=== PATIENT | female | born 2005 | race Caucasian/White ===

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

== ENCOUNTER → 2024-05-24 | Outpatient (CLI) | payer OTHER, SELFPAY ==
[2024-05-24 12:29] LABS: ALB/GLOB Ratio 1.2 RATIO (0.9-2.4); AST(SGOT) 23 U/L (15-37); Alanine Aminotransfer ALT/SGPT 50 U/L (13-56); Albumin, Serum 3.8 g/dL (3.2-5.0); Alkaline Phosphatase 72 U/L (45-117); Anion Gap 7 (5-15); BUN 16 mg/dL (7-18); BUN/Creat Ratio 18.1 RATIO (10-20); Calcium,Total 9.5 mg/dL (8.5-10.1); Chloride 108 mmol/L (98-107); Creatinine, Serum 0.88 mg/dL (0.55-1.02); EST Glomerular Filtration Rate 86 mL/min (>60); Est Glom Filt Rate - Afr Amer 105 mL/min (>60); Globulin 3.3 g/dL (2.2-4.2); Glucose 78 mg/dL (74-106); PTHIN 32.5 pg/mL (18.4-80.1); Potassium 4.2 mmol/L (3.5-5.1); Protein, Total 7.1 g/dL (6.4-8.2); Sodium Level 138 mmol/L (136-145)
== END | disposition home or self-care (01) ==
LOC: BIMLAB 09:22
PROVIDERS: PCP Pediatrics; Referring Provider Urology; Visit Provider Urology
DX: N20.0 Calculus of kidney (principal)
CPT/HCPCS: 36415; 80053; 83970

== ENCOUNTER → 2024-06-11 | Outpatient (CLI) | payer OTHER, SELFPAY ==
[2024-06-11 09:32] LABS: Erythrocyte Sedimentation Rate 1 mm/hr (0-30)
[2024-06-11 09:34] LABS: Absolute Neutrophil Count 3.1 X10^3/uL (2.0-7.7); Basophil# 0.04 X10^3/uL; Basophil% 0.7 % (0-1); Eosinophils% 1.8 % (0-5); Hematocrit 38.4 % (37-47); Hemoglobin 13.2 g/dL (12.0-15.0); Lymphocyte % 35.5 % (19-41); Mean Corp Hgb Conc 34.4 g/dL (32-36); Mean Corpuscular Hgb 29.3 pg (27.0-32.0); Mean Corpuscular Volume 85.3 fL (81-99); Mean Platelet Vol. 8.5 fl (6.2-12.0); Monocyte% 7.1 % (0-10); NRBC Flagged by Analyzer 0 % (0-5); Neutrophil # 3.08 X10^3/uL (2.7-7.7); Neutrophil % 54.5 % (47-70); Platelet Count 286 K/mm3 (150-450); RBC Distribution Width CV 11.3 % (11.6-14.6); RBC Distribution Width SD 34.9 fl (35.1-43.9); White Blood Count 5.6 K/mm3 (4.4-11.0)
[2024-06-11 10:07] LABS: ALB/GLOB Ratio 1.2 RATIO (0.9-2.4); AST(SGOT) 19 U/L (15-37); Alanine Aminotransfer ALT/SGPT 39 U/L (13-56); Albumin, Serum 3.7 g/dL (3.2-5.0); Alkaline Phosphatase 64 U/L (45-117); Anion Gap 3 (5-15); BUN 12 mg/dL (7-18); BUN/Creat Ratio 14.5 RATIO (10-20); CRP < 2.90 mg/L (0.0-3.0); Calcium,Total 8.9 mg/dL (8.5-10.1); Chloride 108 mmol/L (98-107); Creatinine, Serum 0.83 mg/dL (0.55-1.02); EST Glomerular Filtration Rate 93 mL/min (>60); Est Glom Filt Rate - Afr Amer 112 mL/min (>60); Globulin 3.2 g/dL (2.2-4.2); Glucose 85 mg/dL (74-106); Potassium 4.2 mmol/L (3.5-5.1); Protein, Total 6.9 g/dL (6.4-8.2); Sodium Level 139 mmol/L (136-145)
[2024-06-14 11:08] LABS: Anti-Centromere B Ab 4.5 AI (0.0-0.9); Anti-Chromatin 0.2 AI (0.0-0.9); Anti-Jo <0.2 AI (0.0-0.9); Anti-Scleroderma-70 AB 0.7 AI (0.0-0.9); Anti-dsDNA Ab 1 IU/mL (0-9); Beef <0.10 kU/L (Class 0); Chocolate <0.10 kU/L (Class 0); Codfish <0.10 kU/L (Class 0); Corn 0.13 kU/L (Class 0/I); Egg, Whole 0.22 kU/L (Class 0/I); Milk (Cow) 0.28 kU/L (Class 0/I); Mussels <0.10 kU/L (Class 0); Peanut 0.13 kU/L (Class 0/I); Pork <0.10 kU/L (Class 0); RNP Ab 1.9 AI (0.0-0.9); SJOGREN'S Anti-SS-A test < 0.2 AI (0.0-0.9); SJOGREN'S Anti-SS-B test < 0.2 AI (0.0-0.9); Salmon <0.10 kU/L (Class 0); Shrimp <0.10 kU/L (Class 0); Smith Ab <0.2 AI (0.0-0.9); Soybean <0.10 kU/L (Class 0); Tuna <0.10 kU/L (Class 0); Wheat 0.12 kU/L (Class 0/I)
[2024-06-14 15:07] LABS: ACCA 9 units (0-90); ALCA 29 units (0-60); AMCA 35 units (0-100); Albumin 3.6 g/dL (2.9-4.4); Alpha-1-Globulins 0.2 g/dL (0.0-0.4); Alpha-2-Globulins 0.6 g/dL (0.4-1.0); Cytoplasmic Ab (C-ANCA) <1:20 titer (Neg:<1:20); Endomysial Antibody IgA Positive (Negative); Gamma Globulin 0.9 g/dL (0.4-1.8); Immunoglobulin A 184 mg/dL (87-352); Immunoglobulin E 69 IU/mL (6-495); Immunoglobulin G 905 mg/dL (586-1602); Immunoglobulin M 89 mg/dL (26-217); PROEL- TOTAL PROTEIN 6.3 g/dL (6.0-8.5); Perinuclear Ab (P-ANCA) <1:20 titer (Neg:<1:20); gASCA 10 units (0-50); t-Transglutaminase IgA 37 U/mL (0-3)
== END | disposition home or self-care (01) ==
PROVIDERS: PCP Pediatrics; Referring Provider Student in an Organized Health Care Education/Training Program; Visit Provider Student in an Organized Health Care Education/Training Program
DX: R14.0 Abdominal distension (gaseous) (principal)
CPT/HCPCS: 36415; 80053; 82784; 82785; 83516; 84165; 85025; 85652; 86003; 86005; 86036; 86037; 86140; 86225; 86235; 86255; 86334; 86671

== ENCOUNTER → 2024-08-05 | Outpatient (CLI) | payer OTHER, SELFPAY ==
--- NOTE | 2024-08-05 10:27 | NM_ITS ---
PROCEDURE: GASTRIC EMPTYING STUDY REASON FOR EXAM: Vomiting. History of celiac disease. TECHNIQUE: 1 mCi of technetium sulfur colloid and oatmeal was ingested by the patient. Gastric emptying study was performed. RADIOPHARMACEUTICAL: 1.1 mCi of technetium labeled sulfur colloid. COMPARISON: None. FINDINGS: At 1 hour, 56% of the radiopharmaceutical exited the stomach. This is a normal study. NM/Gastric Emptying Study IMPRESSION: Normal gastric emptying study. Reading Location: [id number]
== END | disposition home or self-care (01) ==
PROVIDERS: PCP Pediatrics; Referring Provider Student in an Organized Health Care Education/Training Program; Visit Provider Student in an Organized Health Care Education/Training Program
DX: R14.0 Abdominal distension (gaseous) (principal)
CPT/HCPCS: 78264; A9541

== ENCOUNTER 2024-09-05 08:17 | Day surgery (SDC) | payer OTHER, SELFPAY ==
[2024-09-05] VITALS (8 sets, daily range): BP systolic 99–120; BP diastolic 57–90; PULSE 72–89; RESP 16–18; TEMP 36.1–36.6; O2SAT 93–100; BMI 24.1
[2024-09-05 08:45] LABS: Internal QC Validated? YES +Cl - CLEAR BKGD; Pregnancy, Urine Negative Negative
--- NOTE | 2024-09-05 09:10 | PRE.ANES_ITS ---
ASA Classification* ASA Classification ASA Classification: 2 Assessment & Plan Anesthesia* Anesthesia Assessment Anesthesia Assessment: Discussed sedation and/or anesthesia options, risks, benefits, and alternatives with patient/parents/legal guardian/POA. Questions invited. The patient/parents/legal guardian/POA seems to understand and agrees to proceed with anesthesia plan. Reviewed the physical assessment, medical history, allergy history and patient home medications list prior to surgery/procedure/anesthetic and documented any changes. Performed airway and anesthesia risk assessments. Anesthesia Type Anesthesia Type: MAC History Source History Obtained from:: Patient and Chart Anesthesia Focused Assessment* Temperature: 97.8 F Pulse Rate: 75 Blood Pressure: 101/65 Respiratory Rate: 18 Pulse Ox: 100 Oxygen Delivery Method: Room Air Airway Assessment Mouth opens: >3 cm Mallampati Score: I Teeth Condition: Intact Neck Range of motion (ROM): Full ROM Focused Labs Anesthesia Preop lab: CBC WBC 5.6 K/mm3 (4.4-11.0) 06/11/24 09:02 06/11/24 RBC 4.50 M/mm3 (4.2-5.4) 06/11/24 09:02 06/11/24 Hgb 13.2 g/dL (12.0-15.0) 06/11/24 09:02 06/11/24 Hct 38.4 % (37-47) 06/11/24 09:02 06/11/24 Plt Count 286 K/mm3 (150-450) 06/11/24 09:02 06/11/24 CHEMISTRY Potassium 4.2 mmol/L (3.5-5.1) 06/11/24 09:02 06/11/24 Sodium 139 mmol/L (136-145) 06/11/24 09:02 06/11/24 BUN 12 mg/dL (7-18) 06/11/24 09:02 06/11/24 Creatinine 0.83 mg/dL (0.55-1.02) 06/11/24 09:02 06/11/24 Glucose 85 mg/dL (74-106) 06/11/24 09:02 06/11/24 TSH 1.44 uIU/mL (0.358-3.74) 11/20/20 10:30 COAG Urine Test Negative Negative 09/05/24 08:26 09/05/24 Pre-Assessment Diagnosis/Proposed Procedure Planned Operative Procedure(s): EGD Anesthesia History Anesthesia History - 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 When Was Last Pacemaker Check QUESTION #4 FULL TEXT: You/Your Family Experience fever (hyperthermia) with Anesthesia Last Oral Intake Last Oral intake: Last Oral Intake NPO since 23:00 09/05/24 08:51 Meds taken in AM with sips of No 09/05/24 08:51 water? Meds patient instructed to take am of surgery PONV PONV - knurling machine tender: PONV - knurling machine tender Female Yes 09/02/24 16:32 HX of Motion Sickness Yes 09/02/24 16:32 HX of N/V After Surgery No 09/02/24 16:32 Non-Smoker Yes 09/02/24 16:32 Duration of Surgery greater No 09/02/24 16:32 than 60 minutes Number of Risk Factors 3 09/02/24 16:32 PONV Score Moderate Risk 09/02/24 16:32 Height & Weight Height & Weight: Anesthesia: Height & Weight Height 5 ft 1 in 09/05/24 08:51 Weight: 58 kg 09/05/24 08:51 Body Mass Index (BMI) 24.1 09/05/24 08:51 Respiratory Assessment Respiratory Assessment - knurling machine tender: Respiratory Tract Infection Hx - knurling machine tender Hx Respiratory Tract Infection No 09/02/24 16:32 STOP Sleep Apnea STOP Sleep Apnea - knurling machine tender: STOP Sleep Apnea - knurling machine tender Hx Hypertension No 09/02/24 16:32 Hx Sleep Apnea No 09/02/24 16:32 CPAP BIPAP Do you snore loudly (louder No 09/02/24 16:32 than talking or can be heard Do you often feel tired/ No 09/02/24 16:32 fatigued/ sleepy during daytime? Has anyone observed you stop No 09/02/24 16:32 breathing during sleep? STOP Results Negative 09/02/24 16:32 QUESTION #5 FULL TEXT : Do you snore loudly (louder than talking or can be heard through closed doors)? 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 Specify any problems Hx of Preganancy in last 3 No 09/02/24 16:32 Months Nurse Filling Out Transfusion MGRIFFITH 09/02/24 16:32 & Questions: Date: 09/02/24 09/02/24 16:32 Time: 16:36 09/02/24 16:32 Patient unable to answer at this time (ie. confused, unrespo /Reproduction History /Reproductive History - knurling machine tender: /Reproductive Hx- knurling machine tender Hx Now No 09/02/24 16:32 Gestational Age (in weeks): EDC: Hx Hx Para Hx Section SAB No 09/02/24 16:32 PFSH Medical History ADHD Alcohol use Depression Marijuana use History of kidney stones Low iron Easy bruising Syncope Dietary restriction Asthma Celiac disease Home Medications ?Medication ?Instructions ?Recorded ?Last Taken ?Type dextroamphetamine-amphetamine 15 15 mg PO DAILY Unknown History mg tablet (Adderall) ascorbate calcium (vitamin C) 500 500 mg PO QDAY PRN K IDNEY STONES 05/22/24 Unknown History mg tablet cranberry 500 mg capsule 500 mg PO BID PRN KIDNEY STO PIERCE 05/22/24 Unknown History dextroamphetamine-amphetamine ER 1 cap PO DAILY 09/04/24 08:00 History 20 mg 24hr capsule,extend release potassium citrate 10 mEq (1,080 10 meq PO TIDCM Unknown History mg) tablet,extended release Allergy/AdvReac Type Severity Reaction Status Date / Time amoxicillin Allergy Severe unknown Verified 09/05/24 08:50 Family History Grandfather Squamous cell carcinoma Diabetes Heart disease Aunt Breast cancer Uncle Leukemia Grandmother Diabetes Surgical History S/P tonsillectomy S/P wisdom tooth extraction Social History current occupational status: employed current occupation: [employer] Smoking Status: Never smoker alcohol intake: never substance use type: does not use caffeine: Yes what type of physical activity do you participate in: running and weight training frequency: 5-6 times per week seatbelt use: always do you feel safe at home: Yes additional social history: Single Review of Systems (Anesthesia) ROS Narrative System reviewed and no additional complaints, except as documented.
--- NOTE | 2024-09-05 09:15 | EGD_PTH ---
PATIENT: BINA LA LOC: [facility] U#:[id number] AGE/SX: 19/F ROOM: RE09/05/[address]: Dr. Kushal Hagen DO : 2005 BED: DIS: 09/05/2024 SPEC #: [id number] RECD: 09/05/24 11:13 STATUS: VIVI REJoe #: [id number] GODWIN: 09/05/24 09:[address]: Kushal Hagen DEPT: SURGICAL PATHOLOGY RECD BY: Nixon Bates ENTERED: 09/05/24 11:13 SP TYPE: EGD BIOPSY OT DR: Dr. Nicky Mclaughlin MD Tissues: B - Gastric mucous membrane A - Duodenum, NOS C - Esophagus, NOS Procedures: Immunohistochemical Stains Special Stain Group I Surgery Specimen Level IV GMS Stain (control) HEADER OPERATION: EGD with biopsy PRE-OP DIAGNOSIS: Celiac disease, centromere antibody positive TISSUE SUBMITTED: A- Duodenum biopsy, B- Gastric body biopsy, C- Random esophagus biopsy MICROSCOPIC DIAGNOSIS A. Duodenum, Celiac Disease, Biopsy: - Patchy mild villous blunting, mildly increased intraepithelial lymphocytes - see note. - Jona gland hyperplasia and focal gastric mucin cell metaplasia, suggestive of peptic injury. Note: This pattern of injury is etiologically nonspecific and the differential diagnosis includes sensitivity to gluten and non-gluten proteins, small intestinal bacterial overgrowth, stasis related changes, infection, protein calorie malnutrition, tropical sprue, and medication injury (NSAIDs, Olmesartan / Benicar, Mycophenolic acid, Idelalisib, for example). If celiac disease is a clinical concern, additional clinical studies, such as tTG-IgA, are recommended. B. Stomach, Body, Biopsy: - Oxyntic mucosa with features of reactive gastropathy. - IHC negative for H pylori organisms. C. Esophagus, random, biopsy: - Squamous mucosa with acute inflammation. - PASD stain for fungal organisms is pending and will be reported in an addendum. MICROSCOPIC DESCRIPTION Slides are reviewed. These tests were developed and their performance characteristics determined by [facility]. They may not have been cleared or approved by the U.S. Food and Drug Administration. The FDA has determined that such clearance or approval is not necessary. The above immunohistochemical/dualISH markers are ordered and reviewed by the Pathologist. GROSS DESCRIPTION A. Received in formalin in a container labeled with the patient's name, date of , and biopsy: Duodenum are 2 jacobo-pink fragments of mucosal tissue, each measuring 0.3 x 0.3 x 0.3 cm. Submitted in toto in A1. B. Received in formalin in a container labeled with the patient's name, date of , and biopsy: Gastric body for H. pylori and pathology are 2 jacobo-pink fragments of mucosal tissue measuring 0.3 x 0.3 x 0.3 cm and 0.6 x 0.3 x 0.2 cm. Submitted in toto in B1. C. Received in formalin in a container labeled with the patient's name, date of , and biopsy: Random esophagus are 2 jacobo-pink fragments of mucosal tissue measuring 0.3 x 0.2 x 0.2 cm and 0.4 x 0.2 x 0.2 cm. Submitted in toto in C1. [facility] 09-05-2024 CPT: 47563o5, 62483, 06892 ADDENDUM ADDENDUM ADDENDUM ADDENDUM ADDENDUM ADDENDUM ADDENDUM 09/12/2024 14:26 ADDENDUM 09/12/2024 14:26 ADDENDUM 09/12/2024 14:26 ADDENDUM 09/12/2024 14:26 ADDENDUM 09/12/2024 14:26 This addendum is to report the PASD stain result: C) The PASD stain is POSITIVE FOR FUNGAL ORGANISMS morphologically compatible with Martha sp. Dr Hagen's office was informed of the addendum report 09/12/24.
--- NOTE | 2024-09-05 09:17 | PCM.HP.STD ---
HPI - General General Date of Admission: 09/05/24 Date of Service: 09/05/24 Chief Complaint: bloating HPI Narrative BINA LA, is a 19 F who presents with the Chief Complaint: bloating BGI established 1.7.25 with extreme bloating, hypersomnia and loose stools. Pt has attempted to cut out gluten and dairy with no benefit. 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 Diagnosed with Celiac. Recommended scheduling for EGD. OV 3.4.25 Pt has been avoiding all gluten since her diagnosis of Celiac. SHe has been feeling much better. She has lost about 15 lbs over the past month due to decreased bloating. She feels that her face, hands and abd have decreased in size. She no longer has any loose stools. Since avoiding gluten she has had one known exposure and felt awful after it. She did see her school tip printer which was helpful to her. [facility] Medical History ADHD Alcohol use Depression Marijuana use History of kidney stones Low iron Easy bruising Syncope Dietary restriction Asthma Celiac disease Home Medications ?Medication ?Instructions ?Recorded ?Last Taken ?Type dextroamphetamine-amphetamine 15 15 mg PO DAILY 01/10/22 Unknown History mg tablet (Adderall) ascorbate calcium (vitamin C) 500 500 mg PO QDAY PRN KIDNEY STONES 05/22/24 Unknown History mg tablet cranberry 500 mg capsule 500 mg PO BID PRN KIDNEY STONES 05/22/24 Unknown History dextroamphetamine-amphetamine ER 1 cap PO DAILY 09/02/24 09/04/24 08:00 History 20 mg 24hr capsule,extend release potassium citrate 10 mEq (1,080 10 meq PO TIDCM 09/02/24 Unknown History mg) tablet,extended release Allergy/AdvReac Type Severity Reaction Status Date / Time amoxicillin Allergy Severe unknown Verified 09/05/24 08:50 Family History Grandfather Squamous cell carcinoma Diabetes Heart disease Aunt Breast cancer Uncle Leukemia Grandmother Diabetes Surgical History S/P tonsillectomy S/P wisdom tooth extraction Social History current occupational status: employed current occupation: [employer] Smoking Status: Never smoker alcohol intake: never substance use type: does not use caffeine: Yes what type of physical activity do you participate in: running and weight training frequency: 5-6 times per week seatbelt use: always do you feel safe at home: Yes additional social history: Single ROS Constitutional Constitutional: Denies fatigue, fever(s), poor appetite, weight gain or weight loss Gastrointestinal Gastrointestinal: Denies belching, bloating, change in bowel habits, change in stool character, chewing difficulty, coffee ground emesis, constipation, cramping, diarrhea, dyspepsia, dysphagia, early satiety, excessive flatus, fecal incontinence, heartburn, hematemesis, hematochezia, hemorrhoids, loose stools, melena, nausea, odynophagia, rectal bleeding, tenesmus, vomiting or weight changes Vital Signs Vital Signs Vital Signs: 09/05/24 08:51 09/05/24 08:51 09/05/24 09:15 Temperature 97.8 F 97.8 F Temperature Source Temporal Pulse Rate 75 75 Respiratory Rate 18 18 Respiratory Pattern Normal Blood Pressure 101/65 101/65 Blood Pressure Mean 77 Blood Pressure Source Monitor Blood Pressure Position Sitting Blood Pressure Location Left Arm Pulse Ox 100 100 Oxygen Delivery Method Room Air Room Air Weight Weight: 127 lb 13.89 oz Body Mass Index (BMI) 24.1 Physical Exam Const alert, oriented x3, no apparent distress and healthy appearing General Appearance: cooperative GI normal to inspection, nondistended, normoactive bowel sounds, soft to palpation, non-tender and non-distended Percussion: normal to percussion Rectal Exam: deferred Results Lab / Micro Data Labs: Laboratory Results - last 24 hr 09/05/24 08:26: Urine Test Negative Assessment & Plan Assessment/Plan (1) Celiac disease: (2) Centromere antibody positive: PLAN: Plan Assessment and Plan Assessment and Plan (1) Celiac disease: Status: Acute Plan: This is a 19 yo female pt who initially presented to [facility] for abd bloating in Jun 2024. I ordered biochemical work up which revealed positive antibodies for celiac disease as well as class 0/1 food allergies. Pt has been avoiding all gluten since she was notified of her diagnosis and is feeling much better. She no longer has bloating, acne, hair loss, hypersomnia or fatigue. She is currently scheduled for EGD to assess her upper GI tract and for biopsy of her duodenum. 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 She will f/u after procedure. -Continue gluten free diet -EGD -F/u after procedure -
--- NOTE | 2024-09-05 09:53 | PCM.POST.ANE ---
Anesthesia: Postop Eval I Current Vital Signs Temperature: 97 F Pulse Rate: 88 Blood Pressure: 106/65 Respiratory Rate: 16 Pulse Ox: 99 Oxygen Delivery Method: Room Air Assessment Airway patent: Yes Spontaneous unlabored respirations: Yes Mental status: Awake and Calm nausea: No Vomiting: No Anesthesia Complication: No Fluid Hydration Crystalloid volume administer (ml): 30 Total IV fluid infused: 30 Progress Note Anesthesia document: Postop Eval 1 completed: Yes
--- NOTE | 2024-09-05 09:56 | OP.CCLET_ITS ---
09/05/2024 Nicky Mclaughlin Re : Upper GI endoscopy procedure for Na Campos Dear Arnoldo This procedure was performed on September. My impressions and recommendations are as follows: Impressions : - Esophageal plaques were found, suspicious for candidiasis. - No gross lesions in the entire stomach. Biopsied. - Erythematous duodenopathy. Biopsied. - Biopsies were taken with a cold forceps for evaluation of eosinophilic esophagitis. Recommendations : - Discharge patient to home. - Resume previous diet. - Continue present medications. - Await pathology results. My findings are described in the full procedure note, which is enclosed. If I can be of further assistance, please feel free to contact me at . Sincerely, Kushal Hagen, 09/05/2024 9:55:22 AM This report has been signed electronically.
--- NOTE | 2024-09-05 09:56 | OP.EGD_ITS ---
Patient Name: Na Campos Procedure Date: 09/05/2024 9:22 AM Date of : 2005 Age: 19 Procedure: Upper GI endoscopy Indications: Functional Dyspepsia Providers: Kushla Hagen DO Referring MD: Nicky Mclaughlin Medicines: Monitored Anesthesia Care Patient Profile: This is a 19 year old female. Refer to note in patient chart for documentation of history and physical. Patient has symptoms of chronic abdominal cramping, chronic dyspepsia and chronic nausea. Complications: No immediate complications. Procedure: Pre-Anesthesia Assessment: - Prior to the procedure, a History and Physical was performed, and patient medications and allergies were reviewed. The patient is competent. The risks and benefits of the procedure and the sedation options and risks were discussed with the patient. All questions were answered and informed consent was obtained. Patient identification and proposed procedure were verified by the physician in the pre-procedure area. Mental Status Examination: alert and oriented. Airway Examination: normal oropharyngeal airway and neck mobility. Respiratory Examination: clear to auscultation. CV Examination: normal. Prophylactic Antibiotics: The patient does not require prophylactic antibiotics. Prior Anticoagulants: The patient has taken no anticoagulant or antiplatelet agents. ASA Grade Assessment: II - A patient with mild systemic disease. After reviewing the risks and benefits, the patient was deemed in satisfactory condition to undergo the procedure. The anesthesia plan was to use monitored anesthesia care (MAC). Immediately prior to administration of medications, the patient was re-assessed for adequacy to receive sedatives. The heart rate, respiratory rate, oxygen saturations, blood pressure, adequacy of pulmonary ventilation, and response to care were monitored throughout the procedure. The physical status of the patient was re-assessed after the procedure. After obtaining informed consent, the endoscope was passed under direct vision. Throughout the procedure, the patient's blood pressure, pulse, and oxygen saturations were monitored continuously. The Endoscope was introduced through the mouth, and advanced to the third part of the duodenum. Small bowel enteroscopy was deemed necessary. The upper GI endoscopy was accomplished without difficulty. The patient tolerated the procedure well. Scope In: 9:38:15 AM Scope Out: 9:44:23 AM Total Procedure Duration Time 0 hours 6 minutes 8 seconds Findings: Patchy, white plaques were found in the upper third of the esophagus and in the middle third of the esophagus. Biopsies were obtained from the proximal and distal esophagus with cold forceps for histology of suspected eosinophilic esophagitis. Estimated blood loss was minimal. No gross lesions were noted in the entire examined stomach. Biopsies were taken with a cold forceps for histology. Verification of patient identification for the specimen was done. Estimated blood loss was minimal. Biopsies were taken with a cold forceps for Helicobacter pylori testing. Verification of patient identification for the specimen was done. Estimated blood loss was minimal. Patchy mildly erythematous mucosa without active bleeding and with no stigmata of bleeding was found in the duodenal bulb and in the first portion of the duodenum. Biopsies for histology were taken with a cold forceps for evaluation of celiac disease. Verification of patient identification for the specimen was done. Estimated blood loss was minimal. Impression: - Esophageal plaques were found, suspicious for candidiasis. - No gross lesions in the entire stomach. Biopsied. - Erythematous duodenopathy. Biopsied. - Biopsies were taken with a cold forceps for evaluation of eosinophilic esophagitis. Recommendation: - Discharge patient to home. - Resume previous diet. - Continue present medications. - Await pathology results. Procedure Code(s): --- Professional --- 67870, Small intestinal endoscopy, enteroscopy beyond second portion of duodenum, not including ileum; with biopsy, single or multiple CPT copyright 2021 [employer]. All rights reserved. The codes documented in this report are preliminary and upon pulmonologist intensivist review may be revised to meet current compliance requirements. Kushal Hagen DO 09/05/2024 9:55:22 AM This report has been signed electronically. Number of Addenda: 0 Note Initiated On: 09/05/2024 9:22 AM
--- NOTE | 2024-09-05 10:53 | PCM.POSTANE2 ---
Anesthesia Postop Eval I Sum Postop Eval Completion status Anesthesia document: Postop Eval 1 completed: Yes Anesthesia Postop Eval I Summary Anesthesia Postop Eval I Summary: Anesthesia Postop Eval I: Assessment Summary Airway patent Yes 09/05/24 09:54 [email or web address] Spontaneous unlabored Yes 09/05/24 09:54 [email or web address] respirations Mental status Awake,Calm 09/05/24 09:54 [email or web address] nausea No 09/05/24 09:54 [email or web address] Vomiting No 09/05/24 09:54 [email or web address] Anesthesia Postop Eval I: Fluid Summary Crystalloid volume administer 30 09/05/24 09:54 [email or web address] (ml) Colloids volume administered ( ml) Blood Product volume administered (ml) Total IV fluid infused 30 09/05/24 09:54 [email or web address] Anesthesia Postop Eval I: Summary Notes Anesthesia Complication No 09/05/24 09:54 [email or web address] Anesthesia Complication Comment: Post-operative progress note Anesthesia: Postop Eval II Evaluation Mental status: Awake Pain Level: 0 nausea: No Vomiting: No Complications Anesthesia Complication: No
== END 2024-09-05 10:45 | disposition home or self-care (01) ==
LOC: EN 08:17 → AC 08:20
PROVIDERS: Anesthesiology; PCP Pediatrics; Referring Provider Pediatrics; Visit Provider Internal Medicine Gastroenterology
PROC: 0DJ08ZZ Inspection of Upper Intestinal Tract, Via Natural or Artificial Opening Endoscopic (ICD-10-PCS; CPT 43235; principal; 2024-09-05 09:10)
DX: K20.90 Esophagitis, unspecified without bleeding (principal); K90.0 Celiac disease; R19.7 Diarrhea, unspecified; F90.9 Attention-deficit hyperactivity disorder, unspecified type; R14.0 Abdominal distension (gaseous); G47.10 Hypersomnia, unspecified; K30 Functional dyspepsia; Z79.899 Other long term (current) drug therapy
CPT/HCPCS: 44361; 81025; 88305; 88312; 88342; A4216; J2405

== ENCOUNTER → 2024-10-31 | Outpatient (CLI) | payer OTHER, SELFPAY ==
[2024-11-01 16:09] LABS: Endomysial Antibody IgA Positive (Negative); Immunoglobulin A 167 mg/dL (87-352); t-Transglutaminase IgA 6 U/mL (0-3)
== END | disposition home or self-care (01) ==
LOC: LAB 09:42
PROVIDERS: PCP Internal Medicine; Referring Provider Student in an Organized Health Care Education/Training Program; Visit Provider Student in an Organized Health Care Education/Training Program
DX: R14.0 Abdominal distension (gaseous) (principal)
CPT/HCPCS: 36415; 82784; 83516; 86255

== ENCOUNTER → 2024-11-15 | Outpatient (CLI) | payer OTHER, SELFPAY ==
--- NOTE | 2024-11-15 13:56 | CT_ITS ---
PROCEDURE: ABDOMEN/PELVIS WITH CONTRAST 11/15/2024 REASON FOR EXAM: ABDOMINAL DISTENTION TECHNIQUE: ABDOMEN/PELVIS WITH CONTRAST. Coronal and Sagittal reconstruction series were provided. ORAL CONTRAST TYPE: None. CONTRAST: Isovue-[id number] VOLUME: 100 mL One or more dose reduction techniques were used (e.g., Automated exposure control, adjustment of the mA and/or kV according to patient size, use of iterative reconstruction technique. RADIATION DOSE SUMMARY: CTDlvol: 5.88 mGy DLP: 283 mGycm COMPARISON: None. FINDINGS: Diffuse thickening of the stomach suggestive of gastritis. Mild amount of free fluid in the pelvic cul-de-sac, probably physiologic. The visualized lung bases are unremarkable. Normal liver. Normal gallbladder and extrahepatic biliary system. Normal spleen. Normal pancreas. Normal bilateral adrenal glands. Normal size of the right kidney. There is no right renal mass. There are no right renal calculi. There is no right hydronephrosis. Normal visualized right ureter. Normal size of the left kidney. There is no left renal mass. There are no left renal calculi. There is no left hydronephrosis. Normal visualized left ureter. Normal small intestine. Normal colon. The appendix is visualized and appears normal. Normal abdominal aorta. Normal inferior vena cava. Normal retroperitoneum. Normal urinary bladder. There is no pelvic mass lesion or lymphadenopathy. Normal abdominal wall. Normal osseous structures. CT/Abdomen/Pelvis WITH Contrast IMPRESSION: Diffuse thickening of the stomach suggestive of gastritis. Mild amount of free fluid in the pelvic cul-de-sac, probably physiologic. Reading Location: [facility]
== END | disposition home or self-care (01) ==
LOC: CT 13:48
PROVIDERS: PCP Internal Medicine; Referring Provider Student in an Organized Health Care Education/Training Program; Visit Provider Student in an Organized Health Care Education/Training Program
DX: R14.0 Abdominal distension (gaseous) (principal)
CPT/HCPCS: 74177; Q9967

== ENCOUNTER → 2024-11-26 | Outpatient (CLI) | payer OTHER, SELFPAY | END | disposition home or self-care (01) | LOC: LABSPEC 16:21 | PROVIDERS: PCP Internal Medicine; Referring Provider Nurse Practitioner Women's Health; Visit Provider Nurse Practitioner Women's Health | DX: Z11.3 Encounter for screening for infections with a predominantly sexual mode of transmission (principal) | CPT/HCPCS: 87491; 87591 ==

== ENCOUNTER 2024-12-30 07:23 | Day surgery (SDC) | payer OTHER, SELFPAY ==
[2024-12-30] VITALS (7 sets, daily range): BP systolic 93–101; BP diastolic 53–59; PULSE 54–77; RESP 16; TEMP 36.2–36.5; O2SAT 100; BMI 24.1
--- NOTE | 2024-12-30 07:33 | PRE.ANES_ITS ---
ASA Classification* ASA Classification ASA Classification: 2 Assessment & Plan Anesthesia* Anesthesia Assessment Anesthesia Assessment: Discussed sedation and/or anesthesia options, risks, benefits, and alternatives with patient/parents/legal guardian/POA. Questions invited. The patient/parents/legal guardian/POA seems to understand and agrees to proceed with anesthesia plan. Reviewed the physical assessment, medical history, allergy history and patient home medications list prior to surgery/procedure/anesthetic and documented any changes. Performed airway and anesthesia risk assessments. Anesthesia Type Anesthesia Type: MAC Anesthesia Focused Assessment* Airway Assessment Mouth opens: >3 cm Mallampati Score: II Labs Anesthesia Preop lab: CBC WBC 5.6 K/mm3 (4.4-11.0) 06/11/24 09:02 06/11/24 RBC 4.50 M/mm3 (4.2-5.4) 06/11/24 09:02 06/11/24 Hgb 13.2 g/dL (12.0-15.0) 06/11/24 09:02 06/11/24 Hct 38.4 % (37-47) 06/11/24 09:02 06/11/24 Plt Count 286 K/mm3 (150-450) 06/11/24 09:02 06/11/24 CHEMISTRY Potassium 4.2 mmol/L (3.5-5.1) 06/11/24 09:02 06/11/24 Sodium 139 mmol/L (136-145) 06/11/24 09:02 06/11/24 BUN 12 mg/dL (7-18) 06/11/24 09:02 06/11/24 Creatinine 0.83 mg/dL (0.55-1.02) 06/11/24 09:02 06/11/24 Glucose 85 mg/dL (74-106) 06/11/24 09:02 06/11/24 TSH 1.44 uIU/mL (0.358-3.74) 11/20/20 10:30 COAG Urine Test Negative Negative 09/05/24 08:26 09/05/24 Pre-Assessment Diagnosis/Proposed Procedure Planned Operative Procedure(s): colonoscopy Anesthesia History Anesthesia History - type proof reproducer: Anesthesia History - type proof reproducer Hx Hospitalization Yes: 04/28-KIDNEY STONE 12/24/24 15:52 Any Problems With Anesthesia No 12/24/24 15:52 Cholinesterase deficiency No 12/24/24 15:52 You/Your Family Experience No 12/24/24 15:52 fever (hyperthermia) with Relationship Recent Exposure to Contagious No 09/05/24 08:51 Disease Does patient have nerve No 12/24/24 15:52 stimulator Patient instructed to have device shut off --Does patient have Pacemaker or ICD? When Was Last Pacemaker Check QUESTION #4 FULL TEXT: You/Your Family Experience fever (hyperthermia) with Anesthesia Last Oral Intake Last Oral intake: Last Oral Intake NPO since Meds taken in AM with sips of water? Meds patient instructed to take am of surgery PONV PONV - type proof reproducer: PONV - type proof reproducer Female Yes 12/24/24 15:52 HX of Motion Sickness No 12/24/24 15:52 HX of N/V After Surgery No 12/24/24 15:52 Non-Smoker Yes 12/24/24 15:52 Duration of Surgery greater No 12/24/24 15:52 than 60 minutes Number of Risk Factors 2 12/24/24 15:52 PONV Score Moderate Risk 12/24/24 15:52 Height & Weight Height & Weight: Anesthesia: Height & Weight Height 5 ft 1 in 11/29/24 13:51 Respiratory Assessment Respiratory Assessment - type proof reproducer: Respiratory Tract Infection Hx - type proof reproducer Hx Respiratory Tract Infection No 12/24/24 15:52 STOP Sleep Apnea STOP Sleep Apnea - type proof reproducer: STOP Sleep Apnea - type proof reproducer Hx Hypertension No 12/24/24 15:52 Hx Sleep Apnea No 12/24/24 15:52 CPAP BIPAP Do you snore loudly (louder No 12/24/24 15:52 than talking or can be heard Do you often feel tired/ No 12/24/24 15:52 fatigued/ sleepy during daytime? Has anyone observed you stop No 12/24/24 15:52 breathing during sleep? STOP Results Negative 12/24/24 15:52 QUESTION #5 FULL TEXT : Do you snore loudly (louder than talking or can be heard through closed doors)? 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 Specify any problems Hx of Preganancy in last 3 No 12/24/24 15:52 Months Nurse Filling Out Transfusion [email or web address] 12/24/24 15:52 & Questions: Date: 12/24/24 12/24/24 15:52 Time: 15:54 12/24/24 15:52 Patient unable to answer at this time (ie. confused, unrespo /Reproduction History /Reproductive History - type proof reproducer: /Reproductive Hx- type proof reproducer Hx Now No 12/24/24 15:52 Gestational Age (in weeks): EDC: Hx Hx Para Hx Section SAB No 12/24/24 15:52 Active Medications Active Medications: Current Medications Generic Name Dose Route Start Last Admin Trade Name Freq PRN Reason Stop Dose Admin Lactated Ringer's 1,000 mls @ 15 mls/hr 12/30/24 07:30 IV .Q48H MARIBEL PFSH Medical History Gastric reflux Encounter to establish care ADHD Alcohol use Depression Marijuana use History of kidney stones Low iron Easy bruising Syncope Dietary restriction Asthma Celiac disease Home Medications ?Medication ?Instructions ?Recorded ?Last Taken ?Type ascorbate calcium (vitamin C) 500 500 mg PO QDAY PRN K IDNEY STONES 05/22/24 Unknown History mg tablet cranberry 500 mg capsule 500 mg PO BID PRN KIDNEY STO PIERCE 05/22/24 Unknown History potassium citrate 10 mEq (1,080 10 meq PO TIDCM Unknown History mg) tablet,extended release adapalene 0.3 %-benzoyl peroxide 1 applic topical QHS 10/10/24 Unknown History 2.5 % topical gel with pump clindamycin phosphate 1 % lotion 1 applic topical BID PRN PRN 10/10/24 Unknown History metronidazole 0.75 % topical gel 1 applic topical PRN ACNE 10/10/24 Unknown History dextroamphetamine-amphetamine ER 20 mg PO QAM 30 days #30 caps 11/29/24 Unknown Rx 20 mg 24hr capsule,extend release (Adderall XR) cholecalciferol (vitamin D3) 25 25 mcg PO DAILY Unknown History mcg (1,000 unit) capsule (Vitamin D3) Allergy/AdvReac Type Severity Reaction Status Date / Time amoxicillin Allergy Severe unknown Verified 12/24/24 15:48 barley Allergy GI DAMAGE Verified 12/24/24 15:48 gluten Allergy GI DAMAGE Verified 12/24/24 15:48 rye grass Allergy GI DAMAGE Verified 12/24/24 15:48 wheat Allergy GI DAMAGE Verified 12/24/24 15:48 egg (eggs) AdvReac Diarrhea Verified 12/24/24 15:48 milk (dairy) AdvReac Diarrhea Verified 12/24/24 15:48 Family History Grandfather Squamous cell carcinoma Diabetes Heart disease Aunt Breast cancer Uncle Leukemia Grandmother Diabetes Surgical History H/O endoscopy S/P tonsillectomy S/P wisdom tooth extraction Social History current occupational status: employed current occupation: [employer] Smoking Status: Never smoker alcohol intake: never substance use type: does not use caffeine: Yes what type of physical activity do you participate in: running and weight training frequency: 5-6 times per week seatbelt use: always do you feel safe at home: Yes additional social history: Single Review of Systems (Anesthesia) ROS Narrative System reviewed and no additional complaints, except as documented.
[2024-12-30 07:44] LABS: Internal QC Validated? YES +Cl - CLEAR BKGD; Pregnancy, Urine Negative Negative; Record Kit Lot#,Urine Preg 962302
--- OUTSIDE RECORDS SUMMARY | 2024-12-30 07:45 | XMS RPT_ITS | CCD ---
Author Organization [facility] Care Team Providers Care Tire Changer Name Role Phone Nicky Mclaughlin MD Primary Care Provider Dr. Nicky Mclaughlin Primary Care Provider Dr. Nicky Mclaughlin Referring Provider Brigette [employer], KAM Strickland Attending Provider NICKY MCLAUGHLIN Primary Care Physician SAULO DODSON, STALIN Salinas Attending Unavailable MD NICKY MCLAUGHLIN Primary Care Unavailab DOMINIQUE Wright Attending Unavailable MD NICKY MCLAUGHLIN Primary Care Unavailab Nicky Baron MD Primary Care Provider Nicky Mclaughlin MD Primary Care Provider NICKY MCLAUGHLIN Attending Unavailable NICKY MCLAUGHLIN Primary Care Unavailable NICKY MCLAUGHLIN Attending Unavailable NICKY MCLAUGHLIN Primary Care Unavailable Armando Gonzales MD Unavailable Unavailable, Physician Primary Care Unavailab pradeep Lobo Jr., MD, Bartolo Orosco Consulting Isha sabina Tucker MD, Jaskaran Admitting Unavailable Caitlin DODSON, Jaskaran Attending Unavailable Mickey Rajan MD Consulting Unavailable Kori Ernandez DO Attending Ishava wilmar Calvin MD, Ron Mccallum Attending Ishava Eduardo Alfonso MD Unavailable Nicky Mclaughlin MD Primary Care Provider Bayron Suarez MD Primary Care Provider NICKY MCLAUGHLIN Primary Care Unavailable DESIRAE ARANGO Attending Unavailable CONCHITA, DESIRAE M Attending Unavailable SEIFRIED, NICKY A Primary Care Unavailable SEIFRIED, NICKY A Primary Care Unavailable DAIJA, OLIMPIA H Attending Unavailable REFERRED, SELF Referring Unavailable SEIFRIED, NICKY A Primary Care Unavailable DAIJA, OLIMPIA H Attending Unavailable REFERRED, SELF Referring Unavailable SEIFRIED, NICKY A Primary Care Unavailable DESIRAE ARANGO Attending Unavailable REFERRED, SELF Referring Unavailable SEIFRIED, NICKY A Primary Care Unavailable DESIRAE ARANGO Attending Unavailable REFERRED, SELF Referring Unavailable SEIFRIED, NICKY A Primary Care Unavailable DESIRAE ARANGO Attending Unavailable Oleghe, Efewongbe B Primary Care Provider NETHING EDUARDO Attending Unavailable NETHING, EDUARDO Attending Unavailable SEIFRIED, NICKY Referring Unavailable NETHING, EDUARDO Attending Unavailable NETHING, EDUARDO Referring Unavailable NETHING, EDUARDO Attending Unavailable NETHING, EDUARDO Referring Unavailable OLEGHE, EFEWONGBE Primary Care Unavailable Seifried, Nicky Primary Care Unavailable Seifried, Nicky Referring Unavailable Oleghe, Efewongbe Attending Unavailable Oleghe OLS, Efewongbe Primary Care Unavailabl e Galvez, Shanell Attending Unavailable Seifried, Nicky Primary Care Unavailable Seifried, Nicky Referring Unavailable Friend, Kushal Attending Unavailable Friend, Kushal Consulting Unavailable Mary Toledo Attending Unavailable Seifried, Nicky Primary Care Unavailable BrigetteEm Referring Unavailable Oleghe OLS, Efewongbe Referring Unavailabl e Oleghe OLS, Efewongbe Primary Care Unavailabl e Mary [place]edo Attending Unavailable [place] NewtonEm Attending Unavailable Oleghe, Efewongbe Referring Unavailable Oleghe, Efewongbe Primary Care Unavailable Oleghe, Efewongbe Primary Care Unavailable Galvez, Shanell Attending Unavailable Seifried, Nicky Primary Care Unavailable Abel Galvezon Attending Unavailable Mary Toledo Attending Unavailable Mary Toledo Referring Unavailable Oleghe, Efewongbe Primary Care Unavailable Mary Toledo Referring Unavailable Mary Toledo Attending Unavailable Seifried, Nicky Primary Care Unavailable Seifried, Nicky Primary Care Unavailable Nething, Eduardo Referring Unavailable Nething, Eduardo Attending Unavailable Oleghe OLS, Efewongbe Primary Care Unavailabl e Mary Toledo Attending Unavailable Atanasov, Mary Referring Unavailable Brigette, Em Attending Unavailable Oleghe, Efewongbe Primary Care Unavailable Brigette, Em Referring Unavailable Seifried, Nicky Primary Care Unavailable Seifried, Nicky Referring Unavailable Friend, Kushal Attending Unavailable Atanasov, Mary Referring Unavailable Atanasov, Mary Attending Unavailable Seifried, Nicky Primary Care Unavailable Friend, Kushal Attending Unavailable Oleghe, Efewongbe Referring Unavailable Oleghe, Efewongbe Primary Care Unavailable Seifried, Nicky Referring Unavailable Seifried, Nicky Primary Care Unavailable [place], Em Attending Unavailable Seifried, Nicky Primary Care Unavailable Seifried, Nicky Referring Unavailable [place], Em Attending Unavailable Seifried, Nicky Primary Care Unavailable Seifried, Nicky Referring Unavailable Atanasov, Mary Attending Unavailable Allergies Allergy Classification Reported Allergen(s) Allergy Type Date of Onset Reaction(s) Facility (20 sources) Amoxicillin; Translations: [amoxicillin] Drug Allergy [address] [place] [address] Work Phone: (1 source) Penicillin; Translations: [penicillin] Drug Allergy [facility] (1 source) No Known Medication Allergies; Translations: [No Known Medication Allergies] Propensity to adverse reactions to drug (disorder) [facility] Repository (8 sources) Penicillin G Drug Allergy [address] [place] [address] (1 source) Amoxicillin Drug Allergy 5 [facility] Repository (1 source) barley extract Drug Allergy 5 [facility] Repository (1 source) egg extract Drug Allergy 5 [facility] Repository (1 source) Gluten Drug allergy (disorder) 5 [facility] Repository (1 source) Milk Drug allergy (disorder) 5 [facility] Repository (1 source) rye allergenic extract Drug Allergy 5 [facility] Repository (1 source) Wheat preparation Drug Allergy 5 [facility] Repository (1 source) Food Allergies: Uncoded; Translations: [Food Allergies: Uncoded] Food allergy (disorder) [facility] Repository Medications Current Medications Medication Drug Class(es) Dates Sig (Normalized) Sig (Original) adapalene 0.003 mg/mg / benzoyl peroxide 0.025 mg/mg topical gel (8 sources) Retinoid Start: 05-07-2024 Adapalene-Benzoyl Peroxide 0.3-2.5 % gel APPLY A THIN LAYER TO THE FULL FACE ONCE NIGHTLY 05/07/2024 Active [id number] 200 actuat albuterol 0.09 mg/actuat metered dose inhaler (18 sources) beta2-Adrenergic Agonist Start: 10-18-2023 take 2 puff(s) by inhalation every four hours albuterol 108 (90 Base) MCG/ACT inhaler 2 puffs every four hours as needed.May also 15 minutes pre-exercise.Use w/spacer. 10/18/2023 Active Start: 03-07-2022 End: 10-18-2023 take 2 puff(s) by inhalation every four hours albuterol HFA (PROAIR HFA) 90 mcg/actuation inhaler 2 puffs every four hours as needed.May also 15 minutes pre-exercise.Use w/spacer. 18 g 1 10/18/2023 Active Start: 09-01-2020 take 2 puff(s) by in halation every four hours albuterol HFA (PROAIR HFA) 90 mcg/actuation inhaler 2 puffs every four hours as needed.May also 15 minutes pre-exercise.Use w/spacer. 18 g 1 09/01/2020 Active Comment on above: 2 puffs every four h ours as needed.May also 15 minutes pre-exercise.Use w/spacer. Albuterol (Eqv-ProAir HFA) 90 mcg/inh inhalation aerosol (1 source) Start: 05-14-2022 Albuterol (Eqv-ProAir HFA) 90 mcg/inh inhalation aerosol 0 Refill(s) Start Date: 05/14/22 Status: Ordered 24 hr amphetamine aspartate 3.75 mg / amphetamine sulfate 3.75 mg / dextroamphetamine saccharate 3.75 mg / dextroamphetamine sulfate 3.75 mg extended release oral capsule (20 sources) Central Nervous System Stimulant Start: 10-01-2023 dextroamphetamine-am phetamine (ADDERALL) 10 mg tablet Take 10 mg by mouth. 10/01/2023 Active Start: 02-03-2022 End: 05-22-2024 take 1 capsule by mouth once daily in the morning, then take 1 capsule by mouth every twenty-four hours amphetamine-dextroamphetamine XR (Addera ll XR) 15 MG 24 hr capsule Take 15 mg by mouth every morning. 04/22/2024 Active Start: 01-10-2022 take 1 tablet by raymond th once daily Dextroamphetamine-Amphetamine (Adderall) 15 mg tablet Active 15 MG PO DAILY January 10, 2022 12:00am Comment on above: Take 15 mg by mouth. azelaic acid 0.15 mg/mg topical gel (8 sources) Start: 04-24-20 Azelaic Acid 15 % gel as needed. 04/24/2021 Active Control Pill (1 source) Start: 06-01-20 Control Pill Control Pill, 0 Refill(s) Start Date: 06/01/19 Status: Ordered cholecalciferol 0.025 mg oral tablet (8 sources) Vitamin D cholecalciferol (VITAMIN D3) 1,000 unit tab tablet Take 2,000 Units by mouth. Active Comment on above: Take 2,000 Units by mouth. Desogestrel / Ethinyl Estradiol (4 sources) Progestin, Estrogen Start: 12-08-19 24 take 1 tablet by mouth once KARIVA, 28, 0.15-0.02 mgx21 /0.01 mg x 5 per tablet Take 1 tablet by mouth every afternoon. 12/08/2023 Active Start: 12-08-2023 take 1 tablet by mouth once KA ALEJANDRO, 28, 0.15-0.02 mgx21 /0.01 mg x 5 per tablet Take 1 tablet by mouth every afternoon. 0 12/08/2023 Active doxycycline monohydrate 100 mg oral tablet (8 sources) Tetracycline-class Drug Start: 05-06-2024 take 1 tablet by mouth once daily at mealtime doxycycline (Adoxa) 100 MG tablet TAKE ONE TABLET BY MOUTH ONCE A DAY WITH FOOD AND WATER. 05/06/2024 Active ethinyl estradiol 0.02 mg / ferrous fumarate 75 mg / norethindrone 1 mg oral tablet (11 sources) Estrogen Start: 05-14-2022 Fe 1/20 oral tablet 0 Refill(s) Start Date: 05/14/22 Status: Ordered Start: 01-10-2022 Norethindrone- E.Estradiol-Iron ( Fe 06/24 ()) 1 mg-20 mcg (21)/75 mg (7) tablet Active 1 TABLET PO DAILY January 10, 2022 11:14am Start: 01-06-2021 End: 01-10-2022 Norethindrone-E.Estradiol-Ir on ( Fe 06/24 ()) 1 mg-20 mcg (21)/75 mg (7) tablet Discontinued 1 TABLET PO DAILY January 06, 2021 2:30pm January 10, 2022 11:14am Start: 01-06-2021 End: 01-06-2021 Norethindrone-E.Estradiol-Ir on ( Fe 06/24 ()) 1 mg-20 mcg (21)/75 mg (7) tablet Discontinued 1 TABLET PO DAILY January 06, 2021 12:00am January 06, 2021 2:31pm Start: 08-26-2019 End: 12-14-2023 take 1 tablet by mouth once daily, then take 0.05 tablet by mouth once Norethin Cain-Eth Estrad-FE (LOESTRIN FE 1/20) 1 mg-20 mcg (21)/75 mg (7) per tablet Take 1 tablet by mouth once daily. 3 Package 0 08/26/2019 12/14/2023 Discontinued Start: 08-26-2019 take 1 tablet by raymond th once daily, then take 0.05 tablet by mouth once Norethin Cain-Eth Estrad-FE (LOESTRIN FE 1/20) 1 mg-20 mcg (21)/75 mg (7) per tablet Take 1 tablet by mouth once daily. 3 Package 0 08/26/2019 Active Start: 01-20-2018 End: 01-06-2021 Norethindrone-E.Estradiol-Ir on Discontinued PO January 20, 2018 12:00am January 06, 2021 2:11pm Comment on above: Take 1 tablet by raymond th once daily. ferrous sulfate 325 mg oral tablet (1 source) Start: 2021 take 325 mg by mouth once daily Ferrous Sulfate Active 325 MG PO DAILY January 10, 2022 12:00am metroNIDAZOLE 0.0075 mg/mg topical gel (8 sources) Nitroimidazole Antimicrobial Start: 2023 metroNIDAZOLE (Metrogel) 0.75 % gel APPLY A THIN LAYER TO THE FULL FACE TWICE A DAY 05/06/2024 Active minocycline 50 mg oral capsule (2 sources) Tetracycline-class Drug Start: 2021 End: 2022 take 50 mg by mouth once daily Minocycline Active 50 MG PO DAILY January 10, 2022 12:00am multivitamins(CHEWABL E MULTI VITAMIN TAB) (9 sources) Start: 2007 multivitamins(CHEWAB LE MULTI VITAMIN TAB) Take one(1) tablet daily. 0 02/20/2008 Active Comment on above: Take one(1) tablet d aily. pimecrolimus 10 mg/ml topical cream (8 sources) Calcineurin Inhibitor Immunosuppressant Start: 2020 pimecrolimus (ELIDEL) 1 % cream 04/20/2021 Active potassium citrate 10 meq extended release oral tablet (3 sources) Start: 2024 take 1 tablet by mouth three times daily at mealtime potassium citrate CR (Urocit-K-10) 10 mEq ER tablet Take 1 tablet (10 mEq) by mouth 3 times daily (with meals). Do not crush, chew, or split. 270 tablet 3 06/20/2024 Active sertraline 25 mg oral tablet (1 source) Serotonin Reuptake Inhibitor Start: 2018 take 1 dose by mouth once daily Zoloft Dose : 25 mg =, Oral, qDay, 0 Refill(s) Start Date: 06/01/19 Status: Ordered spironolactone 100 mg oral tablet (18 sources) Aldosterone Antagonist Start: 2023 spironolactone (ALDACTONE) 100 mg tablet TAKE ONE TABLET ONCE NIGHTLY WITH A FULL GLASS OF WATER 10/01/2023 Active Start: 05-14-2022 End: 10-18-2023 spironolactone (ALDACTONE) 5 0 mg tablet Take by mouth once daily. 0 05/14/2022 10/18/2023 Discontinued Comment on above: Take by mouth. Completed/Discontinued Medications Medication Drug Class(es) Dates Sig (Normalized) Sig (Original) acetaminophen 325 mg / oxyCODONE hydrochloride 5 mg oral tablet (1 source) Opioid Agonist Start: 10-06-2019 End: 10-09-2019 take 1 tablet by mouth every four hours as needed for pain Percocet 5 mg-325 mg oral tablet Dose = 1 tab(s), Oral, q4h, PRN for pain, # 15 tab(s), 0 Refill(s), Kidney stone, 62.1 Start Date: 10/06/19 Stop Date: 10/09/19 Status: Ordered azithromycin 250 mg oral tablet (3 sources) Macrolide Antimicrobial Start: 07-13-2020 End: 01-06-2021 Azithromycin Discontinued 250 MG PO daily July 13, 2020 1:00am January 06, 2021 2:08pm 2 tablets today, then 1 tablet daily on days 2 through 11 Start: 02-15-2019 End: 07-30-2019 Azithromycin Discontinued 0 PO .COMPLEX February 15, 2019 12:00am July 30, 2019 8:42am take 500 mg today (day 1), then 250 mg for 4 days (days 2-5) PO Start: 01-20-2018 End: 02-01-2018 take 2-5 tablets by mouth once daily Azithromycin (Zithromax Z-Kp) 250 mg tablet Discontinued 0 PO .COMPLEX January 20, 2018 12:00am February 01, 2018 5:32pm take 500 mg today (day 1), then 250 mg for 4 days (days 2-5) PO cefdinir 300 mg oral capsule (1 source) Cephalosporin Antibacterial Start: 10-06-2019 End: 10-13-2019 cefdinir 300 mg oral capsule Dose : 300 mg = 1 cap(s), Oral, q12h, # 14 cap(s), 0 Refill(s), 62.1 Start Date: 10/06/19 Stop Date: 10/13/19 Status: Ordered dexamethasone 1 mg/ml / tobramycin 3 mg/ml ophthalmic suspension (1 source) Aminoglycoside Antibacterial, Corticosteroid Start: 10-31-2021 End: 11-03-2021 take 1 dose into the eye(s) every four hours Tobradex ophthalmic suspension Dose = 2 drop(s), Eyes, both, q4h, # 5 mL, 0 Refill(s), Allergic reaction Start Date: 10/31/21 Stop Date: 11/03/21 Status: Ordered escitalopram 10 mg oral tablet (14 sources) Serotonin Reuptake Inhibitor Start: 10-28-2022 End: 10-18-2023 take 1.5 tablets by mouth once daily, then take 1 tablet by mouth once daily escitalopram oxalate (LEXAPRO) 10 mg tablet TAKE 1.5 TABLETS (15 MG) BY MOUTH DAILY FOR 14 DAYS, THEN 1 TABLET (10 MG) DAILY FOR 30 DAYS. 0 10/28/2022 10/18/2023 Discontinued Start: 05-14-2022 End: 11-09-2022 escitalopram 20 mg oral tabl et 0 Refill(s) Start Date: 05/14/22 Status: Ordered Start: 01-10-2022 take 2 tablets by mo uth once daily Escitalopram Oxalate (Lexapro) 10 mg tablet Active 20 MG PO DAILY January 10, 2022 10:59am 1 1/2 tab Start: 01-06-2021 End: 01-10-2022 take 1 tablet by mouth once daily Escitalopram Oxalate (Lexapro) 10 mg tablet Discontinued 10 MG PO DAILY January 06, 2021 12:00am January 10, 2022 11:01am 1 1/2 tab take 0.5 tablet by m outh once daily escitalopram oxalate (LEXAPRO) 20 mg tablet Take 20 mg by mouth once daily. 12/14/23 per patient, currently weaning off, today's dose 15mg ESCITALOPRAM 10 MG TABLETDispense date:12/05/2023Quantity:15 EachDays supply:15Unit strength:10 mgUnit form:tabletPatient sig:TAKE 1.5 TABS BY MOUTH DAILY FOR 5 DAYS, THEN 1 TAB DAILY FOR 5 DAYS, THEN 0.5 TAB DAILY FOR 5 DAYS. Active Comment on above: Take 20 mg by mouth. TAKE 1.5 TABLETS (15 MG) BY MOUTH DAILY FOR 14 DAYS, THEN 1 TABLET (10 MG) DAILY FOR 30 DAYS. ibuprofen 200 mg oral capsule (1 source) Nonsteroidal Anti-inflammatory Drug Start: 07-15-19 End: 01-21-20 Ibuprofen Discontinued PO July 15, 2017 1:00am January 20, 2018 10:22am melatonin 3 mg oral tablet (1 source) Start: 01-21-20 End: 01-07-20 take 3 mg by mouth at bedtime Melatonin Discontinued 3 MG PO BEDTIME January 20, 2018 12:00am January 06, 2021 2:08pm multivitamin capsule (1 source) Start: 01-21-20 End: 01-07-20 take 1 capsule by mouth once daily in the morning multivitamin capsule Discontinued 1 CAP PO EVERY MORNING January 20, 2018 12:00am January 06, 2021 2:08pm ondansetron 4 mg disintegrating oral tablet (3 sources) Serotonin-3 Receptor Antagonist Start: 11-27-19 take 1 tablet by mouth every eight hours as needed ondansetron orally disintegrating (ZOFRAN ODT) 4 mg disintegrating tablet Take 1 tablet by mouth every 8 hours as needed. 10 tablet 0 11/26/2021 Active Start: 10-06-2019 Zofran 4 mg or al tablet Dose : 4 mg = 1 tab(s), Oral, q4h, PRN Nausea/Vomiting, # 10 tab(s), 0 Refill(s), Kidney stone Start Date: 10/06/19 Status: Ordered Start: 09-11-2019 End: 09-14-2019 ondansetron 4 mg oral tablet , disintegrating Dose : 4 mg = 1 tab(s), Oral, q8h, PRN as needed for nausea/vomiting, # 9 tab(s), 0 Refill(s) Start Date: 09/11/19 Stop Date: 09/14/19 Status: Ordered Comment on above: Take 1 tablet by raymond th every 8 hours as needed. predniSONE 20 mg oral tablet (1 source) Start: 11-01-19 End: 11-06-19 predniSONE 20 mg oral tablet Dose : 40 mg = 2 tab(s), Oral, Daily, # 10 tab(s), 0 Refill(s), Allergic reaction Start Date: 10/31/21 Stop Date: 11/05/21 Status: Ordered promethazine hydrochloride 25 mg oral tablet (1 source) Phenothiazine Start: 07-14-19 End: 01-07-20 take 25 mg by mouth every six hours Promethazine Discontinued 25 MG PO EVERY 6 HOURS July 14, 2020 1:00am January 06, 2021 2:08pm Problems Active Problems Problem Classification Problem Date Documented Da te Episodic/Chronic Anxiety disorders (13 sources) Generalized anxiety disorder; Translations: [Generalized anxiety disorder] Onset: 12-03-2018 12-03-2018 Chronic Asthma (9 sources) Cough variant asthma; Translations: [Cough variant asthma] Onset: 02-26-2009 02-26-2009 Chronic Attention-deficit, conduct, and disruptive behavior disorders (1 source) Attention deficit hyperactivity disorder; Translations: [Attention-deficit hyperactivity disorder, unspecified type] 10-31-2023 Chronic Attention-deficit, conduct, and disruptive behavior disorders (1 source) Attention-deficit hyperactivity disorder, unspecified type; Translations: [Attention-deficit hyperactivity disorder, unspecified type] Onset: 11-29-2024 Chronic Attention-deficit, conduct, and disruptive behavior disorders (1 source) Attention-deficit hyperactivity disorder, predominantly inattentive type; Translations: [Attention-deficit hyperactivity disorder, predominantly inattentive type] Onset: 11-29-2024 Chronic Immunizations and screening for infectious disease (2 sources) Encounter for screening for infections with a predominantly sexual mode of transmission; Translations: [Other specified abnormal immunological findings in serum] Onset: 09-13-2024 Episodic Menstrual disorders (2 sources) Dysmenorrhea; Translations: [Dysmenorrhea, unspecified] Chronic Mood disorders (1 source) Major depressive disorder, recurrent, moderate; Translations: [Major depressive disorder, recurrent, moderate] Onset: 11-29-2024 Chronic Other gastrointestinal disorders (1 source) Celiac disease; Translations: [Celiac disease] Onset: 09-13-2024 Chronic Other gastrointestinal disorders (1 source) Abdominal distension (gaseous); Translations: [Abdominal distension (gaseous)] Onset: 11-21-2024 Episodic Other skin disorders (1 source) Disorder of nail; Translations: [Other nail disorders] Onset: 05-14-2022 Episodic Otitis media and related conditions (1 source) Otitis media; Translations: [Unspecified nonsuppurative otitis media, left ear] Episodic Past or Other Problems Problem Classification Problem Date Documented Da te Episodic/Chronic Abdominal pain (4 sources) Flank pain; Translations: [Unspecified abdominal pain] Onset: 05-21-2024 05-21-2024 Episodic Calculus of urinary tract (10 sources) Kidney stone; Translations: [Calculus of kidney] Onset: 05-21-2024 04-12-2024 Episodic Other skin disorders (6 sources) Acne vulgaris; Translations: [Acne vulgaris] Onset: 12-14-2023 10-31-2023 Episodic Residual codes; unclassified (9 sources) Sleep disorder; Translations: [Sleep disorder, unspecified] Onset: 11-03-2020 03-01-2021 Episodic Superficial injury; contusion (9 sources) Contusion of scalp, initial encounter; Translations: [Contusion of face, scalp, and neck except eye(s)] Onset: 10-19-2006 Resolved: 12-14-2023 10-19-2006 Episodic Results Test Name Value Interpretation Reference Range Facility US RETROPERITONEUM LIMITEDon 12-18-2024 US RETROPERITONEUM LIMITED Patient Name: BINA CAMPOS : 2005 Exam Date/Time: 12/18/2024 09:45 Procedure: US RETROPERITONEUM LIMITED Ordering Provider: KELLOGG JOSHUA Reason For Exam: kidney stones US RETROPERITONEAL COMPLETE CLINICAL INDICATION: History of kidney stones TECHNIQUE: Complete ultrasound of the retroperitoneal structures. COMPARISON: None FINDINGS: RIGHT KIDNEY: Size: 10.0 x 4.6 x 4.7 cm Echogenicity: normal Parenchymal thickness: normal Contour: smooth Pelvicalyceal dilatation: none Calculus: none Mass: none Cyst: none LEFT KIDNEY: Size: 10.2 x 4.8 x 5.0 cm Echogenicity: normal Parenchymal thickness: normal Contour: smooth Pelvicalyceal dilatation: none Calculus: Mid pole echogenic focus measuring 0.3 cm. Mass: none Cyst: none Bladder: Distended. Bilateral ureteral jets are identified. IMPRESSION: A 0.3 cm left renal calculus. No hydronephrosis of either kidney. Report Dictated on Electronically Signed By: Armando Gibson MD Electronically Signed Date/Time: 12/18/2024 4:30 PM EDT [facility] US Retroperitoneum limitedon 12-18-2024 A 0.3 cm left renal calculus. No hydronephrosis of either kidney. Report Dictated on Electronically Signed By: Armando Gibson MD Electronically Signed Date/Time: 12/18/2024 4:30 PM EDT [facility] Patient Name: BINA CASTELLON : 2005 Exam Date/Time: 12/18/2024 09:45 Procedure: US RETROPERITONEUM LIMITED Ordering Provider: KELLOGG JOSHUA Reason For Exam: kidney stones US RETROPERITONEAL COMPLETE CLINICAL INDICATION: History of kidney stones TECHNIQUE: Complete ultrasound of the retroperitoneal structures. COMPARISON: None FINDINGS: RIGHT KIDNEY: Size: 10.0 x 4.6 x 4.7 cm Echogenicity: normal Parenchymal thickness: normal Contour: smooth Pelvicalyceal dilatation: none Calculus: none Mass: none Cyst: none LEFT KIDNEY: Size: 10.2 x 4.8 x 5.0 cm Echogenicity: normal Parenchymal thickness: normal Contour: smooth Pelvicalyceal dilatation: none Calculus: Mid pole echogenic focus measuring 0.3 cm. Mass: none Cyst: none Bladder: Distended. Bilateral ureteral jets are identified. [facility] Armando Gibson MD - 12/18/2024 Patient Name: BINA CAMPOS : 2005 Exam Date/Time: 12/18/2024 09:45 Procedure: US RETROPERITONEUM LIMITED Ordering Provider: KELLOGG JOSHUA Reason For Exam: kidney stones US RETROPERITONEAL COMPLETE CLINICAL INDICATION: History of kidney stones TECHNIQUE: Complete ultrasound of the retroperitoneal structures. COMPARISON: None FINDINGS: RIGHT KIDNEY: Size: 10.0 x 4.6 x 4.7 cm Echogenicity: normal Parenchymal thickness: normal Contour: smooth Pelvicalyceal dilatation: none Calculus: none Mass: none Cyst: none LEFT KIDNEY: Size: 10.2 x 4.8 x 5.0 cm Echogenicity: normal Parenchymal thickness: normal Contour: smooth Pelvicalyceal dilatation: none Calculus: Mid pole echogenic focus measuring 0.3 cm. Mass: none Cyst: none Bladder: Distended. Bilateral ureteral jets are identified. IMPRESSION: A 0.3 cm left renal calculus. No hydronephrosis of either kidney. Report Dictated on Electronically Signed By: Armando Gibson MD Electronically Signed Date/Time: 12/18/2024 4:30 PM EDT [facility] Radiology Study observation (narrative) [facility] US Retroperitoneum limitedOr dered By: Armando Gibson on 12-18-2024 [facility] Work Phone: MR/BMS.BPon 11-29-2024 MR/BMS.BP [facility] [address], [address] [place] [address] OFFICE VISIT Date of Service: 11/29/24 MR#: [id number] Acct: [id number] Name: BINA CAMPOS Rep #: [id number] : 2005 Provider: KAM kaufman Age/Sex: 19/F Location: [facility] [place].BP Status: Signed Intake Vital Signs 10/10/24 09:08 11/26/24 14:01 11/29/24 13:51 Height 5 ft 1 in 5 ft 1 in 5 ft 1 in Weight: 131 lb 8 oz BMI 24.8 BP 103/67 Blood Pressure Location Lt brachial Position Sitting Respiration 15 BP Intake Visit Reasons: follow up Allergies amoxicillin Allergy (Severe, Verified 11/29/24 13:55) unknown Food Allergies: Uncoded Allergy (Intermediate, Verified 11/29/24 13:55) Hives Medications ???Medication ???Instructions ???Recorded ???Confirmed ???Type ascorbate calcium (vitamin C) 500 500 mg PO QDAY PRN KIDNEY STONES 05/22/24 11/29/24 History mg tablet cranberry 500 mg capsule 500 mg PO BID PRN KIDNEY STONES 11/29/24 History potassium citrate 10 mEq (1,080 10 meq PO TIDCM 09/02/24 11/29/24 History mg) tablet,extended release adapalene 0.3 %-benzoyl peroxide topical QHS 10/10/24 11/29/24 Hist ory 2.5 % topical gel with pump clascoterone 1 % topical cream applic topical BID 10/10/24 History (Winlevi) clindamycin phosphate 1 % lotion topical BID 10/10/24 11/29/24 Hist ory metronidazole 0.75 % topical gel topical 10/10/24 11/29/24 History dextroamphetamine-amphet amine ER 20 mg PO QAM 30 days #30 caps 11/0411/29/24 Rx 20 mg 24hr capsule,extend release dextroamphetamine-amphet amine ER 20 mg PO QAM 30 days #30 caps 11/0411/29/24 Rx 20 mg 24hr capsule,extend release (Adderall XR) dextroamphetamine-amphet amine ER 20 mg PO QAM 30 days #30 caps 11/0411/29/24 Rx 20 mg 24hr capsule,extend release (Adderall XR) [facility] Medical History Encounter to establish care ADHD Alcohol use Depression Marijuana use History of kidney stones Low iron Easy bruising Syncope Dietary restriction Asthma Celiac disease Surgical History H/O endoscopy S/P tonsillectomy S/P wisdom tooth extraction Family History Grandfather Squamous cell carcinoma Diabetes Heart disease Aunt Breast cancer Uncle Leukemia Grandmother Diabetes Social History current occupational status: employed current occupation: [employer] Smoking Status: Never smoker alcohol intake: never substance use type: does not use caffeine: Yes what type of physical activity do you participate in: running and weight training frequency: 5-6 times per week seatbelt use: always do you feel safe at home: Yes additional social history: Single HPI History of Present Illness History provided by: patient HPI: Bina Campos is a 19 year old female patient presenting today for a follow up evaluation. Report she was recently taken in for CT as she has been continuing to struggle with her celiac disease and there is concerns for Crohns and Lupus. Is planning for a colonoscopy in December. Has been working more and has also started taking the celiac supplements. Did not feel comfortable taking venlafaxine so decided against it. Reports she has been able to gain weight. Reports racing thoughts have stopped as well with celiac supplement. Does feel energy and motivation has improved as she has started taking B12. Reports a large reduction in depression. Denies SI/HI. Is feelings much less anxious. Denies panic attacks. Has noticed a large reduction in brain fog. Previous similar episode: Yes Age of first onset of symptoms: 0-10 years Review of Systems Constitutional Reports: change in weight (gain); Denies: fever(s), chills or fatigue Eyes Reports: eye discomfort and eye discharge; Denies: change in vision or blurry vision Ears, Nose, Mouth, Throat Denies: throat pain or neck pain Cardiovascular Denies: chest pain, palpitations or dyspnea Respiratory Denies: dyspnea or wheezing Gastrointestinal Reports: abdominal pain, heartburn, diarrhea, constipation, bloating and change in bowel habits Genitourinary Reports: vaginal discharge Musculoskeletal Reports: joint pain; Denies: back pain or neck pain Integumentary/Breast Denies: rash, pruritus or erythema Neurological Denies: headache(s) Psychiatric Reports: anxiety; Denies: mood swings, panic attacks, change in sleep pattern, hopelessness, loss of interest, irritability, paranoia, memory loss, difficulty concentrating, visual hallucinations, auditory hallucinations, suicidal ideation or homicidal ideation Endocrine Den (more content not included)... Normal [facility] [id number] 11-26-2024 M8200.2203 Pending Chlamydia Trachomatis PCR NEGATIVE for Chlamydia trachomatis N. gonorrhoeae PCR Negative for N. gonorrhoeae Normal [facility] Comment on above: Performed By: #### [id number] ####[facility] [id number] [place], [address] Lead Supply Worker Office Visit Reporton 11-26-2024 Lead Supply Worker Office Visit Report [facility] [address], [address] [place] [address] OFFICE VISIT Date of Service: 11/26/24 MR#: [id number] Acct: [id number] Name: BINA CAMPOS Rep #: [id number] : 2005 Provider: KAM wilson Age/Sex: 19/F Location: [facility] Status: Signed Intake Vital Signs 10/10/24 09:08 11/26/24 13:54 11/26/24 14:01 Height 5 ft 1 in 5 ft 1 in 5 ft 1 in Weight: 133 lb 8 oz BMI 25.2 BP 100/64 Intake Visit Reasons: Discuss fluid in pelvis on CT Chief Complaint: Discuss CT Applications Programmer Analyst Required: No Is patient in pain?: No Allergies amoxicillin Allergy (Severe, Verified 11/26/24 13:54) unknown Food Allergies: Uncoded Allergy (Intermediate, Verified 11/26/24 13:54) Hives Medications ???Medication ???Instructions ???Recorded ???Confirmed ???Type ascorbate calcium (vitamin C) 500 500 mg PO QDAY PRN KIDNEY STONES 05/22/24 11/26/24 History mg tablet cranberry 500 mg capsule 500 mg PO BID PRN KIDNEY STONES 11/26/24 History potassium citrate 10 mEq (1,080 10 meq PO TIDCM 09/02/24 11/26/24 History mg) tablet,extended release adapalene 0.3 %-benzoyl peroxide topical QHS 10/10/24 11/26/24 Hist ory 2.5 % topical gel with pump clascoterone 1 % topical cream applic topical BID 10/10/24 History (Winlevi) clindamycin phosphate 1 % lotion topical BID 10/10/24 11/26/24 Hist ory dextroamphetamine-amphet amine ER 20 mg PO QAM 30 days #30 caps 05/0 01/2711/26/24 Rx 20 mg 24hr capsule,extend release metronidazole 0.75 % topical gel topical 10/10/24 11/26/24 History venlafaxine 37.5 mg 37.5 mg PO QDAY #30 caps 10/10/24 11/26/24 Rx capsule,extended release 24 hr Is last menstrual period known: Yes Last Menstrual Period: 10/20/24 Post menopausal: No Patient : No : No PFSH Medical History Encounter to establish care ADHD Alcohol use Depression Marijuana use History of kidney stones Low iron Easy bruising Syncope Dietary restriction Asthma Celiac disease Surgical History H/O endoscopy S/P tonsillectomy S/P wisdom tooth extraction Family History Grandfather Squamous cell carcinoma Diabetes Heart disease Aunt Breast cancer Uncle Leukemia Grandmother Diabetes Social History current occupational status: employed current occupation: [employer] Smoking Status: Never smoker alcohol intake: never substance use type: does not use caffeine: Yes what type of physical activity do you participate in: running and weight training frequency: 5-6 times per week seatbelt use: always do you feel safe at home: Yes additional social history: Single HPI Discuss fluid in pelvis on CT Details: BINA CAMPOS is a 19 year old who presents for discussion of noted free fluid on CT of pelvis. She had CT done as she continues to have abdominal discomfort. She was confirmed to have celiac and is now being evaluated for crohns. She has been sexually active since last exam, not currently sexually active. Declines contraception. Denies STD symptoms. Menses are more irregular but usually q5-8wk. Female Reproductive History Last Menstrual Period: 10/20/24 ROS Const Constitutional: Reports system reviewed and no additional complaints, except as documented Eyes Eyes: Reports system reviewed and no additional complaints, except as documented GI GI: Denies abdominal pain or change in bowel habits : Reports as per HPI Exam Const General: cooperative and no acute distress Orientation: oriented x3 HENMT Head: normal to inspection and normocephalic Eyes General: appearance normal, both eyes and all related structures Neck Neck: normal visual inspection Resp Effort Inspection: normal respiratory effort Neuro Cognition: normal cognition Speech: speech normal Psych Appearance: grossly normal Mood: congruent mood Affect: normal affect Speech and Movement: speech and movement normal Attitude: cooperative Judgment: judgment good Coding Level of Care Code Off vis,est,level 3 Diagnoses Free fluid in pelvis R18.8 Possible exposure to STD Z20.2 Assessment and Plan Assessment and Plan (1) Free fluid in pelvis: (2) Possible exposure to STD: Orders: Orders Chlamydia/Neisseria PCR Today Z11.3 - Encounter for screening for infections with a predominantly sexual mode of transmission Plan Discussed that free fluid that is small as indicated on CT is physiological especially in light that no ovarian masses were noted. She is not having pelvic pain (more content not included)... Normal [facility] Abdomen/Pelvis WITH Contrast on 11-15-2024 Abdomen/Pelvis WITH Contrast [facility] Imaging Services [address] [place] [address] Abdomen/Pelvis WITH Contrast MR#: [id number] Acct: [id number] Name: BINA CAMPOS Rep #: [id number] : 2005 F 19 From: Joel templeton MD PCP: Dr. Bayron Suarez MD Status: REG CLI Study: Abdomen/Pelvis WITH Contrast Date of Exam: Exam# [id number] Ordering Dr: Mary Toledo PROCEDURE: ABDOMEN/PELVIS WITH CONTRAST 11/15/2024 REASON FOR EXAM: ABDOMINAL DISTENTION TECHNIQUE: ABDOMEN/PELVIS WITH CONTRAST. Coronal and Sagittal reconstruction series were provided. ORAL CONTRAST TYPE: None. CONTRAST: Isovue-350 VOLUME: 100 mL One or more dose reduction techniques were used (e.g., Automated exposure control, adjustment of the mA and/or kV according to patient size, use of iterative reconstruction technique. RADIATION DOSE SUMMARY: CTDlvol: 5.88 mGy DLP: 283 mGycm COMPARISON: None. FINDINGS: Diffuse thickening of the stomach suggestive of gastritis. Mild amount of free fluid in the pelvic cul-de-sac, probably physiologic. The visualized lung bases are unremarkable. Normal liver. Normal gallbladder and extrahepatic biliary system. Normal spleen. Normal pancreas. Normal bilateral adrenal glands. Normal size of the right kidney. There is no right renal mass. There are no right renal calculi. There is no right hydronephrosis. Normal visualized right ureter. Normal size of the left kidney. There is no left renal mass. There are no left renal calculi. There is no left hydronephrosis. Normal visualized left ureter. Normal small intestine. Normal colon. The appendix is visualized and appears normal. Normal abdominal aorta. Normal inferior vena cava. Normal retroperitoneum. Normal urinary bladder. There is no pelvic mass lesion or lymphadenopathy. Normal abdominal wall. Normal osseous structures. CT/Abdomen/Pelvis WITH Contrast IMPRESSION: Diffuse thickening of the stomach suggestive of gastritis. Mild amount of free fluid in the pelvic cul-de-sac, probably physiologic. Reading [facility] CC: Dr. Bayron Suarez MD; RICARDA Brooks Produce Inspector: Signed Normal [facility] Celiac Disease Profileon ENDOMYSIAL IGA Positive Abnormal Negative [facility] Comment on above: Performed By: #### L 3410.2400 #### [facility] Laboratory [address] [place], [address] IMMUNOGLOB A QN 167 mg/dL Normal 87-352 [facility] Comment on above: Result Comment: Perf ormed at: - [facility] [address] [id number] Equipment Operator Wage Hand: Long Pierson PhD, Phone: [phone] Performed By: #### L 3410.2400 #### [facility] [address] [place], [address] tTG IGA 6 U/mL Abnormal 0-3 [facility] Comment on above: Result Comment: Nega tive 0 - 3 Weak Positive 4 - 10 Positive >10 Tissue Transglutaminase (tTG) has been identified as the endomysial antigen. Studies have demonstr- ated that endomysial IgA antibodies have over 99% specificity for gluten sensitive enteropathy. Performed By: #### L 3410.2400 #### [facility] [address] [place], [address] Gastroenterology Visit Repor ton 10-31-2024 Gastroenterology Visit Report [facility] [address] [place] [address] OFFICE VISIT Date of Service: 10/31/24 MR#: [id number] Acct: [id number] Name: BINA CAMPOS Rep #: [id number] : 2005 Provider: RICARDA Brooks Age/Sex: 19/F Location: [facility] [place] Status: Signed Intake Vital Signs 10/10/24 09:08 Height 5 ft 1 in Weight: 123 lb BMI 23.2 BP 103/70 Blood Pressure Location Lt brachial Position Sitting Respiration 16 Pulse 103 H Pulse Source Monitor Intake Visit Reasons: Follow up Chief Complaint: celiac Allergies amoxicillin Allergy (Severe, Verified 09/20/24 13:16) unknown Food Allergies: Uncoded Allergy (Intermediate, Verified 10/10/24 09:14) Hives [facility] Medical History (Updated 10/31/24 @ 09:17 by RICARDA Brooks) Encounter to establish care ADHD Alcohol use Depression Marijuana use History of kidney stones Low iron Easy bruising Syncope Dietary restriction Asthma Celiac disease Surgical History (Updated 10/10/24 @ 09:19 by Ana Maria Cornejo) H/O endoscopy S/P tonsillectomy S/P wisdom tooth extraction Family History Grandfather Squamous cell carcinoma Diabetes Heart disease Aunt Breast cancer Uncle Leukemia Grandmother Diabetes Social History current occupational status: employed current occupation: [employer] Smoking Status: Never smoker alcohol intake: never substance use type: does not use caffeine: Yes what type of physical activity do you participate in: running and weight training frequency: 5-6 times per week seatbelt use: always do you feel safe at home: Yes additional social history: Single HPI HPI Chief Complaint: celiac Details: BINA CAMPOS, is a 19 F who presents to the office today for establishment with [facility]. [facility]GI established in Jun 2024 with severe bloating, hypersomnia and loose stools. Biochemical work up ..; RAST food allergy peanut .13 H, wheat .12 H, egg .22 H, cows milk .28 H, corn .13 H, RELIEF MATE antibody H, centromere antibody H, endomysial IgA Ab H, TT IgA Ab H, CBC wnl, CMP wnl , IBD wnl GES 3.3.35; normal Stool; not completed *Pt contacted with results. Diagnosed with Celiac. Recommended scheduling for EGD. *Referred to rheum for elevated RELIEF MATE and centromere antibody. Dr. Pedroza exploring CREST OV 3.4.25 Pt doing well since avoiding all gluten. She has lost 15 lbs over the past month due to decreased bloating. No longer having loose stools. 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 EGD 4.08.27; Esophageal plaques were found, suspicious for candidiasis. - No gross lesions in the entire stomach. Biopsied. - Erythematous duodenopathy. Biopsied. - Biopsies were taken with a cold forceps for evaluation of eosinophilic esophagitis OV 5.29.25 Pt having worsening symptoms sine her last visit. She is having bloating again which causes her abd to be hard and painful. She is following a very strict gluten free diet and lifestyle. She has changed all her skin care, tooth past, shampoo, condition and Adderall to gluten free. She has noticed increasing acne along with the bloating. Her bowels are very irregular sometimes being constipated and somtimes having looser stools. When seh is bloated she will have thin stools. ROS Const Constitutional: Positive for weight change; No fatigue or fever(s) ENT ENT: No difficulty swallowing Gastro GI: Positive for abdominal pain, bloating, change in bowel habits, constipation, diarrhea, excessive flatus and nausea/dyspepsia; No belching, change in stool character, coffee ground emesis, cramping, heartburn, difficulty swallowing, feeling full early, incontinent of stools, Vomiting blood/hematemesis, Blood in stool, loose stools, Black,tarry stools, pain with swallowing, vomiting or other Musc Musculoskeletal: Positive for joint pain, joint swelling, stiffness and tingling Skin Skin: Positive for dry skin, itchy eyes and rash; No yellowing of the eye Neuro Neurology: Positive for tingling Psych Psychiatric: Positive for anxiety, Positive for depression, Positive for Compulsive Behavior and Positive for hyperactivity Endo Endocrine: Positive for weight change; No fatigue Aller/Imm Allergy/Immunologic: Positive for itchy eyes Giovany/Lymp Hematologic/Lymphatic: Positive for easy bruising; No easy bleeding Exam Const General: cooperative Nutritional Appearance: average body habitus Orientation: alert Resp Effort Inspection: normal respiratory effort Cardio Rate: regular rate Rhythm: regular rhythm GI Inspection: normal to inspection Auscultation: normal bowel sounds Palpation: soft, not firm and nontender Assessment and Pl (more content not included)... Normal [facility] MR/BMS.on 10-10-2024 MR/BMS. [address], [address] [place] [id number] OFFICE VISIT Date of Service: 10/10/24 MR#: [id number] Acct: [id number] Name: LILACYNBINA DEGROOT Rep #: [id number] : 2005 Provider: KAM kaufman Age/Sex: 19/F Location: [facility] [place].[facility] Status: Signed Intake Vital Signs 05/22/24 11:56 09/20/24 13:21 10/10/24 09:08 Height 5 ft 1 in 5 ft 1 in 5 ft 1 in Weight: 126 lb 2 oz 123 lb BMI 23.8 23.2 BP 108/64 103/70 Blood Pressure Location Lt brachial Lt brachial Position Sitting Sitting Respiration 16 16 Pulse 88 103 H Pulse Source Monitor Monitor Temp 96.1 F L Pulse Oximetry (%) 93 Oxygen Delivery Method room air BP Intake Visit Reasons: ADHD Accompanied by: Self Allergies amoxicillin Allergy (Severe, Verified 09/20/24 13:16) unknown Food Allergies: Uncoded Allergy (Intermediate, Verified 10/10/24 09:14) Hives Medications ???Medication ???Instructions ???Recorded ???Confirmed ???Type ascorbate calcium (vitamin C) 500 500 mg PO QDAY PRN KIDNEY STONES 05/22/24 10/10/24 History mg tablet cranberry 500 mg capsule 500 mg PO BID PRN KIDNEY STONES 10/10/24 History potassium citrate 10 mEq (1,080 10 meq PO TIDCM 09/02/24 10/10/24 History mg) tablet,extended release adapalene 0.3 %-benzoyl peroxide topical QHS 10/10/24 10/10/24 Hist ory 2.5 % topical gel with pump clascoterone 1 % topical cream applic topical BID 10/10/24 History (Winlevi) clindamycin phosphate 1 % lotion topical BID 10/10/24 10/10/24 Hist ory dextroamphetamine-amphet amine ER 1 cap PO DAILY 30 days #30 caps 10/10/24 Rx 20 mg 24hr capsule,extend release dextroamphetamine-amphet amine ER 20 mg PO QAM 30 days #30 caps 05/01/2710/10/24 Rx 20 mg 24hr capsule,extend release metronidazole 0.75 % topical gel topical 10/10/24 10/10/24 History venlafaxine 37.5 mg 37.5 mg PO QDAY #30 caps 10/10/24 10/10/24 Rx capsule,extended release 24 hr PFSH Medical History (Updated 10/10/24 @ 11:02 by KAM Garcia) Encounter to establish care ADHD Alcohol use Depression Marijuana use History of kidney stones Low iron Easy bruising Syncope Dietary restriction Asthma Celiac disease Surgical History (Updated 10/10/24 @ 09:19 by Ana Maria Cornejo) H/O endoscopy S/P tonsillectomy S/P wisdom tooth extraction Family History Grandfather Squamous cell carcinoma Diabetes Heart disease Aunt Breast cancer Uncle Leukemia Grandmother Diabetes Social History current occupational status: employed current occupation: [employer] Smoking Status: Never smoker alcohol intake: never substance use type: does not use caffeine: Yes what type of physical activity do you participate in: running and weight training frequency: 5-6 times per week seatbelt use: always do you feel safe at home: Yes additional social history: Single HPI History of Present Illness History provided by: patient Chief complaint: Depression/Anxiety HPI: Bina Campos is a 19 year old female patient presenting today for an intake evaluation. Sleep: Sleep has been good. 6-7 hours per night. Denies concerns with falling asleep or staying asleep. In the past has had concerns with sleeping in excess. Denies daytime napping. Interest: Admits to feelings of depression daily. Enjoys sewing, doing art, running, and spending time with her animals and friends. Does feel interest and rodney in activities has decreased recently. Energy: Admits to a large lack of motivation. Energy has improved significantly throughout the day. Does feel well rested in the morning. Guilt: Admits to feelings of hopelessness at some times due to a lack of motivation. Denies feelings guilt or worthlessness. Concentration: Previously diagnosed with ADHD and has been on Adderall for an extended period of time with benefit. Has noticed benefit with focus and attention with Adderall but feels mood symp toms and anxiety negatively affect this. Does report frequent procrastination. Appetite: Appetite is good. Does struggle more recently since being diagnosed with celiac and being able to find enough food that she likes and is nutritious for her. Has lost about 15-20 pounds since June and her celiac diagnosis. Psychomotor: WNL Suicide: Denies SI/HI. 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 States she is frequently forgetful and writes everything down. Does feel when she is anxious she struggles with memory more. Admits to feelings like she is in a brain fog. Does feel she is forgetful in conversations and with remembering to be at places on time. Anxiety: Admits to feelings of anxiety all the ti (more content not included)... Normal [facility] Internal Medicine Office Vis iton 09-20-2024 Internal Medicine Office Visit [facility] [address] [place] [address] [place] [address] OFFICE VISIT Date of Service: 09/20/24 MR#: [id number] Acct: [id number] Name: BINA CAMPOS Rep #: [id number] : 2005 Provider: Dr. Bayron villa MD Age/Sex: 19/F Location: [facility].[facility] Status: Signed Intake Vital Signs 01/16/24 14:55 09/05/24 08:51 09/20/24 13:21 Height 5 ft 1 in 5 ft 1 in 5 ft 1 in Weight: 126 lb 2 oz BMI 23.8 BP 108/64 Blood Pressure Location Lt brachial Position Sitting Respiration 16 Pulse 88 Pulse Source Monitor Temp 96.1 F L Temp Source Temporal Pulse Oximetry (%) 93 Oxygen Delivery Method room air Intake Visit Reasons: Booked from other vendor Chief Complaint: establishing Applications Programmer Analyst Required: No Accompanied by: Mother Is patient in pain?: No Allergies amoxicillin Allergy (Severe, Verified 09/20/24 13:16) unknown Medications ???Medication ???Instructions ???Recorded ???Confirmed ???Type ascorbate calcium (vitamin C) 500 500 mg PO QDAY PRN KIDNEY STONES 05/22/24 09/20/24 History mg tablet cranberry 500 mg capsule 500 mg PO BID PRN KIDNEY STONES 09/20/24 History dextroamphetamine-amphet amine ER 1 cap PO DAILY 09/02/24 09/20/24 H istory 20 mg 24hr capsule,extend release potassium citrate 10 mEq (1,080 10 meq PO TIDCM 09/02/24 09/20/24 History mg) tablet,extended release fluconazole 100 mg tablet 100 mg PO QDAY #7 tabs 09/16/24 Rx Have you fallen in the past year?: No Nurse's Note: celiac disease and has salima right now almost done with medication [facility] Medical History (Updated 09/20/24 @ 14:[address] Bayron Suarez MD) Encounter to establish care ADHD Alcohol use Depression Marijuana use History of kidney stones Low iron Easy bruising Syncope Dietary restriction Asthma Celiac disease Surgical History S/P tonsillectomy S/P wisdom tooth extraction Family History Grandfather Squamous cell carcinoma Diabetes Heart disease Aunt Breast cancer Uncle Leukemia Grandmother Diabetes Social History current occupational status: employed current occupation: [employer] Smoking Status: Never smoker alcohol intake: never substance use type: does not use caffeine: Yes what type of physical activity do you participate in: running and weight training frequency: 5-6 times per week seatbelt use: always do you feel safe at home: Yes additional social history: Single HPI HPI Chief Complaint: establishing Details: BINA CAMPOS, is a 19 F who presents to the office today to establish care. Following up with GI and in recent months, diagnosed with celiac's disease. She states that she has had intermittent episodes of abdominal fullness. Some discomfort associated with episodes especially when standing. No known precipitating factor. At some point, there was concern for diastases recti. Also history of ADHD, had been following up with her pediatric psychiatrist and has an appointment to schedule with psychiatry locally. She states that she has been on Adderall for a few years. Doing well on it. Chronic history of acne, follows up at [facility]. Measures so far have not been helpful. Over the years, she states that she has used doxycycline, minocycline, topical clindamycin, adapalene and metronidazole without any significant improvement. At some point, was also on OCPs. ROS Const Constitutional: No body ache, excessive sweating, fatigue, fever(s), frequent falls, headache(s), snoring, weakness, weight change, sleep problems or change in appetite Eyes Eyes: No blurry vision, change in vision, bulging eyes, floaters, visual disturbances, eye pain or Light sensitivity ENT ENT: No abnormal hearing, ear or mastoid pain, tinnitus, balance problems, nasal congestion, headache(s), neck pain or sore throat Resp Respiratory: No cough, shortness of breath, snoring or wheezing Cardio Cardiology: No chest pain at rest, chest pain with exertion, excessive sweating, shortness of breath, dyspnea on exertion, lightheadedness, orthopnea or palpitations Gastro GI: No abdominal pain, change in bowel habits, constipation, cramping, diarrhea, nausea/dyspepsia or vomiting Genitourinary-Female: No burning urination, painful urination, urinary incontinence, urinary frequency, blood in urine, abnormal periods or pelvic pain Musc Musculoskeletal: No abnormal gait, joint pain, back pain, limited range of motion, neck pain, numbness, stiffness, tingling or Arthritis Skin Skin: Positive for acne; No dry skin, redness, lesions, itchy eyes, rash or wounds Neuro Neur (more content not included)... Normal [facility] EGD Reporton 09-05-2024 EGD Report [facility] Medical Records Department [address] [place] [address] EGD Report MR#: [id number] Acct: [id number] Name: BINA CAMPOS Rep #: [id number] : 2005 19 From: Kushal Hagen DO PCP: Dr. Nicky Mclaughlin MD Status:[facility] Patient Name: Bina Campos Procedure Date: 09/05/2024 9:22 AM Date of : 2005 Age: 19 Procedure: Upper GI endoscopy Indications: Functional Dyspepsia Providers: Kushal Hagen DO Referring MD: Nicky Mclaughlin Medicines: Monitored Anesthesia Care Patient Profile: This is a 19 year old female. Refer to note in patient chart for documentation of history and physical. Patient has symptoms of chronic abdominal cramping, chronic dyspepsia and chronic nausea. Complications: No immediate complications. Procedure: Pre-Anesthesia Assessment: - Prior to the procedure, a History and Physical was performed, and patient medications and allergies were reviewed. The patient is competent. The risks and benefits of the procedure and the sedation options and risks were discussed with the patient. All questions were answered and informed consent was obtained. Patient identification and proposed procedure were verified by the physician in the pre-procedure area. Mental Status Examination: alert and oriented. Airway Examination: normal oropharyngeal airway and neck mobility. Respiratory Examination: clear to auscultation. CV Examination: normal. Prophylactic Antibiotics: The patient does not require prophylactic antibiotics. Prior Anticoagulants: The patient has taken no anticoagulant or antiplatelet agents. ASA Grade Assessment: II - A patient with mild systemic disease. After reviewing the risks and benefits, the patient was deemed in satisfactory condition to undergo the procedure. The anesthesia plan was to use monitored anesthesia care (MAC). Immediately prior to administration of medications, the patient was re-assessed for adequacy to receive sedatives. The heart rate, respiratory rate, oxygen saturations, blood pressure, adequacy of pulmonary ventilation, and response to care were monitored throughout the procedure. The physical status of the patient was re-assessed after the procedure. After obtaining informed consent, the endoscope was passed under direct vision. Throughout the procedure, the patient's blood pressure, pulse, and oxygen saturations were monitored continuously. The Endoscope was introduced through the mouth, and advanced to the third part of the duodenum. Small bowel enteroscopy was deemed necessary. The upper GI endoscopy was accomplished without difficulty. The patient tolerated the procedure well. Scope In: 9:38:15 AM Scope Out: 9:44:23 AM Total Procedure Duration Time 0 hours 6 minutes 8 seconds Findings: Patchy, white plaques were found in the upper third of the esophagus and in the middle third of the esophagus. Biopsies were obtained from the proximal and distal esophagus with cold forceps for histology of suspected eosinophilic esophagitis. Estimated blood loss was minimal. No gross lesions were noted in the entire examined stomach. Biopsies were taken with a cold forceps for histology. Verification of patient identification for the specimen was done. Estimated blood loss was minimal. Biopsies were taken with a cold forceps for Helicobacter pylori testing. Verification of patient identification for the specimen was done. Estimated blood loss was minimal. Patchy mildly erythematous mucosa without active bleeding and with no stigmata of bleeding was found in the duodenal bulb and in the first portion of the duodenum. Biopsies for histology were taken with a cold forceps for evaluation of celiac disease. Verification of patient identification for the specimen was done. Estimated blood loss was minimal. Impression: - Esophageal plaques were found, suspicious for candidiasis. - No gross lesions in the entire stomach. Biopsied. - Erythematous duodenopathy. Biopsied. - Biopsies were taken with a cold forceps for evaluation of eosinophilic esophagitis. Recommendation: - Discharge patient to home. - Resume previous diet. - Continue present medications. - Await pathology results. Procedure Code(s): --- Professional --- 47498, Small intestinal endoscopy, enteroscopy beyond second portion of duodenum, not including ileum; with biopsy, single or multiple CPT copyright 2021 [employer]. All rights reserved. The codes documented in this report are preliminary and upon outsole paraffiner review may be revised to meet current compliance requirements. Kushal Hagen DO 09/05/2024 9:55:22 AM This report has been signed electronically. Number of Addenda: 0 Note Initiated On: 09/05/2024 9:22 AM 09/05/24 0955 Date (more content not included)... Normal [facility] Immunohistochemical Stainson 09-05-2024 Immunohistochemical Stains Patient Age/Sex Location Account Attending Physician BINA CAMPOS/ EN [id number] Kushal Hagen DO Specimen: [id number] Received: 09/05/24 Status: VIVI Cardoza Num: [id number] Spec Type: EGD BIOPSY Subm Dr: Kushal Hagen DO HEADER OPERATION: EGD with biopsy PRE-OP DIAGNOSIS: Celiac disease, centromere antibody positive TISSUE SUBMITTED: A- Duodenum biopsy, B- Gastric body biopsy, C- Random esophagus biopsy MICROSCOPIC DIAGNOSIS A. Duodenum, Celiac Disease, Biopsy: - Patchy mild villous blunting, mildly increased intraepithelial lymphocytes - see note. - Jona gland hyperplasia and focal gastric mucin cell metaplasia, suggestive of peptic injury. Note: This pattern of injury is etiologically nonspecific and the differential diagnosis includes sensitivity to gluten and non-gluten proteins, small intestinal bacterial overgrowth, stasis related changes, infection, protein calorie malnutrition, tropical sprue, and medication injury (NSAIDs, Olmesartan / Benicar, Mycophenolic acid, Idelalisib, for example). If celiac disease is a clinical concern, additional clinical studies, such as tTG-IgA, are recommended. B. Stomach, Body, Biopsy: - Oxyntic mucosa with features of reactive gastropathy. - IHC negative for H pylori organisms. C. Esophagus, random, biopsy: - Squamous mucosa with acute inflammation. - PASD stain for fungal organisms is pending and will be reported in an addendum. MICROSCOPIC DESCRIPTION Slides are reviewed. All matched controls reacted appropriately. GROSS DESCRIPTION A. Received in formalin in a container labeled with the patient's name, date of , and biopsy: Duodenum are 2 jacobo-pink fragments of mucosal tissue, each measuring 0.3 x 0.3 x 0.3 cm. Submitted in toto in A1. B. Received in formalin in a container labeled with the patient's name, date of , and biopsy: Gastric body for H. pylori and pathology are 2 jacobo-pink fragments of mucosal tissue measuring 0.3 x 0.3 x 0.3 cm and 0.6 x 0.3 x 0.2 cm. Submitted in toto in B1. C. Received in formalin in a container labeled with the patient's name, date of , and biopsy: Random esophagus are 2 jacobo-pink fragments of mucosal tissue measuring 0.3 x 0.2 x 0.2 cm and 0.4 x 0.2 x 0.2 cm. Submitted in toto in C1. Patient Age/Sex Location Account Attending Physician BINA CAMPOS/ EN [id number] Kushal Hagen DO [facility] 09-05-2024 CPT: 13984s0, 95284, 65616 ADDENDUM Addendum 1 Entered: 09/12/24 This addendum is to report the PASD stain result: C) The PASD stain is POSITIVE FOR FUNGAL ORGANISMS morphologically compatible with Salima sp. Dr Hagen's office was informed of the addendum report 09/12/24. Addendum Signed (signature on file) Dr. Chasity White MD 09/12/24 142 Patient Age/Sex Location Account Attending Physician BINA CAMPOS EN [id number] Kushal Hagen, DO Signed (signature on file) Dr. Chasity White MD 09/11/24 1544 Normal [facility] Comment on above: Performed By: #### P [facility] ####[facility] [id number] [facility]. [place], [place], [id number] MR/POSTOP.ANElucita 09-05-2024 MR/POSTOP.[facility] Medical Records Department [address] [place] [address] Anesthesia Postop Eval I 09/05/24 0953 MR#: [id number] Acct: [id number] Name: BINA CAMPOS Rep #: [id number] : 2005 19 From: Dominique Corenjo PCP: Dr. Nicky Mclaughlin MD Status:REG SDC Y Race: C Location: [place] [address] Anesthesia: Postop Eval I Current Vital Signs Temperature: 97 F Pulse Rate: 88 Blood Pressure: 106/65 Respiratory Rate: 16 Pulse Ox: 99 Oxygen Delivery Method: Room Air Assessment Airway patent: Yes Spontaneous unlabored respirations: Yes Mental status: Awake and Calm nausea: No Vomiting: No Anesthesia Complication: No Fluid Hydration Crystalloid volume administer (ml): 30 Total IV fluid infused: 30 Progress Note Anesthesia document: Postop Eval 1 completed: Yes 09/05/24 0954 Date Dominique Dobbs Signature: Date CC: Signed Normal [facility] MR/YGKSXFCO1nt 09-05-2024 [facility] Medical Records Department [address] [facility] [place] [address] Anesthesia Postop Eval II 09/05/24 1053 MR#: [id number] Acct: [id number] Name: BINA CAMPOS Rep #: [id number] : 2005 19 From: Noreen Chisholm PCP: Dr. Nicky Mclaughlin MD Status:[facility] Y Race: C Location: EN Anesthesia Postop Eval I Sum Postop Eval Completion status Anesthesia document: Postop Eval 1 completed: Yes Anesthesia Postop Eval I Summary Anesthesia Postop Eval I Summary: Anesthesia Postop Eval I: Assessment Summary Airway patent Yes 09/05/24 09:54 [email or web address] Spontaneous unlabored Yes 09/05/24 09:54 [email or web address] respirations Mental status Awake,Calm 09/05/24 09:54 [email or web address] nausea No 09/05/24 09:54 [email or web address] Vomiting No 09/05/24 09:54 [email or web address] Anesthesia Postop Eval I: Fluid Summary Crystalloid volume administer 30 09/05/24 09:54 [email or web address] (ml) Colloids volume administered ( ml) Blood Product volume administered (ml) Total IV fluid infused 30 09/05/24 09:54 [email or web address] Anesthesia Postop Eval I: Summary Notes Anesthesia Complication No 09/05/24 09:54 [email or web address] Anesthesia Complication Comment: Post-operative progress note Anesthesia: Postop Eval II Evaluation Mental status: Awake Pain Level: 0 nausea: No Vomiting: No Complications Anesthesia Complication: No 09/05/24 1053 Date Noreen Dobbs Signature: Date CC: Signed Normal [facility] ,Urineon 09-05-2024 Beta HCG ( test) Ql (U) Negative Normal [facility] Comment on above: Result Comment: Very dilute urine specimens, as indicated by a low specific gravity, may not contain account maintenance representative levels of hCG. If is still suspected, a first morning urine specimen should be collected 48 hours later and tested. Performed By: #### L 400.7600 #### [facility] Laboratory [address] [place], [address] Gastroenterology Visit Repor ton 08-06-2024 Gastroenterology Visit Report [facility] Gastroenterology [address] [place] [address] OFFICE VISIT Date of Service: 08/06/24 MR#: [id number] Acct: [id number] Name: BINA CAMPOS Rep #: [id number] : 2005 Provider: RICARDA Brooks Age/Sex: 19/F Location: [facility] Status: Signed Intake Vital Signs 05/22/24 11:56 Height 5 ft 1 in Intake Visit Reasons: 3 M FU Chief Complaint: bloating Allergies amoxicillin Allergy (Severe, Verified 08/06/24 08:11) unknown Medications ???Medication ???Instructions ???Recorded ???Confirmed ???Type dextroamphetamine-amphet amine 15 15 mg PO DAILY 01/10/22 08/06/24 H istory mg tablet (Adderall) ascorbate calcium (vitamin C) 500 500 mg PO QDAY 05/22/24 08/06/24 History mg tablet cranberry 500 mg capsule 500 mg PO BID 05/22/24 08/06/24 Hi story Nurse's Note: Has lost alot of weight in the past month. Is feeling so much better. PFSH Surgical History S/P tonsillectomy S/P wisdom tooth extraction Family History Grandfather Squamous cell carcinoma Diabetes Heart disease Aunt Breast cancer Uncle Leukemia Grandmother Diabetes Social History current occupational status: employed current occupation: [employer] Smoking Status: Never smoker alcohol intake: never substance use type: does not use caffeine: Yes what type of physical activity do you participate in: running and weight training frequency: 5-6 times per week seatbelt use: always do you feel safe at home: Yes additional social history: Single HPI HPI Chief Complaint: bloating Details: BINA CAMPOS, is a 19 F who presents to the office today for f/u. BGI established 1.7.25 with extreme bloating, hypersomnia and loose stools. Pt has attempted to cut out gluten and dairy with no benefit. Biochemical work up 1.16.25; RAST food allergy peanut .13 H, wheat .12 H, egg .22 H, cows milk .28 H, corn .13 H, RELIEF MATE antibody H, centromere antibody H, endomysial IgA Ab H, TT IgA Ab H, CBC wnl, CMP wnl , IBD wnl GES 3.3.35; normal Stool; not completed *Pt contacted with results. Diagnosed with Celiac. Recommended scheduling for EGD. OV 3.4.25 Pt has been avoiding all gluten since her diagnosis of Celiac. SHe has been feeling much better. She has lost about 15 lbs over the past month due to decreased bloating. She feels that her face, hands and abd have decreased in size. She no longer has any loose stools. Since avoiding gluten she has had one known exposure and felt awful after it. 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 ROS Const Constitutional: Positive for weight change (lost 10 lbs); No fatigue or fever(s) ENT ENT: No difficulty swallowing Gastro GI: Positive for abdominal pain, bloating, change in bowel habits, constipation, diarrhea and nausea/dyspepsia; No belching, change in stool character, coffee ground emesis, cramping, heartburn, difficulty swallowing, feeling full early, excessive flatus, incontinent of stools, Vomiting blood/hematemesis, Blood in stool, loose stools, Black,tarry stools, pain with swallowing, vomiting or other Musc Musculoskeletal: Positive for muscle cramps, muscle weakness, stiffness and restless legs; No joint pain Skin Skin: Positive for dry skin, itchy eyes and rash; No yellowing of the eye Neuro Neurology: Positive for restless legs Psych Psychiatric: Positive for anxiety, Positive for depression, Positive for hyperactivity and Positive for obsessions/compulsions Endo Endocrine: Positive for weight change (lost 10 lbs); No fatigue Aller/Imm Allergy/Immunologic: Positive for itchy eyes Giovany/Lymp Hematologic/Lymphatic: Positive for easy bruising; No easy bleeding Exam Const General: cooperative and comfortable Nutritional Appearance: average body habitus and well nourished [facility] Head: normal to inspection Ears: hearing grossly normal bilaterally Nose: external nose normal Face and sinus: normal facial exam Eyes General: appearance normal, both eyes and all related structures Neck Neck: normal visual inspection Chest Chest palpation inspection: normal inspection of the chest and normal palpation of entire chest wall Resp Effort Inspection: normal respiratory effort Auscultation: Bilateral: Clear to Auscultation Cardio Palpation: normal PMI Rate: regular rate Rhythm: regular rhythm GI Inspection: normal to inspection Auscultation: normal bowel sounds Percussion: normal to percussion Palpation: soft and no hepatosplenomegaly Skin General: no rashes or lesions noted Neuro General: patient alert Extrem General: normal to inspection Psych (more content not included)... Normal [facility] Gastric Emptying Studyon Gastric Emptying Study [facility] Imaging Services [address] [place], [place] [id number] Gastric Emptying Study MR#: [id number] Acct: [id number] Name: BINA CAMPOS Rep #: [id number] : 2005 F 19 From: Canelo rob MD PCP: Dr. Nicky Mclaughlin MD Status: REG CLI Study: Gastric Emptying Study Date of Exam: 08/05/24 Exam# [id number] Ordering Dr: Mary Toledo PROCEDURE: GASTRIC EMPTYING STUDY REASON FOR EXAM: Vomiting. History of celiac disease. TECHNIQUE: 1 mCi of technetium sulfur colloid and oatmeal was ingested by the patient. Gastric emptying study was performed. RADIOPHARMACEUTICAL: 1.1 mCi of technetium labeled sulfur colloid. COMPARISON: None. FINDINGS: At 1 hour, 56% of the radiopharmaceutical exited the stomach. This is a normal study. NM/Gastric Emptying Study IMPRESSION: Normal gastric emptying study. Reading Location: [id number] CC: Dr. Nicky Mclaughlin MD; RICARDA Brooks Produce Inspector: Signed Normal [facility] Progress Noteon 06-20-2024 Progress Note Eduardo Kellogg MD 04/13/2022 at 9:48 AM Telemedicine visit PATIENT NAME: Bina Campos DATE OF : 2005 TODAY'S DATE: 06/20/24 CHIEF COMPLAINT recurrent nephrolithiasis Their identity was verified by patient Those on the call: patient Subjective: This patient is a 19 y.o. female who presents for telehealth visit regarding recurrent kidney stones She is doing well today. She denies pain. Has not passed any further stones Review of Systems: Review of Systems Gastrointestinal: Negative for abdominal distention and abdominal pain. Genitourinary: Negative for difficulty urinating, flank pain, urgency and vaginal pain. Physical Exam Constitutional: General: Patient is awake. Appearance: Normal appearance. Patient is well-developed. HENT: Head: Normocephalic and atraumatic. Eyes: General: Lids are normal. Vision grossly intact. Right eye: No discharge. Left eye: No discharge. Neck: Musculoskeletal: Normal range of motion and neck supple. Neurological: Mental Status: Patient is alert and oriented to person, place, and time. Mental status is at baseline. Cranial Nerves: Cranial nerves are intact. Skin: Coloration: Skin is not jaundiced or pale. Findings: No abrasion or acne. Psychiatric: Attention and Perception: Attention and perception normal. Mood and Affect: Mood normal. Speech: Speech normal. Behavior: Behavior normal. Behavior is cooperative. Thought Content: Thought content normal. Cognition and Memory: Cognition normal. Judgment: Judgment normal. Past Medical History: No past medical history on file. Past Surgical History: No past surgical history on file. Medications Current Outpatient Medications on File Prior to Visit Medication Sig Dispense Refill Adapalene-Benzoyl Peroxide 0.3-2.5 % gel APPLY A THIN LAYER TO THE FULL FACE ONCE NIGHTLY albuterol 108 (90 Base) MCG/ACT inhaler 2 puffs every four hours as needed.May also 15 minutes pre-exercise.Use w/spacer. amphetamine-dextroamphet amine XR (Adderall XR) 15 MG 24 hr capsule Take 15 mg by mouth every morning. doxycycline (Adoxa) 100 MG tablet TAKE ONE TABLET BY MOUTH ONCE A DAY WITH FOOD AND WATER. metroNIDAZOLE (Metrogel) 0.75 % gel APPLY A THIN LAYER TO THE FULL FACE TWICE A DAY spironolactone (Aldactone) 100 MG tablet TAKE ONE TABLET BY MOUTH EVERY NIGHT WITH A FULL GLASS OF WATER. No current facility-administered medications on file prior to visit. Labs: No results found for: PSAFREE, PSAFREEPCT No results for input(s): PSAFREE, PSAFREEPCT in the last 72 hours. No results found for: TESTOSTERONE Lab Results No results found for: LABURIN PTH 32 24 hour urine labs reviewed Patient was identified and seen today via Telehealth by agreement and consent. I used the following Telehealth technology: Audio and video capabilities. Patient location: Patient Location: Home. This patient encounter is appropriate and reasonable under the circumstances: transportation issues . The patient has been advised of the potential risks and limitations of this mode of treatment (including but not limited to the absence of in-person examination) and has agreed to be treated in a remote fashion in spite of them. Any and all of the patient's/patient's family's questions on this issue have been answered and I have made no promises or guarantees to the patient. The patient has also been advised to contact this office for worsening conditions or problems, and seek emergency medical treatment and/or call 911 if the patient deems either necessary. The patient stated that they are currently in the state [facility]. If the patient is a minor, permission has been obtained by the parent or guardian for the patient to receive medical care at this visit. Impression/Plan Diagnoses and all orders for this visit: Kidney stones - XR abdomen 1 view; Future - US retroperitoneum limited; Future - Basic metabolic panel; Future Other orders - potassium citrate CR (Urocit-K-10) 10 mEq ER tablet; Take 1 tablet (10 mEq) by mouth 3 times daily (with meals). Do not crush, chew, or split. PTH WNL 24 hr urinary citrate low end of normal She is on low dose spironolactone (50mg). Will plan on potassium citrate TID Repeat kub and US in 6 mo, BMP also given potassium citrate and potassium sparing diuretic The patient verbalizes understanding of the plan of care. Eduardo Kellogg MD 04/13/22 9:48 AM Normal [facility] JHONATAN Comprehensive Panelon JHONATAN TABLE Comment Normal . [facility] Comment on above: Result Comment: Auto antibody Disease Association Condition Frequency --------- Antinuclear Antibody, SLE, mixed connective Direct (JHONATAN-D) tissue diseases --------- dsDNA SLE 40 - 60% --------- Chromatin Drug induced SLE 90% SLE 48 - 97% --------- SSA (Ro) SLE 25 - 35% Sjogren's Syndrome 40 - 70% Lupus 100% --------- SSB (La) SLE 10% Sjogren's Syndrome 30% --------- Sm (anti-Villatoro) SLE 15 - 30% --------- RELIEF MATE Mixed Connective Tissue Disease 95% (U1 nRNP, SLE 30 - 50% anti-ribonucleoprotein) Polymyositis and/or Dermatomyositis 20% --------- Scl-70 (antiDNA Scleroderma (diffuse) 20 - 35% topoisomerase) Crest 13% --------- Marie-1 Polymyositis and/or Dermatomyositis 20 - 40% --------- Centromere B Scleroderma - Crest variant 80% Performed By: #### L 5500.0550, L2100.0000, L3100.3425, L3200.1100, L3300.1200, L3410.2400, L3100.5440, L101.9900, L100.0100, L500.4050, L501.6710 #### [facility] [address] [place], [place], [id number] ANCAon 06-14-2024 Atypical pANCA <1:20 Normal Neg:<1:20 [facility] Comment on above: Order Comment: N Result Comment: The atypical pANCA pattern has been observed in a significant percentage of patients with ulcerative colitis, primary sclerosing cholangitis and autoimmune hepatitis. Performed at: - [facility] [id number] Equipment Operator Wage Hand: Long Pierson PhD, Phone: [phone] Performed at: [facility] [address] [id number] Equipment Operator Wage Hand: Mac Rendon MD, Phone: [phone] Performed By: #### L 5500.0550, L2100.0000, L3100.3425, L3200.1100, L3300.1200, L3410.2400, L3100.5440, L101.9900, L100.0100, L500.4050, L501.6710 ####[facility] [address] [facility] [place], [address] Cytoplasmic Ab <1:20 Normal Neg:<1:20 [facility] Comment on above: Order Comment: N Performed By: #### L 5500.0550, L2100.0000, L3100.3425, L3200.1100, L3300.1200, L3410.2400, L3100.5440, L101.9900, L100.0100, L500.4050, L501.6710 ####[facility] [address] [facility]. [place], [place], [phone] Perinuclear Ab. <1:20 Normal Neg:<1:20 [facility] Comment on above: Order Comment: N Result Comment: The presence of positive fluorescence exhibiting P-ANCA or C-ANCA patterns alone is not specific for the diagnosis of Kayli's Granulomatosis (WG) or microscopic polyangiitis. Decisions about treatment should not be based solely on ANCA IFA results. The [employer] ANCA [employer] Consensus recommends follow up testing of positive sera with both MS- 3 and MPO-ANCA enzyme immunoassays. As many as 5% serum samples are positive only by EIA. Ref. AM J Clin Pathol 1999;111:507-513. Performed By: #### L 5500.0550, L2100.0000, L3100.3425, L3200.1100, L3300.1200, L3410.2400, L3100.5440, L101.9900, L100.0100, L500.4050, L501.6710 ####[facility] [address] [place], [address] Celiac Disease Profileon ENDOMYSIAL IGA Positive Abnormal Negative [facility] Comment on above: Order Comment: N Performed By: #### L 5500.0550, L2100.0000, L3100.3425, L3200.1100, L3300.1200, L3410.2400, L3100.5440, L101.9900, L100.0100, L500.4050, L501.6710 ####[facility] [address] [place], [address] tTG IGA 37 U/mL Abnormal 0-3 [facility] Comment on above: Order Comment: N Result Comment: Nega tive 0 - 3 Weak Positive 4 - 10 Positive >10 Tissue Transglutaminase (tTG) has been identified as the endomysial antigen. Studies have demonstr- ated that endomysial IgA antibodies have over 99% specificity for gluten sensitive enteropathy. Performed By: #### L 5500.0550, L2100.0000, L3100.3425, L3200.1100, L3300.1200, L3410.2400, L3100.5440, L101.9900, L100.0100, L500.4050, L501.6710 ####[facility] [address] [place], [address] BERONICA + Protein Elect, Serumon 06-14-2024 Albumin [Mass/Vol] 3.6 g/dL Normal 2.9-4.4 [facility] Comment on above: Order Comment: N Performed By: #### L 5500.0550, L2100.0000, L3100.3425, L3200.1100, L3300.1200, L3410.2400, L3100.5440, L101.9900, L100.0100, L500.4050, L501.6710 ####[facility] [address] [place], [place], [phone] Albumin/Globulin [Mass ratio] 1.4 {ratio} Normal 0.7-1.7 [facility] Comment on above: Order Comment: N Performed By: #### L 5500.0550, L2100.0000, L3100.3425, L3200.1100, L3300.1200, L3410.2400, L3100.5440, L101.9900, L100.0100, L500.4050, L501.6710 ####[facility] [address] [place], [place], [phone] DECOW-5-QHLK 0.2 g/dL Normal 0.0-0.4 [facility] Comment on above: Order Comment: N Performed By: #### L 5500.0550, L2100.0000, L3100.3425, L3200.1100, L3300.1200, L3410.2400, L3100.5440, L101.9900, L100.0100, L500.4050, L501.6710 ####[facility] [address] [place], [place], [phone] FFTGZ-0-JPUR 0.6 g/dL Normal 0.4-1.0 [facility] Comment on above: Order Comment: N Performed By: #### L 5500.0550, L2100.0000, L3100.3425, L3200.1100, L3300.1200, L3410.2400, L3100.5440, L101.9900, L100.0100, L500.4050, L501.6710 ####[facility] [address] [place], [place], [phone] BETA GLOBULIN 1.0 g/dL Normal 0.7-1.3 [facility] Comment on above: Order Comment: N Performed By: #### L 5500.0550, L2100.0000, L3100.3425, L3200.1100, L3300.1200, L3410.2400, L3100.5440, L101.9900, L100.0100, L500.4050, L501.6710 ####[facility] [address] [place], [phone]) GAMMA GLOBULIN 0.9 g/dL Normal 0.4-1.8 [facility] Comment on above: Order Comment: N Performed By: #### L 5500.0550, L2100.0000, L3100.3425, L3200.1100, L3300.1200, L3410.2400, L3100.5440, L101.9900, L100.0100, L500.4050, L501.6710 ####[facility] [address] [place], [place], [phone]) Globulin (S) [Mass/Vol] 2.7 g/dL Normal 2.2-3.9 [facility] Comment on above: Order Comment: N Performed By: #### L 5500.0550, L2100.0000, L3100.3425, L3200.1100, L3300.1200, L3410.2400, L3100.5440, L101.9900, L100.0100, L500.4050, L501.6710 ####[facility] [address] [place], [place], [phone] BERONICA RESULT,S Comment Normal . [facility] Comment on above: Order Comment: N Result Comment: No m onoclonality detected. Performed By: #### L 5500.0550, L2100.0000, L3100.3425, L3200.1100, L3300.1200, L3410.2400, L3100.5440, L101.9900, L100.0100, L500.4050, L501.6710 ####[facility] [address] [place], [address] IMMUNOGLOB A QN 184 mg/dL Normal 87-352 [facility] Comment on above: Order Comment: N Performed By: #### L 5500.0550, L2100.0000, L3100.3425, L3200.1100, L3300.1200, L3410.2400, L3100.5440, L101.9900, L100.0100, L500.4050, L501.6710 ####[facility] [address] [place], [address] IMMUNOGLOB G QN 905 mg/dL Normal 586-1602 [facility] Comment on above: Order Comment: N Performed By: #### L 5500.0550, L2100.0000, L3100.3425, L3200.1100, L3300.1200, L3410.2400, L3100.5440, L101.9900, L100.0100, L500.4050, L501.6710 ####[facility] [address] [place], [place], [phone]) IMMUNOGLOB M QN 89 mg/dL Normal 26-217 [facility] Comment on above: Order Comment: N Performed By: #### L 5500.0550, L2100.0000, L3100.3425, L3200.1100, L3300.1200, L3410.2400, L3100.5440, L101.9900, L100.0100, L500.4050, L501.6710 ####[facility] [address] [place], [address] M-Ham Not Observed Normal Not Observed [facility] Comment on above: Order Comment: N Performed By: #### L 5500.0550, L2100.0000, L3100.3425, L3200.1100, L3300.1200, L3410.2400, L3100.5440, L101.9900, L100.0100, L500.4050, L501.6710 ####[facility] [address] [place], [place], [phone] NOTE: Comment Normal . [facility] Comment on above: Order Comment: N Result Comment: Prot ein electrophoresis scan will follow via computer, mail, or field operations manager delivery. Performed By: #### L 5500.0550, L2100.0000, L3100.3425, L3200.1100, L3300.1200, L3410.2400, L3100.5440, L101.9900, L100.0100, L500.4050, L501.6710 ####[facility] [address] [place], [place], [phone] Protein [Mass/Vol] 6.3 g/dL Normal 6.0-8.5 [facility] Comment on above: Order Comment: N Performed By: #### L 5500.0550, L2100.0000, L3100.3425, L3200.1100, L3300.1200, L3410.2400, L3100.5440, L101.9900, L100.0100, L500.4050, L501.6710 ####[facility] [address] [place], [place], [phone] Immunoglobulins G/A/M/Josh IMMUNOGLOB E QN 69 IU/mL Normal 6-495 [facility] Comment on above: Order Comment: N Performed By: #### L 5500.0550, L2100.0000, L3100.3425, L3200.1100, L3300.1200, L3410.2400, L3100.5440, L101.9900, L100.0100, L500.4050, L501.6710 ####[facility] [address] [place], [place], [phone] L2100.0000on 06-14-2024 ACCA 9 units Normal 0-90 [facility] Comment on above: Order Comment: N Result Comment: Nega tive: <80 Equivocal: 80-90 Positive: >90 Performed By: #### L 5500.0550, L2100.0000, L3100.3425, L3200.1100, L3300.1200, L3410.2400, L3100.5440, L101.9900, L100.0100, L500.4050, L501.6710 ####[facility] [address] [place], [place], [phone] ALCA 29 units Normal 0-60 [facility] Comment on above: Order Comment: N Result Comment: Nega tive:<55 Equivocal: 55-60 Positive: >60 Performed By: #### L 5500.0550, L2100.0000, L3100.3425, L3200.1100, L3300.1200, L3410.2400, L3100.5440, L101.9900, L100.0100, L500.4050, L501.6710 ####[facility] [address] [place], [address] AMCA 35 units Normal 0-100 [facility] Comment on above: Order Comment: N Result Comment: Nega tive: <90 Equivocal: 90-100 Positive: >100 This test was developed and its performance characteristics determined by [facility]. It has not been cleared or approved by the Food and Drug Administration. The FDA has determined that such clearance or approval is not necessary. Performed By: #### L 5500.0550, L2100.0000, L3100.3425, L3200.1100, L3300.1200, L3410.2400, L3100.5440, L101.9900, L100.0100, L500.4050, L501.6710 ####[facility] [address] [place], [address] Atypical pANCA Negative Normal Negative [facility] Comment on above: Order Comment: N Performed By: #### L 5500.0550, L2100.0000, L3100.3425, L3200.1100, L3300.1200, L3410.2400, L3100.5440, L101.9900, L100.0100, L500.4050, L501.6710 ####[facility] [address] [place], [place], [phone] COMMENT Comment Normal . [facility] Comment on above: Order Comment: N Result Comment: Georgiana jonathan is not suggestive of Inflammatory Bowel Disease Performed By: #### L 5500.0550, L2100.0000, L3100.3425, L3200.1100, L3300.1200, L3410.2400, L3100.5440, L101.9900, L100.0100, L500.4050, L501.6710 ####[facility] [address] [place], [address] Gena 10 units Normal 0-50 [facility] Comment on above: Order Comment: N Result Comment: Nega tive: <45 Equivocal: 45-50 Positive: >50 Performed By: #### L 5500.0550, L2100.0000, L3100.3425, L3200.1100, L3300.1200, L3410.2400, L3100.5440, L101.9900, L100.0100, L500.4050, L501.6710 ####[facility] [address] [place], [address] L5500.0550on 06-14-2024 BEEF <0.10 Normal Class 0 [facility] Comment on above: Performed By: #### L 5500.0550, L2100.0000, L3100.3425, L3200.1100, L3300.1200, L3410.2400, L3100.5440, L101.9900, L100.0100, L500.4050, L501.6710 ####[facility] [address] [place], [address] CHOCOLATE <0.10 Normal Class 0 [facility] Comment on above: Performed By: #### L 5500.0550, L2100.0000, L3100.3425, L3200.1100, L3300.1200, L3410.2400, L3100.5440, L101.9900, L100.0100, L500.4050, L501.6710 ####[facility] [address] [place], [address] CODFISH <0.10 Normal Class 0 [facility] Comment on above: Performed By: #### L 5500.0550, L2100.0000, L3100.3425, L3200.1100, L3300.1200, L3410.2400, L3100.5440, L101.9900, L100.0100, L500.4050, L501.6710 ####[facility] [address] [place], [address] COMMENT Comment Normal . [facility] Comment on above: Result Comment: Micah smith of Specific IgE Class Description of Class ----- < 0.10 0 Negative 0.10 - 0.31 0/I Equivocal/Low 0.32 - 0.55 I Low 0.56 - 1.40 II Moderate 1.41 - 3.90 III High 3.91 - 19.00 IV Very High 19.01 - 100.00 V Very High >100.00 Very High Performed By: #### L 5500.0550, L2100.0000, L3100.3425, L3200.1100, L3300.1200, L3410.2400, L3100.5440, L101.9900, L100.0100, L500.4050, L501.6710 ####[facility] [address] [place], [address] CORN 0.13 kU/L Abnormal Class 0/I [facility] Comment on above: Performed By: #### L 5500.0550, L2100.0000, L3100.3425, L3200.1100, L3300.1200, L3410.2400, L3100.5440, L101.9900, L100.0100, L500.4050, L501.6710 ####[facility] [address] [place], [address] EGG, WHOLE 0.22 kU/L Abnormal Class 0/I [facility] Comment on above: Result Comment: Perf ormed at: [facility] [address] [id number] Equipment Operator Wage Hand: Long Pierson PhD, Phone: [phone] Performed at: [facility] [address] [id number] Equipment Operator Wage Hand: Mac Rendon MD, Phone: [phone] Performed By: #### L 5500.0550, L2100.0000, L3100.3425, L3200.1100, L3300.1200, L3410.2400, L3100.5440, L101.9900, L100.0100, L500.4050, L501.6710 ####[facility] [address] [place], [address] MILK (COW) 0.28 kU/L Abnormal Class 0/I [facility] Comment on above: Performed By: #### L 5500.0550, L2100.0000, L3100.3425, L3200.1100, L3300.1200, L3410.2400, L3100.5440, L101.9900, L100.0100, L500.4050, L501.6710 ####[facility] [address] [place], [place], [phone] MUSSELS <0.10 Normal Class 0 [facility] Comment on above: Performed By: #### L 5500.0550, L2100.0000, L3100.3425, L3200.1100, L3300.1200, L3410.2400, L3100.5440, L101.9900, L100.0100, L500.4050, L501.6710 ####[facility] [address] [place], [address] PEANUT 0.13 kU/L Abnormal Class 0/I [facility] Comment on above: Performed By: #### L 5500.0550, L2100.0000, L3100.3425, L3200.1100, L3300.1200, L3410.2400, L3100.5440, L101.9900, L100.0100, L500.4050, L501.6710 ####[facility] [address] [facility] [place], [address] PORK <0.10 Normal Class 0 [facility] Comment on above: Performed By: #### L 5500.0550, L2100.0000, L3100.3425, L3200.1100, L3300.1200, L3410.2400, L3100.5440, L101.9900, L100.0100, L500.4050, L501.6710 ####[facility] [address] [facility] [place], [address] SALMON <0.10 Normal Class 0 [facility] Comment on above: Performed By: #### L 5500.0550, L2100.0000, L3100.3425, L3200.1100, L3300.1200, L3410.2400, L3100.5440, L101.9900, L100.0100, L500.4050, L501.6710 ####[facility] [address] [place], [address] SHRIMP <0.10 Normal Class 0 [facility] Comment on above: Performed By: #### L 5500.0550, L2100.0000, L3100.3425, L3200.1100, L3300.1200, L3410.2400, L3100.5440, L101.9900, L100.0100, L500.4050, L501.6710 ####[facility] [address] [place], [place], [phone] SOYBEAN <0.10 Normal Class 0 [facility] Comment on above: Performed By: #### L 5500.0550, L2100.0000, L3100.3425, L3200.1100, L3300.1200, L3410.2400, L3100.5440, L101.9900, L100.0100, L500.4050, L501.6710 ####[facility] [address] [place], [place], [phone] TUNA <0.10 Normal Class 0 [facility] Comment on above: Performed By: #### L 5500.0550, L2100.0000, L3100.3425, L3200.1100, L3300.1200, L3410.2400, L3100.5440, L101.9900, L100.0100, L500.4050, L501.6710 ####[facility] [address] [place], [place], [phone] WHEAT 0.12 kU/L Abnormal Class 0/I [facility] Comment on above: Performed By: #### L 5500.0550, L2100.0000, L3100.3425, L3200.1100, L3300.1200, L3410.2400, L3100.5440, L101.9900, L100.0100, L500.4050, L501.6710 ####[facility] [address] [place], [place], [phone] CBC W/Diff, Automatedon Absolute Lymph 2.00 X10 3/uL Normal 0.83-4.51 [facility] Comment on above: Performed By: #### L 5500.0550, L2100.0000, L3100.3425, L3200.1100, L3300.1200, L3410.2400, L3100.5440, L101.9900, L100.0100, L500.4050, L501.6710 ####[facility] [address] [place], [address] Absolute Neut 3.1 X10 3/uL Normal 2.0-7.7 [facility] Comment on above: Performed By: #### L 5500.0550, L2100.0000, L3100.3425, L3200.1100, L3300.1200, L3410.2400, L3100.5440, L101.9900, L100.0100, L500.4050, L501.6710 ####[facility] [address] [place], [address] Basophils/100 WBC (Bld) 0.7 % Normal 0-1 [facility] Comment on above: Performed By: #### L 5500.0550, L2100.0000, L3100.3425, L3200.1100, L3300.1200, L3410.2400, L3100.5440, L101.9900, L100.0100, L500.4050, L501.6710 ####[facility] [address] [place], [place], [phone] Eosinophils/100 WBC (Bld) 1.8 % Normal 0-5 [facility] Comment on above: Performed By: #### L 5500.0550, L2100.0000, L3100.3425, L3200.1100, L3300.1200, L3410.2400, L3100.5440, L101.9900, L100.0100, L500.4050, L501.6710 ####[facility] [address] [place], [place], [phone] Erythrocyte distribution width (RBC) [Ratio] 11.3 % Low 11.6-14.6 [facility] Comment on above: Performed By: #### L 5500.0550, L2100.0000, L3100.3425, L3200.1100, L3300.1200, L3410.2400, L3100.5440, L101.9900, L100.0100, L500.4050, L501.6710 ####[facility] [address] [place], [address] Hematocrit (Bld) [Volume fraction] 38.4 % Normal 37-47 [facility] Comment on above: Performed By: #### L 5500.0550, L2100.0000, L3100.3425, L3200.1100, L3300.1200, L3410.2400, L3100.5440, L101.9900, L100.0100, L500.4050, L501.6710 ####[facility] [address] [place], [address] Hemoglobin (Bld) [Mass/Vol] 13.2 g/dL Normal 12.0-15.0 [facility] Comment on above: Performed By: #### L 5500.0550, L2100.0000, L3100.3425, L3200.1100, L3300.1200, L3410.2400, L3100.5440, L101.9900, L100.0100, L500.4050, L501.6710 ####[facility] [address] [facility] [place], [address] IG% 0.400 Normal 0.0-0.9 [facility] Comment on above: Result Comment: IG% - Immature Granulocytes (promyelocytes, myelocytes and metamyelocytes) > 1% indicates that a LEFT SHIFT is Present. Performed By: #### L 5500.0550, L2100.0000, L3100.3425, L3200.1100, L3300.1200, L3410.2400, L3100.5440, L101.9900, L100.0100, L500.4050, L501.6710 ####[facility] [address] [place], [address] Lymphocytes/100 WBC (Bld) 35.5 % Normal 19-41 [facility] Comment on above: Performed By: #### L 5500.0550, L2100.0000, L3100.3425, L3200.1100, L3300.1200, L3410.2400, L3100.5440, L101.9900, L100.0100, L500.4050, L501.6710 ####[facility] [address] [place], [address] MCH (RBC) [Entitic mass] 29.3 pg Normal 27.0-32.0 [facility] Comment on above: Performed By: #### L 5500.0550, L2100.0000, L3100.3425, L3200.1100, L3300.1200, L3410.2400, L3100.5440, L101.9900, L100.0100, L500.4050, L501.6710 ####[facility] [address] [place], [place], [phone] MCHC (RBC) [Mass/Vol] 34.4 g/dL Normal 32-36 [facility] Comment on above: Performed By: #### L 5500.0550, L2100.0000, L3100.3425, L3200.1100, L3300.1200, L3410.2400, L3100.5440, L101.9900, L100.0100, L500.4050, L501.6710 ####[facility] [address] [place], [place], [phone]) MCV (RBC) [Entitic vol] 85.3 fL Normal 81-99 [facility] Comment on above: Performed By: #### L 5500.0550, L2100.0000, L3100.3425, L3200.1100, L3300.1200, L3410.2400, L3100.5440, L101.9900, L100.0100, L500.4050, L501.6710 ####[facility] [address] [place], [address] Monocytes/100 WBC (Bld) 7.1 % Normal 0-10 [facility] Comment on above: Performed By: #### L 5500.0550, L2100.0000, L3100.3425, L3200.1100, L3300.1200, L3410.2400, L3100.5440, L101.9900, L100.0100, L500.4050, L501.6710 ####[facility] [address] [place], [place], [phone](525) Neutrophils/100 WBC (Bld) 54.5 % Normal 47-70 [facility] Comment on above: Performed By: #### L 5500.0550, L2100.0000, L3100.3425, L3200.1100, L3300.1200, L3410.2400, L3100.5440, L101.9900, L100.0100, L500.4050, L501.6710 ####[facility] [address] [place], [phone]) Nucleated RBC (Bld) [#/Vol] 0 10*3/uL Normal 0-5 [facility] Comment on above: Performed By: #### L 5500.0550, L2100.0000, L3100.3425, L3200.1100, L3300.1200, L3410.2400, L3100.5440, L101.9900, L100.0100, L500.4050, L501.6710 ####[facility] [address] [place], [place], [phone] Platelet mean volume (Bld) [Entitic vol] 8.5 fL Normal 6.2-12.0 [facility] Comment on above: Performed By: #### L 5500.0550, L2100.0000, L3100.3425, L3200.1100, L3300.1200, L3410.2400, L3100.5440, L101.9900, L100.0100, L500.4050, L501.6710 ####[facility] [address] [place], [phone]) Platelets (Bld) [#/Vol] 286 10*3/uL Normal 150-450 [facility] Comment on above: Performed By: #### L 5500.0550, L2100.0000, L3100.3425, L3200.1100, L3300.1200, L3410.2400, L3100.5440, L101.9900, L100.0100, L500.4050, L501.6710 ####[facility] [address] [place], [place], [phone](043) RBC (Bld) [#/Vol] 4.50 10*6/uL Normal 4.2-5.4 [facility] Comment on above: Performed By: #### L 5500.0550, L2100.0000, L3100.3425, L3200.1100, L3300.1200, L3410.2400, L3100.5440, L101.9900, L100.0100, L500.4050, L501.6710 ####[facility] [address] [place], [place], [phone]) RDW SD 34.9 fl Low 35.1-43.9 [facility] Comment on above: Performed By: #### L 5500.0550, L2100.0000, L3100.3425, L3200.1100, L3300.1200, L3410.2400, L3100.5440, L101.9900, L100.0100, L500.4050, L501.6710 ####[facility] [address] [place], [place], [phone]) WBC (Bld) [#/Vol] 5.6 10*3/uL Normal 4.4-11.0 [facility] Comment on above: Performed By: #### L 5500.0550, L2100.0000, L3100.3425, L3200.1100, L3300.1200, L3410.2400, L3100.5440, L101.9900, L100.0100, L500.4050, L501.6710 ####[facility] [address] [place], [place], [phone] CRPon 06-11-2024 C-REACTIVE PROT < 2.90 Normal 0.0-3.0 [facility] Comment on above: Result Comment: C-Re active Protein (CRP) provides useful information for the diagnosis, therapy and monitoring of inflammatory processes and associated diseases. For the evaluation of Relative Risk for Cardiovascular Disease, a High Sensitivity CRP (HSCRP) should be ordered. Performed By: #### L 5500.0550, L2100.0000, L3100.3425, L3200.1100, L3300.1200, L3410.2400, L3100.5440, L101.9900, L100.0100, L500.4050, L501.6710 ####[facility] [address] [place], [place], [phone] Comprehensive Metabolic Prof ilon 06-11-2024 Albumin [Mass/Vol] 3.7 g/dL Normal 3.2-5.0 [facility] Comment on above: Performed By: #### L 5500.0550, L2100.0000, L3100.3425, L3200.1100, L3300.1200, L3410.2400, L3100.5440, L101.9900, L100.0100, L500.4050, L501.6710 ####[facility] [address] [place], [place], [phone] Albumin/Globulin [Mass ratio] 1.2 {ratio} Normal 0.9-2.4 [facility] Comment on above: Performed By: #### L 5500.0550, L2100.0000, L3100.3425, L3200.1100, L3300.1200, L3410.2400, L3100.5440, L101.9900, L100.0100, L500.4050, L501.6710 ####[facility] [address] [place], [place], [phone] ALK P 64 U/L Normal 45-117 [facility] Comment on above: Performed By: #### L 5500.0550, L2100.0000, L3100.3425, L3200.1100, L3300.1200, L3410.2400, L3100.5440, L101.9900, L100.0100, L500.4050, L501.6710 ####[facility] [address] [place], [phone] ALT [Catalytic activity/Vol] 39 U/L Normal 13-56 [facility] Comment on above: Performed By: #### L 5500.0550, L2100.0000, L3100.3425, L3200.1100, L3300.1200, L3410.2400, L3100.5440, L101.9900, L100.0100, L500.4050, L501.6710 ####[facility] [address] [place], [address] AST [Catalytic activity/Vol] 19 U/L Normal 15-37 [facility] Comment on above: Performed By: #### L 5500.0550, L2100.0000, L3100.3425, L3200.1100, L3300.1200, L3410.2400, L3100.5440, L101.9900, L100.0100, L500.4050, L501.6710 ####[facility] [address] [place], [address] Bilirubin [Mass/Vol] 0.50 mg/dL Normal 0.20-1.00 [facility] Comment on above: Result Comment: For patients on eltrombopag therapy, use of Dimension [place] TBIL is not recommended. Performed By: #### L 5500.0550, L2100.0000, L3100.3425, L3200.1100, L3300.1200, L3410.2400, L3100.5440, L101.9900, L100.0100, L500.4050, L501.6710 ####[facility] [address] [place], [place], [phone] BUN/CRE 14.5 RATIO Normal 10-20 [facility] Comment on above: Performed By: #### L 5500.0550, L2100.0000, L3100.3425, L3200.1100, L3300.1200, L3410.2400, L3100.5440, L101.9900, L100.0100, L500.4050, L501.6710 ####[facility] [address] [place], [place], [phone]) CA,Total 8.9 mg/dL Normal 8.5-10.1 [facility] Comment on above: Performed By: #### L 5500.0550, L2100.0000, L3100.3425, L3200.1100, L3300.1200, L3410.2400, L3100.5440, L101.9900, L100.0100, L500.4050, L501.6710 ####[facility] [address] [place], [place], [phone] Chloride [Moles/Vol] 108 mmol/L High 98-107 [facility] Comment on above: Performed By: #### L 5500.0550, L2100.0000, L3100.3425, L3200.1100, L3300.1200, L3410.2400, L3100.5440, L101.9900, L100.0100, L500.4050, L501.6710 ####[facility] [address] [place], [place], [phone] CO2 [Moles/Vol] 28.0 mmol/L Normal 21.0-32.0 [facility] Comment on above: Performed By: #### L 5500.0550, L2100.0000, L3100.3425, L3200.1100, L3300.1200, L3410.2400, L3100.5440, L101.9900, L100.0100, L500.4050, L501.6710 ####[facility] [address] [place], [place], [phone] Creatinine [Mass/Vol] 0.83 mg/dL Normal 0.55-1.02 [facility] Comment on above: Result Comment: The validity of the calculated GFR GFRAA in patients over 70 years has not been determined. Clinical correlation is essential. Performed By: #### L 5500.0550, L2100.0000, L3100.3425, L3200.1100, L3300.1200, L3410.2400, L3100.5440, L101.9900, L100.0100, L500.4050, L501.6710 ####[facility] [address] [place], [place], [phone] EST GFR - AA 112 mL/min Normal >60 [facility] Comment on above: Result Comment: Afri can South African GFR Calc Performed By: #### L 5500.0550, L2100.0000, L3100.3425, L3200.1100, L3300.1200, L3410.2400, L3100.5440, L101.9900, L100.0100, L500.4050, L501.6710 ####[facility] [address] [place], [place], [phone] GAP 3 Low 5-15 [facility] Comment on above: Performed By: #### L 5500.0550, L2100.0000, L3100.3425, L3200.1100, L3300.1200, L3410.2400, L3100.5440, L101.9900, L100.0100, L500.4050, L501.6710 ####[facility] [address] [place], [address] GFR/1.73 sq M.predicted among non-blacks MDRD (S/P/Bld) [Vol rate/Area] 93 mL/min/{1.73_m2} Normal >60 [facility] Comment on above: Result Comment: Non- GFR Calc Performed By: #### L 5500.0550, L2100.0000, L3100.3425, L3200.1100, L3300.1200, L3410.2400, L3100.5440, L101.9900, L100.0100, L500.4050, L501.6710 ####[facility] [address] [place], [address] Globulin (S) [Mass/Vol] 3.2 g/dL Normal 2.2-4.2 [facility] Comment on above: Performed By: #### L 5500.0550, L2100.0000, L3100.3425, L3200.1100, L3300.1200, L3410.2400, L3100.5440, L101.9900, L100.0100, L500.4050, L501.6710 ####[facility] [address] [place], [address] Glucose [Mass/Vol] 85 mg/dL Normal 74-106 [facility] Comment on above: Performed By: #### L 5500.0550, L2100.0000, L3100.3425, L3200.1100, L3300.1200, L3410.2400, L3100.5440, L101.9900, L100.0100, L500.4050, L501.6710 ####[facility] [address] [place], [address] Potassium [Moles/Vol] 4.2 mmol/L Normal 3.5-5.1 [facility] Comment on above: Performed By: #### L 5500.0550, L2100.0000, L3100.3425, L3200.1100, L3300.1200, L3410.2400, L3100.5440, L101.9900, L100.0100, L500.4050, L501.6710 ####[facility] [address] [place], [address] Sodium [Moles/Vol] 139 mmol/L Normal 136-145 [facility] Comment on above: Performed By: #### L 5500.0550, L2100.0000, L3100.3425, L3200.1100, L3300.1200, L3410.2400, L3100.5440, L101.9900, L100.0100, L500.4050, L501.6710 ####[facility] [address] [place], [address] T PROT 6.9 g/dL Normal 6.4-8.2 [facility] Comment on above: Performed By: #### L 5500.0550, L2100.0000, L3100.3425, L3200.1100, L3300.1200, L3410.2400, L3100.5440, L101.9900, L100.0100, L500.4050, L501.6710 ####[facility] [address] [place], [place], [phone] Urea nitrogen [Mass/Vol] 12 mg/dL Normal 7-18 [facility] Comment on above: Performed By: #### L 5500.0550, L2100.0000, L3100.3425, L3200.1100, L3300.1200, L3410.2400, L3100.5440, L101.9900, L100.0100, L500.4050, L501.6710 ####[facility] [address] [place], [place], [phone] Erythrocyte Sed Rateon 06-11 SED RATE 1 mm/hr Normal 0-30 [facility] Comment on above: Performed By: #### L 5500.0550, L2100.0000, L3100.3425, L3200.1100, L3300.1200, L3410.2400, L3100.5440, L101.9900, L100.0100, L500.4050, L501.6710 #### [facility] [address] [place], [place], [phone] Gastroenterology Visit Repor ton 06-11-2024 Gastroenterology Visit Report [facility] [address] [place] [address] OFFICE VISIT Date of Service: 06/11/24 MR#: [id number] Acct: [id number] Name: BINA CAMPOS Rep #: [id number] : 2005 Provider: RICARDA Brooks Age/Sex: 19/F Location: [facility] Status: Signed Intake Vital Signs 05/22/24 11:56 Height 5 ft 1 in Intake Visit Reasons: Bloating Chief Complaint: bloating Applications Programmer Analyst Required: No Is patient in pain?: No Allergies amoxicillin Allergy (Severe, Verified 05/22/24 11:46) unknown Medications ???Medication ???Instructions ???Recorded ???Confirmed ???Type dextroamphetamine-amphet amine 15 15 mg PO DAILY 01/10/22 05/22/24 History mg tablet (Adderall) ascorbate calcium (vitamin C) 500 500 mg PO QDAY 05/22/24 05/22/24 History mg tablet cranberry 500 mg capsule 500 mg PO BID 05/22/24 05/22/24 History doxycycline hyclate 100 mg capsule 100 mg PO QDAY 05/22/24 05/22/24 History Post menopausal: No Patient : No Have you fallen in the past year?: No Nurse's Note: OV 06.11.24 Pt here to establish care with [facility]. Pt reports constipation, diarrhea, gas, bloating and nausea. Pt denies abdominal pain and vomiting. Reports loose BM every other day. Pt states when she has a formed BM it is very thin. Reports a hx of hemorrhoids. Pt has tried Miralax, and probiotics to help with constipation. [facility] S/P tonsillectomy S/P wisdom tooth extraction Family History Grandfather Squamous cell carcinoma Diabetes Heart disease Aunt Breast cancer Uncle Leukemia Grandmother Diabetes Social History current occupational status: employed current occupation: [employer] Smoking Status: Never smoker alcohol intake: never substance use type: does not use caffeine: Yes what type of physical activity do you participate in: running and weight training frequency: 5-6 times per week seatbelt use: always do you feel safe at home: Yes additional social history: Single HPI HPI Chief Complaint: bloating Details: BINA CAMPOS, is a 19 F who presents to the office today for establishment with [facility]. Pt has struggled with abd bloating for many years. As a child she had obesity and was told her abd issues were related to this. Once she lost weight she continues to have these issues. She is hungry but as soon as she eats she will get full and bloated. She has tried eliminating gluten and dairy but this did not seem to do much. Her abd always feel distended and hard to her. She has a bm every other day and it is typically loose. If she does have a solid bm it is pencil like. Her weight will typically flucatuate anywehre between 130 and 145 lbs. She has been on hormonal control and spironolactone in the past but felt it made the bloating worse so she stopped it. She is also suffering form idiopathic hypersomnia and did undergo sleep study recently. Her PCP is re testing her thyroid which has been normal in the past. ROS Const Constitutional: Positive for fatigue and headache(s); No fever(s) or weight change ENT ENT: Positive for headache(s); No difficulty swallowing Gastro GI: Positive for bloating, constipation, diarrhea, heartburn, excessive flatus and nausea/dyspepsia; No abdominal pain, belching, change in bowel habits, change in stool character, coffee ground emesis, cramping, difficulty swallowing, feeling full early, incontinent of stools, Vomiting blood/hematemesis, Blood in stool, loose stools, Black,tarry stools, pain with swallowing, vomiting or other Musc Musculoskeletal: Positive for restless legs; No joint pain Skin Skin: Positive for dry skin and itchy eyes; No yellowing of the eye Neuro Neurology: Positive for headache(s) and restless legs Psych Psychiatric: Positive for anxiety, Positive for depression, Positive for hyperactivity and Positive for inattentiveness Endo Endocrine: Positive for fatigue; No weight change Aller/Imm Allergy/Immunologic: Positive for itchy eyes Giovany/Lymp Hematologic/Lymphatic: Positive for easy bruising; No easy bleeding Exam Const General: cooperative and comfortable Nutritional Appearance: average body habitus and well nourished [facility] Head: normal to inspection Ears: hearing grossly normal bilaterally Nose: external nose normal Face and sinus: normal facial exam Eyes General: appearance normal, both eyes and all related structures Neck Neck: normal visual inspection Chest Chest palpation inspection: normal inspection of the chest and normal palpation of entire chest wall Resp Effort Inspection: normal respiratory effort Auscultation: (more content not included)... Normal [facility] Calcium, Urineon 05-31-2024 24 HR URINE VOLUME - [facility] 3250 mL [facility] Calcium (24H U) [Mass/Time] 250 [facility] Comment on above: Reference Range, Low Calcium Diet: Female: 35 - 200 mg/24 h Male: 55 - 200 mg/24 h Calcium/Creatinine (24H U) [Mass ratio] 180 [facility] Creatinine (24H U) [Mass/Time] 1.39 [facility] Comment on above: Test Performed by Karen Rivers, [employer] [facility], [address] [place] [address] Gerry Chan M.D., Ph.D., Director of Laboratories , CLIA [id number] [facility] Cystine, Urine, Quantitative on 05-31-2024 Creatinine (U) [Mass/Vol] 46 mg/dL [facility] Cystine (24H U) [Mass/Time] <9 mg/d [facility] Comment on above: For random or timed specimens other than 24 hours, the result represents the total milligrams of cystine excreted during the collection period. Performed By: [facility] [address] [place] [address] [employer] Sales Account Manager: Akbar Puentes MD, PhD CLIA Number: [id number] Cystine (24H U) [Mass/Vol] <0.28 mg/dL [facility] Cystine/Creatinine (24H U) [Ratio] <25 NINF [facility] Comment on above: This test was developed and its performance characteristics determined by [facility]. It has not been cleared or approved by the U.S. Food and Drug Administration. This test was performed in a CLIA-certified laboratory and is intended for clinical purposes. Specimen volume Unsp time (U) 3250 mL [facility] Urine collection associated observations panel (24H U) 24 hr [facility] Citric Acid, Urineon 024 Citrate (24H U) [Mass/Time] 374 mg/d 320 - 1240 mg/d [facility] Citrate (U) [Mass/Vol] 115 mg/L [facility] Citrate/Creatinine (U) [Mass ratio] 267 mg/g 150 - PINF mg/g [facility] Comment on above: INTERPRETIVE INFORMA TION: Citric Acid, Urine This test was developed and its performance characteristics determined by [facility]. It has not been cleared or approved by the US Food and Drug Administration. This test was performed in a CLIA certified laboratory and is intended for clinical purposes. Performed By: [facility] [address] [place] [address] [employer] Sales Account Manager: Akbar Puentes MD, PhD [place] Number: [id number] Collection duration (Unsp spec) 24 hr [facility] Comment on above: Per 24h calculations are provided to aid interpretation for collections with a duration of 24 hours and an average daily urine volume. For specimens with notable deviations in collection time or volume, ratios of analytes to a corresponding urine creatinine concentration may assist in result interpretation. Creatinine (24H U) [Mass/Time] 1398 mg/d 700 - 1600 mg/d [facility] Creatinine (U) [Mass/Vol] 43 mg/dL [facility] Specimen volume Unsp time (U) 3250 mL [facility] CALCIUM, URINE (BKR [facility])on 05-24-2024 24 HR URINE VOLUME - [facility] 3250 mL Normal [facility] Comment on above: Performed By: #### L [id number] #### Manager Scientific: LEXY CHE ([id number]) [facility] SAMIRA [employer] ([facility]) [address] [place] [address] [facility] CALCIUM, 24 HOUR URINE 250 mg/24 h Normal 35-250 [facility] Comment on above: Result Comment: Reference Range, Low Calcium Diet: Female: 35 - 200 mg/24 h Male: 55 - 200 mg/24 h Performed By: #### L [id number] #### Manager Scientific: LEXY CHE ([id number]) [facility] [employer] ([facility]) [address] [place], [place] [address] [place] [facility] CALCIUM/CREATININE RATIO 180 mg/g creat Normal 30-275 [facility] Comment on above: Performed By: #### L [id number] #### Manager Scientific: LEXY CHE ([id number]) [facility] ([facility]) [address] [place] [address] [facility] CREATININE, 24 HOUR URINE 1.39 g/24 h Normal 0.50-2.15 [facility] Comment on above: Result Comment: Test Performed by [facility], [facility], [address] [place] [address] Gerry Chan M.D., Ph.D., Director of Laboratories , CLIA [id number] Performed By: #### L [id number] #### Manager Scientific: LEXY CHE ([id number]) [facility] ([facility]) [address] [place] [address] CITRIC ACID, URINEon 024 CITRIC ACID, URINE - PER 24H 374 mg/d Normal 320-1240 [facility] Comment on above: Performed By: #### L [id number] #### [facility] ([facility]) [address] [place], [place] [id number] [facility] CITRIC ACID, URINE - PER VOLUME 115 mg/L Normal [facility] Comment on above: Performed By: #### L [id number] #### [facility] ([facility]) [address] [place] [address] [facility] CITRIC ACID/CREATININE RATIO, URINE 267 mg/g Normal >=150 [facility] Comment on above: Result Comment: INTE RPRETIVE INFORMATION: Citric Acid, Urine This test was developed and its performance characteristics determined by [facility]. It has not been cleared or approved by the US Food and Drug Administration. This test was performed in a CLIA certified laboratory and is intended for clinical purposes. Performed By: [facility] [address] [place] [address] Agriculture Sales Account Manager: Akbar Puentes MD, PhD CLIA Number: [id number] Performed By: #### L [id number] #### [facility] ([facility]) [address] [place] [address] [facility] CREATININE, URINE - PER 24H 1398 mg/d Normal 700-1600 [facility] Comment on above: Performed By: #### L [id number] #### [facility] ([facility]) [address] [place] [address] [facility] CREATININE, URINE - PER VOLUME 43 mg/dL Normal [facility] Comment on above: Performed By: #### L [id number] #### [facility] ([facility]) [address] [place] [address] [facility] HOURS COLLECTED 24 hr Normal [facility] Comment on above: Result Comment: Per 24h calculations are provided to aid interpretation for collections with a duration of 24 hours and an average daily urine volume. For specimens with notable deviations in collection time or volume, ratios of analytes to a corresponding urine creatinine concentration may assist in result interpretation. Performed By: #### L [id number] #### [facility] ([facility]) [address] [place] [address] [facility] TOTAL VOLUME 3250 mL Normal [facility] Comment on above: Performed By: #### L [id number] #### [facility] ([facility]) [address] [place] [address] [place] CREATININE, URINE, 24 HOURon 05-24-2024 CREATININE IN 24 HOUR URINE 767.0 mg/24 H Normal 710.0-1650.0 [facility] Comment on above: Performed By: #### L [id number] #### Manager Scientific: LEXY CHE ([id number]) [facility] ([facility]) [address] [place] [address] [place] CYSTINE, URINE, QUANTITATIVE on 05-24-2024 CREATININE, URINE 46 mg/dL Normal [facility] Comment on above: Performed By: #### L [id number] #### [facility] ([facility]) [address] [place] [address] [place] CYSTINE, 24 HOUR URINE <9 Normal [facility] Comment on above: Result Comment: For random or timed specimens other than 24 hours, the result represents the total milligrams of cystine excreted during the collection period. Performed By: [facility] [address] [place] [address] Agriculture Sales Account Manager: Akbra Puentes MD, PhD CLIA Number: [id number] Performed By: #### L [id number] #### [facility] ([facility]) [address] [place] [address] [place] CYSTINE, URINE - PER VOLUME <0.28 Normal [facility] Comment on above: Performed By: #### L [id number] #### [facility] ([facility]) [address] [place] [address] [place] CYSTINE, URINE - QUANTITATIVE <25 Normal <=150 [facility] Comment on above: Result Comment: This test was developed and its performance characteristics determined by [facility]. It has not been cleared or approved by the U.S. Food and Drug Administration. This test was performed in a CLIA-certified laboratory and is intended for clinical purposes. Performed By: #### L [id number] #### [facility] ([facility]) [address] [place] [address] [facility] HOURS [id number] 24 hr Normal [facility] Comment on above: Performed By: #### L [id number] #### [facility] ([facility]) [address] [place] [address] [facility] TOTAL [id number] 3250 mL Normal [facility] Comment on above: Performed By: #### L [id number] #### [facility] ([facility]) [address] [place] [address] [facility] Comprehensive Metabolic Prof ilon 05-24-2024 Albumin [Mass/Vol] 3.8 g/dL Normal 3.2-5.0 [facility] Comment on above: Performed By: #### L 509.1000, L500.4050 ####[facility] [address] [place], [address] Albumin/Globulin [Mass ratio] 1.2 {ratio} Normal 0.9-2.4 [facility] Comment on above: Performed By: #### L 509.1000, L500.4050 ####[facility] [address] [place], [address] ALK P 72 U/L Normal 45-117 [facility] Comment on above: Performed By: #### L 509.1000, L500.4050 ####[facility] [address] [place], [address] ALT [Catalytic activity/Vol] 50 U/L Normal 13-56 [facility] Comment on above: Performed By: #### L 509.1000, L500.4050 ####[facility] [address] [place], [address] AST [Catalytic activity/Vol] 23 U/L Normal 15-37 [facility] Comment on above: Performed By: #### L 509.1000, L500.4050 ####[facility] [address] [place], [address] Bilirubin [Mass/Vol] 0.50 mg/dL Normal 0.20-1.00 [facility] Comment on above: Result Comment: For patients on eltrombopag therapy, use of Dimension [place] TBIL is not recommended. Performed By: #### L 509.1000, L500.4050 ####[facility] [address] [place], [address] BUN/CRE 18.1 RATIO Normal 10-20 [facility] Comment on above: Performed By: #### L 509.1000, L500.4050 ####[facility] [address] [place], [address] CA,Total 9.5 mg/dL Normal 8.5-10.1 [facility] Comment on above: Performed By: #### L 509.1000, L500.4050 ####[facility] [address] [place], [address] Chloride [Moles/Vol] 108 mmol/L High 98-107 [facility] Comment on above: Performed By: #### L 509.1000, L500.4050 ####[facility] [address] [place], [address] CO2 [Moles/Vol] 23.0 mmol/L Normal 21.0-32.0 [facility] Comment on above: Performed By: #### L 509.1000, L500.4050 ####[facility] [address] [place], [address] Creatinine [Mass/Vol] 0.88 mg/dL Normal 0.55-1.02 [facility] Comment on above: Result Comment: The validity of the calculated GFR GFRAA in patients over 70 years has not been determined. Clinical correlation is essential. Performed By: #### L 509.1000, L500.4050 ####[facility] [address] [place], [address] EST GFR - AA 105 mL/min Normal >60 [facility] Comment on above: Result Comment: Afri can [place] African GFR Calc Performed By: #### L 509.1000, L500.4050 ####[facility] [address] [place], [address] GAP 7 Normal 5-15 [facility] Comment on above: Performed By: #### L 509.1000, L500.4050 ####[facility] [address] [place], [address] GFR/1.73 sq M.predicted among non-blacks MDRD (S/P/Bld) [Vol rate/Area] 86 mL/min/{1.73_m2} Normal >60 [facility] Comment on above: Result Comment: Non- GFR Calc Performed By: #### L 509.1000, L500.4050 ####[facility] [address] [place], [address] Globulin (S) [Mass/Vol] 3.3 g/dL Normal 2.2-4.2 [facility] Comment on above: Performed By: #### L 509.1000, L500.4050 ####[facility] [address] [place], [address] Glucose [Mass/Vol] 78 mg/dL Normal 74-106 [facility] Comment on above: Performed By: #### L 509.1000, L500.4050 ####[facility] [address] [place], [address] Potassium [Moles/Vol] 4.2 mmol/L Normal 3.5-5.1 [facility] Comment on above: Performed By: #### L 509.1000, L500.4050 ####[facility] [address] [place], [address] Sodium [Moles/Vol] 138 mmol/L Normal 136-145 [facility] Comment on above: Performed By: #### L 509.1000, L500.4050 ####[facility] [address] [place], [address] T PROT 7.1 g/dL Normal 6.4-8.2 [facility] Comment on above: Performed By: #### L 509.1000, L500.4050 ####[facility] [address] [place], [address] Urea nitrogen [Mass/Vol] 16 mg/dL Normal 7-18 [facility] Comment on above: Performed By: #### L 509.1000, L500.4050 ####[facility] [address] [place], [address] Creatinine, urine, 24 hourOr dered By: Sharda Muñoz on 05-24-2024 Creatinine (24H U) [Mass/Time] 767 [facility] Interpretation and review of laboratory results Normal [facility] - Chemistry and C hemistry - challengeon 05-24-2024 Creatinine (24H U) [Mass/Time] 1306.5 [facility] No Panel Informationon 05-24 Interpretation and review of laboratory results Normal [facility] POTASSIUM, URINE, 24 HOURon 05-24-2024 CREATININE IN 24 HOUR URINE 1306.5 mg/24 H Normal 710.0-1650.0 [facility] Comment on above: Performed By: #### L AB446, [id number], [id number] #### Manager Scientific: KAYLEE BEARD ([id number]) [facility] HERNANDEZGUAL[facility]ERTO (SBHLAB) [address] Performed By: #### L AB712 #### Manager Scientific: LEXY CHE ([id number]) [facility] SAMIRA RITTMAN (SWRLAB) [address] [place] [address] POTASSIUM IN 24 HOUR URINE 59 mmol/24 H Normal 25-125 [facility] Comment on above: Performed By: #### L AB446, [id number], [id number] #### Manager Scientific: KAYLEE BERAD ([id number]) [facility] STINSON[facility] (SBHLAB) [address] PTHINon 05-24-2024 PTH 32.5 pg/mL Normal 18.4-80.1 [facility] Comment on above: Performed By: #### L 509.1000, L500.4050 ####[facility] [address] [place], [place], [id number] Potassium, urine, 24 houron 05-24-2024 Potassium (24H U) [Moles/Time] 59 mmol/(24.h) [facility] SODIUM, URINE, 24 HOURon SODIUM, URINE 24 HOUR 94 mmol/24 H Normal 27-287 [facility] Comment on above: Performed By: #### L AB712 #### Manager Scientific: LEXY CHE ([id number]) [facility] SAMIRA RITTMAN (SWRLAB) [address] [place], [place] [address] [place] Sodium, urine, 24 houron Sodium (24H U) [Moles/Time] 94 [facility] URIC ACID, URINE, 24 HOURon 05-24-2024 URIC ACID, URINE 24 HOUR 683 mg/24 H Normal 250-750 [facility] Comment on above: Performed By: #### L AB712 #### Manager Scientific: LEXY CHE ([id number]) [facility] MICHELE (SWRLAB) [address] Uric acid, urine, 24 houron 05-24-2024 URIC ACID, URINE 24 HOUR 683 [facility] Lead Supply Worker Office Visit Reporton 05-22-2024 Lead Supply Worker Office Visit Report [facility] [address], [address] [place] [address] OFFICE VISIT Date of Service: 05/22/24 MR#: [id number] Acct: [id number] Name: BINA CAMPOS Rep #: [id number] : 2005 Provider: KAM wilson Age/Sex: 19/F Location: [facility] Status: Signed Intake Vital Signs 01/16/24 14:55 05/22/24 11:47 05/22/24 11:56 Height 5 ft 1 in 5 ft 1 in 5 ft 1 in Weight: 135 lb BMI 25.4 BP 110/66 Intake Visit Reasons: OCP concerns/bloating Chief Complaint: OCP concerns/ Bloating Applications Programmer Analyst Required: No Is patient in pain?: No Allergies amoxicillin Allergy (Severe, Verified 05/22/24 11:46) unknown Medications ???Medication ???Instructions ???Recorded ???Confirmed ???Type dextroamphetamine-amphet amine 15 15 mg PO DAILY 01/10/22 05/22/24 History mg tablet (Adderall) spironolactone 100 mg tablet 100 mg PO DAILY 01/11/23 05/22/24 History ascorbate calcium (vitamin C) 500 500 mg PO QDAY 05/22/24 05/22/24 History mg tablet cranberry 500 mg capsule 500 mg PO BID 05/22/24 05/22/24 History doxycycline hyclate 100 mg capsule 100 mg PO QDAY 05/22/24 05/22/24 History Is last menstrual period known: Yes Last Menstrual Period: 05/04/24 Post menopausal: No Patient : No : No PFSH Surgical History S/P tonsillectomy S/P wisdom tooth extraction Family History Grandfather Squamous cell carcinoma Diabetes Heart disease Aunt Breast cancer Uncle Leukemia Grandmother Diabetes Social History current occupational status: employed current occupation: [employer] Smoking Status: Never smoker alcohol intake: never substance use type: does not use caffeine: Yes what type of physical activity do you participate in: running and weight training frequency: 5-6 times per week seatbelt use: always do you feel safe at home: Yes additional social history: Single HPI OCP concerns/bloating Details: BINA CAMPOS is a 19 year old who presents for discussion of oral contraceptives causing bloating so she stopped them. Not currently sexually active. Menses regular every 28 days, last about 4-6 days. Now has aura ring, has insurance auth as will pay for it. Also plans to use condoms. She wants to avoid hormonal contraception. She is dealing with recurrent kidney stones. Has passed a couple. She has dealt with weight issues. Was 170# in middle school but now more active, better diet. Seeing Dr Suarez as PCP for dizziness, syncope, low BP. Normal cardiac studies. She also struggles with constipation w/her bloating and will be seeing Dr Hagen. She is seeing a counselor to help her deal with all of her health issues. Female Reproductive History Last Menstrual Period: 05/04/24 ROS Const Constitutional: Reports system reviewed and no additional complaints, except as documented Eyes Eyes: Reports system reviewed and no additional complaints, except as documented GI GI: Denies abdominal pain or change in bowel habits : Reports as per HPI Exam Const General: cooperative and no acute distress Orientation: oriented x3 HENMT Head: normal to inspection and normocephalic Eyes General: appearance normal, both eyes and all related structures Neck Neck: normal visual inspection Resp Effort Inspection: normal respiratory effort Neuro Cognition: normal cognition Speech: speech normal Psych Appearance: grossly normal Mood: congruent mood Affect: normal affect Speech and Movement: speech and movement normal Attitude: cooperative Judgment: judgment good Coding Level of Care Code Off vis,est,level 3 Diagnoses Dysmenorrhea N94.6 Bloating R14.0 Assessment and Plan Assessment and Plan (1) Dysmenorrhea: Status: Acute (2) Bloating: Status: Acute Plan She wanted to just bring me up to date that she was not using the OCPs any longer. Enc condoms and aura ring, form completed Praised for being involved with counseling Enc to proceed with follow up with Dr Hieu vu, annual exam 05/22/24 1216 Date Em Machuca SECR[employer]ARY [employer] SECR[employer]ARY [employer]-C Cosigner Signature: Date (if applicable) CC: Normal [facility] 36on 05-21-2024 36 Outside medical edgar rds (CT & xray) are in media tab. Normal [facility] 37on 05-21-2024 37 Reduce sodium Talk with a health home visit field care manager about how much sodium should be in what you eat, especially if you had calcium oxalate stones or calcium phosphate stones. Most Americans consume too much sodium. Sodium is a part of salt. Sodium is in many canned, packaged, and fast foods. Sodium is also in many condiments, seasonings, and meats. Your chance of developing kidney stones increases when you eat more sodium. Dietary Guidelines for Americans 2768-8827 provides information on how much sodium an adult should have each day.2 If you have had calcium oxalate or calcium phosphate stones, you should follow this guideline even if you take medicine to prevent kidney stones. Here are some tips to help reduce your sodium intake: Check the Percent Daily Value (%DV) for sodium on Nutrition Facts label, found on many foods. Low in sodium is 5% or less and high in sodium is 20% or more. Consider writing down how much sodium you consume each day. When eating out, ask about the sodium content in the food. Avoid processed and fast foods, canned soups and vegetables, and lunch meats. Check labels for ingredients and hidden sodium, such as sodium bicarbonate, the chemical name for baking soda baking powder, which contains sodium bicarbonate and other chemicals disodium phosphate monosodium glutamate, or MSG sodium alginate sodium nitrate or nitrite To reduce sodium to help prevent kidney stones, avoid processed and fast foods, canned soups and vegetables, and lunch meats. Limit animal protein Eating animal protein may increase your chances of developing kidney stones. A health home visit field care manager may tell you to limit eating animal protein, including beef, chicken, and pork, especially organ meat eggs fish and shellfish milk, cheese, and other dairy products Although you may need to reduce how much animal protein you have each day, you still need to make sure you get enough. Talk with the health home visit field care manager about how much animal protein you should eat. Consider replacing some of the meat and animal protein you would typically eat with some of these plant-based foods that are high in protein: legumes such as beans, dried peas, lentils, and peanuts soy foods, such as soy milk, soy nut butter, and tofu nuts and nut products, such as almonds and almond butter, cashews and cashew butter, walnuts, and pistachios sunflower seeds IMPORTANT NOTE: If you have had calcium oxalate stones, avoid peanuts, soy foods, nuts and nut products, and sunflower seeds. Reduce oxalate You may want to avoid these foods to help reduce the amount of oxalate in your urine: nuts and nut products peanuts, which are legumes rhubarb spinach wheat bran Talk with a health home visit field care manager about other food sources of oxalate and how much oxalate should be in what you eat, especially if you have had calcium oxalate stones. Get enough calcium Talk with a health home visit field care manager about how much calcium you should eat, especially if you had calcium stones. Even though calcium sounds like it would be the cause of calcium stones, it?s not. Calcium from food does not increase your risk of calcium oxalate stones. In fact, if you had calcium oxalate stones, the health home visit field care manager may tell you to have calcium every day to help prevent kidney stones and support strong bones. Foods that are high in calcium include dairy products, such as low-fat milk and yogurt, and lactose-free milk with calcium. Normal [facility] Office Visiton 05-21-2024 Follow-up visit [id number] Brii Campos 2005 F Date Provider Department Center 05/21/2024 50724-MDOYLYOEDUARDO KELLOGG [facility] None No family history on file Level of Service:08962 MS OFFICE/OUTPATIENT NEW MODERATE MDM 45 MINUTES Reason for Visit and Comments: Nephrolithiasis [673649] - Has history of stones. Aged out of [facility]. Establishing for stone management. Complains of water retention/ bloating. Normal [facility] Progress Noteon 05-21-2024 Progress Note Eduardo Kellogg MD 05/21/2024 at 11:32 AM UROLOGY INITIAL OFFICE VISIT PATIENT NAME: Bina Campos DATE OF : 2005 TODAY'S DATE: 05/21/2024 Chief Complaint: Chief Complaint Patient presents with Nephrolithiasis Has history of stones. Aged out of [facility]. Establishing for stone management. Complains of water retention/ bloating. HISTORY OF PRESENT ILLNESS: Ms. Campos is a 19 y.o. female who presents with recurrent kidney stones She has had multiple kidney stone episodes She was taken to ER for kidney stone in April, was admitted to hospital while passing kidney stone due to hypotension, concern for infection. She was able to pass stone prior to needing stent placed She was in [facility] to [facility]. Was admitted overnight. She did not need a stent. Passed the stone the day after discharge from the hospital She was told he has 1-2 stones REVIEW OF SYSTEMS: Review of Systems Past Medical History: No past medical history on file. Past Surgical History: No past surgical history on file. Current Medications: Prior to Admission medications Medication Sig Start Date End Date Taking? Authorizing Provider Adapalene-Benzoyl Peroxide 0.3-2.5 % gel APPLY A THIN LAYER TO THE FULL FACE ONCE NIGHTLY 05/07/24 Yes Historical Provider, albuterol 108 (90 Base) MCG/ACT inhaler 2 puffs every four hours as needed.May also 15 minutes pre-exercise.Use w/spacer. 10/18/23 Yes Historical Provider, amphetamine-dextroamphet amine XR (Adderall XR) 15 MG 24 hr capsule Take 15 mg by mouth every morning. 04/22/24 05/22/24 Yes Historical Provider, doxycycline (Adoxa) 100 MG tablet TAKE ONE TABLET BY MOUTH ONCE A DAY WITH FOOD AND WATER. 05/06/24 Yes Historical Provider, metroNIDAZOLE (Metrogel) 0.75 % gel APPLY A THIN LAYER TO THE FULL FACE TWICE A DAY 05/06/24 Yes Historical Provider, spironolactone (Aldactone) 100 MG tablet TAKE ONE TABLET BY MOUTH EVERY NIGHT WITH A FULL GLASS OF WATER. Historical Provider, Allergies: Amoxicillin and Penicillin g Social History: Social History Socioeconomic History Marital status: Single Spouse name: Not on file Number of children: Not on file Years of education: Not on file Highest education level: Not on file Occupational History Not on file Tobacco Use Smoking status: Never Smokeless tobacco: Never Substance and Sexual Activity Alcohol use: Not on file Drug use: Not on file Sexual activity: Not on file Other Topics Concern Not on file Social History Narrative Not on file Social Drivers of Health Financial Resource Strain: Low Risk (12/14/2023) Received from [facility] Overall Financial Resource Strain (CARDIA) Difficulty of Paying Living Expenses: Not very hard Food Insecurity: No Food Insecurity (12/14/2023) Received from [facility] Hunger Vital Sign Worried About Running Out of Food in the Last Year: Never true Ran Out of Food in the Last Year: Never true Transportation Needs: No Transportation Needs (12/14/2023) Received from [facility] PRAPARE - Transportation Lack of Transportation (Medical): No Lack of Transportation (Non-Medical): No Physical Activity: Sufficiently Active (12/14/2023) Received from [facility] Exercise Vital Sign Days of Exercise per Week: 4 days Minutes of Exercise per Session: 120 min Stress: Stress Concern Present (12/14/2023) Received from [facility] Citizen Of [place] of Occupational Health - Occupational Stress Questionnaire Feeling of Stress : To some extent Social Connections: Unknown (12/14/2023) Received from [facility] Social Connection and Isolation Panel [NHANES] Frequency of Communication with Friends and Family: Three times a week Frequency of Social Gatherings with Friends and Family: Once a week Attends Mandaen Services: Patient declined Active Member of Clubs or Organizations: Yes Attends Club or Organization Meetings: More than 4 times per year Marital Status: Never Intimate Partner Violence: Not on file Housing Stability: Low Risk (12/14/2023) Received from [facility] Housing Stability Vital Sign Unable to Pay for Housing in the Last Year: No Number of Places Lived in the Last Year: 1 Unstable Housing in the Last Year: No Family History: @FAMHXNH@ PHYSICAL EXAM: VITALS: BP 130/77 (BP Location: Left arm, Patient Position: Sitting, BP Cuff Size: Adult) Pulse 110 Ht 5' 1 (1.549 m) Wt 133 lb (60.3 kg) BMI 25.13 kg/m? Physical Exam DATA: WBC No results found for: WBC BMP No results found for: NA, K, CL, CO2, BUN, CREATININE, GLUCOSE, CALCIUM PSA No results found for: PSA UANo results found for: APPEARANCE, COLORU, LABSPEC, LABPH, URINE, GLUCOSEU, UROBILINOGEN, BILIRUBINUR, OCBU Review: Assessment and Plan Diagnoses and all orders for this visit: K (more content not included)... Normal [facility] .eGFRon 04-12-2024 GFR/1.73 sq M.predicted MDRD (S/P/Bld) [Vol rate/Area] mL/min/{1.73_m2} Normal >=60 [facility] Comment on above: Result Comment: [facility] have implemented the eGFR calculation approach that does not have a coefficient for race and that conforms to the NKF-ASN Task Force Recommendations. Stages of Chronic Kidney Disease GFR Stage 3a Mild to moderate loss of kidney function 59 to 45 Stage 3b Moderate to severe loss of kidney function 44 to 33 Stage 4 Severe loss of kidney function 29 to 15 Stage 5 Kidney failure Less than 15 GFR calculated using the CKD-Epi Creatinine Equation (2020): eGFR = 142 X min(SCr/?, 1)? X max(SCr /?, 1)-1.200 X 0.9938Age X 1.012 [if female] Abbreviations/Units: eGFR (estimated glomerular filtration rate) = mL/min/1.73 m2 SCr (standardized serum creatinine) = mg/dL ? = 0.7 (females) or 0.9 (males) ? = -0.241 (females) or -0.302 (males) min = indicates the minimum of SCr/? or 1 max = indicates the maximum of SCr/? or 1 Age = years Performed By: #### E GFR ####[address] [address] Basic Metabolic Profileon Anion gap [Moles/Vol] 2 mmol/L Low 4-12 [facility] Comment on above: Performed By: #### C BCI #### [address] [address] Calcium [Mass/Vol] 8.2 mg/dL Low 8.5-10.3 [facility] Comment on above: Performed By: #### C BCI #### [address] [address] Chloride [Moles/Vol] 110 mmol/L Normal 98-110 [facility] Comment on above: Performed By: #### C BCI #### [address] [address] CO2 [Moles/Vol] 23 mmol/L Normal 22-32 [facility] Comment on above: Performed By: #### C BCI #### [address] [address] Creatinine [Mass/Vol] 0.74 mg/dL Normal 0.44-1.03 [facility] Comment on above: Performed By: #### C BCI #### [address] [address] Glucose [Mass/Vol] 90 mg/dL Normal 70-99 [facility] Comment on above: Performed By: #### C BCI #### [address] [address] Potassium [Moles/Vol] 4.1 mmol/L Normal 3.4-4.8 [facility] Comment on above: Performed By: #### C BCI #### [address] [address] Sodium [Moles/Vol] 135 mmol/L Normal 133-142 [facility] Comment on above: Performed By: #### C BCI #### [address] [address] Urea nitrogen [Mass/Vol] 7 mg/dL Low 8-26 [facility] Comment on above: Performed By: #### C BCI #### [address] [address] Urea nitrogen/Creatinine [Mass ratio] 9.5 mg/mg Low 10.0-20.0 [facility] Comment on above: Performed By: #### C BCI #### [address] [address] CBCon 04-12-2024 Erythrocyte distribution width (RBC) [Ratio] 12.4 % Normal 11.6-14.8 [facility] Comment on above: Performed By: #### C BCI #### [address] [address] Hematocrit (Bld) [Volume fraction] 36.0 % Normal 36.0-46.0 [facility] Comment on above: Performed By: #### C BCI #### [address] [address] Hemoglobin (Bld) [Mass/Vol] 12.3 g/dL Normal 12.0-16.0 [facility] Comment on above: Performed By: #### C BCI #### [address] [address] MCH (RBC) [Entitic mass] 30.5 pg Normal 27.0-35.0 [facility] Comment on above: Performed By: #### C BCI #### [address] [address] MCHC 34.2 % Normal 31.0-37.0 [facility] Comment on above: Performed By: #### C BCI #### [address] [address] MCV (RBC) [Entitic vol] 89.3 fL Normal 80.0-100.0 [facility] Comment on above: Performed By: #### C BCI #### [address] [address] Platelet 311 x10*3/mcL Normal 150-450 [facility] Comment on above: Performed By: #### C BCI #### [address] [address] Platelet mean volume (Bld) [Entitic vol] 7.0 fL Normal 6.7-10.6 [facility] Comment on above: Performed By: #### C BCI #### [address] [address] RBC 4.03 x10*6/mcL Normal 3.80-5.20 [facility] Comment on above: Performed By: #### C BCI #### [address] [address] WBC 7.4 x10*3/mcL Normal 4.5-11.0 [facility] Comment on above: Performed By: #### C BCI #### [address] [address] CNPNon 04-12-2024 CNPN Telephone (PEDSWS) -------- BINA CAMPOS ([id number]) [birth year] F Date Time Provider Department 04/12/24 NICKY MCLAUGHLIN PEDSWS During your visit today, we recorded the following information about you: Lisa Borja RN 04/12/2024 3:51 PM Signed Mother calls stating that patient has ongoing issues with kidney stones and is requesting a referral to urology. She questions if you could place a referral? If so, please fax referral to Dr. Kellogg at [phone]. SVETLANA Mayorga Melissa, MD 04/12/2024 6:15 PM Signed Signed. MD Jonh Earl Amanda S, RN 04/13/2024 8:20 AM Signed Referral and demographics faxed as requested below. Patient/family notified. Lisa Borja RN Allergies As of Date: 04/12/2024 Noted Allergy Reaction AMOXICILLIN 05/26/2005 4 - Hives Date Reviewed: 12/14/2023 Reviewed by: Nicky Mclaughlin MD - Fully Assessed Reason for Visit: Kidney Stones [36691] Referral Request [124] Primary Visit Diagnosis:Kidney stones [N20.0] Order(s):CONSULT TO UROLOGY [9041] Order #: [id number]: 1 FUTURE Prescriptions as of 04/13/2024 - KARIVA, 28, 0.15-0.02 mgx21 /0.01 mg x 5 per tablet Take 1 tablet by mouth every afternoon. - dextroamphetamine-amphet amine (ADDERALL) 10 mg tablet Take 10 mg by mouth. - escitalopram oxalate (LEXAPRO) 20 mg tablet Take 20 mg by mouth once daily. 12/14/23 per patient, currently weaning off, today's dose 15mg ESCITALOPRAM 10 MG TABLETDispense date:12/05/2023Quantity: 15 EachDays supply:15Unit strength:10 mgUnit form:tabletPatient sig:TAKE 1.5 TABS BY MOUTH DAILY FOR 5 DAYS, THEN 1 TAB DAILY FOR 5 DAYS, THEN 0.5 TAB DAILY FOR 5 DAYS. - spironolactone (ALDACTONE) 100 mg tablet TAKE ONE TABLET ONCE NIGHTLY WITH A FULL GLASS OF WATER - albuterol HFA (PROAIR HFA) 90 mcg/actuation inhaler 2 puffs every four hours as needed.May also 15 minutes pre-exercise.Use w/spacer. - cholecalciferol (VITAMIN D3) 1,000 unit tab tablet Take 2,000 Units by mouth. - amphetamine-dextroamphet amine XR (ADDERALL XR) 15 mg 24 hr capsule Take 15 mg by mouth. - pimecrolimus (ELIDEL) 1 % cream - Azelaic Acid 15 % gel as needed. - multivitamins(CHEWABLE MULTI VITAMIN TAB) Take one(1) tablet daily. 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] 11/03/2020 Acne vulgaris [L70.0] 12/14/2023 Encounter Status:Closed by LISA BORJA on 04/13/24 Normal [facility] Inpatient Clinical Summaryon 04-12-2024 Inpatient Clinical Summary [address] [address] [facility] [address] [place] [address] Clinical Summary Person Information Name: Bina Campos Age: 19 Years : 2005 Sex: Female PCP: Unavailable, Physician Marital Status: Single Phone: PCP: Race: White Ethnicity: Not or Language: Chinese Visit Id: Visit Reason: Renal Stone Speciality: Acuity: Enc Type: Inpatient Med Service: Medicine-General Arrival: 04/11/2024 09:41:14 Discharge: Dispo Type: Address: [address] [place] [address] [facility] [id number] Diagnosis: 1:Right ureteral stone; 2:Hydronephrosis of right kidney; 3:Right flank pain; 4:Kidney stone Discharged To: Home Treatments: Devices/Equipment: Professional Skilled Services: Special Services and Community Resources: Mode of Discharge Transportation: Discharge Orders Activity Restrictions Diet Instruction Follow up 04/12/24 9:38:00 EST, Provider: Mickey Rajan MD, 1 week Ok to Discharge from Consult Provider Allergies amoxicillin (Hives) Functional Status: Sensory Deficits: History of Falls: Mobility Assistance Prior to Admission: ADLs: Independent Gait: Steady Ambulation Assist: Assistive Device: Special Orthopedic Devices: Current Level of Assistance for Self-Care/Mobility: Cognitive Status: Orientation: Orientation Assessment Oriented x 4 Level of Consciousness: Alert Characteristics of Speech: Clear Aspiration Risk: None Affect/Behavior: Appropriate, Calm, Cooperative Laboratory or Other Results This Visit (last charted value for your 04/11/2024 visit) Hematology 04/12/2024 4:59 AM WBC: 7.4 x10 RBC: 4.03 x10 MCV: 89.3 fL -- Normal range between ( 80.0 and 100.0 ) MCHC: 34.2 % -- Normal range between ( 31.0 and 37.0 ) Hct: 36.0 % -- Normal range between ( 36.0 and 46.0 ) MCH: 30.5 pg -- Normal range between ( 27.0 and 35.0 ) Hgb: 12.3 g/dL -- Normal range between ( 12.0 and 16.0 ) Mean Platelet Volume: 7.0 fL -- Normal range between ( 6.7 and 10.6 ) Platelet: 311 x10 RDW: 12.4 % -- Normal range between ( 11.6 and 14.8 ) Chemistry 04/12/2024 4:59 AM Creatinine Lvl: 0.74 mg/dL -- Normal range between ( 0.44 and 1.03 ) BUN: 7 mg/dL -- Normal range between ( 8 and 26 ) Glucose Lvl: 90 mg/dL -- Normal range between ( 70 and 99 ) Potassium Lvl: 4.1 mmol/L -- Normal range between ( 3.4 and 4.8 ) Sodium Lvl: 135 mmol/L -- Normal range between ( 133 and 142 ) Calcium Lvl: 8.2 mg/dL -- Normal range between ( 8.5 and 10.3 ) Magnesium Lvl: 1.7 mg/dL -- Normal range between ( 1.7 and 2.4 ) Chloride: 110 mmol/L -- Normal range between ( 98 and 110 ) CO2: 23 mmol/L -- Normal range between ( 22 and 32 ) Anion Gap: 2 -- Normal range between ( 4 and 12 ) Estimated GFR: >60 mL/min/1.73m? BUN Crea Ratio: 9.5 -- Normal range between ( 10.0 and 20.0 ) Ultrasound 04/12/2024 5:46 AM US Renal and Bladder: US Renal and Bladder Measurements: Height: Weight: Blood Pressure: 96 mmHg / BMI: Respiratory: Respirations: Unlabored, Quiet Respiratory Symptoms: None Cardiovascular: Heart Sounds: Heart Rhythm: Regular Gastrointestinal: GI Symptoms: Bowel Sounds: Present Vital Signs: Temp Axillary: Temp Temporal Artery: Temp Oral: 37 degC Temp Rectal: Apical Heart Rate: Peripheral Pulse Rate: 63 bpm Heart Rate: Respiratory Rate: 18 br/min Diet Diet: Feeding Tolerance: Appetite: Good Thor Assessment: 20 Procedures No Procedures Documented Immunizations No Immunizations Documented This Visit HERE ARE THE MEDICATION CHANGES THAT OCCURRED DURING YOUR HOSPITAL STAY New Medications [id number], [address], [place] [id number], [phone] ciprofloxacin (Cipro 500 mg oral tablet) 1 Tabs Oral (given by mouth) 2 times a day for 3 Days. Refills: 0. Last Dose: _ hydrocodone-acetaminophe n (hydrocodone-acetaminoph en 5 mg-325 mg oral tablet) 1 Tabs Oral (given by mouth) every 6 hours as needed moderate pain [4-6 on pain scale] for 3 Days. Refills: 0. Last Dose: _ ondansetron (Zofran 4 mg oral tablet) 1 Tabs Oral (given by mouth) every 8 hours as needed as needed for nausea/vomiting for 5 Days. Refills: 0. Last Dose: _ tamsulosin (Flomax 0.4 mg oral capsule) 1 Capsules Oral (given by mouth) every day for 30 Days. Refills: 0. Last Dose: _ Medications That Have Not Changed Other Medications desogestrel-ethinyl estradiol (Kariva oral tablet) 1 Tabs Oral (given by mouth) once a day (at bedtime). Last Dose: _ dextroamphetamine-amphet amine (dextroamphetamine-amphe tamine 15 mg oral capsule, extended release) 1 Capsules Oral (given by mouth) once a day (in the morning). Last Dose: _ multivitamin 1 Tabs Oral (given by mouth) once a day (in the morning). Last Do (more content not included)... Normal [facility] Magnesiumon 04-12-2024 Magnesium [Mass/Vol] 1.7 mg/dL Normal 1.7-2.4 [facility] Comment on above: Performed By: #### M G ####[facility] [place] [address] Progress Note-Nurseon 2023 Progress Note-Nurse Pt ambulates to priv ate vehicle accomanied by father and this entry writer. Electronically signed by _ Savannahmaximilian Katia Sen 04/12/24 11:00 EST Normal [facility] US Renal and Bladderon 04-12 US Renal and Bladder Renal and urinary bladder ultrasound on 04/12/2024 Clinical History: Renal stone. Comparison: CT abdomen and pelvis on 04/11/2024 FINDINGS: The right kidney measures 9.5 x 4.1 x 4.9 cm. The left kidney measures 10.1 x 4.9 x 5.0 cm. Mild right-sided renal pelviectasis with interval migration of the known right ureteral stone towards the urinary bladder at the area of the right-sided ureterovesical junction. Additional nonobstructing 3 mm right-sided renal stone. The urinary bladder measures 304 mL. Trace amount of postvoid residual measuring 90 mL. The bilateral ureteral jets are visualized. IMPRESSION: Mild right-sided renal pelviectasis with interval migration of the known right ureteral stone towards the urinary bladder at the area of the right-sided ureterovesical junction. Final Dictated by: Thu Merlos MD Dictated DT/TM: 04/12/2024 8:18 am Signed by: Thu Merlos MD Signed (Electronic Signature): 04/12/2024 8:46 am (If Report Is Signed, Electronically Signed in Other Vendor System) Normal [facility] .UA Microscp 04-11-2024 UA Bacteria Present Abnormal Absent [facility] Comment on above: Performed By: #### . Urinalysis Microscopic Man ####[place] [address] UA Mucus Present Normal Absent [facility] Comment on above: Performed By: #### . Urinalysis Microscopic Man ####[place] [address] UA RBC Qual 50+ /HPF Abnormal 0 - 5 [facility] Comment on above: Performed By: #### . Urinalysis Microscopic Man ####[place] [address] UA Squepi Cells Qual 1-4 Normal 0 - 29 [facility] Comment on above: Performed By: #### . Urinalysis Microscopic Man ####[place] [address] UA WBC Qual Rare Normal 0 - 5 [facility] Comment on above: Performed By: #### . Urinalysis Microscopic Man ####[place] [address] .eGFRon 04-11-2024 GFR/1.73 sq M.predicted MDRD (S/P/Bld) [Vol rate/Area] mL/min/{1.73_m2} Normal >=60 [facility] Comment on above: Order Comment: Order added by Discern rule Result Comment: [facility] have implemented the eGFR calculation approach that does not have a coefficient for race and that conforms to the NKF-ASN Task Force Recommendations. Stages of Chronic Kidney Disease GFR Stage 3a Mild to moderate loss of kidney function 59 to 45 Stage 3b Moderate to severe loss of kidney function 44 to 33 Stage 4 Severe loss of kidney function 29 to 15 Stage 5 Kidney failure Less than 15 GFR calculated using the CKD-Epi Creatinine Equation (2020): eGFR = 142 X min(SCr/?, 1)? X max(SCr /?, 1)-1.200 X 0.9938Age X 1.012 [if female] Abbreviations/Units: eGFR (estimated glomerular filtration rate) = mL/min/1.73 m2 SCr (standardized serum creatinine) = mg/dL ? = 0.7 (females) or 0.9 (males) ? = -0.241 (females) or -0.302 (males) min = indicates the minimum of SCr/? or 1 max = indicates the maximum of SCr/? or 1 Age = years Performed By: #### C BCI #### [address] [address] Basic Metabolic Profileon Anion gap [Moles/Vol] 6 mmol/L Normal 4-12 [facility] Comment on above: Performed By: #### C BCI #### [address] [address] Calcium [Mass/Vol] 9.0 mg/dL Normal 8.6-10.3 [facility] Comment on above: Performed By: #### C BCI #### [address] [address] Chloride 106 IU/L Normal 98-107 [facility] Comment on above: Performed By: #### C BCI #### [address] [address] CO2 [Moles/Vol] 25 mmol/L Normal 21-31 [facility] Comment on above: Performed By: #### C BCI #### [address] [address] Creatinine [Mass/Vol] 0.90 mg/dL Normal 0.60-1.20 [facility] Comment on above: Performed By: #### C BCI #### [address] [address] Glucose [Mass/Vol] 100 mg/dL High 70-99 [facility] Comment on above: Performed By: #### C BCI #### [address] [address] Potassium [Moles/Vol] 4.3 mmol/L Normal 3.4-4.8 [facility] Comment on above: Performed By: #### C BCI #### [address] [address] Sodium [Moles/Vol] 137 mmol/L Normal 136-145 [facility] Comment on above: Performed By: #### C BCI #### [address] [address] Urea nitrogen [Mass/Vol] 10 mg/dL Normal 7-25 [facility] Comment on above: Performed By: #### C BCI #### [id number] [place] [address] Urea nitrogen/Creatinine [Mass ratio] 11.1 mg/mg Normal 10.0-20.0 [facility] Comment on above: Performed By: #### C BCI #### [id number] [place] [address] CBC w/ Diffon 04-11-2024 Erythrocyte distribution width (RBC) [Ratio] 12.3 % Normal 11.6-14.8 [facility] Comment on above: Performed By: #### C BC ####[place] [address] Hematocrit (Bld) [Volume fraction] 39.7 % Normal 36.0-46.0 [facility] Comment on above: Performed By: #### C BC ####[place] [address] Hemoglobin (Bld) [Mass/Vol] 14.0 g/dL Normal 12.0-16.0 [facility] Comment on above: Performed By: #### C BC ####[place] [address] MCH (RBC) [Entitic mass] 30.8 pg Normal 27.0-35.0 [facility] Comment on above: Performed By: #### C BC ####[place] [address] MCHC 35.3 % Normal 31.0-37.0 [facility] Comment on above: Performed By: #### C BC ####[place] [address] MCV (RBC) [Entitic vol] 87.3 fL Normal 80.0-100.0 [facility] Comment on above: Performed By: #### C BC ####[place] [address] Platelet 368 x10*3/mcL Normal 150-450 [facility] Comment on above: Performed By: #### C BC ####[address] [address] Platelet mean volume (Bld) [Entitic vol] 6.8 fL Low 7.5-11.5 [facility] Comment on above: Performed By: #### C BC ####[address] [address] RBC 4.55 x10*6/mcL Normal 3.80-5.20 [facility] Comment on above: Performed By: #### C BC ####[address] [address] WBC 7.6 x10*3/mcL Normal 4.5-11.0 [facility] Comment on above: Performed By: #### C BC ####[address] [address] CT Abd Pelvis w/o IV Cont St one Prot.on 04-11-2024 CT Abd Pelvis w/o IV Cont Stone Prot. EXAM: CT Abd Pelvis w/o IV Cont Stone Prot. HISTORY: Abdomen pain, right flank, COMPARISON: CT abdomen and pelvis without IV contrast dated May 02, 2023. TECHNIQUE: Thin section axial CT images were obtained from the lung bases to the pubis symphysis. Thin section coronal images were reconstructed from the axial data set. All images were reviewed and interpreted. In accordance with CT protocols and the ALARA principle, radiation dose reduction techniques were utilized for this examination. CONTRAST: No IV contrast was administered. Without oral contrast. FINDINGS: There are mild atelectatic changes within the bilateral lung bases. There is no evidence of free intraperitoneal air. The lumbar vertebral disc spaces are preserved. There are no pleural or pericardial effusions present. The distal esophagus and stomach are normal. The liver is unremarkable. The gallbladder is unremarkable. The bilateral adrenal glands are unremarkable. The spleen is unremarkable. The pancreas is unremarkable. There is mild right-sided hydroureteronephrosis to the level of an at least partially obstructing 3 mm proximal right ureteral calculus with associated mild right perinephric and periureteral stranding. There is a 3 mm nonobstructing calculus within the midpole of the left kidney. The abdominal aorta is normal without evidence of abdominal aortic aneurysm. The IVC is normal. There is no abnormal lymphadenopathy. There is a moderate amount of stool within the colon. The appendix is unremarkable without evidence of appendicitis. IMPRESSION: 1. There is mild right-sided hydroureteronephrosis to the level of an at least partially obstructing 3 mm proximal right ureteral calculus with associated mild right perinephric and periureteral stranding. 2. There is a 3 mm nonobstructing calculus within the midpole of the left kidney. Radiation Dose Estimate: CTDI(mGy):0.361670 / / / kVp:100.335382 / mAs:0.143502 / / / DLP(mGy-cm):0.842598Cmab Part: Abdomen CTDI(mGy):5.445148 / / / kVp:90.767787 / mAs:119.059073 / / / DLP(mGy-cm):274.618349Lr dy Part: Abdomen Final Dictated by: Dereck Rico MD Dictated DT/TM: 04.11.2024 6:10 am Signed by: Dereck Rico MD Signed (Electronic Signature): 04.11.2024 6:20 am (If Report Is Signed, Electronically Signed in Other Vendor System) Normal [facility] Diff Autoon 04-11-2024 Baso Absolute 0.0 x10*3/mcL Normal 0.0-0.2 [facility] Comment on above: Performed By: #### C BCI #### [facility] [address] [place] [address] Basophils/100 WBC (Bld) 0.6 % Normal 0.0-1.5 [facility] Comment on above: Performed By: #### C BCI #### [facility] [address] [place] [address] Eos Absolute 0.2 x10*3/mcL Normal 0.0-0.4 [facility] Comment on above: Performed By: #### C BCI #### [facility] [address] [place] [address] Eosinophils/100 WBC (Bld) 2.3 % Normal 0.0-5.4 [facility] Comment on above: Performed By: #### C BCI #### [address] [address] Lymph Absolute 2.3 x10*3/mcL Normal 1.2-5.2 [facility] Comment on above: Performed By: #### C BCI #### [address] [address] Lymphocytes/100 WBC (Bld) 29.8 % Normal 28.0-42.0 [facility] Comment on above: Performed By: #### C BCI #### [address] [address] Bell Absolute 0.5 x10*3/mcL Normal 0.1-1.1 [facility] Comment on above: Performed By: #### C BCI #### [address] [address] Monocytes/100 WBC (Bld) 7.1 % Normal 3.7-11.9 [facility] Comment on above: Performed By: #### C BCI #### [address] [address] Neutro Absolute 4.6 x10*3/mcL Normal 1.8-8.0 [facility] Comment on above: Performed By: #### C BCI #### [address] [address] Neutro Auto 60.2 % Normal 45.6-68.4 [facility] Comment on above: Performed By: #### C BCI #### [address] [address] ED Clinical Summaryon 2023 ED Clinical Summary (Inserted Image. Isha ble to display) [address] [address] ED Clinical Summary Person Information Name: Bina Campos/New_Favian Age: 19 Years : 2005 Sex: Female PCP: Marital Status: Single Phone: Race: White Ethnicity: Not or Language: Chinese Visit Reason: Syncope/Near syncope; Flank pain; Nausea; Kindey Stone Acuity: 3 Enc Type: Emergency Med Service: Emergency Medicine Arrival: 04/11/2024 05:07:00 Discharge: 04/11/2024 09:19:00 LOS: 000 04:12 Checkin: 04/11/2024 05:07:00 Checkout: 04/11/2024 09:19:00 Dispo Type: Transfer to [facility] Address: [address] [place] [address] [address] [place] [id number] Provider Notes: Diagnosis: 1:Near syncope; 2:Kidney stone; 3:Dyspnea Problems No Problems Documented Smoking Status: Functional Status: Sensory Deficits: History of Falls: Mobility Assistance Prior to Admission: ADLs: Current Level of Assistance for Self-Care/Mobility: Cognitive Status: Allergies amoxicillin (Hives) Laboratory or Other Results This Visit (last charted value for your 04/11/2024 visit) Hematology 04/11/2024 5:19 AM WBC: 7.6 x10 RBC: 4.55 x10 Neutro Auto: 60.2 % -- Normal range between ( 45.6 and 68.4 ) Lymph Auto: 29.8 % -- Normal range between ( 28.0 and 42.0 ) Bell Auto: 7.1 % -- Normal range between ( 3.7 and 11.9 ) Eos Auto: 2.3 % -- Normal range between ( 0.0 and 5.4 ) Basophil Auto: 0.6 % -- Normal range between ( 0.0 and 1.5 ) Baso Absolute: 0.0 x10 MCV: 87.3 fL -- Normal range between ( 80.0 and 100.0 ) MCHC: 35.3 % -- Normal range between ( 31.0 and 37.0 ) Lymph Absolute: 2.3 x10 Hct: 39.7 % -- Normal range between ( 36.0 and 46.0 ) Bell Absolute: 0.5 x10 MCH: 30.8 pg -- Normal range between ( 27.0 and 35.0 ) Neutro Absolute: 4.6 x10 Hgb: 14.0 g/dL -- Normal range between ( 12.0 and 16.0 ) Mean Platelet Volume: 6.8 fL -- Normal range between ( 7.5 and 11.5 ) Platelet: 368 x10 Eos Absolute: 0.2 x10 RDW: 12.3 % -- Normal range between ( 11.6 and 14.8 ) Urinalysis 04/11/2024 5:25 AM UA Color: Yellow UA Urobilinogen: 0.2 mg/dL UA Bili: Negative UA Ketones: Negative mg/dL UA Leukocyte Esterase: Negative UA Nitrite: Negative UA Glucose: Negative mg/dL UA Bacteria: Present /HPF UA Protein: 30 mg/dL UA Blood: Large UA Spec Grav: 1.025 -- Normal range between ( 1.003 and 1.035 ) UA pH: 6.0 UA Clarity: Hazy UA Source: Clean Catch UA WBC Qual: Rare /HPF UA RBC Qual: 50+ /HPF UA Squepi Cells Qual: 1-4 /HPF UA Mucus: Present /LPF Chemistry 04/11/2024 5:19 AM Creatinine Lvl: 0.90 mg/dL -- Normal range between ( 0.60 and 1.20 ) BUN: 10 mg/dL -- Normal range between ( 7 and 25 ) Glucose Lvl: 100 mg/dL -- Normal range between ( 70 and 99 ) Potassium Lvl: 4.3 mmol/L -- Normal range between ( 3.4 and 4.8 ) AST: 13 IU/L -- Normal range between ( 13 and 39 ) ALT: 10 IU/L -- Normal range between ( 7 and 52 ) Sodium Lvl: 137 mmol/L -- Normal range between ( 136 and 145 ) Lipase Lvl: 15 IU/L -- Normal range between ( 11 and 82 ) Bili Indirect: 0.3 mg/dL -- Normal range between ( 0.0 and 1.0 ) Calcium Lvl: 9.0 mg/dL -- Normal range between ( 8.6 and 10.3 ) Albumin Lvl: 3.9 g/dL -- Normal range between ( 3.7 and 5.3 ) Total Protein: 6.5 g/dL -- Normal range between ( 6.0 and 8.3 ) Bili Total: 0.4 mg/dL -- Normal range between ( 0.3 and 1.0 ) Alk Phos: 45 IU/L -- Normal range between ( 34 and 104 ) Bili Direct: 0.09 mg/dL -- Normal range between ( 0.03 and 0.18 ) Chloride: 106 IU/L -- Normal range between ( 98 and 107 ) CO2: 25 mmol/L -- Normal range between ( 21 and 31 ) Anion Gap: 6 -- Normal range between ( 4 and 12 ) Estimated GFR: >60 mL/min/1.73m? BUN Crea Ratio: 11.1 -- Normal range between ( 10.0 and 20.0 ) Serum Preg: Negative Computed Tomography 04/11/2024 6:[address] Abd Pelvis w/o IV Cont Stone Prot.: CT Abd Pelvis w/o IV Cont Stone Prot. Measurements: Height: Weight: 63.2 kg Blood Pressure: /63 mmHg BMI: Procedures No Procedures Documented Immunizations No Immunizations Documented This Visit Final Med List: Medications that have not changed Other Medications albuterol (Albuterol (Eqv-Proventil HFA)) PRN q6hr. Last Dose: _ desogestrel-ethinyl estradiol (Kariva oral tablet) 1 Tabs Oral (given by mouth) every day. Last Dose: _ dextroamphetamine-amphet amine (Adderall 20 mg oral tablet) 1 Tabs Oral (given by mouth) every day. Last Dose: _ escitalopram (Lexapro) 20 Milligram Oral (given by mouth) once a day (at bedtime). Last Dose: _ multivitamin Oral (given by mouth) every day. Last Dose: _ spironolactone 50 Milligram Oral (given by mouth) every day. Last Dose: _ tamsulosin (Flomax 0.4 mg oral capsule) 1 Capsules Oral (given by mouth) ever (more content not included)... Normal [facility] ED Note-Nursingon 04-11-2024 ED Note-Nursing 0642 Patient states that she has the urge to go the bathroom. Patient ambulated to bathroom, gait steady. Provided a urine hat and strainer. Patient called me to the bathroom and stated that she felt like she was going to pass out. Patient assisted into wheelchair and helped into bed. Patient pale, cool & clammy. Bed laid flat. Vitals obtained & patient placed in reverse Trendelenburg. Cool washcloth applied to forehead. 0648 Dr. Sen michel. Electronically signed by _ MoriahGinny frank Blanca 04/11/24 06:54 EST Normal [facility] ED Note-Physicianon 04-11-20 ED Note-Physician Chief Complaint Patient into room 2 with complaints of Right Flank Pain x 8hours. Patient states that she has a history of stones & states pain is similar. Patient took Motrin, Flomax & Zofran [employer]. History of Present Illness Patient is a 19 years old female who presents emergency with right flank pain. Patient reports that she was doing well until last night when she still having right flank pain. Reports that the pain also moved to her right side of the abdomen. Patient reports that she has history of kidney stones. Reports that she does not have any vomiting. [place] nauseous. Took Zofran. Took also Flomax. Patient reports that she did take Motrin that got her pain slightly better. Reports that she does not have any difficulty urinating. Reports she is using control regularly. Denies any other complaints at this time. Patient reports having also brief syncopal episode related to the pain. Review of Systems As reviewed in the HPI. All other systems reviewed are negative or normal. Physical Exam CONSTITUTIONAL: [no apparent distress, well appearing] SKIN: [warm, dry, no jaundice, hives or petechiae] EYES: [pupils are equally round, extraocular movements intact without nystagmus, clear conjunctiva, non-icteric sclera] HENT: [normocephalic, atraumatic, moist mucus membranes, oropharynx clear without exudates] NECK: [Nontender and supple with no nuchal rigidity, no lymphadenopathy, full range of motion] PULMONARY: [clear to auscultation without wheezes, rhonchi, or rales, normal excursion, no accessory muscle use and no stridor] CARDIOVASCULAR: [regular rate, rhythm, normal S1 and S2. No appreciated murmurs. Strong radial pulses with intact distal perfusion] GASTROINTESTINAL: [soft, non-tender, non-distended, no palpable masses, no rebound or guarding] GENITOURINARY: [right costovertebral angle tenderness to palpation] LYMPHATICS: [no edema in lower extremities, no lymphadenopathy] MUSCULOSKELETAL: [Extremities are nontender to palpation and have no gross deformity, no edema, redness, or swelling] NEUROLOGIC: [alert and oriented x 3, GCS 15, normal mentation and speech. Moves all extremities x 4 without motor or sensory deficit, gait is stable without ataxia] PSYCHIATRIC: [normal mood and affect, thought process is clear and linear] Vitals & Measurements T: 36.7 ?C (Oral) HR: 100 (Peripheral) HR: 100 (Monitored) RR: 16 BP: 115/74 SpO2: 100% HT: 154.9 cm WT: 63.2 kg (Dosing) Additional Vitals No qualifying data available. Procedure No qualifying data available. ASA Documentation Medical Decision Making MEDICAL DECISION MAKING Number and Complexity of Problems Differential Diagnosis: But not limited to kidney stones, UTI MDM Data External documents reviewed: _ My EKG interpretation: _ My CT interpretation: _ My X-ray interpretation: _ My Ultrasound interpretation: _ Decision rules/scores evaluated: _ Discussed with: _ Decision rules/scores evaluated: _ ? HEART Score: Not Completed ? PERC Rule: _ ? NEXUS C-spine Criteria: _ ? Marshall Ankle Rule: _ ? Marshall Knee Rule: _ ? Wells Criteria for DVT: _ ? Wells Criteria for PE: _ Discussed with: _ Treatment and Disposition ED Course: Patient is a 19 years old female who presented emergency with the symptoms above. Right flank pain on exam. Patient reported that she had a syncopal episode from pain at home. EKG reviewed. No STEMI. Patient lab work all done reviewed. Patient's has hematuria. CT was done. Showed obstructive uropathy. Patient continues to have some discomfort so I did treat her with pain medications. She did already have Flomax and Zofran at home. Given fluids. Given multiple pain medications. Still having hematuria. Patient reports also some shortness of breath related to the pain. Patient EKG was reviewed. Chest x-ray is done. Patient also had another episode of severe pain here and found that she is going to pass out. Became hypotensive. Recovered with fluids. Patient will need to be admitted for further evaluation management of her pain and kidney stone. I did call and discussed case with the hospitalist on-call Dr. Tucker who accepted patient for admission. Assessment/Plan 1. Near syncope 2. Kidney stone 3. Dyspnea Orders: Sodium Chloride 0.9% intravenous solution 1,000 mL, 1,000 mL, Soln-IV, IV, 100 mL/hr, Start Date: 04/11/24 7:35:00 EST, Dispense From Location: [id number], 1.62, m2, 04/11/24 7:35:00 EST Discharge Patient EKG EKG Extra Blue Na Citrate XR Chest 1 View Refresh vitals and sections below: Problem List/Past Medical History Ongoing No qualifying data Historical No qualifying data Medications Inpatient morphine, 2 mg= 1 mL, IV Push, Once NS Bolus, 1000 mL, IV Bolus, Once Home Adderall 20 mg oral tablet, 20 mg= 1 tabs, Oral, Daily Albuterol (Eqv-Proventil HFA), See Instructions, PRN q6hr Flomax 0.4 mg oral capsule, 0.4 mg= 1 caps, Oral, Daily Lexapro, 20 mg, Oral, HS (at bedtime) mu (more content not included)... Normal [facility] Hep Func Panelon 04-11-2024 Albumin [Mass/Vol] 3.9 g/dL Normal 3.7-5.3 [facility] Comment on above: Performed By: #### L IVER ####[address] [address] Alk Phos 45 IU/L Normal 34-104 [facility] Comment on above: Performed By: #### L IVER ####[address] [address] ALT [Catalytic activity/Vol] 10 U/L Normal 7-52 [facility] Comment on above: Performed By: #### L IVER ####[address] [address] AST [Catalytic activity/Vol] 13 U/L Normal 13-39 [facility] Comment on above: Performed By: #### L IVER ####[address] [address] Bili Direct 0.09 mg/dL Normal 0.03-0.18 [facility] Comment on above: Performed By: #### L IVER ####[address] [address] Bili Indirect 0.3 mg/dL Normal 0.0-1.0 [facility] Comment on above: Performed By: #### L IVER ####[address] [address] Bili Total 0.4 mg/dL Normal 0.3-1.0 [facility] Comment on above: Performed By: #### L IVER ####[address] [address] Protein [Mass/Vol] 6.5 g/dL Normal 6.0-8.3 [facility] Comment on above: Performed By: #### L IVER ####[address] [address] Lipaseon 04-11-2024 Lipase Lvl 15 IU/L Normal 82 [facility] Comment on above: Performed By: #### L IP #### [address] [address] S Preg Qlon 04-11-2024 Serum Preg Negative Normal [facility] Comment on above: Result Comment: The hCG Combo Rapid Test has a sensitivity of 10 mIU/mL in serum and is capable of detecting as early as 1 day after the first missed menses. Performed By: #### S PTQ ####[address] [address] UA w Cult if Ind Man BFTon 1 06-11-2023 Color (U) Yellow Normal Yellow [facility] Comment on above: Performed By: #### U CIM ####[address] [address] Glucose (U) [Mass/Vol] Negative Normal Negative [facility] Comment on above: Performed By: #### U CIM ####[facility] [place] [address] Ketones Ql (U) Negative Normal Negative [facility] Comment on above: Performed By: #### U CIM ####[facility] [place] [address] UA Blood Large Abnormal Negative [facility] Comment on above: Performed By: #### U CIM ####[facility] [place] [address] UA Clarity Hazy Normal Clear [facility] Comment on above: Performed By: #### U CIM ####[facility] [place] [address] UA Leukocyte Esterase Negative Normal Negative [facility] Comment on above: Performed By: #### [place] ####[place] [address] UA Nitrite Negative Normal Negative [facility] Comment on above: Performed By: #### [place] ####[place] [address] UA pH 6.0 Normal 4.5 - 7.8 [facility] Comment on above: Performed By: #### [place] ####[place] [address] UA Protein 30 mg/dL Abnormal Negative [facility] Comment on above: Performed By: #### U CIM ####[facility] [place] [address] UA Source Clean Catch Normal [facility] Comment on above: Performed By: #### U CIM ####[facility] [place] [address] UA Spec Grav 1.025 Normal 1.003-1.035 [facility] Comment on above: Performed By: #### [place]IM ####[place] [address] UA Urobilinogen 0.2 mg/dL Normal 0.2 - 1.0 [facility] Comment on above: Performed By: #### U CIM ####[address] [place] [address] Urobilinogen (U) [Mass/Vol] Negative Normal Negative [facility] Comment on above: Performed By: #### U [facility] ####[address] [address] XR Chest 1 Viewon 04-11-2024 XR Chest 1 View EXAM: XR Chest 1 Vie w HISTORY: Shortness of breath (SOB), COMPARISON: None. TECHNIQUE: AP upright portable chest radiograph performed. FINDINGS: The trachea is midline. The heart size is normal. The cardiomediastinal silhouette and hilar shadows are normal. There is no consolidation, pleural effusion or pulmonary vascular congestion. There is no pneumothorax or osseous abnormality. IMPRESSION: Unremarkable AP upright portable chest radiograph. Final Dictated by: Peewee Goodson MD Dictated DT/TM: 04/11/2024 9:17 am Signed by: Peewee Goodson MD Signed (Electronic Signature): 04/11/2024 9:19 am (If Report Is Signed, Electronically Signed in Other Vendor System) Normal [facility] Lead Supply Worker Office Visit Reporton 01-16-2024 Lead Supply Worker Office Visit Report [facility] [address], [address] [place] [address] OFFICE VISIT Date of Service: 01/16/24 MR#: [id number] Acct: [id number] Name: BINA CAMPOS Rep #: [id number] : 2005 Provider: KAM wilson Age/Sex: 18/F Location: [facility] Status: Signed Intake Vital Signs 11/08/23 11:31 01/16/24 14:53 01/16/24 14:55 Height 5 ft 1 in 5 ft 1 in 5 ft 1 in Weight: 133 lb BMI 25.1 BP 112/73 Intake Visit Reasons: 3 M 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 Is patient in pain?: No Allergies amoxicillin Allergy (Severe, Verified 01/16/24 14:53) unknown Medications ???Medication ???Instructions ???Recorded ???Confirmed ???Type dextroamphetamine-amphet amine 15 15 mg PO DAILY 01/10/22 01/16/24 History mg tablet (Adderall) spironolactone 100 mg tablet 100 mg PO DAILY 01/11/23 01/16/24 History desogestrel-e.estradiol 0.15 1 tab PO QDAY active pills only 01/16/24 01/16/24 Rx mg-0.02 mg(21)/e.estrad 0.01 mg(5) for continuous cycling #84 tabs tablet (Kariva (28)) Post menopausal: No Patient : No : No PFSH Surgical History S/P tonsillectomy S/P wisdom tooth extraction Family History Grandfather Squamous cell carcinoma Diabetes Heart disease Aunt Breast cancer Uncle Leukemia Grandmother Diabetes Social History current occupational status: employed current occupation: [employer] Smoking Status: Never smoker alcohol intake: never substance use type: does not use caffeine: Yes what type of physical activity do you participate in: running and weight training frequency: 5-6 times per week seatbelt use: always do you feel safe at home: Yes additional social history: Single HPI 3 M FU Details: BINA CAMPOS is a 18 year old who presents for follow up start of kariva for painful menses and acne. She denies any side effects. Has noted that acne has improved but will recur with menses. She has not been sexually active since last visit. ROS Const Constitutional: Reports system reviewed and no additional complaints, except as documented Eyes Eyes: Reports system reviewed and no additional complaints, except as documented GI GI: Denies abdominal pain or change in bowel habits : Reports as per HPI Exam Const General: cooperative and no acute distress Orientation: oriented x3 HENMT Head: normal to inspection and normocephalic Eyes General: appearance normal, both eyes and all related structures Neck Neck: normal visual inspection Resp Effort Inspection: normal respiratory effort Neuro Cognition: normal cognition Speech: speech normal Psych Appearance: grossly normal Mood: congruent mood Affect: normal affect Speech and Movement: speech and movement normal Attitude: cooperative Judgment: judgment good Coding Level of Care Code Off vis,est,level 3 Diagnoses Oral contraceptive pill surveillance Z30.41 Dysmenorrhea N94.6 Anxiety and depression F41.9; F32.9 Acne, unspecified acne type L70.9 Acne type: unspecified acne Assessment and Plan Assessment and Plan (1) Oral contraceptive pill surveillance: (2) Dysmenorrhea: Status: Acute (3) Anxiety and depression: Status: Acute (4) Acne: Status: Acute Qualifiers: Acne type: unspecified acne Qualified Code(s): L70.9 - Acne, unspecified Medications: Refilled desog-e.estradiol/e.estr adiol 0.15-0.02 mgx21 /0.01 mg x 5 (Kariva (28)) 1 TAB PO QDAY 84 tabs 4RF active pills only for continuous cycling Plan REfill kariva and instructed on continuous cycling RTO 1 year, prn 01/16/24 1510 Date Em Machuca NP [employer]-C Cosigner Signature: Date (if applicable) CC: Normal [facility] 12-14-2023 CNOV Office Visit (PEDSWS ) -------- BINA CAMPOS ([id number]) 3 F Date Time Provider Department 12/14/23 9:00 AM NICKY MCLAUGHLIN During your visit today, we recorded the following information about you: Temperature Pulse Respiration Blood pressure 97.5 degrees 80/minute 20/minute 108/60 Weight Height Last Period 60.3 kg 1.567 m 12/13/23 Nicky Mclaughlin MD 01/08/2024 7:20 PM Signed WELL VISIT PEDIATRIC 18+ YRS OLD Bina is a 18 year old who presents today for well exam. SUBJECTIVE CONCERNS: no concerns Had TANDA in October, thought it might help with her hypersomnia. So far it hasn't. Psych is weaning her off the Lexapro. They think it has hit a plateau and is no longer benefitting her and may be taking away from the benefits of the Adderall. He plans on putting her on something else though according to Bina. 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 Generalized Anxiety Disorder - 12/03/2018 Cough Variant Asthma - 02/26/2009 Contusion of Face, Scalp, and Neck Except Eye(s) - 10/19/2006 PAST MEDICAL HISTORY Diagnosis Date Contusion of face, scalp, and neck Cough variant asthma Generalized anxiety disorder Menstrual cycle disorder 01/2017 NEGATIVE MEDICAL HISTORY PMH - PAST MEDICAL HISTORY OF 02/10/09 normal color vision PAST SURGICAL HISTORY Procedure Laterality Date DENTAL SURGERY PROCEDURE 2022 [place] teeth removal TONSILLECTOMY AND ADENOIDECTOMY ALLERGIES Allergen Reactions Amoxicillin Hives Medications: KARIVA, 28, 0.15-0.02 mgx21 /0.01 mg x 5 per tablet Take 1 tablet by mouth every afternoon. escitalopram oxalate (LEXAPRO) 20 mg tablet Take 20 mg by mouth once daily. 12/14/23 per patient, currently weaning off, today's dose 15mg ESCITALOPRAM 10 MG TABLETDispense date:12/05/2023Quantity: 15 EachDays supply:15Unit strength:10 mgUnit form:tabletPatient sig:TAKE 1.5 TABS BY MOUTH DAILY FOR 5 DAYS, THEN 1 TAB DAILY FOR 5 DAYS, THEN 0.5 TAB DAILY FOR 5 DAYS. spironolactone (ALDACTONE) 100 mg tablet TAKE ONE TABLET ONCE NIGHTLY WITH A FULL GLASS OF WATER cholecalciferol (VITAMIN D3) 1,000 unit tab tablet Take 2,000 Units by mouth. amphetamine-dextroamphet amine XR (ADDERALL XR) 15 mg 24 hr capsule Take 15 mg by mouth. Azelaic Acid 15 % gel as needed. multivitamins(CHEWABLE MULTI VITAMIN TAB) Take one(1) tablet daily. dextroamphetamine-amphet amine (ADDERALL) 10 mg tablet Take 10 mg by mouth. albuterol HFA (PROAIR HFA) 90 mcg/actuation inhaler 2 puffs every four hours as needed.May also 15 minutes pre-exercise.Use w/spacer. pimecrolimus (ELIDEL) 1 % cream FAMILY HISTORY Problem Relation Age of Onset Hypertension Mother No Known Problems Father Cancer Maternal Grandfather Hypertension Maternal Grandfather Heart Maternal Grandfather Heart Paternal Grandfather CHF/ bypass surgery Social History Social History Narrative Not on file Smoking Exposure: Do you spend a significant amount of time with anyone who smokes? 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 No Recreational Screen Time totaling more than 2 hours of screen time per day. Physical Activity: more than 1 hour of physical activity per day Fainting, dizziness, significant shortness of breath or chest pain with sports or exercise: Yes, fainting, I have syncope, this is something that has been going on for years History of concussion in the last year: No Safety: 02/27/2021 05/23/2020 Pediatric SDOH - Response to gun questions Are there any guns kept in or around your home or where your child spends time? Yes No Are they stored unloaded or locked away? Yes Decline Reviewed seat belts, smoke detectors, and sunscreen Diet: -Diet is well balanced and appropriate for age -Fruits are eaten with most meals -Vegetables are eaten with most meals -Drinks water daily -Regularly eats meals with family Elimination: no concerns, normal size and consistency Dental: dental care current Sleep: -I sleep way too much-idiopathic hypersomnia, per [facility] Vision: No vision concerns and Vision screening completed by eye doctor Hearing: No hearing concerns Growth: lower side of the growth spectrum Gynecological history: LMP: 12/13/23 Cycles are regular and last 4 days. Dysmenorrhea: none Heavy periods: no Substance use: alcohol (very rarely) Sexual History: Attraction: male Sexually Active: Yes, but not currently Body image: satisfactory Screening tools reviewed and discussed with patient/[id number]-7 and Social Determinants of Health. Please see Patient Entered Data. SDOH: Food Insecurity: No Food Insecurity (12/14/2023) Hunger Vital Sign Worried About Running Out of Food in the (more content not included)... Normal [facility] Progress Noteon 12-05-2023 Staple Cutter Authentication Interface Message Text This is a telemedicine video visit requested by the patient/guardian that was performed with the patient's location at home and the provider's location at home/office. CHILD PSYCHIATRY OUTPATIENT PROGRESS NOTE DATE OF SERVICE: 12/05/2023 PRESENT AT SESSION: Patient REASON FOR VISIT: Medication management Any information from the online medical record incorporated into this note has been reviewed with the patient/parent and is denoted in italics. I shared with family that everything discussed in this session with provider is confidential unless it pertains to safety of patient or another, then that would be reportable. This note or partial portions of this note may have been created using a copy forward or copy paste feature, but these portions have been verified and re-edited for accuracy and any portions not in need of editing or reviews are note being used to generate any component necessary for billing purposes. Elements necessary for proper CPT code selection are based only on elements of the visit that are truly unique to this visit. Additionally, dictation software may have been used to complete some of this documentation. SESSION NOTES A lot has happened in the past day. My best friend's brother shot himself yesterday morning. That is where I am at right now. It is a very rough time for us. Patient reports, my grandfather , a kid from school committed suicide last Monday, and now my best friend's family now. I have not really cried. I have not felt it out yet. I understand the severity of the situation and I am shaken and horrified by it. Patient reports not sleeping enough. I was so mad at myself yesterday for how I naturally felt because - I showed up atthe same time yesterday the ambulance showed up. I got here the second Anushka texted me. I was here the whole day. 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 The adderall makes a difference. At the same time, I started researching myself and the control I have has a lot of progesterone. 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 I went off of it for one month and I am still tired. Patient endorses feeling very shut down. I am burnt out to the point, I want to help everyone and care for everyone. I am still doing those things. I am forcing myself to do them. I am so tired right now. I think my anxiety has gone away with time and aging. RISK ASSESSMENT Current Risk Level Low Acute Risk: History of past cuuitv-fq-sb- or suicidal thoughts Patient able to plan for safety: yes Safety education provided to guardian: yes SUICIDAL IDEATION - SINCE LAST VISIT 1. Wish to be ? No If yes, describe: 2. Non-Specific Active Suicidal Thoughts: No If yes, describe: 3. Active Suicidal Ideation with Any Methods (Not Plan) without Intent to Act: If yes, describe: 4. Active Suicidal Ideation with Some Intent to Act, without Specific Plan: If yes, describe: 5. Active Suicidal Ideation with Specific Plan and Intent: If yes, describe: INTENSITY OF IDEATION - SINCE LAST VISIT Most Severe Ideation: Description of Ideation: Frequency: Duration: Controllability: Deterrents: Reasons for Ideation: SUICIDAL BEHAVIOR - SINCE LAST VISIT (Check all that apply, so long as these are separate events; must ask about all types) Actual Attempt: No Total # of Attempts: If yes, describe: Has subject engaged in Non-Suicidal Self-Injurious Behavior? No Interrupted Attempt: No Total # of interrupted: If yes, describe: Aborted or Self-Interrupted Attempt: No Total # of aborted or self-interrupted: If yes, describe: Preparatory Acts or Behavior: No Total # of preparatory acts: If yes, describe: ACTUAL/POTENTIAL LETHALITY - SINCE LAST VISIT Most Lethal Attempt Date: Actual Lethality/Medical Damage: Potential Lethality: [email or web address] VITAL SIGNS & MENTAL STATUS EXAM Wt Readings from Last 3 Encounters: 12/13/21 64.6 kg (78%, Z= 0.78)* 11/15/21 64.3 kg (78%, Z= 0.76)* 06/16/21 68.3 kg (86%, Z= 1.07)* * Growth percentiles are based on CDC (Girls, 2-20 Years) data. Temp Readings from Last 3 Encounters: 12/13/21 36 C (96.8 F) 06/16/21 36.7 C (98.1 F) 02/02/21 36.6 C (97.9 F) (Temporal) BP Readings from Last 3 Encounters: 12/13/21 103/66 (28%, Z = -0.58 / 62%, Z = 0.31)* 11/15/21 116/72 (78%, Z = 0.77 / 80%, Z = 0.84)* 06/16/21 98/55 (19%, Z = -0.88 / 21%, Z = -0.81)* *BP percentiles are based on the 2017 AAP Clinical Practice Guideline for girls Pulse Readings from Last 3 Encounters: 12/13/21 82 11/15/21 69 06/16/21 93 Gait/Station: Not assessed (telehealth visit) Muscle Strength/Tone: Not assessed (telehealth visit) MENTAL STATUS EXAMINATION: Behavior During Interview: calm and cooperative Appearance: neat/clean and dressed appropriately Eye Contact: appropriate Mood: euthymic Affect: congruent with mood Speech: normal r (more content not included)... Normal [facility] 10-31-2023 CNPN Telephone (PEDSWS) -------- BINA CAMPOS ([id number]) 3 F Date Time Provider Department 10/31/23 NICKY MCLAUGHLIN During your visit today, we recorded the following information about you: Nicky Mclaughlin MD 10/31/2023 4:19 PM Signed Please reach out and offer annual physical scheduling. It looks like her last physical was 03/2022 and at her appointment last week we discussed several issues. MD Jonh Earl Amanda S, RN 10/31/2023 4:23 PM Signed Called and spoke with patient. She reports that she just had surgery and does not wish to schedule a physical at this time. SVETLANA Mayorga Melissa, MD 11/20/2023 11:22 AM Signed Please reach out again to schedule [facility] if she is able to at this time. MD Jonh Earl Amanda S RN 11/20/2023 1:25 PM Signed Called and spoke with patient. Appointment scheduled for 12/04/23. Lisa Borja RN Allergies As of Date: 10/31/2023 Noted Allergy Reaction AMOXICILLIN 05/26/2005 4 - Hives Date Reviewed: 10/18/2023 Reviewed by: Nadiya Coates LPN - Fully Assessed Reason for Visit: Follow Up [171] Prescriptions as of 11/20/2023 - dextroamphetamine-amphet amine (ADDERALL) 10 mg tablet Take 10 mg by mouth. - escitalopram oxalate (LEXAPRO) 20 mg tablet Take 20 mg by mouth once daily. - spironolactone (ALDACTONE) 100 mg tablet TAKE ONE TABLET ONCE NIGHTLY WITH A FULL GLASS OF WATER - albuterol HFA (PROAIR HFA) 90 mcg/actuation inhaler 2 puffs every four hours as needed.May also 15 minutes pre-exercise.Use w/spacer. - cholecalciferol (VITAMIN D3) 1,000 unit tab tablet Take 2,000 Units by mouth. - amphetamine-dextroamphet amine XR (ADDERALL XR) 15 mg 24 hr capsule Take 15 mg by mouth. - pimecrolimus (ELIDEL) 1 % cream - Azelaic Acid 15 % gel as needed. - Norethin Cain-Eth Estrad-FE (LOESTRIN FE 06/24) 1 mg-20 mcg (21)/75 mg (7) per tablet Take 1 tablet by mouth once daily. - multivitamins(CHEWABLE MULTI VITAMIN TAB) Take one(1) tablet daily. 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] 11/03/2020 Encounter Status:Closed by LISA BORJA on 11/20/23 Normal [facility] CNOVon 10-18-2023 CNOV Office Visit (PEDSWS ) -------- BINA CAMPOS ([id number]) 3 F Date Time Provider Department 10/18/23 9:45 AM NICKY MCLAUGHLIN During your visit today, we recorded the following information about you: Temperature Pulse Respiration Blood pressure 98.1 degrees 80/minute 12/minute 112/60 Weight Height Last Period 61.2 kg 1.567 m 09/20/23 Nicky Mclaughlin MD 10/31/2023 4:18 PM Signed PEDIATRIC SICK VISIT SUBJECTIVE: Bina Campos is a 18 year old with a history of anxiety who presents with various concerns/complaints. She is interested in stopping her control medication because she thinks she has a hormonal imbalance. This medication is prescribed by her CARDIOTHORACIC PHYSIOTHERAPIST, Em Machuca at [facility]. She has a history of anxiety and depression. She has been managed by psychiatry through [facility] and has more recently been diagnosed with ADHD as well. She doesn't feel like anxiety is a problem for her really anymore. She now thinks depression is more of an issue for her. She was diagnosed with ADHD because during a sleep study she had a lot of fidgeting and couldn't fall asleep. She feels like this diagnosis and treatment has been helpful for her. Olimpia Rivera at [facility] is managing her ADHD, anxiety and depression symptoms. She is taking Lexapro for these symptoms. She thinks her happiest times are when she is on her period/off the pill or hormonal supplements. She thinks the pill has been affecting her badly for a while but her mother wanted her to be on it. Now that she is 18 years old she wants to take some initiative and get off of it. Bina points out that her hormonal imbalance is preventing her from seeing the results she desires from her workouts. She is doing a lot of exercising. She is building muscle in her arms and legs but feels like she can never get muscles in her abdomen. She feels like she can't lose fat in her abdomen and has stomach bloat. She feels like she can't make any progress and it's very frustrating. She changed her diet and tried to eliminate all dairy products. She tried no gluten and she tried keto diets but these didn't help. It also doesn't matter the amount that she eats, she still feels like she has fat in her abdomen that won't budge. Bina also brings up her acne as a symptom of hormonal imbalance. She is seeing [facility] and they have her on spironolactone 100mg tablets. She has been on spironolactone for the past 2 years. She was previously on minocycline and doxycycline. She thinks she is bruising easily. Her iron levels are normal but she thinks she is bruising easily. She has a bowel movement every day to every twice a day. She takes medication to make her stool more solid. She takes a lot of digestive aids like drinks etc to soothe her stomach because it hurts a lot. She drinks a lot of smoothies and tries to increase her protein. She heard about a copper IUD and other alternative control methods. She heard about an [employer] ring that monitors your sleep, metabolism, movements, etc and she is interested in getting this so she can monitor her symptoms more. 10/18/2023 PHQ-A Scores Severity Score 18 (Moderately severe depression) PHQ-A Score Interpretation 0 - 4 No or minimal depression 5 - 9 Minimal depression 10 - 14 Moderate depression 15 - 19 Moderately severe depression 20 - 27 Severe depression 10/18/2023 PEGGY - 2/7 SCORES PEGGY-2 Score 3 PEGGY-7 Score 13 History was obtained from: patient HISTORY: ACTIVE PROBLEM LIST Contusion of Face, Scalp, and Neck Except Eye(s) Cough Variant Asthma Generalized Anxiety Disorder Sleep Disorder With Mood Complaints PAST MEDICAL HISTORY Diagnosis Date Contusion of face, scalp, and neck Cough variant asthma Generalized anxiety disorder Menstrual cycle disorder 01/2017 NEGATIVE MEDICAL HISTORY PMH - PAST MEDICAL HISTORY OF 02/10/09 normal color vision PAST SURGICAL HISTORY Procedure Laterality Date DENTAL SURGERY PROCEDURE 2022 [place] teeth removal NONE Allergies: ALLERGIES Allergen Reactions Amoxicillin Hives Medications: escitalopram oxalate (LEXAPRO) 10 mg tablet TAKE 1.5 TABLETS (15 MG) BY MOUTH DAILY FOR 14 DAYS, THEN 1 TABLET (10 MG) DAILY FOR 30 DAYS. spironolactone (ALDACTONE) 50 mg tablet Take by mouth once daily. cholecalciferol (VITAMIN D3) 1,000 unit tab tablet Take 2,000 Units by mouth. amphetamine-dextroamphet amine XR (ADDERALL XR) 15 mg 24 hr capsule Take 15 mg by mouth. Azelaic Acid 15 % gel as needed. albuterol HFA (PROAIR HFA) 90 mcg/actuation inhaler 2 puffs every four hours as needed.May also 15 minutes pre-exercise.Use w/spacer. Norethin Cain-Eth Estrad-FE (LOESTRIN FE 06/24) 1 mg-20 mcg (21)/75 mg (7) per tablet Take 1 tablet by mouth once daily. multivitamins(CHEWABLE MULTI VITAMIN TAB) Take one(1) tablet daily. (more content not included)... Normal [facility] Progress Noteon 09-04-2023 Staple Cutter Authentication Interface Message Text This is a telemedicine video visit requested by the patient/guardian that was performed with the patient's location at home and the provider's location at home/office. CHILD PSYCHIATRY OUTPATIENT PROGRESS NOTE DATE OF SERVICE: 09/04/2023 PRESENT AT SESSION: Patient REASON FOR VISIT: Medication management Any information from the online medical record incorporated into this note has been reviewed with the patient/parent and is denoted in italics. I shared with family that everything discussed in this session with provider is confidential unless it pertains to safety of patient or another, then that would be reportable. This note or partial portions of this note may have been created using a copy forward or copy paste feature, but these portions have been verified and re-edited for accuracy and any portions not in need of editing or reviews are note being used to generate any component necessary for billing purposes. Elements necessary for proper CPT code selection are based only on elements of the visit that are truly unique to this visit. Additionally, dictation software may have been used to complete some of this documentation. SESSION NOTES Patient reports doing very well. Patient reports some dermatology related medication changes that have kept her from taking a medication she needs. Patient reports school is merging with another university. I have noticed with big changes I don't react like I used to. I am just like OK. Grades are good, patient enjoys classes. I planned out my schedule for the fall. I am doing dorm stuff. I have a girl I want to room with. It's coming along. Patient is doing well academically. We are going to the beach with my family for the summer. I have a really good group of friends here. So far it's been good. I like living with people. I was going to be fine living alone next semester, then I found out it costs quite a lot more to do that. So I found a roommate. Patient reports a mindset change since college started, it's like this is not the end of the world. Patient has a romantic interest. RISK ASSESSMENT Current Risk Level Low Acute Risk: History of past [id number]- or suicidal thoughts Patient able to plan for safety: yes SUICIDAL IDEATION - SINCE LAST VISIT 1. Wish to be ? No If yes, describe: 2. Non-Specific Active Suicidal Thoughts: No If yes, describe: 3. Active Suicidal Ideation with Any Methods (Not Plan) without Intent to Act: If yes, describe: 4. Active Suicidal Ideation with Some Intent to Act, without Specific Plan: If yes, describe: 5. Active Suicidal Ideation with Specific Plan and Intent: If yes, describe: INTENSITY OF IDEATION - SINCE LAST VISIT Most Severe Ideation: Description of Ideation: Frequency: Duration: Controllability: Deterrents: Reasons for Ideation: SUICIDAL BEHAVIOR - SINCE LAST VISIT (Check all that apply, so long as these are separate events; must ask about all types) Actual Attempt: No Total # of Attempts: If yes, describe: Has subject engaged in Non-Suicidal Self-Injurious Behavior? No Interrupted Attempt: No Total # of interrupted: If yes, describe: Aborted or Self-Interrupted Attempt: No Total # of aborted or self-interrupted: If yes, describe: Preparatory Acts or Behavior: No Total # of preparatory acts: If yes, describe: ACTUAL/POTENTIAL LETHALITY - SINCE LAST VISIT Most Lethal Attempt Date: Actual Lethality/Medical Damage: Potential Lethality: [email or web address] VITAL SIGNS & MENTAL STATUS EXAM Wt Readings from Last 3 Encounters: 12/13/21 64.6 kg (78%, Z= 0.78)* 11/15/21 64.3 kg (78%, Z= 0.76)* 06/16/21 68.3 kg (86%, Z= 1.07)* * Growth percentiles are based on CDC (Girls, 2-20 Years) data. Temp Readings from Last 3 Encounters: 12/13/21 36 C (96.8 F) 06/16/21 36.7 C (98.1 F) 02/02/21 36.6 C (97.9 F) (Temporal) BP Readings from Last 3 Encounters: 12/13/21 103/66 (28%, Z = -0.58 / 62%, Z = 0.31)* 11/15/21 116/72 (78%, Z = 0.77 / 80%, Z = 0.84)* 06/16/21 98/55 (19%, Z = -0.88 / 21%, Z = -0.81)* *BP percentiles are based on the 2017 AAP Clinical Practice Guideline for girls Pulse Readings from Last 3 Encounters: 12/13/21 82 11/15/21 69 06/16/21 93 Gait/Station: Not assessed (telehealth visit) Muscle Strength/Tone: Not assessed (telehealth visit) MENTAL STATUS EXAMINATION: Behavior During Interview: calm and cooperative Appearance: neat/clean and dressed appropriately Eye Contact: appropriate Mood: euthymic Affect: congruent with mood Speech: normal rate and volume Thought Processes: linear, goal directed Associations: Thought Content: Denies SI and HI Perceptual Disturbances: Does not appear to be responding to internal stimuli Cognition: Level of Alertness: full Orientation: fully alert and oriented Attention Span/Concentration: age appropriate, intact Recent & Remote Memory: grossly intact Fund of Kn (more content not included)... Normal [facility] .Fentanyl Scrn wo Conf,Uron 05-02-2023 Ur Fentanyl Scrn Negative Normal NEG <1.0 [facility] Comment on above: Performed By: #### C [id number] ####[place] [address] Ur Fentanyl Scrn Qnt 0.26 ng/mL Normal <=0.99 [facility] Comment on above: Performed By: #### C [id number] ####[address] [address] .UA Microscp 05-02-2023 UA Bacteria Present Abnormal Absent [facility] Comment on above: Performed By: #### . Urinalysis Microscopic Man ####[place] [address] UA Hyline Cast Qual 0-2 Normal Negative [facility] Comment on above: Performed By: #### . Urinalysis Microscopic Man ####[place] [address] UA Mucus Present Normal Absent [facility] Comment on above: Performed By: #### . Urinalysis Microscopic Man ####[place] [address] UA RBC Qual 30-49 Abnormal 0 - 5 [facility] Comment on above: Performed By: #### . Urinalysis Microscopic Man ####[place] [address] UA Squepi Cells Qual 1-4 Normal 0 - 29 [facility] Comment on above: Performed By: #### . Urinalysis Microscopic Man ####[place] [address] UA WBC Qual 5-9 Abnormal 0 - 5 [facility] Comment on above: Performed By: #### . Urinalysis Microscopic Man ####[place] [address] .eGFRon 05-02-2023 GFR/1.73 sq M.predicted MDRD (S/P/Bld) [Vol rate/Area] mL/min/{1.73_m2} Normal >=60 [facility] Comment on above: Order Comment: Order added by Discern rule Result Comment: [facility] have implemented the eGFR calculation approach that does not have a coefficient for race and that conforms to the NKF-ASN Task Force Recommendations. Stages of Chronic Kidney Disease GFR Stage 3a Mild to moderate loss of kidney function 59 to 45 Stage 3b Moderate to severe loss of kidney function 44 to 33 Stage 4 Severe loss of kidney function 29 to 15 Stage 5 Kidney failure Less than 15 GFR calculated using the CKD-Epi Creatinine Equation (2020): eGFR = 142 X min(SCr/?, 1)? X max(SCr /?, 1)-1.200 X 0.9938Age X 1.012 [if female] Abbreviations/Units: eGFR (estimated glomerular filtration rate) = mL/min/1.73 m2 SCr (standardized serum creatinine) = mg/dL ? = 0.7 (females) or 0.9 (males) ? = -0.241 (females) or -0.302 (males) min = indicates the minimum of SCr/? or 1 max = indicates the maximum of SCr/? or 1 Age = years Performed By: #### C BCI #### [address] [address] CBC w/ Diffon 05-02-2023 Erythrocyte distribution width (RBC) [Ratio] 12.3 % Normal 11.6-14.8 [facility] Comment on above: Performed By: #### C BCI #### [place] [id number] Hematocrit (Bld) [Volume fraction] 40.8 % Normal 36.0-46.0 [facility] Comment on above: Performed By: #### C BCI #### [place] [id number] Hemoglobin (Bld) [Mass/Vol] 14.2 g/dL Normal 12.0-16.0 [facility] Comment on above: Performed By: #### C BCI #### [address] [address] MCH (RBC) [Entitic mass] 30.2 pg Normal 27.0-35.0 [facility] Comment on above: Performed By: #### C BCI #### [address] [address] MCHC 34.8 % Normal 31.0-37.0 [facility] Comment on above: Performed By: #### C BCI #### [address] [address] MCV (RBC) [Entitic vol] 86.8 fL Normal 80.0-100.0 [facility] Comment on above: Performed By: #### C BCI #### [address] [address] Platelet 462 x10*3/mcL High 150-450 [facility] Comment on above: Performed By: #### C BCI #### [address] [address] Platelet mean volume (Bld) [Entitic vol] 6.4 fL Low 7.5-11.5 [facility] Comment on above: Performed By: #### C BCI #### [address] [address] RBC 4.69 x10*6/mcL Normal 3.80-5.20 [facility] Comment on above: Performed By: #### C BCI #### [address] [address] WBC 9.1 x10*3/mcL Normal 4.5-11.0 [facility] Comment on above: Performed By: #### C BCI #### [address] [address] CMPon 05-02-2023 Albumin [Mass/Vol] 3.9 g/dL Normal 3.7-5.3 [facility] Comment on above: Performed By: #### C BCI #### [address] [address] Albumin/Globulin [Mass ratio] 1.4 {ratio} Normal 1.1-2.2 [facility] Comment on above: Performed By: #### C BCI #### [address] [address] Alk Phos 58 IU/L Normal 34-104 [facility] Comment on above: Performed By: #### C BCI #### [address] [address] ALT [Catalytic activity/Vol] 17 U/L Normal 7-52 [facility] Comment on above: Performed By: #### C BCI #### [address] [address] Anion gap [Moles/Vol] 11 mmol/L Normal 7-17 [facility] Comment on above: Performed By: #### C BCI #### [address] [address] AST [Catalytic activity/Vol] 16 U/L Normal 13-39 [facility] Comment on above: Performed By: #### C BCI #### [address] [address] Bili Total 0.2 mg/dL Low 0.3-1.0 [facility] Comment on above: Performed By: #### C BCI #### [address] [address] Calcium [Mass/Vol] 9.4 mg/dL Normal 8.6-10.3 [facility] Comment on above: Performed By: #### C BCI #### [address] [address] Chloride 107 IU/L Normal 98-107 [facility] Comment on above: Performed By: #### C BCI #### [address] [address] CO2 [Moles/Vol] 25 mmol/L Normal 21-31 [facility] Comment on above: Performed By: #### C BCI #### [address] [address] Creatinine [Mass/Vol] 0.87 mg/dL Normal 0.60-1.20 [facility] Comment on above: Performed By: #### C BCI #### [address] [address] Glucose [Mass/Vol] 102 mg/dL High 70-99 [facility] Comment on above: Performed By: #### C BCI #### [address] [address] Potassium [Moles/Vol] 3.9 mmol/L Normal 3.4-4.8 [facility] Comment on above: Performed By: #### C BCI #### [address] [address] Protein [Mass/Vol] 6.7 g/dL Normal 6.0-8.3 [facility] Comment on above: Performed By: #### C BCI #### [address] [place] [address] Sodium [Moles/Vol] 139 mmol/L Normal 136-145 [facility] Comment on above: Performed By: #### C BCI #### [address] [address] Urea nitrogen [Mass/Vol] 7 mg/dL Normal 7-25 [facility] Comment on above: Performed By: #### C BCI #### [address] [address] Urea nitrogen/Creatinine [Mass ratio] 8.0 mg/mg Low 10.0-20.0 [facility] Comment on above: Performed By: #### C BCI #### [address] [address] [address] Abd Pelvis w/o IV Cont St one Prot.on 05-02-2023 CT Abd Pelvis w/o IV Cont Stone Prot. EXAMINATION: CT Abd Pelvis w/o IV Cont Stone Prot., 05/02/2023 5:45 AM RESPIRATORY THERAPIST ASSISTANT HISTORY: Other (please specify), flank pain COMPARISON: None. TECHNIQUE: CT scan of the abdomen and pelvis was performed without IV contrast. CT dose reduction technique was used, including Automated Exposure Control. FINDINGS: Lung bases: There is no pleural or pericardial effusion. The heart size is within normal limits. The lung bases are clear. Abdomen/pelvis: There is a 2 mm stone within the proximal right ureter with mild right-sided hydroureteronephrosis. The unenhanced right kidney is otherwise within normal limits. There is no evidence of left-sided nephrolithiasis or obstructive uropathy. The unenhanced left kidney is within normal limits. The urinary bladder is within normal limits. Uterus and adnexa are within normal limits for the patient's age. The liver, spleen, pancreas and adrenal glands are within normal limits. The gallbladder is within normal limits. There is no biliary dilatation. There is no adenopathy within the abdomen or pelvis. No intraperitoneal free fluid or free air. There are no abnormally dilated or thickened loops of bowel. No evidence of bowel obstruction. Normal appendix. There are no aggressive appearing bony lesions. IMPRESSION: 2 mm stone within the proximal right ureter with mild right-sided hydroureteronephrosis. 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 TECHNIQUE: Helical images were obtained from the skull base through the calvarium. Coronal and sagittal reformations were created. Dose reduction techniques were achieved by using automated exposure control and/or adjustment of mA and/or kV according to patient size and/or use of iterative reconstruction technique. FINDINGS: There is no intra or extra-axial hemorrhage. No mass effect or midline shift. No definite acute loss of zavaleta-white differentiation. The ventricles and cerebral sulci are within normal limits for the patient's age. The orbits are within normal limits. Mild mucosal thickening within the ethmoid air cells. The paranasal sinuses and mastoid air cells are otherwise clear. There is no fracture. IMPRESSION: No acute intracranial pathology. Radiation Dose Estimate: CTDI(mGy):0.813178 / / / kVp:140.038436 / mAs:0.575984 / / / DLP(mGy-cm):2.068300Fxpc Part: Head CTDI(mGy):49.896563 / / / kVp:120.612363 / mAs:145.494635 / / / DLP(mGy-cm):806.470872Rl dy Part: Head Final Dictated by: Walker Lenz MD Dictated DT/TM: 05.02.2023 7:10 am Signed by: Walker Lenz MD Signed (Electronic Signature): 05.02.2023 7:12 am (If Report Is Signed, Electronically Signed in Other Vendor System) Normal [facility] Diff Autoon 05-02-2023 Baso Absolute 0.0 x10*3/mcL Normal 0.0-0.2 [facility] Comment on above: Performed By: #### . Automated Diff ####[address] [address] Basophils/100 WBC (Bld) 0.4 % Normal 0.0-1.5 [facility] Comment on above: Performed By: #### . Automated Diff ####[address] [address] Eos Absolute 0.2 x10*3/mcL Normal 0.0-0.4 [facility] Comment on above: Performed By: #### . Automated Diff ####[address] [address] Eosinophils/100 WBC (Bld) 2.3 % Normal 0.0-5.4 [facility] Comment on above: Performed By: #### . Automated Diff ####[address] [address] Lymph Absolute 3.7 x10*3/mcL Normal 1.2-5.2 [facility] Comment on above: Performed By: #### . Automated Diff ####[address] [address] Lymphocytes/100 WBC (Bld) 40.2 % Normal 28.0-42.0 [facility] Comment on above: Performed By: #### . Automated Diff ####[address] [address] Bell Absolute 0.7 x10*3/mcL Normal 0.1-1.1 [facility] Comment on above: Performed By: #### . Automated Diff ####[address] [address] Monocytes/100 WBC (Bld) 7.7 % Normal 3.7-11.9 [facility] Comment on above: Performed By: #### . Automated Diff ####[place] [address] Neutro Absolute 4.5 x10*3/mcL Normal 1.8-8.0 [facility] Comment on above: Performed By: #### . Automated Diff ####[place] [address] Neutro Auto 49.4 % Normal 45.6-68.4 [facility] Comment on above: Performed By: #### . Automated Diff ####[place] [address] ED Clinical Summaryon 2022 ED Clinical Summary (Inserted Image. Isha ble to display) [address] [address] ED Clinical Summary Person Information Name: Bina Campos/[facility] Age: 18 Years : 2005 Sex: Female PCP: Marital Status: Single Phone: Race: Unknown Ethnicity: Unavailable Language: Chinese Visit Reason: Flank pain; kidney stone rule out Acuity: 3 Enc Type: Emergency Med Service: Emergency Medicine Arrival: 05/02/2023 05:51:00 Discharge: 05/02/2023 08:43:00 LOS: 000 02:52 Checkin: 05/02/2023 05:51:00 Checkout: 05/02/2023 08:43:00 Dispo Type: Home or Self Care Address: [address] [place] [address] [address] [place] [id number] Provider Notes: History of Present Illness Patient presents to the ED with complaints of sharp aching R abdominal pain which began yesterday evening.? The pain is along the R lateral abdomen and radiates to the RLQ.? + nausea and vomiting.? No fever or injury.? She notes having similar Sx in the past which she relates to kidney stone.? She notes she had two prior episodes of kidney stone which did not require procedural intervention.? She denies having other complaints. Review of Systems GENERAL: Negative for fever, chills EYES:?Negative for?acute changes NECK: Negative for pain CARDIOVASCULAR: Negative for chest pain RESPIRATORY: Negative for shortness of breath, cough ABDOMEN/GI:?+ for abdominal pain, nausea, vomiting.? Negative for?diarrhea BACK: Negative for pain MUSCULOSKELETAL: Negative for acute pain and swelling SKIN: Negative for?rash, discoloration NEURO: Negative for headache, focal weakness, acute numbness, acute tingling Physical Exam CONSTITUTIONAL: Patient is awake and alert HEAD: Normocephalic, atraumatic HEENT: Moist mucus membranes, oropharynx clear EYES: Pupils are equally round and reactive to light, lids and lashes normal, clear conjunctiva, non-icteric sclera.? No drainage NECK: Trachea midline, external neck normal, supple, no nuchal rigidity or meningismus PULMONARY: Clear to auscultation bilaterally with equal sounds.? Normal rate and effort CARDIOVASCULAR: Regular rate and?rhythm. GASTROINTESTINAL: Soft, + mild RLQ tenderness, normal bowel sounds, no rebound or guarding BACK: No flank tenderness SKIN: Warm and dry, no evidence of cellulitis.? No petechiae MUSCULOSKELETAL: Extremities without acute deformity.? No edema or tenderness.? No midline C/T/L spine tenderness.? Normal distal pulses and cap refill.? NEUROLOGIC:?No gross motor or sensory deficits.? Normal tone.? Normal coordination.? PSYCHIATRIC: Somewhat anxious.? Diagnosis: 1:Ureterolithiasis; 2:Convulsions Problems No Problems Documented Smoking Status: Functional Status: Sensory Deficits: History of Falls: Mobility Assistance Prior to Admission: ADLs: Current Level of Assistance for Self-Care/Mobility: Cognitive Status: Allergies No Known Medication Allergies Laboratory or Other Results This Visit (last charted value for your 05/02/2023 visit) Hematology 05/02/2023 6:15 AM WBC: 9.1 x10 RBC: 4.69 x10 Neutro Auto: 49.4 % -- Normal range between ( 45.6 and 68.4 ) Lymph Auto: 40.2 % -- Normal range between ( 28.0 and 42.0 ) Bell Auto: 7.7 % -- Normal range between ( 3.7 and 11.9 ) Eos Auto: 2.3 % -- Normal range between ( 0.0 and 5.4 ) Basophil Auto: 0.4 % -- Normal range between ( 0.0 and 1.5 ) Baso Absolute: 0.0 x10 MCV: 86.8 fL -- Normal range between ( 80.0 and 100.0 ) MCHC: 34.8 % -- Normal range between ( 31.0 and 37.0 ) Lymph Absolute: 3.7 x10 Hct: 40.8 % -- Normal range between ( 36.0 and 46.0 ) Bell Absolute: 0.7 x10 MCH: 30.2 pg -- Normal range between ( 27.0 and 35.0 ) Neutro Absolute: 4.5 x10 Hgb: 14.2 g/dL -- Normal range between ( 12.0 and 16.0 ) Mean Platelet Volume: 6.4 fL -- Normal range between ( 7.5 and 11.5 ) Platelet: 462 x10 Eos Absolute: 0.2 x10 RDW: 12.3 % -- Normal range between ( 11.6 and 14.8 ) Urinalysis 05/02/2023 7:12 AM UA Color: Dark Yellow UA Urobilinogen: 0.2 mg/dL UA Bili: Small UA Ketones: 5 mg/dL UA Leukocyte Esterase: Negative UA Nitrite: Negative UA Glucose: Negative mg/dL UA Bacteria: Present /HPF UA Protein: 100 mg/dL UA Blood: Large UA Spec Grav: >1.030 -- Normal range between ( 1.003 and 1.035 ) UA pH: 5.5 UA Clarity: Turbid UA Source: Clean Catch UA WBC Qual: 5-9 /HPF UA RBC Qual: 30-49 /HPF UA Squepi Cells Qual: 1-4 /HPF UA Mucus: Present /LPF UA Hyline Cast Qual: 0-2 /LPF Chemistry 05/02/2023 7:12 AM Ur Creatinine Tox Scrn: 332.3 mg/dL 05/02/2023 6:15 AM Creatinine Lvl: 0.87 mg/dL -- Normal range between ( 0.60 and 1.20 ) BUN: 7 mg/dL -- Normal range between ( 7 and 25 ) Glucose Lvl: 102 mg/dL -- Normal range between ( 70 and 99 ) Potassium Lvl: 3.9 mmol/L -- Normal range between ( 3.4 and 4.8 ) AST: 16 IU/L -- Normal range between ( 13 and 39 ) ALT: 17 IU/L -- Normal range between ( 7 a (more content not included)... Normal [facility] ED Note-Physicianon 11-28-20 23 ED Note-Physician Chief Complaint abdominal pain History of Present Illness Patient presents to the ED with complaints of sharp aching R abdominal pain which began yesterday evening. The pain is along the R lateral abdomen and radiates to the RLQ. + nausea and vomiting. No fever or injury. She notes having similar Sx in the past which she relates to kidney stone. She notes she had two prior episodes of kidney stone which did not require procedural intervention. She denies having other complaints. Review of Systems GENERAL: Negative for fever, chills EYES: Negative for acute changes NECK: Negative for pain CARDIOVASCULAR: Negative for chest pain RESPIRATORY: Negative for shortness of breath, cough ABDOMEN/GI: + for abdominal pain, nausea, vomiting. Negative for diarrhea BACK: Negative for pain MUSCULOSKELETAL: Negative for acute pain and swelling SKIN: Negative for rash, discoloration NEURO: Negative for headache, focal weakness, acute numbness, acute tingling Physical Exam CONSTITUTIONAL: Patient is awake and alert HEAD: Normocephalic, atraumatic HEENT: Moist mucus membranes, oropharynx clear EYES: Pupils are equally round and reactive to light, lids and lashes normal, clear conjunctiva, non-icteric sclera. No drainage NECK: Trachea midline, external neck normal, supple, no nuchal rigidity or meningismus PULMONARY: Clear to auscultation bilaterally with equal sounds. Normal rate and effort CARDIOVASCULAR: Regular rate and rhythm. GASTROINTESTINAL: Soft, + mild RLQ tenderness, normal bowel sounds, no rebound or guarding BACK: No flank tenderness SKIN: Warm and dry, no evidence of cellulitis. No petechiae MUSCULOSKELETAL: Extremities without acute deformity. No edema or tenderness. No midline C/T/L spine tenderness. Normal distal pulses and cap refill. NEUROLOGIC: No gross motor or sensory deficits. Normal tone. Normal coordination. PSYCHIATRIC: Somewhat anxious. Vitals & Measurements T: 36.9 ?C (Oral) HR: 68 (Peripheral) HR: 68 (Monitored) RR: 18 BP: 111/68 SpO2: 97% HT: 155 cm WT: 61.3 kg WT: 61.3 kg (Dosing) Additional Vitals No qualifying data available. Procedure No qualifying data available. ASA Documentation Medical Decision Making Upon my entrance to the room for her exam her eyes rolled back and she had generalized convulsions. She was also looking around the room. Her breathing was unlabored. Two drop arm tests revealed that she would move her arm away from the face and redirect it down to the torso when lifted. She became alert after only Later, she is resting in the room. She is in NAD. She is calm and pleasant. She notes a Hx of two prior remote seizures in the past and states she does not take seizure medication. I did review with the patient that they may not drive or participate in other high risk activities until cleared by their physician. General seizure precautions were discussed. Improved in the ED. Appears well, NAD. ED return precautions reviewed and follow up plan discussed. Patient counseled that if Sx change, continue, or worsen that they should contact their physician or go to the ED immediately. Assessment/Plan 1. Ureterolithiasis Ordered: hydrocodone-acetaminophe n, 1 tabs, Oral, q6hr, PRN, X 3 days, # 10 tabs, 0 Refill(s), 05/05/23 8:06:00 EST Urine Strainer 2. Convulsions Ordered: Urine Strainer Orders: ciprofloxacin, 1 tabs, Oral, q12hr, X 10 days, # 20 tabs, 0 Refill(s), 05/12/23 8:06:00 EST, Pharmacy: [facility] #[id number] ondansetron, 1 tabs, Oral, q8hr, PRN, X 5 days, # 10 tabs, 0 Refill(s), 05/07/23 8:06:00 EST, Pharmacy: [id number] Sodium Chloride 0.9% intravenous solution 1,000 mL, 1,000 mL, Soln-IV, IV, 100 mL/hr, Start Date: 05/02/23 5:58:00 EST, Dispense From Location: [id number], 1.6, m2, 05/02/23 5:58:00 EST tamsulosin, 1 caps, Oral, Daily, # 7 caps, 0 Refill(s), Pharmacy: [facility] #[id number] .[place] [address] - ED Professional Level 4 Discharge Patient Prolactin Level Refresh vitals and sections below: Problem List/Past Medical History Ongoing No qualifying data Historical No qualifying data Medications Inpatient NS 1,000 mL, 1000 mL, IV Home Adderall 20 mg oral tablet, 20 mg= 1 tabs, Oral, Daily Albuterol (Eqv-Proventil HFA), See Instructions Cipro 500 mg oral tablet, 500 mg= 1 tabs, Oral, q12hr Flomax 0.4 mg oral capsule, 0.4 mg= 1 caps, Oral, Daily Lexapro, 20 mg, Oral, HS (at bedtime) multivitamin, Oral, Daily [place] 5 mg-325 mg oral tablet, 1 tabs, Oral, q6hr, PRN spironolactone, 50 mg, Oral, Daily Zofran ODT 4 mg oral tablet, disintegrating, 4 mg= 1 tabs, Oral, q8hr, PRN Allergies No Known Medication Allergies Social History Tobacco Never (less than 100 in lifetime) Use:. Lab Results Automated Hematology LATEST RESULTS WBC 05/02/23 06:15 9.1 RBC 05/02/23 06:15 4.69 Hgb 05/02/23 06:15 14.2 Hct 05/02/23 06:15 40.8 MCV 05/02/23 06:15 86.8 MCH 05/02 (more content not included)... Normal [facility] Lipaseon 05-02-2023 Lipase Lvl 26 IU/L Normal [facility] Comment on above: Performed By: #### L IP ####[address] [address] Magnesiumon 05-02-2023 Magnesium [Mass/Vol] 1.9 mg/dL Normal 1.7-2.4 [facility] Comment on above: Performed By: #### C BCI #### [facility] [address] [place] [address] Prolactinon 05-02-2023 Prolactin 59.27 ng/mL Normal [facility] Comment on above: Result Comment: *Prolactin Result Interpretation Pre-Menopausal Female: 3.34-26.72 ng/mL Post-Menopausal Female: 2.74-19.64 ng/mL Performed By: #### P ROLAC ####[facility] [place] [address] S Preg Qlon 05-02-2023 Serum Preg Negative Normal [facility] Comment on above: Result Comment: The hCG Combo Rapid Test has a sensitivity of 10 mIU/mL in serum and is capable of detecting as early as 1 day after the first missed menses. Performed By: #### S PTQ ####[place] [address] UA w Cult if Ind Man BFTon 1 07-02-2022 Color (U) Dark Yellow Normal Yellow [facility] Comment on above: Performed By: #### [place] ####[place] [address] Glucose (U) [Mass/Vol] Negative Normal Negative [facility] Comment on above: Performed By: #### [place] ####[place] [address] Ketones Ql (U) 5 mg/dL Abnormal Negative [facility] Comment on above: Performed By: #### [place]IM ####[place] [address] UA Bili Small Abnormal Negative [facility] Comment on above: Result Comment: Conf irmed Positive Performed By: #### U CIM ####[place] [address] UA Blood Large Abnormal Negative [facility] Comment on above: Performed By: #### U CIM ####[place] [address] UA Clarity Turbid Normal Clear [facility] Comment on above: Performed By: #### U CIM ####[place] [address] UA Leukocyte Esterase Negative Normal Negative [facility] Comment on above: Performed By: #### U CIM ####[place] [address] UA Nitrite Negative Normal Negative [facility] Comment on above: Performed By: #### U CIM ####[place] [address] UA pH 5.5 Normal 4.5 - 7.8 [facility] Comment on above: Performed By: #### U CIM ####[place] [address] UA Protein 100 mg/dL Abnormal Negative [facility] Comment on above: Performed By: #### U CIM ####[place] [address] UA Source Clean Catch Normal [facility] Comment on above: Performed By: #### U CIM ####[place] [address] UA Spec Grav >1.030 Normal 1.003-1.035 [facility] Comment on above: Performed By: #### U CIM ####[place] [address] UA Urobilinogen 0.2 mg/dL Normal 0.2 - 1.0 [facility] Comment on above: Performed By: #### U CIM ####[place] [address] UDS Compon 05-02-2023 UA pH 5.5 Normal 4.5 - 7.8 [facility] Comment on above: Performed By: #### C [id number] ####[place] [address] UA Spec Grav >1.030 Normal 1.003-1.035 [facility] Comment on above: Performed By: #### C [id number] ####[place] [address] Creatinine [Mass/Vol] 332.3 mg/dL Normal [facility] Comment on above: Performed By: #### C [id number] ####[place] [address] Ur Amph Scrn Positive Abnormal NEG = <1000 [facility] Comment on above: Result Comment: This unconfirmed positive screening result is to be used for medical treatment purposes only. Unconfirmed screening results must not be used for non-medical purposes (e.g. employment testing, legal testing). Performed By: #### C D:[id number] ####[address] [id number] [place] [address] Ur Melia Scrn Negative Normal NEG = <200 [facility] Comment on above: Performed By: #### C [id number] ####[facility] [place] [address] Ur Benzodia Scrn Negative Normal NEG = <200 [facility] Comment on above: Performed By: #### C D:[id number] ####[facility] [place] [address] Ur Cannab Scrn Positive Abnormal NEG = <50 [facility] Comment on above: Result Comment: This unconfirmed positive screening result is to be used for medical treatment purposes only. Unconfirmed screening results must not be used for non-medical purposes (e.g. employment testing, legal testing). Performed By: #### C D:[id number] ####[place] [address] Ur Cocaine Scrn Negative Normal NEG = <300 [facility] Comment on above: Performed By: #### C [id number] ####[place] [address] Ur Methadone Scn Negative Normal NEG = <300 [facility] Comment on above: Performed By: #### C [id number] ####[place] [address] Ur Opiate Scrn Negative Normal NEG = <300 [facility] Comment on above: Performed By: #### C [id number] ####[facility] [place] [address] Ur Oxy Screen Negative Normal NEG = <100 [facility] Comment on above: Performed By: #### C [id number] ####[place] [address] Ur Oxy Scrn Qnt <0 Normal <=99 [facility] Comment on above: Performed By: #### C [id number] ####[place] [address] Ur PCP Scrn Negative Normal NEG = <25 [facility] Comment on above: Performed By: #### C D:[id number] ####[address] [address] XR FINGER THUMB 3 VIEWS JASMINE Ton 05-14-2022 XR FINGER THUMB 3 VIEWS RIGHT ORIGINAL EXAMINATION: THREE XRAY VIEWS OF THE RIGHT THUMB 05/14/2022 9:10 am COMPARISON: None. HISTORY: ORDERING SYSTEM PROVIDED HISTORY: Reason for Exam: pain Smashed finger in car door. FINDINGS: Radiographic evaluation of the thumb demonstrates a mild depression of the anterior surface of the distal phalanx of the 1st digit. There is no fracture line otherwise seen. No evidence of interphalangeal joint involvement. Mild soft tissue swelling is noted. IMPRESSION: Depression of the anterior cortical surface of the distal phalanx of the 1st digit. Mild soft tissue swelling. Interpreted by: Daniel Nguyen MD Preliminary Report By: Daniel Nguyen MD Electronically signed By Daniel Nguyen MD Dictated Date: 05/14/2022 9:12:38 AM Prelim Date: 05/14/2022 9:14:18 AM Sign Date: 05/14/2022 9:14:18 AM Ordering Provider: DOMINIQUE ACHARYA [facility] ([place]) Chlamydia trachomatis rRNA d etection by probe and target amplification methodon 01-10-2022 C. trachomatis rRNA YAHIR+probe Ql (Unsp spec) Negative Negative [facility] Work Phone: Laboratory - Microbiology an d Antimicrobial susceptibilityon 01-10-2022 N. gonorrhoeae DNA YAHIR+probe Ql (Unsp spec) Negative Negative [facility] Work Phone: Comment on above: Performed at: =[address] [id number] Director: Natasha Montemayor MD, Phone: [phone] Vital Signs Date Time Vital Sign Value Performing Clinician Merrill geronimo 05-21-2024 11:03-0500 Body height 154.9 cm Eduardo Kellogg MD Work Phone: [facility] 05-21-2024 11:03-0500 Body mass index (BMI) [Ratio] 25.13 kg/m2 Eduardo Kellogg MD Work Phone: [facility] 05-21-2024 11:03-0500 Body weight 60.33 kg Eduardo Kellogg MD Work Phone: [facility] 05-21-2024 11:03-0500 Diastolic blood pressure 77 mm[Hg] Eduardo Kellogg MD Work Phone: [facility] 05-21-2024 11:03-0500 Heart rate 110 /min Eduardo Kellogg MD Work Phone: [facility] 05-21-2024 11:03-0500 Systolic blood pressure 130 mm[Hg] Eduardo Kellogg MD Work Phone: [facility] 12-14-2023 09:11-0400 Body height 156.7 cm Nicky Mclaughlin MD Work Phone: [facility] 12-14-2023 09:11-0400 Body mass index (BMI) [Ratio] 24.57 kg/m2 Nicky Mclaughlin MD Work Phone: [facility] 12-14-2023 09:11-0400 Body temperature 97.5 [degF] Nicky Mclaughlin MD Work Phone: [facility] 12-14-2023 09:11-0400 Body weight 60.33 kg Nicky Mclaughlin MD Work Phone: [facility] 12-14-2023 09:11-0400 Diastolic blood pressure 60 mm[Hg] Nicky Mclaughlin MD Work Phone: [facility] 12-14-2023 09:11-0400 Heart rate 80 /min Nicky Mclaughlin MD Work Phone: [facility] 12-14-2023 09:11-0400 Respiratory rate 20 /min Nicky Mclaughlin MD Work Phone: [facility] 12-14-2023 09:11-0400 Systolic blood pressure 108 mm[Hg] Nicky Mclaughlin MD Work Phone: [facility] 10-18-2023 09:57-0400 Body height 156.7 cm Nicky Mclaughlin MD Work Phone: [facility] 10-18-2023 09:57-0400 Body mass index (BMI) [Ratio] 24.94 kg/m2 Nicky Mclaughlin MD Work Phone: [facility] 10-18-2023 09:57-0400 Body temperature 98.1 [degF] Nicky Mclaughlin MD Work Phone: [facility] 10-18-2023 09:57-0400 Body weight 61.24 kg Nicky Mclaughlin MD Work Phone: [facility] 10-18-2023 09:57-0400 Diastolic blood pressure 60 mm[Hg] Nicky Mclaughlin MD Work Phone: [facility] 10-18-2023 09:57-0400 Heart rate 80 /min Nicky Mclaughlin MD Work Phone: [facility] 10-18-2023 09:57-0400 Respiratory rate 12 /min Nicky Mclaughlin MD Work Phone: [facility] 10-18-2023 09:57-0400 Systolic blood pressure 112 mm[Hg] Nicky Mclaughlin MD Work Phone: [facility] 11-09-2022 13:35-0400 Body temperature 97.9 [degF] Rossy Manrique MD Work Phone: [facility] 11-09-2022 13:35-0400 Body weight 62.37 kg Rossy Manrique MD Work Phone: [facility] 05-14-2022 08:41-0500 Body temperature 97.7 [degF] DOMINIQUE ACHARYA MD [facility] 05-14-2022 08:41-0500 Diastolic Blood Pressure Non-Invasive 73 1 DOMINIQUE ACHARYA MD [facility] 05-14-2022 08:41-0500 Heart rate 83 /min DOMINIQUE ACHARYA MD [facility] 05-14-2022 08:41-0500 Respiratory rate 18 /min DOMINIQUE ACHARYA MD [facility] 05-14-2022 08:41-0500 Systolic Blood Pressure Non-Invasive 128 1 DOMINIQUE ACHARYA MD [facility] 01-10-2022 10:56-0400 Body height 154.[address] Nicky Mclaughlin Work Phone: [facility] Work Phone: 01-10-2022 10:56-0400 Body mass index (BMI) [Percentile] Per age and sex 89 % Dr. Nicky Mclaughlin Work Phone: [facility] Work Phone: 01-10-2022 10:56-0400 Body mass index (BMI) [Ratio] 26.8 kg/m2 Dr. Nicky Mclaughlin Work Phone: [facility] Work Phone: 01-10-2022 10:56-0400 Body weight 64.[address] Nicky Mclaughlin Work Phone: [facility] Work Phone: 01-10-2022 10:56-0400 Diastolic blood pressure 62 mm[Hg] Dr. Nicky Mclaughlin Work Phone: [facility] Work Phone: 01-10-2022 10:56-0400 Systolic blood pressure 116 mm[Hg] Dr. Nicky Mclaughlin Work Phone: [facility] Work Phone: Encounters Encounter Date Encounter Type Care Provider Facility Start: 12-27-2024 Encounter for other preprocedural examination Kushal Hagen [facility] Start: 12-18-2024 End: 12-18-2024 Subsequent hospital visit by physician Eduardo Kellogg MD Work Phone: [facility] Comment on above: Kidney stones Start: 12-18-2024 End: 12-18-2024 ambulatory [facility] Start: 11-29-2024 End: 11-29-2024 ambulatory Efewongbe Cheryle Facility:[facility] Start: 11-26-2024 End: 11-26-2024 ambulatory Em Bolañoss Facility:[facility] Start: 11-26-2024 End: 11-26-2024 ambulatory Emjosee Bolañoss Facility:[facility] Start: 11-20-2024 ambulatory Nicky Mclaughlin Facili ty:[facility] Start: 11-15-2024 End: 11-15-2024 ambulatory Mary Proctornasov Facility:[facility] Start: 10-31-2024 End: 10-31-2024 ambulatory Bayron Lunae OLS Facility:[facility] Start: 10-31-2024 End: 10-31-2024 ambulatory Nealongbe Cheryle OLS Facility:[facility] Start: 10-10-2024 End: 10-10-2024 ambulatory Nealongbe Cheryle OLS Facility:[facility] Start: 09-20-2024 End: 09-20-2024 ambulatory Nicky Seifried Facility:[facility] Start: 09-05-2024 End: 09-05-2024 ambulatory Nicky Seifried Facility:[facility] Start: 08-12-2024 End: 08-12-2024 ambulatory DESIRAE Patti [facility] Start: 08-06-2024 End: 08-06-2024 ambulatory Nicky Seifried Facility:[facility] Start: 08-05-2024 End: 08-05-2024 ambulatory Mary Lopesov Facility:[facility] Start: 07-15-2024 End: 07-15-2024 ambulatory NICKY A YESENIA [facility] Start: 06-20-2024 End: 06-20-2024 ambulatory [facility] Start: 06-20-2024 End: 06-20-2024 Office outpatient visit 25 minutes Eduardo Kellogg MD Work Phone: [facility] Comment on above: Kidney stones (Prima ry Dx) Start: 06-18-2024 End: 06-28-2024 E-mail encounter from caregiver [facility] Start: 06-18-2024 End: 06-28-2024 Patient encounter procedure [facility] Provider [facility] Comment on above: Establish PCP Start: 06-11-2024 End: 06-11-2024 ambulatory [facility] Facility:[facility] Start: 06-11-2024 End: 06-11-2024 ambulatory [facility] Facility:[facility] Start: 05-24-2024 End: 08-23-2024 Transcribe Orders Eduardo Kellogg MD Work Phone: [facility] Comment on above: Calculus of kidney ( Primary Dx) Start: 05-24-2024 End: 05-24-2024 ambulatory Nicky Mclaughlin Facility:[facility] Start: 05-22-2024 End: 05-22-2024 ambulatory Nicky Mclaughlin Facility:[facility] Start: 05-21-2024 End: 05-21-2024 Telephone encounter Eduardo Kellogg MD Work Phone: [facility] Start: 05-21-2024 End: 05-21-2024 Office outpatient new 45 minutes Eduardo Kellogg MD Work Phone: [facility] Comment on above: Kidney stone (Primar y Dx); Flank pain Start: 05-21-2024 End: 05-21-2024 ambulatory EDUARDO KELLGOG [facility] Start: 04-22-2024 End: 04-22-2024 ambulatory NICKY A YIANJOSE ANGEL [facility] Start: 04-16-2024 End: 04-16-2024 Telephone encounter Armando Gonzales MD Work Phone: [facility] Start: 04-12-2024 End: 04-13-2024 Telephone encounter Nicky Mclaughlin MD Work Phone: [facility] Comment on above: Kidney Stones; Refer ral Request Start: 04-11-2024 End: 04-12-2024 ambulatory Physician Unavailable Facility:[facility] Start: 04-11-2024 End: 04-11-2024 Emergency department patient visit Ron Calvin MD Facility:[facility] Start: 04-05-2024 End: 04-30-2024 ambulatory Nicky Mclaughlin MD Work Phone: [facility] Comment on above: Stomach Problems Start: 03-29-2024 End: 03-29-2024 ambulatory [place] [facility] Start: 01-16-2024 End: 01-16-2024 ambulatory Nicky Mclaughlin Facility:[facility] Start: 01-16-2024 End: 01-16-2024 ambulatory [place] [facility] Start: 12-14-2023 End: 12-14-2023 ambulatory NICKY RIOJASJOSE ANGEL Facility:[facility] Start: 12-14-2023 End: 12-14-2023 Patient encounter procedure Nicky Mclaughlin MD Work Phone: [facility] Comment on above: Encounter for genera l adult medical examination with abnormal findings (Primary Dx); Generalized anxiety disorder; Acne vulgaris Start: 12-14-2023 End: 12-14-2023 Patient encounter status Nicky Mclaughlin MD Work Phone: [facility] Work Phone: Start: 12-05-2023 End: 12-05-2023 ambulatory [facility] Start: 10-31-2023 Telephone encounter Nicky easley MD Work Phone: [facility] Comment on above: Follow Up Start: 10-18-2023 End: 10-18-2023 ambulatory NICKY MCLAUGHLIN Facility:[facility] Start: 10-18-2023 End: 10-18-2023 Patient encounter procedure Nicky Mclaughlin MD Work Phone: [facility] Comment on above: Depression with anxi ety (Primary Dx); Attention deficit hyperactivity disorder (ADHD), unspecified ADHD type; Acne vulgaris Start: 09-04-2023 End: 09-04-2023 ambulatory [facility] Start: 05-02-2023 End: 05-02-2023 Emergency department patient visit Kori Ernandez Facility:[facility] Start: 01-23-2023 ambulatory Nicky Polo ed, MD Work Phone: [facility] Comment on above: Blood Type Start: 11-09-2022 End: 11-09-2022 Patient encounter procedure Rossy Manrique MD Work Phone: [facility] Comment on above: OME (otitis media wi th effusion), left (Primary Dx) Start: 05-14-2022 End: 05-14-2022 Emergency department patient visit DOMINIQUE ACHARYA Facility:[facility] Start: 05-14-2022 End: 05-14-2022 Emergency department patient visit DOMINIQUE ACHARYA MD [facility] Start: 01-10-2022 End: 01-10-[address] Nicky Mclaughlin Work Phone: [facility] Specimen Start: 01-10-2022 End: 01-10-[address] Nicky Mclaughlin Work Phone: [facility] Start: 11-26-2021 ambulatory Nicky Polo ed, MD Work Phone: [facility] Comment on above: Medication question Start: 10-31-2021 End: 10-31-2021 Emergency department patient visit STALIN VERNON MD Facility:[facility] Procedures Date Procedure Procedure Detail Performing Clinician Start: 12-18-2024 Us retroperitoneal r eal time w/image limited Eduardo Kellogg MD Work Phone: Start: 12-14-2023 Adult depression scr eening assessment Nicky Mclaughlin MD Work Phone: Start: 05-26-2020 Adult depression scr eening assessment Nicky Mclaughlin MD Work Phone: None (qualifier value) WEN ACHARYA MD Plan of Treatment Date Care Activity Detail Author Start: 02-06-2079 RSV Immunization for Adults (1 - 1-dose 75+ series) RSV Immunization for Adults (1 - 1-dose 75+ series) [facility] Start: 02-06-2054 Zoster Vaccines (1 of 2) Zoster Vacc manuel (1 of 2) [facility] Start: 04-04-2025 DTaP/Tdap/Td Vaccine s (7 - Td or Tdap) DTaP/Tdap/Td Vaccines (7 - Td or Tdap) [facility] Start: 04-04-2025 Urine microalbumin profile [facility] Start: 02-03-2025 Influenza vaccination Influenza Vacc ine (#1) [facility] Start: 01-15-2025 End: 01-15-2025 Patient encounter procedure 01/15/2025 8:40 AM EDT [facility] [address] [place] [id number] Eduardo Kellogg MD [address] [place], [place] [id number] [facility] Start: 12-30-2024 ambulatory Ambulatory Facility:[facility] Start: 12-18-2024 End: 06-20-2025 US Retroperitoneum limited US retroperitoneum limited Imaging Routine Kidney stones Expected: 12/18/2024, Expires: 06/20/2025 [facility] Comment on above: Expected: 12/18/2024 , Expires: 06/20/2025 Start: 12-18-2024 End: 06-20-2025 XR Abdomen Single view XR abdomen 1 view Imaging Routine Kidney stones Expected: 12/18/2024, Expires: 06/20/2025 [facility] Work Phone: Comment on above: Expected: 12/18/2024 , Expires: 06/20/2025 Start: 12-18-2024 End: 12-18-2024 Patient encounter procedure 12/18/2024 10:00 AM EDT Appointment [facility] [address] [place] [phone] Eduardo Kellogg MD [address] [place] [address] [facility] Start: 12-13-2024 Annual PCP Team [employer] kailey Disease Visit Annual PCP Team Chronic Disease Visit [facility] Start: 12-13-2024 Asthma Control Test Asthma Control T est [facility] Start: 12-13-2024 Depression Screening Depression Scre ening [facility] Start: 12-13-2024 End: 12-13-2024 Patient encounter procedure 12/13/2024 9:00 AM EDT Office Visit [facility] [address] [place], [place] [id number] Nicky Mclaughlin MD [address] [place], [place] [id number] routine physical [facility] Comment on above: routine physical Start: 10-17-2024 Annual PCP Team [employer] kailey Disease Visit Annual PCP Team Chronic Disease Visit [facility] Start: 06-20-2024 End: 06-20-2025 Basic metabolic 1998 panel - Serum or Plasma Basic metabolic panel Lab Routine Kidney stones Expected: 06/20/2024 (Approximate), Expires: 06/20/2025 [facility] [facility] Comment on above: Expected: 06/20/2024 (Approximate), Expires: 06/20/2025 Start: 06-20-2024 End: 06-20-2024 Telemedicine consultation with patient 06/20/2024 8:00 AM EST Telemedicine [facility] [place] [address] [place] [phone] Eduardo Kellogg MD [address] [place] [address] [facility] [place] Start: 05-24-2024 End: 05-24-2025 Oxalate, urine, 24 hour Oxalate, urine, 24 hour Lab Routine Calculus of kidney Expected: 05/24/2024 (Approximate), Expires: 05/24/2025 [facility] [facility] Work Phone: Comment on above: Expected: 05/24/2024 (Approximate), Expires: 05/24/2025 Start: 05-21-2024 End: 05-21-2025 Calcium, Urine Calcium, Urine Lab Routine Kidney stone Expected: 05/21/2024 (Approximate), Expires: 05/21/2025 [facility] [facility] Comment on above: Expected: 05/21/2024 (Approximate), Expires: 05/21/2025 Start: 05-21-2024 End: 06-21-2024 Calculi Analysis(Stone) Calculi Analysis(Stone) Lab Routine Kidney stone Expected: 05/21/2024 (Approximate), Expires: 06/21/2024 [employer] Comment on above: Expected: 05/21/2024 (Approximate), Expires: 06/21/2024 Start: 05-21-2024 End: 05-21-2025 Citric Acid, Urine Citric Acid, Urine Lab Routine Kidney stone Expected: 05/21/2024 (Approximate), Expires: 05/21/2025 [employer] Comment on above: Expected: 05/21/2024 (Approximate), Expires: 05/21/2025 Start: 05-21-2024 End: 05-21-2025 Comprehensive metabolic 1998 panel - Serum or Plasma Comprehensive metabolic panel Lab Routine Kidney stone Expected: 05/21/2024 (Approximate), Expires: 05/21/2025 [employer] Comment on above: Expected: 05/21/2024 (Approximate), Expires: 05/21/2025 Start: 05-21-2024 End: 05-21-2025 Creatinine, urine, 24 hour Creatinine, urine, 24 hour Lab Routine Kidney stone Expected: 05/21/2024 (Approximate), Expires: 05/21/2025 [facility] [employer] Work Phone: Comment on above: Expected: 05/21/2024 (Approximate), Expires: 05/21/2025 Start: 05-21-2024 End: 05-21-2025 Cystine, Urine, Quantitative Cystine, Urine, Quantitative Lab Routine Kidney stone Expected: 05/21/2024 (Approximate), Expires: 05/21/2025 [facility] [employer] Comment on above: Expected: 05/21/2024 (Approximate), Expires: 05/21/2025 Start: 05-21-2024 End: 05-21-2025 Oxalate, urine, 24 hour Oxalate, urine, 24 hour Lab Routine Kidney stone Expected: 05/21/2024 (Approximate), Expires: 05/21/2025 [employer] Comment on above: Expected: 05/21/2024 (Approximate), Expires: 05/21/2025 Start: 05-21-2024 End: 11-19-2024 Parathyrin.intact [Mass/volume] in Serum or Plasma PTH, intact Lab Routine Kidney stone Expected: 05/21/2024 (Approximate), Expires: 11/19/2024 [employer] Comment on above: Expected: 05/21/2024 (Approximate), Expires: 11/19/2024 Start: 05-21-2024 End: 05-21-2025 Potassium, urine, 24 hour Potassium, urine, 24 hour Lab Routine Kidney stone Expected: 05/21/2024 (Approximate), Expires: 05/21/2025 [employer] Comment on above: Expected: 05/21/2024 (Approximate), Expires: 05/21/2025 Start: 05-21-2024 End: 05-21-2025 Sodium, urine, 24 hour Sodium, urine, 24 hour Lab Routine Kidney stone Expected: 05/21/2024 (Approximate), Expires: 05/21/2025 [employer] Comment on above: Expected: 05/21/2024 (Approximate), Expires: 05/21/2025 Start: 05-21-2024 End: 05-21-2025 Uric acid, urine, 24 hour Uric acid, urine, 24 hour Lab Routine Kidney stone Expected: 05/21/2024 (Approximate), Expires: 05/21/2025 [employer] Comment on above: Expected: 05/21/2024 (Approximate), Expires: 05/21/2025 Start: 05-21-2024 End: 05-21-2024 Patient encounter procedure 05/21/2024 11:00 AM EST Office Visit [facility] [address] [place] [id number] Eduardo Kellogg MD [address] [place] [address] [facility] [place] Start: 02-04-2024 Covid-19 Vaccine ( season) Covid-19 Vaccine ( season) [facility] Start: 02-04-2024 Influenza vaccination Influenza Vacc ine (#1) [facility] Start: 12-04-2023 End: 12-04-2023 Patient encounter procedure 12/04/2023 1:00 PM EDT Office Visit [facility] [address] [place], [place] [id number] Nicky Mclaughlin MD [address] [place], [place] [id number] [facility] Comment on above: [facility] Start: 11-10-2023 ANNUAL PCP TEAM CERTIFIED NUCLEAR MEDICINE TECHNOLOGIST KAILEY DISEASE VISIT ANNUAL PCP TEAM CHRONIC DISEASE VISIT [facility] Start: 06-05-2023 Behavioral Health Screening Behavioral Health Screening [facility] Start: 03-07-2023 ASTHMA CONTROL TEST ASTHMA CONTROL T EST [facility] Start: 02-06-2023 Pneumococcal Vaccine : Pediatrics (0 to 5 Years) and At-Risk Patients (6 to 49 Years) (1 of 2 - PCV) Pneumococcal Vaccine: Pediatrics (0 to 5 Years) and At-Risk Patients (6 to 49 Years) (1 of 2 - PCV) [facility] Start: 02-03-2023 Covid-19 Vaccine ( season) Covid-19 Vaccine ( season) [facility] Start: 02-03-2023 Influenza vaccination Influenza Vacc ine (#1) [facility] Start: 07-16-2022 ASTHMA ACTION PLAN ASTHMA ACTION ISAAC N [facility] Start: 06-05-2022 DEPRESSION ASSESSMENT DEPRESSION ASS ESSMENT [facility] Start: 03-01-2022 ASTHMA CONTROL TEST ASTHMA CONTROL T EST [facility] Start: 02-06-2022 CHLAMYDIA SCREENING (18-24) CHLAMYDIA SCREENING (18-24) [facility] Start: 02-06-2022 Depression Screening Depression Scre ening [facility] Start: 02-06-2022 GC (GONORRHEA) SCREE DEANDRE (18-24) GC (GONORRHEA) SCREENING (18-24) [facility] Start: 02-06-2022 HEPATITIS C SCREENING HEPATITIS C SC TERRA [facility] Start: 02-06-2022 Hepatitis C screening Hepatitis C [facility] Start: 02-06-2022 HIV SCREENING HIV SCREENING [facility] Start: 02-06-2022 HIV screening HIV Screening [facility] Start: 02-06-2022 Screening for Chlamy elin trachomatis Chlamydia Screening (18-24) [facility] Start: 08-20-2021 COVID-19 VACCINE (4 - Booster for Pfizer series) COVID-19 VACCINE (4 - Booster for Pfizer series) [facility] Start: 05-26-2021 Adult depression screening assessment DEPRESSION SCREENING [facility] Start: 02-06-2019 CHLAMYDIA SCREENING (<18) CHLA MYDIA SCREENING (<18) [facility] Start: 02-06-2019 GC (GONORRHEA) SCREE DEANDRE (<18) GC (GONORRHEA) SCREENING (<18) [facility] Start: 02-06-2018 PEDS TO ADULT TRANSI TION ANNUAL ASSESSMENT PEDS TO ADULT TRANSITION ANNUAL ASSESSMENT [facility] Start: 2016 Depression Monitoring Depression Mon itoring [facility] Start: 2016 Depression Screening Depression Scre ening [facility] Start: 02-06-2010 Pneumococcal vaccination Pneum ococcal Vaccine (1 - PCV) [facility] Start: 2004 HIV screening HIV Screening [facility] OUTSIDE PROCEDURE SCAN OUTSIDE P ROCEDURE SCAN Procedures Ordered: 05/24/2024 [facility] Comment on above: Ordered: 05/24/2024 Immunizations Immunization Date Immunization Notes Care Provider [facility] 03-20-2024 influenza, seasonal, injectable Nicky Mclaughlin MD Work Phone: [facility] 03-20-2024 influenza virus vacc ine, unspecified formulation Eduardo Kellogg MD Work Phone: [facility] 02-25-2023 influenza, injectabl e, quadrivalent, preservative free Nicky Mclaughlin MD Work Phone: [facility] 02-25-2023 influenza virus vacc ine, unspecified formulation Nicky Mclaughlin MD Work Phone: [facility] 03-07-2022 influenza, injectabl e, quadrivalent, contains preservative Rossy Manrique MD Work Phone: [facility] 03-07-2022 influenza virus vacc ine, unspecified formulation Nicky Mclaughlin MD Work Phone: [facility] 06-25-2021 COVID-19 vaccine, ag e 12+ yr ([employer] - PURPLE TOP) Nicky Mclaughlin MD Work Phone: [facility] 03-01-2021 influenza, injectabl e, quadrivalent, contains preservative Nicky Mclaughlin MD Work Phone: [facility] 03-01-2021 meningococcal B vacc ine, recombinant, OMV, adjuvanted Nicky Mclaughlin MD Work Phone: [facility] 05-26-2020 meningococcal B vacc ine, recombinant, OMV, adjuvanted Nicky Mclaughlin MD Work Phone: [facility] 05-26-2020 meningococcal polysaccharide (groups A, C, Y and W-135) diphtheria toxoid conjugate vaccine (MCV4P) Nicky Mclaughlin MD Work Phone: [facility] 03-04-2020 influenza, injectabl e, quadrivalent, contains preservative Nicky Mclaughlin MD Work Phone: [facility] 04-20-2019 Influenza, injectabl e, Madin [place] Canine Kidney, preservative free, quadrivalent Nicky Mclaughlin MD Work Phone: [facility] Work Phone: 04-13-2018 influenza, injectabl e, quadrivalent, contains preservative Nicky Mclaughlin MD Work Phone: [facility] 09-25-2017 Human Papillomavirus 9-valent vaccine Nicky Mclaughlin MD Work Phone: [facility] 03-27-2017 Human Papillomavirus 9-valent vaccine Nicky Mclaughlin MD Work Phone: [facility] 03-27-2017 influenza, injectabl e, quadrivalent, contains preservative Nicky Mclaughlin MD Work Phone: [facility] 04-07-2016 influenza, injectabl e, quadrivalent, contains preservative Nicky Mclaughlin MD Work Phone: [facility] 04-07-2016 meningococcal polysaccharide (groups A, C, Y and W-135) diphtheria toxoid conjugate vaccine (MCV4P) Nicky Mclaughlin MD Work Phone: [facility] 04-04-2015 tetanus toxoid, redu leanne diphtheria toxoid, and acellular pertussis vaccine, adsorbed Nicky Mclaughlin MD Work Phone: [facility] 02-26-2015 influenza, injectabl e, quadrivalent, contains preservative Nicky Mclaughlin MD Work Phone: [facility] 04-03-2014 influenza, seasonal, injectable Nicky Mclaughlin MD Work Phone: [facility] Work Phone: 04-20-2013 influenza virus vacc ine, unspecified formulation Nicky Mclaughlin MD Work Phone: [facility] 04-14-2012 influenza virus vacc ine, unspecified formulation Nicky Mclaughlin MD Work Phone: [facility] Work Phone: 04-10-2010 influenza virus vacc ine, unspecified formulation Nicky Mclaughlin MD Work Phone: [facility] Work Phone: 03-19-2009 influenza virus vacc ine, unspecified formulation Nicky Mclaughlin MD Work Phone: [facility] 02-10-2009 diphtheria, tetanus toxoids and acellular pertussis vaccine Nicky Mclaughlin MD Work Phone: [facility] Work Phone: 02-10-2009 measles, mumps and rubella virus vaccine Nicky Mclaughlin MD Work Phone: [facility] Work Phone: 02-10-2009 poliovirus vaccine, inactivated Nicky Mclaughlin MD Work Phone: [facility] Work Phone: 02-10-2009 varicella virus vaccine Shannen Mclaughlin MD Work Phone: [facility] Work Phone: 04-19-2008 influenza virus vacc ine, unspecified formulation Nicky Mclaughlin MD Work Phone: [facility] Work Phone: 04-03-2007 influenza virus vacc jayleen, unspecified formulation Nicky Mclaughlin MD Work Phone: [facility] Work Phone: 04-03-2006 influenza virus vacc ine, unspecified formulation Nicky Mclaughlin MD Work Phone: [facility] Work Phone: 05-23-2005 diphtheria, tetanus toxoids and acellular pertussis vaccine Nicky Mclaughlin MD Work Phone: [facility] 05-23-2005 haemophilus influenz ae type b vaccine, HbOC conjugate Nicky Mclaughlin MD Work Phone: [facility] Work Phone: 05-23-2005 influenza virus vacc ine, unspecified formulation Nicky Mlcaughlin MD Work Phone: [facility] 02-14-2005 measles, mumps and rubella virus vaccine Nicky Mclaughlin MD Work Phone: [facility] Work Phone: 02-14-2005 pneumococcal conjuga te vaccine, 7 valent Nicky Mclaughlin MD Work Phone: [facility] Work Phone: 02-14-2005 varicella virus vaccine Shannen Mclaughlin MD Work Phone: [facility] Work Phone: 2004 DTaP-hepatitis B and poliovirus vaccine Nicky Mclaughlin MD Work Phone: [facility] Work Phone: 2004 haemophilus influenz ae type b vaccine, HbOC conjugate Nicky Mclaughlin MD Work Phone: [facility] Work Phone: 2004 pneumococcal conjuga te vaccine, 7 valent Nicky Mclaughlin MD Work Phone: [facility] Work Phone: 2004 DTaP-hepatitis B and poliovirus vaccine Nicky Mclaughlin MD Work Phone: [facility] Work Phone: 2004 haemophilus influenz ae type b vaccine, HbOC conjugate Nicky Mclaughlin MD Work Phone: [facility] Work Phone: 2004 pneumococcal conjuga te vaccine, 7 valent Nicky Mclaughlin MD Work Phone: [facility] Work Phone: 2004 DTaP-hepatitis B and poliovirus vaccine Nicky Mclaughlin MD Work Phone: [facility] Work Phone: 2004 haemophilus influenz ae type b vaccine, HbOC conjugate Nicky Mclaughlin MD Work Phone: [facility] Work Phone: 2004 pneumococcal conjuga te vaccine, 7 valent Nicky Mclaughlin MD Work Phone: [facility] Work Phone: 2004 hepatitis B vaccine, pediatric or pediatric/adolescent dosage Nicky Mclaughlin MD Work Phone: [facility] Work Phone: Payers Date Payer Category Payer Self-pay [id number] 2018 [employer] are - HMO [id number] 2014 Unknown [id number]. [id number] 2014 Unknown [id number] 2013 Unknown MMO MMO [employer] [id number] 2013-Present [phone] [address] [place] [address] O [id number]. [id number] 2004 Unknown [id number] 2.16.840.1.948315.3.579.2. 196 2004 Unknown [id number] 2.16.840.1.219932.3.579.2. 196 2004 Unknown [id number] 2.16.840.1.190861.3.579.2. 196 2004 Unknown [id number] 2.16.840.1.510990.3.579.2. 479 2004 Unknown [id number] 2.16.840.1.203586.3.579.2. 479 2004 Unknown [id number] 2.16.840.1.192847.3.579.2. 479 2004 Unknown [id number] 2.16.840.1.320198.3.579.2. 479 2004 Unknown [id number] 2.16.840.1.791095.3.579.2. 479 2004 Unknown [id number] 2.16.840.1.976158.3.579.2. 479 2004 Unknown [id number] 2.16.840.1.171989.3.579.2. 479 1974 Unknown [id number] 2.16.840.1.591536.3.579.2. 627 1974 Unknown [id number] 2.16.840.1.856653.3.579.2. 627 Unknown [id number] 2.16.840.1.962227.3.579.2. 462 Unknown [id number] 2.16.840.1.959611.3.579.2. 462 Unknown [id number] 2.16.840.1.857168.3.579.2. 462 Unknown [id number] 2.16.840.1.223825.3.579.2. 462 Unknown [id number] 2.16.840.1.739458.3.579.2. 462 Unknown [id number] 2.16.840.1.263452.3.579.2. 462 Unknown [id number] 2.16.840.1.932004.3.579.2. 462 Unknown [id number] 2.16.840.1.790490.3.579.2. 462 Unknown [id number] 2.16.840.1.418832.3.579.2. 462 Unknown [id number] 2.16840.1.691147.3.579.2. 462 Unknown [id number] 2.16840.1.711806.3.579.2. 462 Unknown [id number] 2.16.840.1.427507.3.579.2. 462 Unknown [id number] 2.16.840.1.867932.3.579.2. 462 Unknown [id number] 2.16.840.1.012231.3.579.2. 462 Unknown [id number] 2.840.1.165025.3.579.2. 462 Unknown [id number] 2.16840.1.937136.3.579.2. 462 Unknown [id number] 2.16840.1.461758.3.579.2. 462 Unknown [id number] 2.840.1.089090.3.579.2. 462 Unknown [id number] 2.16.840.1.777031.3.579.2. 462 Social History Date Type Detail Facility Start: 06-01-2019 End: 05-21-2024 Tobacco smoking status NHIS Never smoked tobacco [facility] Start: 03-01-2021 End: 01-02-2024 Alcohol intake Current non-drinker of alcohol (finding) [facility] Start: 02-27-2021 History SDOH Physica l Activity DPW 3 [facility] Start: 02-27-2021 History SDOH Financial 5 [facility] Start: 02-27-2021 History SDOH Food Worry 1 [facility] Start: 02-27-2021 History SDOH Transpo rt Med 2 [facility] Start: 2004 Sex Assigned At Female C [facility] Start: 01-10-2022 Tobacco smoking stat us NHIS Unknown if ever smoked [facility] Start: 03-07-2022 End: 05-21-2024 Tobacco use and exposure Smokeless tobacco non-user [facility] Start: 03-07-2022 Tobacco Comment No on in house hold smokes [facility] Start: 11-09-2022 End: 05-21-2024 History of Social function [facility] Start: 11-09-2022 End: 05-21-2024 Tobacco use panel [facility] How hard is it for y ou to pay for the very basics like food, housing, medical care, and heating Not hard at all [facility] (I/We) worried karo er (my/our) food would run out before (I/we) got money to buy more. Never true [facility] In the past 12 month s, was there a time when you were not able to pay the mortgage or rent on time? No [facility] Start: 01-07-2021 Gender identity Identifies as female gender (finding) [facility] Start: 01-07-2021 Sexual orientation Heterosexual (gema james) [facility] Do you belong to any clubs or organizations such as catholic groups, unions, fraternal or athletic groups, or school groups? Yes [facility] Are you now , , , , never or living with a partner? Never [facility] How often to you hav e a drink containing alcohol? Monthly or less [facility] How many standard dr inks containing alcohol do you have on a typical day? 1 or 2 [facility] How often do you hav e 6 or more drinks on 1 occasion? Never [facility] How hard is it for y ou to pay for the very basics like food, housing, medical care, and heating Not very hard [facility] Do you feel stress - tense, restless, nervous, or anxious, or unable to sleep at night because your mind is troubled all the time - these days [OSQ] To some extent [facility] Start: 2004 Sex assigned at Not on file S [facility] Start: 04-15-2024 Sex Female (finding) [facility] NEGATED: Highlighted rowStart: NINF History of tobacco use Passive smoker [facility] Functional Status Date Assessment Result Facility 05-14-2022 Functional Status Independent [facility] 05-14-2022 Functional Status Standard Safet y ID band on, Allergy Band on, Call device within reach, Bed in low position, Wheels locked, Upper/Half-Length side-rails up, Phone within reach, personal items within reach, Assistive devices within reach, Toileting device within reach, Bedside Cart Locked, Visitor at bedside, Safety level maintained [facility] Mental Status Date Assessment Result Facility 05-14-2022 Mental Status Orientation Oriented x 4 [facility] 05-14-2022 Mental Status [facility] Clinical Notes 05-14-2022 to 09-05-2024 Eduardo Kellogg MD - 06/20/2024 8:00 AM ESTTelephone Encounter - Janna Hilliard - 05/21/2024 1:53 PM ESTTelephone Encounter - Janna Hilliard - 05/21/2024 1:53 PM ESTPatient Instructions Note Date & Type Note Facility 09-05-2024 Note [facility] Medical Records Department [address] [place] [address] History Physical Exam 09/05/24 0917 MR#: [id number] Acct: [id number] Name: BINA CAMPOS Rep #: [id number] : 2005 19 From: Kushal Friend DO PCP: Dr. Nicky Mclaughlin MD [place] [facility] [place] [address] HPI - General General Date of Admission: 09/05/24 Date of Service: 09/05/24 Chief Complaint: bloating HPI Narrative BINA CAMPOS, is a 19 F who presents with the Chief Complaint: bloating BGI established 1.7.25 with extreme bloating, hypersomnia and loose stools. Pt has attempted to cut out gluten and dairy with no benefit. Biochemical work up .; RAST food allergy peanut .13 H, wheat .12 H, egg .22 H, cows milk .28 H, corn .13 H, RELIEF MATE antibody H, centromere antibody H, endomysial IgA Ab H, TT IgA Ab H, CBC wnl, CMP wnl , IBD wnl GES 3.3.35; normal Stool; not completed *Pt contacted with results. Diagnosed with Celiac. Recommended scheduling for EGD. OV 3.4.25 Pt has been avoiding all gluten since her diagnosis of Celiac. SHe has been feeling much better. She has lost about 15 lbs over the past month due to decreased bloating. She feels that her face, hands and abd have decreased in size. She no longer has any loose stools. Since avoiding gluten she has had one known exposure and felt awful after it. 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 [facility] Medical History ADHD Alcohol use Depression Marijuana use History of kidney stones Low iron Easy bruising Syncope Dietary restriction Asthma Celiac disease Home Medications ???Medication ???Instructions ???Recorded ???Last Taken ???Type dextroamphetamine-amphetamine 15 15 mg PO DAILY 01/10/22 Unknown Hi story mg tablet (Adderall) ascorbate calcium (vitamin C) 500 500 mg PO QDAY PRN KIDNEY STONES 05/22/24 Unknown History mg tablet cranberry 500 mg capsule 500 mg PO BID PRN KIDNEY STONES Unknown History dextroamphetamine-amphetamine ER 1 cap PO DAILY 09/02/24 09/04/24 0 8:00 History 20 mg 24hr capsule,extend release potassium citrate 10 mEq (1,080 10 meq PO TIDCM 09/02/24 Unknown H istory mg) tablet,extended release Allergy/AdvReac Type Severity Reaction Status Date / Time amoxicillin Allergy Severe unknown Verified 09/05/24 08:50 Family History Grandfather Squamous cell carcinoma Diabetes Heart disease Aunt Breast cancer Uncle Leukemia Grandmother Diabetes Surgical History S/P tonsillectomy S/P wisdom tooth extraction Social History current occupational status: employed current occupation: [employer] Smoking Status: Never smoker alcohol intake: never substance use type: does not use caffeine: Yes what type of physical activity do you participate in: running and weight training frequency: 5-6 times per week seatbelt use: always do you feel safe at home: Yes additional social history: Single ROS Constitutional Constitutional: Denies fatigue, fever(s), poor appetite, weight gain or weight loss Gastrointestinal Gastrointestinal: Denies belching, bloating, change in bowel habits, change in stool character, chewing difficulty, coffee ground emesis, constipation, cramping, diarrhea, dyspepsia, dysphagia, early satiety, excessive flatus, fecal incontinence, heartburn, hematemesis, hematochezia, hemorrhoids, loose stools, melena, nausea, odynophagia, rectal bleeding, tenesmus, vomiting or weight changes Vital Signs Vital Signs Vital Signs: 09/05/24 08:51 09/05/24 08:51 09/05/24 09:15 Temperature 97.8 F 97.8 F Temperature Source Temporal Pulse Rate 75 75 Respiratory Rate 18 18 Respiratory Pattern Normal Blood Pressure 101/65 101/65 Blood Pressure Mean 77 Blood Pressure Source Monitor Blood Pressure Position Sitting Blood Pressure Location Left Arm Pulse Ox 100 100 Oxygen Delivery Method Room Air Room Air Weight Weight: 127 lb 13.89 oz Body Mass Index (BMI) 24.1 Physical Exam Const alert, oriented x3, no apparent distress and healthy appearing General Appearance: cooperative GI normal to inspection, nondistended, normoactive bowel sounds, soft to palpation, non-tender and non- distended Percussion: normal to percussion Rectal Exam: deferred Results Lab / Micro Data Labs: Laboratory Results - last 24 hr 09/05/24 08:26: Urine Test Negative Assessment Plan Assessment/Plan (1) Celiac disease: (2) Centromere antibody positive: PLAN: Plan Assessment and Plan (more content not included)... [facility] 08-12-2024 Note CHILD PSYCHIATRY OUT PATIENT PROGRESS NOTE Date of Service: 08/12/2024 Present at Session: Bina individually Reason for Visit: follow-up on medication management for ADHD - combined type, Depression and Anxiety This is a telemedicine video visit requested by the patient/guardian that was performed with the patient's location at school (college dorm at [employer]) and the provider's location at office. Identifying Information: Bina is a 19 year-old female who resides with her mother, father and little brother. She is currently attending her Sophomore year at [employer]. Psychiatric history is significant for ADHD - combined type, PEGGY and MDD. Psychotropic medication trials include: Zoloft (groggy, zombie like), Wellbutrin (increase in anxiety), Buspar (not effective), Hydroxyzine, Lexapro (felt numb, sedation), Adderall (current), Cymbalta (increase in SI). No previous suicide attempts or inpatient behavioral health admissions. Family history: ADHD, Anxiety and Depression. Subjective: Met with Bina to discuss her progress as she transitions care to this [facility]. All available documentation was reviewed in preparation for today's encounter. Today, Bina denies any thoughts of self-harm, , suicide, or homicide. The patient presents for a medication management appointment with a history of ADHD, anxiety, and depression. She is currently prescribed Adderall XR 20mg daily, which was increased during the last session to further address ADHD symptoms. The patient reports that she has been doing much better overall. Her focus remains somewhat inconsistent, but she is able to get through tasks more effectively and complete them successfully. She has been handling things better in general. The patient has recently started therapy with Bonita Jaeger, and she reports that the experience has been going well; she has her second visit scheduled for this coming Monday. Additionally, the patient has an appointment scheduled with her new medication provider, Gi Galvez, at the [facility] in October. She visits this location regularly for her gastro and urology issues. Mood has been generally positive, with the patient noting that this has been the busiest month she has had in a while. Her improved focus has allowed her to manage her schoolwork more effectively, contributing to good grades. Anxiety has improved quite a bit, and the patient's mood has been rated as 7 out of 10, with 10 being the best. While she experiences occasional moments of sadness, she is able to manage these feelings well and continue with her daily activities. The patient is able to engage with her friends and recently returned from spring, during which she had the opportunity to decompress at home. 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 Overall, her ADHD symptoms appear better managed, and her mood and anxiety symptoms are moderately controlled with the addition of counseling. Future discussions with her new medication provider will explore the possibility of adjusting medications for mood and anxiety symptoms if necessary. Current Psychotropic Medications: Adderall XR 20mg daily Risk Assessment: SUICIDAL IDEATION - SINCE LAST VISIT 1. Wish to be ? No If yes, describe: 2. Non-Specific Active Suicidal Thoughts: No If yes, describe: 3. Active Suicidal Ideation with Any Methods (Not Plan) without Intent to Act: If yes, describe: 4. Active Suicidal Ideation with Some Intent to Act, without Specific Plan: If yes, describe: 5. Active Suicidal Ideation with Specific Plan and Intent: If yes, describe: INTENSITY OF IDEATION - SINCE LAST VISIT Most Severe Ideation: Description of Ideation: Frequency: Duration: Controllability: Deterrents: Reasons for Ideation: SUICIDAL BEHAVIOR - SINCE LAST VISIT (Check all that apply, so long as these are separate events; must ask about all types) Actual Attempt: No Total # of Attempts: If yes, describe: Has subject engaged in Non-Suicidal Self-Injurious Behavior? No Interrupted Attempt: No Total # of interrupted: If yes, describe: Aborted or Self-Interrupted Attempt: No Total # of aborted or self-interrupted: If yes, describe: Preparatory Acts or Behavior: No Total # of preparatory acts: If yes, describe: ACTUAL/POTENTIAL LETHALITY - SINCE LAST VISIT Most Lethal Attempt Date: Actual Lethality/Medical Damage: Potential Lethality: [email or web address] Stratification Level Low Acute Risk: History of past [id number] or suicidal thoughts;Protective factors outweigh risk factors Access to Weapons: education on access to lethal means provided;guardian denied firearms inside the home Patient able to plan for safety: yes Safety education provided to guardian: yes Other Outpatient Treatment: Pt restarted individual psychotherap (more content not included)... [facility] 07-15-2024 Note CHILD PSYCHIATRY OUT PATIENT PROGRESS NOTE Date of Service: 07/15/2024 Present at Session: Bina Reason for Visit: follow-up on medication management for ADHD - combined type, Depression and Anxiety This is a telemedicine video visit requested by the patient/guardian that was performed with the patient's location at home ([facility] at [place]) and the provider's location at office. Identifying Information: Bina is a 19 year-old female who resides with her mother, father and little brother. She will be starting her Sophomore year at [employer]. Psychiatric history is significant for ADHD - combined type, PEGGY and MDD. Psychotropic medication trials include: Zoloft (groggy, zombie like), Wellbutrin (increase in anxiety), Buspar (not effective), Hydroxyzine, Lexapro (felt numb, sedation), Adderall (current), Cymbalta (increase in SI). No previous suicide attempts or inpatient behavioral health admissions. Family history: ADHD, Anxiety and Depression. Subjective: Met with Bina to discuss her progress as she transitions care to this [facility]. All available documentation was reviewed in preparation for today's encounter. Today, Bina denies any thoughts of self-harm, , suicide, or homicide. The patient presents for a medication management appointment with a history of ADHD, anxiety, and depression. She is currently prescribed Adderall XR 15mg daily and occasionally takes Adderall 10mg in the afternoon. The patient reports that she has been doing okay but is feeling significantly overwhelmed by her coursework this semester, which is heavier in material. She attributes her struggles to both increased anxiety and difficulties with focus. Specifically, the patient is having a hard time with a particular professor who has made the class more difficult, requiring 5-6 hours every few days for writing, editing, and revising assignments. This has led to burnout, impacting her performance in other courses and causing significant fatigue. Despite this, her grades are fine, but the workload is creating stress. The patient feels that her current dose of Adderall is not providing adequate focus and energy, making it difficult for her to complete tasks without putting in significant effort. She reports she finds herself easily distracted through out the day and notes this happens all day. She reports that she can only manage 1-2 tasks a day, which is frustrating for her as she knows she is capable of more. The patient also struggles with racing thoughts, difficulties with memory, and compulsive behaviors, such as writing the same thing multiple times before moving on to the next task. She has noticed some improvement in repetitive behaviors since starting her medication, with Adderall helping to quiet her thoughts somewhat. The patient reports that she has not been taking her afternoon dose of Adderall (10mg), as she hasn't felt any difference in its effect and tends to tap out by 3pm. She also reports ongoing emotional distress from past personal losses, including the murder of a friend, the suicide of her best friend's older brother, and the passing of her grandfather. She describes feeling emotionally numb when taking Lexapro in the past but is now experiencing heightened emotions and feels like I am just now grieving everything. Additionally, the patient shares she is managing celiac disease and weight-related issues, as well as having to meet with a development lead to investigate another potential disease. She has been struggling to find time for therapy due to emotional and academic stress. The patient also has plans to travel to [facility] during the spring next year (2025). She reports she was able to establish with adult services and has an appointment with a nurse practitioner in [place] for early October. The patient's mood is rated at 4 out of 10 most days, with 10 being the best, and she feels her sadness is directly linked to constant stress and overwhelming anxiety. Her anxiety levels are high, ranging from 8-9 out of 10 with 10 being high, and notes it is primarily related to her current course work. Explored different strategies to further assist patient and identified what she has control over and what she doesn't have control over. The patient believes the majority of her difficulties are related to her ADHD and would like to trial an increase in her Adderall dose to improve focus, attention and energy. We discussed the importance of re-establishing therapy to support her mental health during this challenging time. She reprots she will reach out and establish an appointment with her previous therapist. Additionally, the patient expressed interest in potentially starting a different SSRI, such as Prozac, after re-evaluating her response to the Adderall dose change. Current Psychotropic Medications: Adderall XR 15mg daily Adderall 10mg every aftern (more content not included)... [facility] 06-20-2024 History of Presen t illness Narrative Images from the original note were not included. Eduardo Kellogg MD 04/13/2022 at 9:48 AM Telemedicine visit PATIENT NAME: Bina Campos DATE OF : 2005 TODAY'S DATE: 06/20/24 CHIEF COMPLAINT recurrent nephrolithiasis Their identity was verified by patient Those on the call: patient Subjective: This patient is a 19 y.o. female who presents for telehealth visit regarding recurrent kidney stones She is doing well today. She denies pain. Has not passed any further stones Review of Systems: Review of Systems Gastrointestinal: Negative for abdominal distention and abdominal pain. Genitourinary: Negative for difficulty urinating, flank pain, urgency and vaginal pain. Physical Exam Constitutional: General: Patient is awake. Appearance: Normal appearance. Patient is well-developed. HENT: Head: Normocephalic and atraumatic. Eyes: General: Lids are normal. Vision grossly intact. Right eye: No discharge. Left eye: No discharge. Neck: Musculoskeletal: Normal range of motion and neck supple. Neurological: Mental Status: Patient is alert and oriented to person, place, and time. Mental status is at baseline. Cranial Nerves: Cranial nerves are intact. Skin: Coloration: Skin is not jaundiced or pale. Findings: No abrasion or acne. Psychiatric: Attention and Perception: Attention and perception normal. Mood and Affect: Mood normal. Speech: Speech normal. Behavior: Behavior normal. Behavior is cooperative. Thought Content: Thought content normal. Cognition and Memory: Cognition normal. Judgment: Judgment normal. Past Medical History: No past medical history on file. Past Surgical History: No past surgical history on file. Medications Current Outpatient Medications on File Prior to Visit Medication Sig Dispense Refill Adapalene-Benzoyl Peroxide 0.3-2.5 % gel APPLY A THIN LAYER TO THE FULL FACE ONCE NIGHTLY albuterol 108 (90 Base) MCG/ACT inhaler 2 puffs every four hours as needed.May also 15 minutes pre-exercise.Use w/spacer. amphetamine-dextroamphetamine XR (Adderall XR) 15 MG 24 hr capsule Take 15 mg by mouth every morning. doxycycline (Adoxa) 100 MG tablet TAKE ONE TABLET BY MOUTH ONCE A DAY WITH FOOD AND WATER. metroNIDAZOLE (Metrogel) 0.75 % gel APPLY A THIN LAYER TO THE FULL FACE TWICE A DAY spironolactone (Aldactone) 100 MG tablet TAKE ONE TABLET BY MOUTH EVERY NIGHT WITH A FULL GLASS OF WATER. No current facility-administered medications on file prior to visit. Labs: No results found for: PSAFREE, PSAFREEPCT No results for input(s): PSAFREE, PSAFREEPCT in the last 72 hours. No results found for: TESTOSTERONE Lab Results No results found for: LABURIN PTH 32 24 hour urine labs reviewed Patient was identified and seen today via Telehealth by agreement and consent. I used the following Telehealth technology: Audio and video capabilities. Patient location: Patient Location: Home. This patient encounter is appropriate and reasonable under the circumstances: transportation issues . The patient has been advised of the potential risks and limitations of this mode of treatment (including but not limited to the absence of in-person examination) and has agreed to be treated in a remote fashion in spite of them. Any and all of the patient's/patient's family's questions on this issue have been answered and I have made no promises or guarantees to the patient. The patient has also been advised to contact this office for worsening conditions or problems, and seek emergency medical treatment and/or call 911 if the patient deems either necessary. The patient stated that they are currently in the [facility]. If the patient is a minor, permission has been obtained by the parent or guardian for the patient to receive medical care at this visit. Impression/Plan Diagnoses and all orders for this visit: Kidney stones - XR abdomen 1 view; Future - US retroperitoneum limited; Future - Basic metabolic panel; Future Other orders - potassium citrate CR (Urocit-K-10) 10 mEq ER tablet; Take 1 tablet (10 mEq) by mouth 3 times daily (with meals). Do not crush, chew, or split. PTH WNL 24 hr urinary citrate low end of normal She is on low dose spironolactone (50mg). Will plan on potassium citrate TID Repeat kub and US in 6 mo, BMP also given potassium citrate and potassium sparing diuretic The patient verbalizes understanding of the plan of care. Eduardo Kellogg MD 04/13/22 9:48 AM documented in this encounter [facility] 05-21-2024 Telephone encounter Note Outside medical records (CT & xray) are in media tab. [facility] 05-21-2024 Miscellaneous Notes Outside medical records (CT & xray) are in media tab. documented in this encounter [facility] 05-21-2024 History of Presen t illness Narrative Images from the original note were not included. Eduardo Kellogg MD 05/21/2024 at 11:32 AM UROLOGY INITIAL OFFICE VISIT PATIENT NAME: Bina Campos DATE OF : 2005 TODAY'S DATE: 05/21/2024 Chief Complaint: Chief Complaint Patient presents with Nephrolithiasis Has history of stones. Aged out of [facility]. Establishing for stone management. Complains of water retention/ bloating. HISTORY OF PRESENT ILLNESS: Ms. Campos is a 19 y.o. female who presents with recurrent kidney stones She has had multiple kidney stone episodes She was taken to ER for kidney stone in April, was admitted to hospital while passing kidney stone due to hypotension, concern for infection. She was able to pass stone prior to needing stent placed She was in [facility] to [facility]. Was admitted overnight. She did not need a stent. Passed the stone the day after discharge from the hospital She was told he has 1-2 stones REVIEW OF SYSTEMS: Review of Systems Past Medical History: No past medical history on file. Past Surgical History: No past surgical history on file. Current Medications: Prior to Admission medications Medication Sig Start Date End Date Taking? Authorizing Provider Adapalene-Benzoyl Peroxide 0.3-2.5 % gel APPLY A THIN LAYER TO THE FULL FACE ONCE NIGHTLY 05/07/24 Yes Historical Provider, albuterol 108 (90 Base) MCG/ACT inhaler 2 puffs every four hours as needed.May also 15 minutes pre-exercise.Use w/spacer. 10/18/23 Yes Historical Provider, amphetamine-dextroamphetamine XR (Adderall XR) 15 MG 24 hr capsule Take 15 mg by mouth every morning. 04/22/24 05/22/24 Yes Historical Provider, doxycycline (Adoxa) 100 MG tablet TAKE ONE TABLET BY MOUTH ONCE A DAY WITH FOOD AND WATER. 05/06/24 Yes Historical Provider, metroNIDAZOLE (Metrogel) 0.75 % gel APPLY A THIN LAYER TO THE FULL FACE TWICE A DAY 05/06/24 Yes Historical Provider, spironolactone (Aldactone) 100 MG tablet TAKE ONE TABLET BY MOUTH EVERY NIGHT WITH A FULL GLASS OF WATER. Historical Provider, Allergies: Amoxicillin and Penicillin g Social History: Social History Socioeconomic History Marital status: Single Spouse name: Not on file Number of children: Not on file Years of education: Not on file Highest education level: Not on file Occupational History Not on file Tobacco Use Smoking status: Never Smokeless tobacco: Never Substance and Sexual Activity Alcohol use: Not on file Drug use: Not on file Sexual activity: Not on file Other Topics Concern Not on file Social History Narrative Not on file Social Drivers of Health Financial Resource Strain: Low Risk (12/14/2023) Received from [facility] Overall Financial Resource Strain (CARDIA) Difficulty of Paying Living Expenses: Not very hard Food Insecurity: No Food Insecurity (12/14/2023) Received from [facility] Hunger Vital Sign Worried About Running Out of Food in the Last Year: Never true Ran Out of Food in the Last Year: Never true Transportation Needs: No Transportation Needs (12/14/2023) Received from [facility] PRAPARE - Transportation Lack of Transportation (Medical): No Lack of Transportation (Non-Medical): No Physical Activity: Sufficiently Active (12/14/2023) Received from [facility] Exercise Vital Sign Days of Exercise per Week: 4 days Minutes of Exercise per Session: 120 min Stress: Stress Concern Present (12/14/2023) Received from [facility] Citizen Of [place] of Occupational Health - Occupational Stress Questionnaire Feeling of Stress : To some extent Social Connections: Unknown (12/14/2023) Received from [facility] Social Connection and Isolation Panel [NHANES] Frequency of Communication with Friends and Family: Three times a week Frequency of Social Gatherings with Friends and Family: Once a week Attends Mandaen Services: Patient declined Active Member of Clubs or Organizations: Yes Attends Club or Organization Meetings: More than 4 times per year Marital Status: Never Intimate Partner Violence: Not on file Housing Stability: Low Risk (12/14/2023) Received from [facility] Housing Stability Vital Sign Unable to Pay for Housing in the Last Year: No Number of Places Lived in the Last Year: 1 Unstable Housing in the Last Year: No Family History: @FAMHXNH@ PHYSICAL EXAM: VITALS: BP 130/77 (BP Location: Left arm, Patient Position: Sitting, BP Cuff Size: Adult) Pulse 110 Ht 5' 1 (1.549 m) Wt 133 lb (60.3 kg) BMI 25.13 kg/m Physical Exam DATA: WBC No results found for: WBC BMP No results found for: NA, K, CL, CO2, BUN, CREATININE, GLUCOSE, CALCIUM PSA No results found for: PSA UANo results found for: APPEARANCE, COLORU, LABSPEC, LABPH, URINE, GLUCOSEU, UROBILINOGEN, BILIRUBINUR, OCBU Review: Assessment and Plan Diagnoses and all orders for this visit: Kidney stone - Creatinine, urine, 24 hour; Future - Citric Acid, Urine; Future - Sodium, urine, 24 hour; Future - Potassium, urine, 24 hour; Future - Oxalate, urine, 24 hour; Future - Calcium, Urine; Future - Uric acid, urine, 24 hour; Future - Cystine, Urine, Quantitative; Future - PTH, intact; Future - Comprehensive metabolic panel; Future - Calculi Analysis(Stone); Future Flank pain Repeat 24 hour urine. Has not been done in the last 4-5 years Check cmp, pth Two small left sided stones reported on imaging from [facility] She would benefit from potassium citrate therapy after 24 hr urine completed Check stone for analysis she brings in today No follow-ups on file. Eduardo Kellogg MD 05/21/24 11:32 AM documented in this encounter [facility] 05-21-2024 Instructions Eduardo Kellogg MD - 05/21/2024 11:00 AM EST Images from the original note were not included. Reduce sodium Talk with a health home visit field care manager about how much sodium should be in what you eat, especially if you had calcium oxalate stones or calcium phosphate stones. Most Americans consume too much sodium. Sodium is a part of salt. Sodium is in many canned, packaged, and fast foods. Sodium is also in many condiments, seasonings, and meats. Your chance of developing kidney stones increases when you eat more sodium. Dietary Guidelines for Americans 0546-5627 provides information on how much sodium an adult should have each day.2 If you have had calcium oxalate or calcium phosphate stones, you should follow this guideline even if you take medicine to prevent kidney stones. Here are some tips to help reduce your sodium intake: Check the Percent Daily Value (%DV) for sodium on Nutrition Facts label, found on many foods. Low in sodium is 5% or less and high in sodium is 20% or more. Consider writing down how much sodium you consume each day. When eating out, ask about the sodium content in the food. Avoid processed and fast foods, canned soups and vegetables, and lunch meats. Check labels for ingredients and hidden sodium, such as sodium bicarbonate, the chemical name for baking soda baking powder, which contains sodium bicarbonate and other chemicals disodium phosphate monosodium glutamate, or MSG sodium alginate sodium nitrate or nitrite To reduce sodium to help prevent kidney stones, avoid processed and fast foods, canned soups and vegetables, and lunch meats. Limit animal protein Eating animal protein may increase your chances of developing kidney stones. A health home visit field care manager may tell you to limit eating animal protein, including beef, chicken, and pork, especially organ meat eggs fish and shellfish milk, cheese, and other dairy products Although you may need to reduce how much animal protein you have each day, you still need to make sure you get enough. Talk with the health home visit field care manager about how much animal protein you should eat. Consider replacing some of the meat and animal protein you would typically eat with some of these plant-based foods that are high in protein: legumes such as beans, dried peas, lentils, and peanuts soy foods, such as soy milk, soy nut butter, and tofu nuts and nut products, such as almonds and almond butter, cashews and cashew butter, walnuts, and pistachios sunflower seeds IMPORTANT NOTE: If you have had calcium oxalate stones, avoid peanuts, soy foods, nuts and nut products, and sunflower seeds. Reduce oxalate You may want to avoid these foods to help reduce the amount of oxalate in your urine: nuts and nut products peanuts, which are legumes rhubarb spinach wheat bran Talk with a health home visit field care manager about other food sources of oxalate and how much oxalate should be in what you eat, especially if you have had calcium oxalate stones. Get enough calcium Talk with a health home visit field care manager about how much calcium you should eat, especially if you had calcium stones. Even though calcium sounds like it would be the cause of calcium stones, it s not. Calcium from food does not increase your risk of calcium oxalate stones. In fact, if you had calcium oxalate stones, the health home visit field care manager may tell you to have calcium every day to help prevent kidney stones and support strong bones. Foods that are high in calcium include dairy products, such as low-fat milk and yogurt, and lactose-free milk with calcium. documented in this encounter [facility] 04-22-2024 Note CHILD PSYCHIATRY OUT PATIENT PROGRESS NOTE Date of Service: 04/22/2024 Present at Session: Bina Reason for Visit: follow-up on medication management for ADHD - combined type, Depression and Anxiety This is a telemedicine video visit requested by the patient/guardian that was performed with the patient's location at home ([facility] [place]) and the provider's location at office. Identifying Information: Bina is a 19 year-old female who resides with her mother, father and little brother. She will be starting her Sophomore year at [employer]. Psychiatric history is significant for ADHD - combined type, PEGGY and MDD. Psychotropic medication trials include: Zoloft (ineffective), Wellbutrin (increase in anxiety), Buspar (not effective), Hydroxyzine, Lexapro (ineffective), Adderall (current), Cymbalta (increase in SI). No previous suicide attempts or inpatient behavioral health admissions. Family history: ADHD, Anxiety and Depression. Subjective: Met with Bina to discuss her progress as she transitions care to this [facility]. All available documentation was reviewed in preparation for today's encounter. Today, Bina denies any thoughts of self-harm, , suicide, or homicide. Overall, Bina's symptoms of ADHD, Anxiety and Depression appear to be moderately managed. The patient reports significant improvement since the last visit, describing the changes as night and day. She feels much more aware, stable, and organized, and is no longer in a confused state. Her memory is functioning well, and she feels in control of her life. She mentions that school is going well, even though she is in the burnout phase of the semester. Despite the stress, she has completed all essays for finals and is managing her responsibilities effectively. The patient describes her mood as pretty good, rating it a 9 out of 10 on most days, with 10 being the best. Recently, she returned from a school trip to [facility], where she had the opportunity to speak at the [employer] which was a positive experience for her. However, last week, she had a severe kidney stone episode, which required ambulance transport and an overnight stay for surgery. Fortunately, the stone passed the night before her flight, alleviating her discomfort. The patient denies any feelings of depression or sadness. Regarding anxiety, the patient acknowledges occasional feelings of being on edge but reports managing it well at this time. She rates her anxiety as 4 out of 10, with 10 being the worst. 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 Discussed pt plans to look at transitioning adult providers and hopes to get an intake appointment scheduled during her [place] break. The patient reports eating regularly, though she feels she has gained weight recently. Her sleep is adequate, with a consistent bedtime between 10:30 PM and midnight and waking up around 7:00 AM, with no difficulties falling asleep. Current Psychotropic Medications: Adderall XR 15mg daily Adderall 10mg every afternoon (has not had to take it) Risk Assessment: SUICIDAL IDEATION - SINCE LAST VISIT 1. Wish to be ? No If yes, describe: 2. Non-Specific Active Suicidal Thoughts: No If yes, describe: 3. Active Suicidal Ideation with Any Methods (Not Plan) without Intent to Act: If yes, describe: 4. Active Suicidal Ideation with Some Intent to Act, without Specific Plan: If yes, describe: 5. Active Suicidal Ideation with Specific Plan and Intent: If yes, describe: INTENSITY OF IDEATION - SINCE LAST VISIT Most Severe Ideation: Description of Ideation: Frequency: Duration: Controllability: Deterrents: Reasons for Ideation: SUICIDAL BEHAVIOR - SINCE LAST VISIT (Check all that apply, so long as these are separate events; must ask about all types) Actual Attempt: Total # of Attempts: If yes, describe: Has subject engaged in Non-Suicidal Self-Injurious Behavior? No Interrupted Attempt: Total # of interrupted: If yes, describe: Aborted or Self-Interrupted Attempt: Total # of aborted or self-interrupted: If yes, describe: Preparatory Acts or Behavior: Total # of preparatory acts: If yes, describe: ACTUAL/POTENTIAL LETHALITY - SINCE LAST VISIT Most Lethal Attempt Date: Actual Lethality/Medical Damage: Potential Lethality: [email or web address] Risk Stratification Level Low Acute Risk: History of past [id number] or suicidal thoughts;Protective factors outweigh risk factors Access to Weapons: education on access to lethal means provided;guardian denied firearms inside the home Patient able to plan for safety: yes Safety education provided to guardian: yes Other Outpatient Treatment: Pt is engaged in individual psychotherapy seeing Bonita Grabiel through [facility] Peer/Family Relationship: Pt report (more content not included)... [facility] 04-16-2024 Note Mother of the patien t called in to assist in scheduling Referral in the patient chart. Scheduled 05/21/[address] Kellogg in [place] at 11:00 AM - The pt is a college student and will be home from school break. [facility] 04-16-2024 Telephone encounter Note Mother of the patient called in to assist in scheduling Referral in the patient chart. Scheduled 05/21/[address] Kellogg in [place] at 11:00 AM - The pt is a college student and will be home from school break. [facility] 04-16-2024 Miscellaneous Notes Mother of the patient called in to assist in scheduling Referral in the patient chart. Scheduled 05/21/[address] Kellogg in [place] at 11:00 AM - The pt is a college student and will be home from school break. Received referral, attempted to reach pt to schedule. Left message for a call back documented in this encounter [facility] 04-16-2024 Note Received referral, a ttempted to reach pt to schedule. Left message for a call back [facility] 04-16-2024 Telephone encounter Note Received referral, attempted to reach pt to schedule. Left message for a call back [facility] 04-13-2024 Telephone encounter Note Referral and demographics faxed as requested below. Patient/family notified. Lisa Borja RN [facility] 04-13-2024 Miscellaneous Notes Referral and demographics faxed as requested below. Patient/family notified. Lisa Borja RN Signed. Nicky Mclaughlin MD Mother calls stating that patient has ongoing issues with kidney stones and is requesting a referral to urology. She questions if you could place a referral? If so, please fax referral to Dr. Kellogg at [phone]. Lisa Borja RN documented in this encounter [facility] 11-08-2024 Note Admission Informatio n Patient: Shemenski, Bina Jerilyn : 2005 Date of Admission: 04/11/2024 09:41:14 Date of Discharge: 04/12/2024 10:22:00 PCP: Sary, Physician Consult: Yamil Ash MD, Bartolo Orosco; Mickey Rajan MD Follow Up with Provider With When Contact Information Mickey Rajan MD [address] [place] [address]- Additional Instructions: Medications sent to the pharmacy, urology office will call to make arrangements in the next several weeks, call with any questions or concerns 19-year-old female with past medical history nephrolithiasis presents with 3 mm right-sided nephrolithiasis which is partially obstructing causing hydronephrosis and perinephric stranding. Patient was seen by urology. She had repeat renal ultrasound showing stones migrating towards bladder. It was recommended that she follow-up outpatient and strain her urine. She was educated on returning to the ER if her symptoms worsened. She was discharged with pain control and a course of ciprofloxacin. She will have a trial of stone passage on its own and follow-up with urology outpatient #3 Millimeter right sided partially obstruction nephrolithiasis #Hematuria secondary to above #Perinephric and periureteral stranding #Subjective fevers Discharge Time Spent with Patient: 35 minutes Medications New Medications [facility]/pharmacy #[id number], [address], [place] [id number], [phone] ciprofloxacin (Cipro 500 mg oral tablet) 1 Tabs Oral (given by mouth) 2 times a day for 3 Days. Refills: 0. Last Dose: hydrocodone-acetaminophen (hydrocodone-acetaminophen 5 mg-325 mg oral tablet) 1 Tabs Oral (given by mouth) every 6 hours as needed moderate pain [4-6 on pain scale] for 3 Days. Refills: 0. Last Dose: ondansetron (Zofran 4 mg oral tablet) 1 Tabs Oral (given by mouth) every 8 hours as needed as needed for nausea/vomiting for 5 Days. Refills: 0. Last Dose: tamsulosin (Flomax 0.4 mg oral capsule) 1 Capsules Oral (given by mouth) every day for 30 Days. Refills: 0. Last Dose: Medications That Have Not Changed Other Medications desogestrel-ethinyl estradiol (Kariva oral tablet) 1 Tabs Oral (given by mouth) once a day (at bedtime). Last Dose: dextroamphetamine-amphetamine (dextroamphetamine-amphetamine 15 mg oral capsule, extended release) 1 Capsules Oral (given by mouth) once a day (in the morning). Last Dose: multivitamin 1 Tabs Oral (given by mouth) once a day (in the morning). Last Dose: spironolactone (spironolactone 100 mg oral tablet) 1 Tabs Oral (given by mouth) once a day (in the morning). Last Dose: Patient Discharge Condition Stable Discharge Disposition Home Objective Physical Exam: General: Pleasant and cooperative. No apparent distress. HEENT: Normocephalic, atraumatic, mucus membranes moist. Neck: Trachea midline. Chest: Clear to auscultation bilaterally. No wheezes, rales, or rhonchi. CV: Regular rate and rhythm. No murmur, no gallops, no rubs Natalio's punch positive on right negative on left Abdomen: Abdomen is soft, non-tender, non-distended, no rebound or guarding. Extremities: No lower extremity edema or cyanosis, peripheral pulses intact Neurological: AAOx3. No focal deficits. Skin: Warm and dry. Vitals & Measurements T: 36.9 ?C (Oral) HR: 81 (Peripheral) RR: 16 BP: 108/68 SpO2: 100% HT: 155 cm WT: 63.5 kg BMI: 26.51 Additional Vitals No qualifying data available. Lab Results Labs (Last four charted values) WBC 7.4 (APR 12) Hgb 12.3 (APR 12) Hct 36.0 (APR 12) Plt 311 (APR 12) Na 135 (APR 12) K 4.1 (APR 12) CO2 23 (APR 12) Cl 110 (APR 12) Cr 0.74 (APR 12) BUN L 7 (APR 12) Mg 1.7 (APR 12) Microbiology - Current Encounter No qualifying data available. Diagnoses: 1. Right ureteral stone 2. Hydronephrosis of right kidney 3. Right flank pain 4. Kidney stone Degree of Malnutrition: No qualifying data available. Diagnostic Results Ultrasound US Renal and Bladder 04/12/24 08:46:36 IMPRESSION: Mild right-sided renal pelviectasis with interval migration of the known right ureteral stone towards the urinary bladder at the area of the right-sided ureterovesical junction. Signed By: Chelita DODSON, Thu [place] Electronically signed by Black De La Torre DO 04/12/24 19:07 [facility] 04-12-2024 Telephone encounter Note Signed. Nicky Mclaughlin MD [facility] 04-12-2024 Telephone encounter Note Mother calls stating that patient has ongoing issues with kidney stones and is requesting a referral to urology. She questions if you could place a referral? If so, please fax referral to Dr. Kellogg at [phone]. Lisa Borja, SVETLANA [facility] 04-12-2024 Note Subjective Patient evaluation for obstructing stone Stone measures 3 mm proximal right ureter with hydronephrosis Patient was feeling better Patient currently under observation Renal ultrasound official results are pending Independently reviewed ultrasound, right ureteral jet is not seen, there is a calcification near the bladder, this could be a stone trying to be passed measuring 3 x 6 mm, postvoid residual about 9 mL, no significant right sided hydronephrosis, 3 mm nonobstructing stone, small proximal hydroureter, 3 mm nonobstructing left sided stone in Patient has not required any pain medication since admission Hemodynamically stable No fevers Patient reports she is feeling well Patient no longer having pain Patient reports minimal discomfort near the bladder area Patient reports minimal dysuria which she describes similar to a UTI No fevers or chills No nausea or vomiting No hematuria Patient reports she has not passed any stone fragments Discussed ultrasound results of my interpretation After discussion patient would like to be discharged home with monitoring Patient is not pursuing anything surgical at this time Patient would like to have the opportunity and try and pass the stone naturally Father at bedside No further questions Patient reports she has previously done metabolic workup, she has previously followed with nephrology Review of Systems GI: No abdominal pain, No flank pain : Improved dysuria, No hematuria Objective Vitals & Measurements T: 36.5 ?C (Oral) HR: 98 (Peripheral) RR: 16 BP: 96/61 SpO2: 97% SpO2: 97% HT: 155 cm WT: 63.5 kg BMI: 26.51 Additional Vitals No qualifying data available. Lab Results Microbiology - Current Encounter No qualifying data available. Labs (Last four charted values) WBC 7.4 (APR 12) Hgb 12.3 (APR 12) Hct 36.0 (APR 12) Plt 311 (APR 12) Na 135 (APR 12) K 4.1 (APR 12) CO2 23 (APR 12) Cl 110 (APR 12) Cr 0.74 (APR 12) BUN L 7 (APR 12) Mg 1.7 (APR 12) Physical Exam General: alert, non-toxic, no distress, well developed Neuro: no slurred speech, appropriate with questions and responses : No flank pain, no abdominal pain Medications Inpatient acetaminophen, 650 mg, Oral, q6hr, PRN acetaminophen, 650 mg, Oral, q6hr, PRN acetaminophen, 1000 mg= 100 mL, IV Piggyback, Once albuterol 2.5 mg/3 mL (0.083%) inhalation solution, 2.5 mg= 3 mL, NEB, Once, PRN Betadine Gargle 0.5% solution, 10 mL, Oral, Once Emend, 40 mg, Oral, Once, PRN enoxaparin, 40 mg= 0.4 mL, Subcutaneous, Daily hydrocodone-acetaminophen 5 mg-325 mg oral tablet, 1 tabs, Oral, q4hr, PRN levoFLOXacin, 750 mg= 150 mL, IV Piggyback, q24hr LR 1,000 mL, 1000 mL, IV morphine, 2 mg= 1 mL, IV Push, q3hr, PRN naloxone, 0.4 mg= 1 mL, IV Push, q2min, PRN Normal Saline Flush 0.9% injectable solution, 10 mL, IV Push, As Indicated, PRN Normal Saline Flush 0.9% injectable solution, 10 mL, IV Push, BID Normal Saline Flush 0.9% injectable solution, 10 mL, IV Push, As Indicated, PRN ondansetron, 4 mg= 2 mL, IV Push, q4hr, PRN Pepcid, 20 mg= 2 mL, IV Push, Once Sodium Chloride 0.9% intravenous solution 1,000 mL, 1000 mL, IV Assessment/Plan 1. Right ureteral stone 3 mm proximal right ureteral stone, clinically doing better, patient would like to go home with monitoring, plan is to do follow-up outpatient renal ultrasound for monitoring, patient will call the office or go to the emergency room if symptoms worsen, OARRS report reviewed, no suspicious activity, multiple medication sent to the pharmacy for comfort Ordered: hydrocodone-acetaminophen, 1 tabs, Oral, q6hr, PRN, X 3 days, # 12 tabs, 0 Refill(s), 04/15/24 6:59:00 EST, Pharmacy: [facility] #[id number] 2. Hydronephrosis of right kidney No significant hydronephrosis, patient has a little bit of right proximal hydroureter, right ureteral jet was not seen but clinically doing well 3. Right flank pain Resolved secondary to #1 4. Kidney stone Previous history of kidney stones, at follow-up need to discuss further prevention strategies Patient can be discharged from urology perspective Orders: ciprofloxacin, 1 tabs, Oral, BID, X 3 days, # 6 tabs, 0 Refill(s), 04/15/24 6:59:00 EST, Pharmacy: [facility]pharmacy #[id number] ondansetron, 1 tabs, Oral, q8hr, PRN, X 5 days, # 15 tabs, 0 Refill(s), 04/17/24 6:59:00 EST, Pharmacy: [facility] #[id number] tamsulosin, 1 caps, Oral, Daily, # 30 caps, 0 Refill(s), Pharmacy: [facility]/pharmacy #[id number] Ok to Discharge from Consult Provider Electronically signed by Remi Prieto 04/12/24 07:02 EST [facility] 04-11-2024 Note Assessment/Plan 19-year-old female with past medical history nephrolithiasis presents with 3 mm right-sided nephrolithiasis which is partially obstructing causing hydronephrosis and perinephric stranding. #3 Millimeter right sided partially obstruction nephrolithiasis #Hematuria secondary to above #Perinephric and periureteral stranding #Subjective fevers -Urology consulted -Hydrate and pain control -N.p.o. pending urology evaluation -Strain urine -Will treat with Rocephin as patient had subjective fevers and perinephric stranding. Will defer to urology if they would like to DC otherwise will complete 5-day course -DVT prophylaxis with Lovenox Code Status: Full Resuscitation History of Present Illness 19-year-old female with no documented past medical history who takes control, Adderall and spironolactone presented to outside ER for right flank pain starting yesterday. On arrival to the ER hemodynamically stable afebrile saturating 100% on room air. Labs showing unremarkable CBC UA showing large blood with 50 RBCs and bacteria, CMP unremarkable test negative. Patient had chest x-ray which was unremarkable, EKG showed sinus rhythm with occasional PAC, CT abdomen pelvis shows mild right hydro ureteronephrosis with a at least partially obstructing 3 mm proximal right stone associated with mild right perinephric and periureteral stranding. On my exam patient is in no acute distress. She is laying in bed comfortably. She does complain of some right-sided flank pain. Did have fever and chills prior to arrival to outside ER. She has had stones in the past last one was about a year ago but she is from [facility] and does not have a urologist over here. She thinks her last stones were calcium based. Also complains of significant bloody urine over the last few days states her pain this time is much worse than prior and more blood Review of Systems 10 point review of systems reviewed and negative except for stated above Objective Physical Exam: General: Pleasant and cooperative. No apparent distress. HEENT: Normocephalic, atraumatic, mucus membranes moist. Neck: Trachea midline. Chest: Clear to auscultation bilaterally. No wheezes, rales, or rhonchi. CV: Regular rate and rhythm. No murmur, no gallops, no rubs Natalio's punch positive on right negative on left Abdomen: Abdomen is soft, non-tender, non-distended, no rebound or guarding. Extremities: No lower extremity edema or cyanosis, peripheral pulses intact Neurological: AAOx3. No focal deficits. Skin: Warm and dry. Vitals & Measurements T: 36.3 ?C (Oral) TMIN: 36.3 ?C (Oral) TMAX: 36.9 ?C (Oral) HR: 97 (Peripheral) RR: 16 BP: 112/67 SpO2: 97% HT: 155 cm WT: 63.7 kg BMI: 26.51 Additional Vitals No qualifying data available. Problem List/Past Medical History Ongoing No qualifying data Historical No qualifying data Degree of Malnutrition: No qualifying data available. Medications Inpatient acetaminophen, 650 mg, Oral, q6hr, PRN acetaminophen, 650 mg, Oral, q6hr, PRN enoxaparin, 40 mg= 0.4 mL, Subcutaneous, Daily hydrocodone-acetaminophen 5 mg-325 mg oral tablet, 1 tabs, Oral, q4hr, PRN levoFLOXacin, 750 mg= 150 mL, IV Piggyback, q24hr morphine, 2 mg= 1 mL, IV Push, q3hr, PRN naloxone, 0.4 mg= 1 mL, IV Push, q2min, PRN Normal Saline Flush 0.9% injectable solution, 10 mL, IV Push, As Indicated, PRN Normal Saline Flush 0.9% injectable solution, 10 mL, IV Push, BID ondansetron, 4 mg= 2 mL, IV Push, q4hr, PRN Sodium Chloride 0.9% intravenous solution 1,000 mL, 1000 mL, IV Home dextroamphetamine-amphetamine 15 mg oral capsule, extended release, 15 mg= 1 caps, Oral, qAM Kariva oral tablet, 1 tabs, Oral, HS (at bedtime) multivitamin, 1 tabs, Oral, qAM spironolactone 100 mg oral tablet, 100 mg= 1 tabs, Oral, qAM Allergies amoxicillin (Hives) Social History Tobacco Never (less than 100 in lifetime) Use:. Lab Results No qualifying data available Microbiology - Current Encounter No qualifying data available. Electronically signed by Black De La Torre DO 04/11/24 17:51 [facility] 04-11-2024 Note Chief Complaint Right flank pain Reason for Consultation 3 mm proximal right ureteral stone, right hydronephrosis History of Present Illness This is a 19-year-old female accompanied by her father. Last night she had acute onset of right-sided flank pain associated with nausea. Denies vomiting or fever. She came to the ED and during workup CBC and renal function were within normal limits. Noncontrast CT scan of abdomen pelvis showed a 3 mm proximal right ureteral stone with proximal ureteral hydronephrosis. She is feeling better now since she got some pain medication. She has history of stone disease?4-5 times?and was being followed by a pediatric hospital. At 1 time she had a stone analysis and was made of calcium according to the patient. Denies previous urologic surgery. She already started on Flomax that she had at home. Denies noticing passing any stones since admitted. Review of Systems All systems reviewed and are negative, except what was noted in HPI. Physical Exam Vitals & Measurements T: 36.8 ?C (Oral) RR: 18 BP: 102/57 SpO2: 100% HT: 155 cm WT: 63.7 kg BMI: 26.51 Patient alert, oriented now comfortable. Mild right CVA tenderness. Assessment/Plan 1. Right ureteral stone 2. Hydronephrosis of right kidney 3. Right flank pain We discussed with the patient and father regarding further management. The size of the stone is small and she may be able to pass spontaneously like it happened before. She continues on Flomax, IV fluids and straining her urine. Will keep her n.p.o. after midnight and reassess tomorrow. I discussed with them that our goal is to be conservative if we can. Thank you for having us participate in the care of Ms. Campos. Problem List/Past Medical History Ongoing No qualifying data Historical No qualifying data Medications Inpatient acetaminophen, 650 mg, Oral, q6hr, PRN acetaminophen, 650 mg, Oral, q6hr, PRN enoxaparin, 40 mg= 0.4 mL, Subcutaneous, Daily hydrocodone-acetaminophen 5 mg-325 mg oral tablet, 1 tabs, Oral, q4hr, PRN Lactated Ringers Injection intravenous solution 1,000 mL, 1000 mL, IV levoFLOXacin, 750 mg= 150 mL, IV Piggyback, q24hr morphine, 2 mg= 1 mL, IV Push, q3hr, PRN naloxone, 0.4 mg= 1 mL, IV Push, q2min, PRN Normal Saline Flush 0.9% injectable solution, 10 mL, IV Push, As Indicated, PRN Normal Saline Flush 0.9% injectable solution, 10 mL, IV Push, BID ondansetron, 4 mg= 2 mL, IV Push, q4hr, PRN Sodium Chloride 0.9% intravenous solution 1,000 mL, 1000 mL, IV Home dextroamphetamine-amphetamine 15 mg oral capsule, extended release, 15 mg= 1 caps, Oral, qAM Kariva oral tablet, 1 tabs, Oral, HS (at bedtime) multivitamin, 1 tabs, Oral, qAM spironolactone 100 mg oral tablet, 100 mg= 1 tabs, Oral, qAM Allergies amoxicillin (Hives) Social History Tobacco Never (less than 100 in lifetime) Use:. Lab Results Microbiology - Current Encounter No qualifying data available. Last 24 Hours Basic Metabolic Panel: Hematology: Sodium Lvl: 137 (04/11/24) Hgb: 14.0 (04/11/24) Potassium Lvl: 4.3 (04/11/24) Hgb A1c: ------ Phosphorus: ------ WBC: 7.6 (04/11/24) Magnesium Lvl: ------ Platelet: 368 (04/11/24) BUN: 10 (04/11/24) INR POC: ------ Creatinine Lvl: 0.90 (04/11/24) Creatinine Clearance: ------ Urinalysis: UA Glucose: Negative (04/11/24) UA Blood: Large (04/11/24) UA Nitrite: Negative (04/11/24) UA Protein: 30 (04/11/24) UA Ketones: Negative (04/11/24) Urine Color Urine Dipstick: Yellow (04/11/24) UA Leukocyte Esterase: Negative (04/11/24) UA Clarity: Hazy (04/11/24) UA Bili: Negative (04/11/24) UA pH: 6.0 (04/11/24) UA Urobilinogen: 0.2 (04/11/24) UA Spec Grav: 1.025 (04/11/24) Additional - Last 24 Hours Albumin Lvl: 3.9 (04/11/24) Alk Phos: 45 (04/11/24) ALT: 10 (04/11/24) Anion Gap: 6 (04/11/24) AST: 13 (04/11/24) Baso Absolute: 0.0 (04/11/24) Basophil Auto: 0.6 (04/11/24) Bili Direct: 0.09 (04/11/24) Bili Indirect: 0.3 (04/11/24) Bili Total: 0.4 (04/11/24) BUN Crea Ratio: 11.1 (04/11/24) Calcium Lvl: 9.0 (04/11/24) Chloride: 106 (04/11/24) CO2: 25 (04/11/24) Eos Absolute: 0.2 (04/11/24) Eos Auto: 2.3 (04/11/24) Estimated GFR: >60 (04/11/24) Glucose Lvl: 100 (04/11/24) Hct: 39.7 (04/11/24) Lipase Lvl: 15 (04/11/24) Lymph Absolute: 2.3 (04/11/24) Lymph Auto: 29.8 (04/11/24) MCH: 30.8 (04/11/24) MCHC: 35.3 (04/11/24) MCV: 87.3 (04/11/24) Mean Platelet Volume: 6.8 (04/11/24) Bell Absolute: 0.5 (04/11/24) Bell Auto: 7.1 (04/11/24) Neutro Absolute: 4.6 (04/11/24) Neutro Auto: 60.2 (04/11/24) RBC: 4.55 (04/11/24) RDW: 12.3 (04/11/24) Serum Preg: Negative (04/11/24) Total Protein: 6.5 (04/11/24) UA Bacteria: Present (04/11/24) UA Mucus: Present (04/11/24) UA RBC Qual: 50+ (04/11/24) UA Source: Clean Catch (04/11/24) UA Squepi Cells Qual: 1-4 (04/11/24) UA WBC Qual: Rare (04/11/24) Diagnostic Results (04/11/2024 06:04 EST (more content not included)... [facility] 03-29-2024 Note CHILD PSYCHIATRY OUT PATIENT PROGRESS NOTE Date of Service: 03/29/2024 Present at Session: Bina individually Reason for Visit: follow-up on medication management for ADHD - combined type, Depression and Anxiety This is a telemedicine video visit requested by the patient/guardian that was performed with the patient's location at home ([facility] [place])and the provider's location at office. Identifying Information: Bina is a 18 year-old female who resides with her mother, father and little brother. She will be starting her Sophomore year at [employer]. Psychiatric history is significant for ADHD - combined type, PEGGY and MDD. Psychotropic medication trials include: Zoloft (ineffective), Wellbutrin (increase in anxiety), Buspar (not effective), Hydroxyzine, Lexapro (ineffective), Adderall (current), Cymbalta (increase in SI). No previous suicide attempts or inpatient behavioral health admissions. Family history: ADHD, Anxiety and Depression. Subjective: Met with Bina to discuss her progress as she transitions care to this [place] [facility] All available documentation was reviewed in preparation for today's encounter. Today, Bina denies any thoughts of self-harm, , suicide, or homicide. Overall, Bina's symptoms of ADHD, Anxiety and Depression appear to be moderately managed. Reviewed [employer] message sent by patient on 03/16/24: I wanted to discuss my experience so far with duloxetine. I got off of Lexapro over the summer because of how tired it was making me and after a couple of months I we agreed to try Dulxotine. I have been on this medication for almost 2.5 months and I have not seen any major improvement. If anything, I feel like I have gotten worse. The side effects of this med are still present and they can be debilitating. Migraines and nausea are the two major physical effects I have been experiencing. I have a script for Zophran because of unrelated stomach problems and that has been my saving farooq, but I have taken more Zophran while on this med than ever. The physical effects are one thing, but the mental effects are worrying. While I feel more awake on this med, my personality feels zombified. I feel dull and unmotivated. The hardest part is not being able to feel excited about stuff when I truly want to be. I also feel impulsive. All of the effects I have discussed so far are somewhat manageable and I have tried to stick with this medication in hopes of it getting better as my body began to regulate it. What is NOT manageable is the suicidal thoughts I feel. While I am not a suicidal individual, never have been, and never ever would think to do anything like that, I find the thought of suicide popping up like never before. Sometimes I don t even know why the topic of suicide is present and it pops up at completely random times. These thoughts do not feel like mine. I have an appointment on March 29 and I have been holding out, but I feel that this warrants immediate action. 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 I am jumping on this situation immediately because I do not want this to become more than what it is. My suicidal thoughts have been sporadic, random, and minor, but I know how quickly that could possibly change if anything major in my life were to happen. I don t want to find out. As of now, my suicidal thoughts are not necessarily wanting to harm myself, but rather not wanting to wake up, not wanting to be present, not wanting to be around . I have done some research regarding my situation and dialed it down to being 100% Duloxetine. Case studies informed me that many other people have experienced similar issues. I am aware of the difficulties that come from trying to get off of this med. I would ideally like to start a VERY slow weaning process. Patient was instructed by a covering provider to discontinue Cymbalta 20mg recommend doing a dose every other day over the next 2 weeks and then stopping. The patient is currently taking Adderall daily for ADHD and has discontinued Cymbalta (duloxetine) after experiencing unacceptable side effects. The patient reports that the side effects from Cymbalta never fully resolved and gradually worsened, which included nausea, migraines, feeling dull and unmotivated and SI thoughts. She reports since starting the discontinuing of Cymbalta to take a dose every other day as recommended, she's been feeling lightheaded, nauseous, chest pain and heart palpitations. Patient reports she has discontinued the Cymbalta completely, with some improvements in these side effects over the last couple of days. The patient notes that she has been more emotionally available and engaged in daily activities since discontinuing Cymbalta, although she still experiences passive suicidal thoughts and feelings of impending doom--though these are less frequent now, with t (more content not included)... [facility] 01-16-2024 Note CHILD PSYCHIATRY OUT PATIENT PROGRESS NOTE Internal Referral from Olimpia CARRASCO Date of Service: 01/16/2024 Present at Session: Bina Reason for Visit: follow-up on medication management for ADHD - combined type, Depression and Anxiety This is a telemedicine video visit requested by the patient/guardian that was performed with the patient's location at home and the provider's location at office. Identifying Information: Bina is a 18 year-old female who resides with her mother, father and little brother. She will be starting her Sophomore year at [employer]. Psychiatric history is significant for ADHD - combined type, PEGGY and MDD. Psychotropic medication trials include: Zoloft (ineffective), Wellbutrin (increase in anxiety), Buspar (not effective), Hydroxyzine, Lexapro (ineffective), Adderall (current). No previous suicide attempts or inpatient behavioral health admissions. Family history: ADHD, Anxiety and Depression. Subjective: Met with Bina to discuss her progress as she transitions care to this [facility]. All available documentation was reviewed in preparation for today's encounter. Today, Bina denies any thoughts of self-harm, , suicide, or homicide. Overall, Bina's symptoms of ADHD, Anxiety and Depression appear to be moderately managed. Pt reports when she first started seeing psychiatry she was taking Zoloft, but it was no longer helpful for her mood and anxiety symptoms. Provider took her off Zoloft and since then pt has trialed several medications. Pt was a lot diagnosed with ADHD and was initiated on Adderall, which has been really helpful. Pt reports she was recently taking Lexapro and requested to go off because it was no longer helpful. Pt reports she has been off of it for one month now. She reports since stopping Lexapro, I think that I care a lot more. Pt states she noticed when she was taking Lexapro, she was numb, didn't care about anything, never cried. Grandfather recently and she felt guilty because she didn't cry over it. Pt states she wasn't trying to be insensitive, I just don't bring feelings into anything anymore. Noticed pretty quickly after stopping Lexapro, she started feeling everything and soon established with therapy and has been seeing a therapist. Pt endorses current mood symptoms of low motivation, low energy, depressed mood, thoughts of missing out on everything and feeling worse because she feels like she is getting procrastinating and not getting anything done. Pt reports this summer, most days she works, she would refuse to get out of bed until she had to get up and go to work. Pt rates depression most days, as a 7 out of 10 with 10 being the worst. Pt notices additional symptoms of not wanting to talk to anyone. Pt reports feeling anxious and worried several times a day. Pt reports she had to relearn how to handle stress. [place] like she didn't feel any emotion for a very long time and once she stopped Lexapro, she was freaking out over everything. Pt endorses a couple minor panic attacks, but states I was able to talk myself down. Pt reports anxiety most days as a 5 out of 10 with 10 being the worst. Pt states lately her mood most days is good. Pt states I am not a zombie anymore. Feel like she's enjoying life more, still takes a lot to get her out and to do things.Can only handle once task at a time. Has not been taking 10mg Adderall in the afternoon in the summer. If she forgets her daily dose she can tell and struggles to pay attention and has not energy. Pt reports she will be leaving tomorrow for her Sophomore year of college at [employer]. She has a roommate. Classes will start . 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 Plans to go into Master's program at [employer] following the completion of her undergrad. Is currently majoring in psychology and criminology. Patient denies suicidal ideation, thoughts of self harm, homicidal ideation, and auditory/visual hallucinations. Current Psychotropic Medications: Adderall XR 15mg daily Adderall 10mg every afternoon Risk Assessment: SUICIDAL IDEATION - SINCE LAST VISIT 1. Wish to be ? No If yes, describe: 2. Non-Specific Active Suicidal Thoughts: No If yes, describe: 3. Active Suicidal Ideation with Any Methods (Not Plan) without Intent to Act: If yes, describe: 4. Active Suicidal Ideation with Some Intent to Act, without Specific Plan: If yes, describe: 5. Active Suicidal Ideation with Specific Plan and Intent: If yes, describe: INTENSITY OF IDEATION - SINCE LAST VISIT Most Severe Ideation: Description of Ideation: Frequency: Duration: Controllability: Deterrents: Reasons for Ideation: SUICIDAL BEHAVIOR - SINCE LAST VISIT (Check all that apply, so long as these are separate events; must ask about all types) Actual Attempt: Total # of Attempts: If yes, describe: Has s (more content not included)... [facility] 12-14-2023 Instructions Nicky Mclaughlin MD - 12/14/2023 9:33 AM EDT Images from the original note were not included. 5 to Go!TM Healthy Kids Inside & Out 5 Eat FIVE fruits and veggies a day 4 Give and get FOUR compliments a day 3 Consume THREE calcium products a day 2 Limit media time to TWO hours a day 1 Get at least ONE hour of exercise a day 0 Consume ZERO sugar-sweetened drinks Go! Be healthy, inside and out! www.[facility].org/5toGo Adolescent to Adult Transition Program [facility] cares about helping you and each of our adolescents and young adults make a smooth transition to adult care. If your current doctor is a tab machine operator, we will work with you to decide the correct age for moving your care to a doctor or other provider who takes care of adults. We suggest that this move take place before age 22. Our office policy is to prepare you to move to a doctor or other provider who takes care of adults. This includes helping you find a doctor or other provider, sending medical records, and talking about any special needs with the new doctor or other provider. If your current doctor is in family medicine, [facility] will prepare you and your family for the transition to being an adult patient. You will be able to make your own healthcare decisions and will have an adult care team that meets your personal healthcare needs. At age 18, by law, we need your agreement to discuss personal health information with your family. We understand and respect that you may want to include your family in healthcare choices and will partner with you on how and when to include your family in decisions. We will make sure you know what changes to expect. We will also strive to make sure that all care team providers know your needs. We will help you find community resources and specialty care, if needed. Having your information before you come for the first time helps us be sure we do not miss any details. If joining our practice from outside [facility], we will help you request your medical record from past doctor(s) before your first visit. We will make every effort to work with your past providers to ensure a smooth transition and experience. We are always here for you. If you have any questions or concerns, please contact your primary care team or e-mail Got Transition is the federally funded national resource center on health care transition (HCT). Its aim is to improve transition from pediatric to adult health care through the use of evidence-driven strategies for health lawn caretaker, youth, young adults, and their families. www.gottransition.org https://gottransition.org/resour [email or web address]/?[email or web address]-tqbtlzd documented in this encounter [facility] 12-14-2023 Note HNO ID: [id number] Author: NICKY MCLAUGHLIN MD Service: ? Author Type: Physician Type: Progress Notes Filed: 01/08/2024 19:20 Note Text: WELL VISIT PEDIATRIC 18+ YRS OLD Bina is a 18 year old who presents today for well exam. SUBJECTIVE CONCERNS: no concerns Had TANDA in October, thought it might help with her hypersomnia. So far it hasn't. Psych is weaning her off the Lexapro. They think it has hit a plateau and is no longer benefitting her and may be taking away from the benefits of the Adderall. He plans on putting her on something else though according to Bina. 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 Generalized Anxiety Disorder - 12/03/2018 Cough Variant Asthma - 02/26/2009 Contusion of Face, Scalp, and Neck Except Eye(s) - 10/19/2006 PAST MEDICAL HISTORY Diagnosis Date Contusion of face, scalp, and neck Cough variant asthma Generalized anxiety disorder Menstrual cycle disorder 01/2017 NEGATIVE MEDICAL HISTORY PMH - PAST MEDICAL HISTORY OF 02/10/09 normal color vision PAST SURGICAL HISTORY Procedure Laterality Date DENTAL SURGERY PROCEDURE 2022 [place] teeth removal TONSILLECTOMY AND ADENOIDECTOMY ALLERGIES Allergen Reactions Amoxicillin Hives Medications: KARIVA, 28, 0.15-0.02 mgx21 /0.01 mg x 5 per tablet Take 1 tablet by mouth every afternoon. escitalopram oxalate (LEXAPRO) 20 mg tablet Take 20 mg by mouth once daily. 12/14/23 per patient, currently weaning off, today's dose 15mg ESCITALOPRAM 10 MG TABLETDispense date:12/05/2023Quantity:15 EachDays supply:15Unit strength:10 mgUnit form:tabletPatient sig:TAKE 1.5 TABS BY MOUTH DAILY FOR 5 DAYS, THEN 1 TAB DAILY FOR 5 DAYS, THEN 0.5 TAB DAILY FOR 5 DAYS. spironolactone (ALDACTONE) 100 mg tablet TAKE ONE TABLET ONCE NIGHTLY WITH A FULL GLASS OF WATER cholecalciferol (VITAMIN D3) 1,000 unit tab tablet Take 2,000 Units by mouth. amphetamine-dextroamphetamine XR (ADDERALL XR) 15 mg 24 hr capsule Take 15 mg by mouth. Azelaic Acid 15 % gel as needed. multivitamins(CHEWABLE MULTI VITAMIN TAB) Take one(1) tablet daily. dextroamphetamine-amphetamine (ADDERALL) 10 mg tablet Take 10 mg by mouth. albuterol HFA (PROAIR HFA) 90 mcg/actuation inhaler 2 puffs every four hours as needed.May also 15 minutes pre-exercise.Use w/spacer. pimecrolimus (ELIDEL) 1 % cream FAMILY HISTORY Problem Relation Age of Onset Hypertension Mother No Known Problems Father Cancer Maternal Grandfather Hypertension Maternal Grandfather Heart Maternal Grandfather Heart Paternal Grandfather CHF/ bypass surgery Social History Social History Narrative Not on file Smoking Exposure: Do you spend a significant amount of time with anyone who smokes? 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 No Recreational Screen Time totaling more than 2 hours of screen time per day. Physical Activity: more than 1 hour of physical activity per day Fainting, dizziness, significant shortness of breath or chest pain with sports or exercise: Yes, fainting, I have syncope, this is something that has been going on for years History of concussion in the last year: No Safety: 02/27/2021 05/23/2020 Pediatric SDOH - Response to gun questions Are there any guns kept in or around your home or where your child spends time? Yes No Are they stored unloaded or locked away? Yes Decline Reviewed seat belts, smoke detectors, and sunscreen Diet: -Diet is well balanced and appropriate for age -Fruits are eaten with most meals -Vegetables are eaten with most meals -Drinks water daily -Regularly eats meals with family Elimination: no concerns, normal size and consistency Dental: dental care current Sleep: -I sleep way too much-idiopathic hypersomnia, per [facility] Vision: No vision concerns and Vision screening completed by eye doctor Hearing: No hearing concerns Growth: lower side of the growth spectrum Gynecological history: LMP: 12/13/23 Cycles are regular and last 4 days. Dysmenorrhea: none Heavy periods: no Substance use: alcohol (very rarely) Sexual History: Attraction: male Sexually Active: Yes, but not currently Body image: satisfactory Screening tools reviewed and discussed with patient/[id number] and Social Determinants of Health. Please see Patient Entered Data. SDOH: Food Insecurity: No Food Insecurity (12/14/2023) Hunger Vital Sign Worried About Running Out of Food in the Last Year: Never true Ran Out of Food in the Last Year: Never true Financial Resource Strain: Low Risk (12/14/2023) Overall Financial Resource Strain (CARDIA) Difficulty of Paying Living Expenses: Not very hard Transportation Needs: No Transportation Needs (12/14/2023) PRAPARE - Transportation Lack of Transportation ([facility] (more content not included)... [facility] 12-14-2023 History of Presen t illness Narrative Images from the original note were not included. WELL VISIT PEDIATRIC 18+ YRS OLD Bina is a 18 year old who presents today for well exam. SUBJECTIVE CONCERNS: no concerns Had T&A in October, thought it might help with her hypersomnia. So far it hasn't. Psych is weaning her off the Lexapro. They think it has hit a plateau and is no longer benefitting her and may be taking away from the benefits of the Adderall. He plans on putting her on something else though according to Bina. 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 Generalized Anxiety Disorder - 12/03/2018 Cough Variant Asthma - 02/26/2009 Contusion of Face, Scalp, and Neck Except Eye(s) - 10/19/2006 PAST MEDICAL HISTORY Diagnosis Date Contusion of face, scalp, and neck Cough variant asthma Generalized anxiety disorder Menstrual cycle disorder 01/2017 NEGATIVE MEDICAL HISTORY PMH - PAST MEDICAL HISTORY OF 02/10/09 normal color vision PAST SURGICAL HISTORY Procedure Laterality Date DENTAL SURGERY PROCEDURE 2022 [place] teeth removal TONSILLECTOMY & ADENOIDECTOMY <AGE 12 10/29/2023 ALLERGIES Allergen Reactions Amoxicillin Hives Medications: KARIVA, 28, 0.15-0.02 mgx21 /0.01 mg x 5 per tablet Take 1 tablet by mouth every afternoon. escitalopram oxalate (LEXAPRO) 20 mg tablet Take 20 mg by mouth once daily. 12/14/23 per patient, currently weaning off, today's dose 15mg ESCITALOPRAM 10 MG TABLETDispense date:12/05/2023Quantity:15 EachDays supply:15Unit strength:10 mgUnit form:tabletPatient sig:TAKE 1.5 TABS BY MOUTH DAILY FOR 5 DAYS, THEN 1 TAB DAILY FOR 5 DAYS, THEN 0.5 TAB DAILY FOR 5 DAYS. spironolactone (ALDACTONE) 100 mg tablet TAKE ONE TABLET ONCE NIGHTLY WITH A FULL GLASS OF WATER cholecalciferol (VITAMIN D3) 1,000 unit tab tablet Take 2,000 Units by mouth. amphetamine-dextroamphetamine XR (ADDERALL XR) 15 mg 24 hr capsule Take 15 mg by mouth. Azelaic Acid 15 % gel as needed. multivitamins(CHEWABLE MULTI VITAMIN TAB) Take one(1) tablet daily. dextroamphetamine-amphetamine (ADDERALL) 10 mg tablet Take 10 mg by mouth. albuterol HFA (PROAIR HFA) 90 mcg/actuation inhaler 2 puffs every four hours as needed.May also 15 minutes pre-exercise.Use w/spacer. pimecrolimus (ELIDEL) 1 % cream FAMILY HISTORY Problem Relation Age of Onset Hypertension Mother No Known Problems Father Cancer Maternal Grandfather Hypertension Maternal Grandfather Heart Maternal Grandfather Heart Paternal Grandfather CHF/ bypass surgery Social History Social History Narrative Not on file Smoking Exposure: Do you spend a significant amount of time with anyone who smokes? 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 No Recreational Screen Time totaling more than 2 hours of screen time per day. Physical Activity: more than 1 hour of physical activity per day Fainting, dizziness, significant shortness of breath or chest pain with sports or exercise: Yes, fainting, I have syncope, this is something that has been going on for years History of concussion in the last year: No Safety: 02/27/2021 05/23/2020 Pediatric SDOH - Response to gun questions Are there any guns kept in or around your home or where your child spends time? Yes No Are they stored unloaded or locked away? Yes Decline Reviewed seat belts, smoke detectors, and sunscreen Diet: -Diet is well balanced and appropriate for age -Fruits are eaten with most meals -Vegetables are eaten with most meals -Drinks water daily -Regularly eats meals with family Elimination: no concerns, normal size and consistency Dental: dental care current Sleep: -I sleep way too much-idiopathic hypersomnia, per [facility] Vision: No vision concerns and Vision screening completed by eye doctor Hearing: No hearing concerns Growth: lower side of the growth spectrum Gynecological history: LMP: 12/13/23 Cycles are regular and last 4 days. Dysmenorrhea: none Heavy periods: no Substance use: alcohol (very rarely) Sexual History: Attraction: male Sexually Active: Yes, but not currently Body image: satisfactory Screening tools reviewed and discussed with patient/[id number] and Social Determinants of Health. Please see Patient Entered Data. SDOH: Food Insecurity: No Food Insecurity (12/14/2023) Hunger Vital Sign Worried About Running Out of Food in the Last Year: Never true Ran Out of Food in the Last Year: Never true Financial Resource Strain: Low Risk (12/14/2023) Overall Financial Resource Strain (CARDIA) Difficulty of Paying Living Expenses: Not very hard Transportation Needs: No Transportation Needs (12/14/2023) PRAPARE - Transportation Lack of Transportation (Medical): No Lack of Transportation (Non-Medical): No Housing Stability: Low Risk (12/14/2023) Housing Stability Vital Sign Unable to Pay for Housing in the Last Year: No Number of Places Lived in the Last Year: 1 Unstable Housing in the Last Year: No Discussed SDOH results with patient/family. SDOH needs identified: no concerns identified OBJECTIVE Physical Exam: BP 108/60 Pulse 80 Temp 36.4 C (97.5 F) (Temporal) Resp 20 Ht 156.7 cm (5' 1.69) Wt 60.3 kg (133 lb) LMP 12/13/2023 BMI 24.57 kg/m Blood pressure %lana are not available for patients who are 18 years or older. Blood pressure %lana are not available for patients who are 18 years or older. 76 %ile (Z= 0.71) based on CDC (Girls, 2-20 Years) BMI-for-age based on BMI available as of 12/14/2023. Last BMI: Wt: 61.2 kg (135 lb) (62%, Z= 0.31)* BMI: 24.94 kg/(m^2) Last 4 Encounter Wt Readings: Date: Wt: 12/14/2023 60.3 kg (133 lb) (59%, Z= 0.22)* 10/18/2023 61.2 kg (135 lb) (62%, Z= 0.31)* 11/09/2022 62.4 kg (137 lb 8 oz) (70%, Z= 0.51)* 03/07/2022 62.1 kg (137 lb) (71%, Z= 0.57)* Last 4 Encounter Ht Readings: Date: Ht: 12/14/2023 156.7 cm (5' 1.69) (15%, Z= -1.02)* 10/18/2023 156.7 cm (5' 1.69) (15%, Z= -1.02)* 03/07/2022 156.2 cm (5' 1.5) (14%, Z= -1.07)* 03/01/2021 156.5 cm (5' 1.61) (16%, Z= -0.99)* General: Well developed, No acute distress Head: normocephalic Eyes: conjunctivae/corneas clear Ears: TMs translucent bilaterally, normal landmarks noted Nose: no erythema or rhinorrhea Oropharynx: moist mucous membranes, no erythema or exudate Neck: supple, no adenopathy Resp: lungs clear to auscultation Heart: Normal rate, regular rhythm, no murmur Abdomen: Soft, nontender, nondistended, no palpable organomegaly or masses Genitalia: deferred Extremities: Full ROM and no swelling, erythema or tenderness Neuro: No focal deficits or abnormal findings present Skin: acne chin and cheeks Mild ASSESSMENT & PLAN Encounter Diagnosis ICD-10-CM 1. Encounter for general adult medical examination with abnormal findings Z00.01 2. Generalized anxiety disorder F41.1 3. Acne vulgaris L70.0 76 %ile (Z= 0.71) based on CDC (Girls, 2-20 Years) BMI-for-age based on BMI available as of 12/14/2023. Bina is healthy range (BMI 5th% - 84th%): -To maintain a healthy weight, discussed limiting screen time to less than 2 hours per day, physical activity for at least one hour per day, 5 servings of fruits and vegetables per day, 3 meals per day, family meals ar home and no sugar containing beverages Based on PHQ-9 Score: 14 and interview, presentation is consistent with diagnosis of depression: -Continue current psychiatry management. Based on PEGGY-7 Score: 5 and interview, relatively well managed. Continue current psych management. - Discussed diet and safety. - Dental care discussed. - Bright Futures handout given (See Patient Instructions). - No immunizations were recommended to be given at this visit. - Healthcare transition statement discussed. - Follow up in one year for routine physical. MENTAL HEALTH PLAN: Continue current psychiatry management ACNE PLAN: Follow with Derm Nicky Mclaughlin MD documented in this encounter [facility] 11-20-2023 Telephone encounter Note Called and spoke with patient. Appointment scheduled for 12/04/23. Lisa Borja RN [facility] 11-20-2023 Miscellaneous Notes Called and spoke with patient. Appointment scheduled for 12/04/23. Lisa Borja RN Please reach out again to schedule WCC if she is able to at this time. Nicky Mclaughlin MD Called and spoke with patient. She reports that she just had surgery and does not wish to schedule a physical at this time. Lisa Borja RN Please reach out and offer annual physical scheduling. It looks like her last physical was 03/2022 and at her appointment last week we discussed several issues. Nicky Mclaughlin MD documented in this encounter [facility] 11-20-2023 Telephone encounter Note Please reach out again to schedule WCC if she is able to at this time. Nicky Mclaughlin MD [facility] 10-31-2023 Telephone encounter Note Called and spoke with patient. She reports that she just had surgery and does not wish to schedule a physical at this time. Lisa Borja RN [facility] 10-31-2023 Telephone encounter Note Please reach out and offer annual physical scheduling. It looks like her last physical was 03/2022 and at her appointment last week we discussed several issues. Nicky Mclaughlin MD [facility] 10-18-2023 History of Presen t illness Narrative Images from the original note were not included. PEDIATRIC SICK VISIT SUBJECTIVE: Bina Campos is a 18 year old with a history of anxiety who presents with various concerns/complaints. She is interested in stopping her control medication because she thinks she has a hormonal imbalance. This medication is prescribed by her CARDIOTHORACIC PHYSIOTHERAPIST, Em Machuca at [facility]. She has a history of anxiety and depression. She has been managed by psychiatry through [facility] and has more recently been diagnosed with ADHD as well. She doesn't feel like anxiety is a problem for her really anymore. She now thinks depression is more of an issue for her. She was diagnosed with ADHD because during a sleep study she had a lot of fidgeting and couldn't fall asleep. She feels like this diagnosis and treatment has been helpful for her. Olimpia Rivera at [facility] is managing her ADHD, anxiety and depression symptoms. She is taking Lexapro for these symptoms. She thinks her happiest times are when she is on her period/off the pill or hormonal supplements. She thinks the pill has been affecting her badly for a while but her mother wanted her to be on it. Now that she is 18 years old she wants to take some initiative and get off of it. Bina points out that her hormonal imbalance is preventing her from seeing the results she desires from her workouts. She is doing a lot of exercising. She is building muscle in her arms and legs but feels like she can never get muscles in her abdomen. She feels like she can't lose fat in her abdomen and has stomach bloat. She feels like she can't make any progress and it's very frustrating. She changed her diet and tried to eliminate all dairy products. She tried no gluten and she tried keto diets but these didn't help. It also doesn't matter the amount that she eats, she still feels like she has fat in her abdomen that won't budge. Bina also brings up her acne as a symptom of hormonal imbalance. She is seeing [facility] and they have her on spironolactone 100mg tablets. She has been on spironolactone for the past 2 years. She was previously on minocycline and doxycycline. She thinks she is bruising easily. Her iron levels are normal but she thinks she is bruising easily. She has a bowel movement every day to every twice a day. She takes medication to make her stool more solid. She takes a lot of digestive aids like drinks etc to soothe her stomach because it hurts a lot. She drinks a lot of smoothies and tries to increase her protein. She heard about a copper IUD and other alternative control methods. She heard about an Oura ring that monitors your sleep, metabolism, movements, etc and she is interested in getting this so she can monitor her symptoms more. 10/18/2023 PHQ-A Scores Severity Score 18 (Moderately severe depression) PHQ-A Score Interpretation 0 - 4 No or minimal depression 5 - 9 Minimal depression 10 - 14 Moderate depression 15 - 19 Moderately severe depression 20 - 27 Severe depression 10/18/2023 PEGGY - 2/7 SCORES PEGGY-2 Score 3 PEGGY-7 Score 13 History was obtained from: patient HISTORY: ACTIVE PROBLEM LIST Contusion of Face, Scalp, and Neck Except Eye(s) Cough Variant Asthma Generalized Anxiety Disorder Sleep Disorder With Mood Complaints PAST MEDICAL HISTORY Diagnosis Date Contusion of face, scalp, and neck Cough variant asthma Generalized anxiety disorder Menstrual cycle disorder 01/2017 NEGATIVE MEDICAL HISTORY PMH - PAST MEDICAL HISTORY OF 09/8/09 normal color vision PAST SURGICAL HISTORY Procedure Laterality Date DENTAL SURGERY PROCEDURE 2022 [place] teeth removal NONE Allergies: ALLERGIES Allergen Reactions Amoxicillin Hives Medications: escitalopram oxalate (LEXAPRO) 10 mg tablet TAKE 1.5 TABLETS (15 MG) BY MOUTH DAILY FOR 14 DAYS, THEN 1 TABLET (10 MG) DAILY FOR 30 DAYS. spironolactone (ALDACTONE) 50 mg tablet Take by mouth once daily. cholecalciferol (VITAMIN D3) 1,000 unit tab tablet Take 2,000 Units by mouth. amphetamine-dextroamphetamine XR (ADDERALL XR) 15 mg 24 hr capsule Take 15 mg by mouth. Azelaic Acid 15 % gel as needed. albuterol HFA (PROAIR HFA) 90 mcg/actuation inhaler 2 puffs every four hours as needed.May also 15 minutes pre-exercise.Use w/spacer. Norethin Cain-Eth Estrad-FE (LOESTRIN FE 06/24) 1 mg-20 mcg (21)/75 mg (7) per tablet Take 1 tablet by mouth once daily. multivitamins(CHEWABLE MULTI VITAMIN TAB) Take one(1) tablet daily. pimecrolimus (ELIDEL) 1 % cream OBJECTIVE: BP 112/60 Pulse 80 Temp 36.7 C (98.1 F) (Temporal Artery) Resp 12 Ht 156.7 cm (5' 1.69) Wt 61.2 kg (135 lb) LMP 09/20/2023 BMI 24.94 kg/m EXAM: APPEARANCE Well appearing, alert, in no acute distress, well-hydrated, well nourished. PSYCH: Posture and motor behavior: normal posture and motor behavior Dress, grooming, personal hygiene: normal dress and grooming Facial expression: good eye contact Speech: normal speech Mood: anxious Coherency and relevance of thought: normal thought processes Memory: normal memory ASSESSMENT/PLAN: Encounter Diagnosis ICD-10-CM 1. Depression with anxiety F41.8 2. Attention deficit hyperactivity disorder (ADHD), unspecified ADHD type F90.9 3. Acne vulgaris L70.0 18 year old female with depression, anxiety, and ADHD without optimization of symptoms. She is on OCP with some potential side effects. Based on PEGGY-7 Score: 13 and interview, presentation is consistent with anxiety: -Continue current psychiatry management. HORMONES Recommended follow up with CARDIOTHORACIC PHYSIOTHERAPIST to discuss side effect concerns and other options for control. ACNE Recommended follow up with Dermatology for further discussion and management Overdue for annual physical. Recommend follow up for further discussion. Nicky Mclaughlin MD I spent a total of 45 minutes on the date of the service which included preparing to see the patient, [id number] patient care, completing clinical documentation, obtaining and/or reviewing separately obtained history, performing a medically appropriate examination, counseling and educating the patient/family/caregiver, and ordering medications, tests, or procedures. documented in this encounter [facility] 10-18-2023 Instructions Nicky Mclaughlin MD - 10/18/2023 10:15 AM EDT 5 to Go!TM Healthy Kids Inside & Out 5 Eat FIVE fruits and veggies a day 4 Give and get FOUR compliments a day 3 Consume THREE calcium products a day 2 Limit media time to TWO hours a day 1 Get at least ONE hour of exercise a day 0 Consume ZERO sugar-sweetened drinks Go! Be healthy, inside and out! [email or web address] documented in this encounter [facility] 10-18-2023 Note HNO ID: [id number] Author: NICKY MCLAUGHLIN MD Service: ? Author Type: Physician Type: Progress Notes Filed: 10/31/2023 16:18 Note Text: PEDIATRIC SICK VISIT SUBJECTIVE: Bina Campos is a 18 year old with a history of anxiety who presents with various concerns/complaints. She is interested in stopping her control medication because she thinks she has a hormonal imbalance. This medication is prescribed by her CARDIOTHORACIC PHYSIOTHERAPIST, Em Machuca at [facility]. She has a history of anxiety and depression. She has been managed by psychiatry through [facility] and has more recently been diagnosed with ADHD as well. She doesn't feel like anxiety is a problem for her really anymore. She now thinks depression is more of an issue for her. She was diagnosed with ADHD because during a sleep study she had a lot of fidgeting and couldn't fall asleep. She feels like this diagnosis and treatment has been helpful for her. Olimpia Rivera at [facility] is managing her ADHD, anxiety and depression symptoms. She is taking Lexapro for these symptoms. She thinks her happiest times are when she is on her period/off the pill or hormonal supplements. She thinks the pill has been affecting her badly for a while but her mother wanted her to be on it. Now that she is 18 years old she wants to take some initiative and get off of it. Bina points out that her hormonal imbalance is preventing her from seeing the results she desires from her workouts. She is doing a lot of exercising. She is building muscle in her arms and legs but feels like she can never get muscles in her abdomen. She feels like she can't lose fat in her abdomen and has stomach bloat. She feels like she can't make any progress and it's very frustrating. She changed her diet and tried to eliminate all dairy products. She tried no gluten and she tried keto diets but these didn't help. It also doesn't matter the amount that she eats, she still feels like she has fat in her abdomen that won't budge. Bina also brings up her acne as a symptom of hormonal imbalance. She is seeing [facility] and they have her on spironolactone 100mg tablets. She has been on spironolactone for the past 2 years. She was previously on minocycline and doxycycline. She thinks she is bruising easily. Her iron levels are normal but she thinks she is bruising easily. She has a bowel movement every day to every twice a day. She takes medication to make her stool more solid. She takes a lot of digestive aids like drinks etc to soothe her stomach because it hurts a lot. She drinks a lot of smoothies and tries to increase her protein. She heard about a copper IUD and other alternative control methods. She heard about an Oura ring that monitors your sleep, metabolism, movements, etc and she is interested in getting this so she can monitor her symptoms more. 10/18/2023 PHQ-A Scores Severity Score 18 (Moderately severe depression) PHQ-A Score Interpretation 0 - 4 No or minimal depression 5 - 9 Minimal depression 10 - 14 Moderate depression 15 - 19 Moderately severe depression 20 - 27 Severe depression 10/18/2023 PEGGY - 2/7 SCORES PEGGY-2 Score 3 PEGGY-7 Score 13 History was obtained from: patient HISTORY: ACTIVE PROBLEM LIST Contusion of Face, Scalp, and Neck Except Eye(s) Cough Variant Asthma Generalized Anxiety Disorder Sleep Disorder With Mood Complaints PAST MEDICAL HISTORY Diagnosis Date Contusion of face, scalp, and neck Cough variant asthma Generalized anxiety disorder Menstrual cycle disorder 01/2017 NEGATIVE MEDICAL HISTORY PMH - PAST MEDICAL HISTORY OF 02/10/09 normal color vision PAST SURGICAL HISTORY Procedure Laterality Date DENTAL SURGERY PROCEDURE 2022 [place] teeth removal NONE Allergies: ALLERGIES Allergen Reactions Amoxicillin Hives Medications: escitalopram oxalate (LEXAPRO) 10 mg tablet TAKE 1.5 TABLETS (15 MG) BY MOUTH DAILY FOR 14 DAYS, THEN 1 TABLET (10 MG) DAILY FOR 30 DAYS. spironolactone (ALDACTONE) 50 mg tablet Take by mouth once daily. cholecalciferol (VITAMIN D3) 1,000 unit tab tablet Take 2,000 Units by mouth. amphetamine-dextroamphetamine XR (ADDERALL XR) 15 mg 24 hr capsule Take 15 mg by mouth. Azelaic Acid 15 % gel as needed. albuterol HFA (PROAIR HFA) 90 mcg/actuation inhaler 2 puffs every four hours as needed.May also 15 minutes pre-exercise.Use w/spacer. Norethin Cain-Eth Estrad-FE (LOESTRIN FE 06/24) 1 mg-20 mcg (21)/75 mg (7) per tablet Take 1 tablet by mouth once daily. multivitamins(CHEWABLE MULTI VITAMIN TAB) Take one(1) tablet daily. pimecrolimus (ELIDEL) 1 % cream OBJECTIVE: BP 112/60 Pulse 80 Temp 36.7 ?C (98.1 ?F) (Temporal Artery) Resp 12 Ht 156.7 cm (5' 1.69) Wt 61.2 kg (135 lb) LMP 09/20/2023 BMI 24.94 kg/m? EXAM: APPEARANCE Well appearing, alert, in no acute distress, well-hydrated, well nourished. PSYCH: Posture and motor be (more content not included)... [facility] 01-25-2023 Miscellaneous Notes We can put in an order for her blood type, but since we don't have a specific reason to do it, her insurance might not cover it. If there is an emergency they typically use universal blood (O negative) that can be given to any blood type so that isn't an issue. Most people don't know their blood type. There are certain times during her life that it is typically checked such as donating blood, having major surgery (including delivering a baby), etc so I'm sure we will eventually test her. Please see if she still wants this ordered. She may want to check with insurance and we can try to get an estimated cost for her if necessary. Nicky Mclaughlin MD documented in this encounter [facility] 11-09-2022 Instructions Rossy Manrique MD - 11/09/2022 2:01 PM EDT increase inhaled nasal steroid to 1 puff twice daily EVERY DAY for next 2 weeks Claritin, zyrtec or helen once daily chew gum to help open up eustachian tubes recheck in 2 weeks documented in this encounter [facility] 11-09-2022 History of Presen t illness Narrative Chief complaint - having trouble hearing out of the left ear (X 1 wk has some allergies, sneezing and runny nose) SUBJECTIVE: Bina Campos 17 year old FEMALE for evaluation of decreased hearing in the left ear for the past week. Patient has a history of environmental and seasonal allergies. She has been taking Claritin daily and taking an inhaled nasal steroid as needed but not on a regular basis. She denies ear pain. Some nasal congestion. . ROS -no sore throat, cough or fever. OBJECTIVE: Temp 36.6 C (97.9 F) (Temporal) Wt 62.4 kg (137 lb 8 oz) LMP 10/19/2022 General: alert and active in no apparent distress Eyes: conjunctiva clear, PERRL, EOMI Ears: Ear canals are normal and free of cerumen, right TM is normal. Left TM has clear fluid behind the drum. Nose: clear rhinorrhea/nasal congestion OP: no lesions, no erythema ASSESSMENT/PLAN: 1. OME (otitis media with effusion), left - ICD9: 381.4, ICD10: H65.92 - HEARING SCREENING-lightly reduced on the left side. see patient instructions -increase inhaled nasal steroid to 1 puff twice daily and continue daily Zyrtec. re Check 2 weeks. Rossy Manrique MD HEARING EXAM: Frequency 2000Hz Right 5 dB Left 20 dB 4000Hz Right 5 dB Left 15 dB Nessa Tamayo Ma documented in this encounter [facility] 05-14-2022 Hospital Discharg e instructions Patient Education 05/14/2022 09:39:09 Fracture, Finger, Closed Finger Fracture, Closed You have a broken finger (fracture). This causes local pain, swelling, and bruising. This injury usually takes about 4 to 6 weeks to heal, but can take longer in some cases. Finger injuries are often treated with a splint or cast, or by taping the injured finger to the next one (marcos taping). This protects the injured finger and holds the bone in position while it heals. More serious fractures may need surgery. If the fingernail has been severely injured, it will probably fall off in 1 to 2 weeks. A new fingernail will usually start to grow back within a month. Home care Follow these guidelines when caring for yourself at home: Keep your hand elevated to reduce pain and swelling. When sitting or lying down keep your arm above the level of your heart. You can do this by placing your arm on a pillow that rests on your chest or on a pillow at your side. This is most important during the first 2 days (48 hours) after the injury. Put an ice pack on the injured area. Do this for 20 minutes every 1 to 2 hours the first day for pain relief. You can make an ice pack by wrapping a plastic bag of ice cubes in a thin towel. As the ice melts, be careful that the cast or splint doesn t get wet. Continue using the ice pack 3 to 4 times a day until the pain and swelling go away. Keep the cast or splint completely dry at all times. Bathe with your cast or splint out of the water. Protect it with a large plastic bag, rubber-banded at the top end. If a fiberglass cast or splint gets wet, you can dry it with a social sciences chair. If marcos tape was put on and it becomes wet or dirty, change it. You may replace it with paper, plastic, or cloth tape. Cloth tape and paper tapes must be kept dry. Keep the marcos tape in place for at least 4 weeks. You may use acetaminophen or ibuprofen to control pain, unless another pain medicine was prescribed. If you have chronic liver or kidney disease, talk with your healthcare provider before using these medicines. Also talk with your provider if you ve had a stomach ulcer or gastrointestinal bleeding. Don t put creams or objects under the cast if you have itching. Follow-up care Follow up with your healthcare provider, or as advised. This is to make sure the bone is healing the way it should. X-rays may be taken. You will be told of any new findings that may affect your care. When to seek medical advice Call your healthcare provider right away if any of these occur: The plaster cast or splint becomes wet or soft The cast or splint cracks The fiberglass cast or splint stays wet for more than 24 hours Pain or swelling gets worse Redness, warmth, swelling, drainage from the wound, or foul odor from a cast or splint Finger becomes more cold, blue, numb, or tingly You can t move your finger The skin around the cast or splint becomes red Fever of 100.4 F (38 C) or higher, or as directed by your healthcare provider [phone] [employer]. [address] [place] [address]. All rights reserved. This information is not intended as a substitute for professional medical care. Always follow your healthcare professional's instructions. Follow Up Care 05/14/2022 08:35:59 With:MD NICKY MCLAUGHLIN Address: [address] [address] [phone] When:2-4 days With:Go to emergency room if symptoms worsen Address:Unknown When:2-4 days [facility] 05-14-2022 Note Discharge Instructions Thank you for allowing [facility] to assist you with your healthcare needs. The following is important discharge information regarding your hospital visit. Diagnosis from Today's Visit Subungual hematoma Finger pain-swelling What to Do Next Instructions from Your Care Team Ice bag and elevation all day. No qualifying data available. Post Acute Orders No qualifying data available. You Need to Schedule the Following Appointments Follow Up with MD NICKY MCLAUGHLIN When Within 2-4 days Where: [facility] [address] [place] [address] [phone] Follow Up with Go to emergency room if symptoms worsen When Within 2-4 days Allergies amoxicillin penicillin Medications Please ask your primary doctor or pharmacist before taking any other medication not listed, including over the counter drugs, herbal medications, vitamins and or supplements as they may interact with your home medications. What How Much When Why Instructions Last Dose Unchanged acetaminophen-oxyCODONE (Percocet 5 mg-325 mg oral tablet) 1 tab(s) by mouth Every 4 hours as needed for for pain Kidney stone Duration: 3 Days Unchanged albuterol (Albuterol (Eqv-ProAir HFA) 90 mcg/ inh inhalation aerosol) Unchanged amphetamine-dextroamphetamine (Adderall XR 15 mg oral capsule, extended release) Unchanged cefdinir (cefdinir 300 mg oral capsule) 1 cap by mouth Every 12 hours Kidney stone Duration: 7 Days Unchanged dexamethasone-tobramycin ophthalmic (Tobradex ophthalmic suspension) 2 Drops Both eyes Every 4 hours Allergic reaction Duration: 3 Days Unchanged escitalopram (escitalopram 20 mg oral tablet) Unchanged ethinyl estradiol-norethindrone (Junel Fe oral tablet) Unchanged Misc Medication ( Control Pill) Unchanged ondansetron (ondansetron 4 mg oral tablet, disintegrating) 1 tab(s) by mouth Every 8 hours as needed for as needed for nausea/vomiting Duration: 3 Days Unchanged ondansetron (Zofran 4 mg oral tablet) 1 tab(s) by mouth Every 4 hours as needed for Nausea/Vomiting Kidney stone Unchanged predniSONE (predniSONE 20 mg oral tablet) 2 tab(s) by mouth Every day Allergic reaction Duration: 5 Days Unchanged sertraline (Zoloft) 25 Milligram by mouth Once a day Unchanged spironolactone (spironolactone 50 mg oral tablet) Please take this list to your next doctor s visit. Bring all medications you take, including over the counter medications, herbals and other supplements with you to your doctor s visit. Patients and families are reminded to discard old lists and to update any records with all medication providers or retail pharmacies. Education Materials Finger Fracture, Closed You have a broken finger (fracture). This causes local pain, swelling, and bruising. This injury usually takes about 4 to 6 weeks to heal, but can take longer in some cases. Finger injuries are often treated with a splint or cast, or by taping the injured finger to the next one (marcos taping). This protects the injured finger and holds the bone in position while it heals. More serious fractures may need surgery. If the fingernail has been severely injured, it will probably fall off in 1 to 2 weeks. A new fingernail will usually start to grow back within a month. Home care Follow these guidelines when caring for yourself at home: Keep your hand elevated to reduce pain and swelling. When sitting or lying down keep your arm above the level of your heart. You can do this by placing your arm on a pillow that rests on your chest or on a pillow at your side. This is most important during the first 2 days (48 hours) after the injury. Put an ice pack on the injured area. Do this for 20 minutes every 1 to 2 hours the first day for pain relief. You can make an ice pack by wrapping a plastic bag of ice cubes in a thin towel. As the ice melts, be careful that the cast or splint doesn t get wet. Continue using the ice pack 3 to 4 times a day until the pain and swelling go away. Keep the cast or splint completely dry at all times. Bathe with your cast or splint out of the water. Protect it with a large plastic bag, rubber-banded at the top end. If a fiberglass cast or splint gets wet, you can dry it with a social sciences chair. If marcos tape was put on and it becomes wet or dirty, change it. You may replace it with paper, plastic, or cloth tape. Cloth tape and paper tapes must be kept dry. Keep the marcos tape in place for at least 4 weeks. You may use acetaminophen or ibuprofen to control pain, unless another pain medicine was prescribed. If you have chronic liver or kidney disease, talk with your healthcare provider before using these medicines. Also talk with your provider if you ve had a stomach ulcer or gastrointestinal bleeding. Don t put creams or objects under the cast if you have itching. Follow-up care Follow up with your healthcare provider, or as advised. This is to make sure the bone is healing the way it should. X-rays may be taken. You will be told of any new findings that may affect your care. When to seek medical advice Call your healthcare provider right away if any of these occur: The plaster cast or splint becomes wet or soft The cast or splint cracks The fiberglass cast or splint stays wet for more than 24 hours Pain or swelling gets worse Redness, warmth, swelling, drainage from the wound, or foul odor from a cast or splint Finger becomes more cold, blue, numb, or tingly You can t move your finger The skin around the cast or splint becomes red Fever of 100.4 F (38 C) or higher, or as directed by your healthcare provider [phone] [employer]. [address] [place] [address]. All rights reserved. This information is not intended as a substitute for professional medical care. Always follow your healthcare professional's instructions. Additional Information VACCINATE! IT SAVES LIVES! Members of the community who have not yet received the COVID-19 vaccine and would like to receive it can visit one of [facility] vaccine clinics. There are many vaccine clinic locations within the [facility]. For locations and available times, please visit [email or web address]. It is important to note that some COVID mobile vaccine clinics are held outdoors and may be canceled in rainy or stormy conditions. To learn more about pediatric vaccinations (ages 5-11), we invite you to visit the [facility] webpage. [email or web address] To learn more about the COVID-19 vaccine, we invite you to visit the [employer] website for a list of frequently asked questions. [email or web address] [facility] Patient Portal Access Instructions: Stay connected with your healthcare team and access your personal medical information anytime with the [facility] [employer] Patient Portal. If you would like a full copy of your medical records please contact the [facility] Medical Records Department Monday through Monday between 8a.m. and 4:30p.m. Please follow the directions below to access the portal: 1.Access the email account you provided upon registration to the [facility].2.Look for an invitation email from [facility].3.Open the email and access the invitation link: Accept Invitation to [facility].Fill in the required dalton to create your account. Sign into [email or web address] with your username and password that you created in the above steps to stay up to date. You can then view a summary of results, a summary of your visits, and the ability to download your summaries to your computer or send the information securely to a physician. Remember that your healthcare information is confidential, so carefully consider who you will allow to register on the [facility] Patient Portal for access to your information. You can also access the [employer] Patient Portal on the [employer] dany. Simply click on Health Records under Health Data and then click on the See logo. HOW TO SAFELY DISPOSE OF PRESCRIPTION MEDICATIONS Please use one of the following methods to safely dispose of your unused medications. 1.Use a drug disposal kit: the drug disposal pouch allows you to safely discard your old and unused drugs. Ask your nurse to give you one when you are discharged.2.Visit a local take-back location: Many local pharmacies and police departments have programs that collect old and unwanted prescription drugs. Call your local pharmacy or go to http://bit.Viewdle/5S0Fz9t to find one close to you.3.Make use of household items: Use cat litter or old coffee grounds to dispose medications if other options are not available. Mix your drugs with these household products, seal them in an airtight container and throw it into the garbage. Call [facility]: [phone] to be sure your drugs can be disposed of in this way. Some medicines may require a different approach.4.Never flush your medications down the toilet. IF YOU HAVE BEEN PRESCRIBED AN OPIOIDS FOR PAIN If you have been prescribed an opioid (such as hydrocodone, oxycodone or morphine), it is critical to understand the possible side effects and risks of opioid pain medications. Even when taken as directed, opioids can have several side effects including: Tolerance, meaning you might need to take more of a medication for the same pain relief. Nausea, vomiting and/or constipation. Sleepiness, dizziness, dry mouth, confusion, depression or itching. Physical dependence, meaning you have withdrawal symptoms when a medication is stopped ? this can develop within a few days. KNOW YOUR RESPONSIBILITIES It is important to know exactly how much and how often to take the opioid pain medications you are prescribed. Never take opioids in higher amounts or more often than prescribed. Do not combine opioids with alcohol or other drugs that cause drowsiness, such as benzodiazepines, also known as benzos, including diazepam and alprazolam, muscle relaxants or sleep aids. Never sell or share prescription opioids. This is illegal. Store opioids in a secure place and out of reach of others (including children, family, friends and visitors). The last page(s) of this document has been signed and retained as a CHART COPY Signatures Patient Education Materials Fracture, Finger, Closed Medication Leaflets My discharge plan and instructions have been reviewed and explained to me and I,BINA CAMPOS understand my current condition and have read and understand these discharge instructions. I have received a written copy of the plan/instructions. If I have questions, I am aware that I should contact my doctor. 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 HISTORY: ORDERING SYSTEM PROVIDED HISTORY: Reason for Exam: pain Smashed finger in car door. FINDINGS: Radiographic evaluation of the thumb demonstrates a mild depression of the anterior surface of the distal phalanx of the 1st digit. There is no fracture line otherwise seen. No evidence of interphalangeal joint involvement. Mild soft tissue swelling is noted. IMPRESSION: Depression of the anterior cortical surface of the distal phalanx of the 1st digit. Mild soft tissue swelling. Interpreted by: Daniel Nguyen MD Preliminary Report By: Daniel Nguyen MD Electronically signed By Daniel Nguyen MD Dictated Date: 05/14/2022 9:12:38 AM Prelim Date: 05/14/2022 9:14:18 AM Sign Date: 05/14/2022 9:14:18 AM Ordering Provider: [facility] 05-14-2022 Note ORIGINAL EXAMINATION: THREE XRAY VIEWS OF THE RIGHT THUMB 05/14/2022 9:10 am COMPARISON: None. HISTORY: ORDERING SYSTEM PROVIDED HISTORY: Reason for Exam: pain Smashed finger in car door. FINDINGS: Radiographic evaluation of the thumb demonstrates a mild depression of the anterior surface of the distal phalanx of the 1st digit. There is no fracture line otherwise seen. No evidence of interphalangeal joint involvement. Mild soft tissue swelling is noted. IMPRESSION: Depression of the anterior cortical surface of the distal phalanx of the 1st digit. Mild soft tissue swelling. Interpreted by: Daniel Nguyen MD Preliminary Report By: Daniel Nguyen MD Electronically signed By Daniel Nguyen MD Dictated Date: 05/14/2022 9:12:38 AM Prelim Date: 05/14/2022 9:14:18 AM Sign Date: 05/14/2022 9:14:18 AM Ordering Provider: [facility] Evaluation + Plan note No data available for this section [facility] Evaluation note Diagnosis Onset Date Dysmenorrhea acute Encounter for routine gyneco logical examination noneactive [facility] Work Phone: Evaluation note* Diagnosis OME (otitis media with effusion), left- Primary documented in this encounter [facility] note* Diagnosis Depression with anxiety- Primary Dysthymic disorder Attention deficit hyperactivity disorder (ADHD), unspecified ADHD type Acne vulgaris Other acne documented in this encounter [facility] note* Diagnosis Encounter for general adult medical examination with abnormal findings- Primary Unspecified general medical examination Generalized anxiety disorder Acne vulgaris Other acne documented in this encounter [facility] note* Diagnosis Kidney stones- Primary Calculus of kidney documented in this encounter 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) Reason for Visit Dysmenorrhea Encounter for routine gynecological examination Family History No Family History Records Found Relationship Condition Age at Onset Recorded Date/T bradley grandfather Squamous cell carcinoma Unknown Diabetes mellitus Unknown Cardiac disease Unknown aunt Malignant neoplasm of breast Unknown uncle Leukemia Unknown grandmother Diabetes mellitus Unknown Summary Purpose Advance Directives No Advanced Directives Records FoundNo Advanced Directives Records FoundNo Advanced Directives Records FoundNo Advanced Directives Records FoundNo Advanced Directives Records FoundNo Advanced Directives Records Found Reason for Referral Specialty Diagnoses / Procedures Referred By Isabel t Referred To Contact Urology Diagnoses Kidney stones Procedures CONSULT TO UROLOGY OFFICE/OUTPATIENT [facility] 60 MINUTES Nicky Mclaughlin MD [address] [place] [address] Referral ID Status Reason Start Date Expiration Date Visits Requested Visits Authorized [id number] Authorized PCP Requested Referral 04/12/2024 04/12/2025 1 1 Specialty Diagnoses / Procedures Referred By Contac t Referred To Contact Diagnoses Cough variant asthma Nicky Mclaughlin MD [address] [place] [address] Referral ID Status Reason Start Date Expiration Date Visits Re quested Visits Authorized [id number] Denied 1 1 Additional Source Comments Source Comments (unrecognize d section and content) In the event this informatio n is protected by the Federal Confidentiality of Alcohol and Drug Abuse Patient Records regulations: The Federal rules restrict any use of the information to criminally investigate or prosecute any alcohol or drug abuse patient.[facility] the event this information is protected by the Federal Confidentiality of Alcohol and Drug Abuse Patient Records regulations: The Federal rules restrict any use of the information to criminally investigate or prosecute any alcohol or drug abuse patient.[facility] Hospital[facility] the event this information is protected by the Federal Confidentiality of Alcohol and Drug Abuse Patient Records regulations: The Federal rules restrict any use of the information to criminally investigate or prosecute any alcohol or drug abuse patient.[facility] Hospital[facility] the event this information is protected by the Federal Confidentiality of Alcohol and Drug Abuse Patient Records regulations: The Federal rules restrict any use of the information to criminally investigate or prosecute any alcohol or drug abuse patient.[facility] Hospital[facility] the event this information is protected by the Federal Confidentiality of Alcohol and Drug Abuse Patient Records regulations: The Federal rules restrict any use of the information to criminally investigate or prosecute any alcohol or drug abuse patient.[facility] Hospital[facility] the event this information is protected by the Federal Confidentiality of Alcohol and Drug Abuse Patient Records regulations: The Federal rules restrict any use of the information to criminally investigate or prosecute any alcohol or drug abuse patient.[facility] HospitalIn the event this information is protected by the Federal Confidentiality of Alcohol and Drug Abuse Patient Records regulations: The Federal rules restrict any use of the information to criminally investigate or prosecute any alcohol or drug abuse patient.[facility] Hospital[facility] the event this information is protected by the Federal Confidentiality of Alcohol and Drug Abuse Patient Records regulations: The Federal rules restrict any use of the information to criminally investigate or prosecute any alcohol or drug abuse patient.[facility] HospitalIn the event this information is protected by the Federal Confidentiality of Alcohol and Drug Abuse Patient Records regulations: The Federal rules restrict any use of the information to criminally investigate or prosecute any alcohol or drug abuse patient.[facility] Care Teams (unrecognized sec tion and content) Tire Changer Relationship Specialty Start Date End Date Nicky Mclaughlin MD [address] [place], [place] [id number] PCP - General Pediatrics 08/24/18 Tire Changer Relationship Specialty Start Date End Date Nicky Mclaughlin MD [address] [place], [place] [id number] [phone] PCP - General Pediatrics 08/24/18 Tire Changer Relationship Specialty Start Date End Date Nicky Mclaughlin MD [address] [place], [place] [id number] PCP - General Pediatrics 08/24/18 Tire Changer Relationship Specialty Start Date End Date Nicky Mclaughlin MD [address] [place], [place] [address] [phone] PCP - General Pediatrics 08/24/18 Tire Changer Relationship Specialty Start Date End Date Nicky Mclaughlin MD [address] [place] [address] PCP - General Pediatrics 08/24/18 Tire Changer Relationship Specialty Start Date End Date Nicky Mclaughlin MD [address] [place], [place] [address] PCP - General Pediatrics 08/24/18 Tire Changer Relationship Specialty Start Date End Date Nicky Mclaughlin MD [address] [place], [place] [address] PCP - General Pediatrics 08/24/18 Tire Changer Relationship Specialty Start Date End Date Armando Gonzales MD [address] [place] [phone] Surgeon Urology 04/16/24 Tire Changer Relationship Specialty Start Date End Date Nicky Mclaughlin MD [address] [place], [place] [address] PCP - General Pediatrics 08/24/18 Tire Changer Relationship Specialty Start Date End Date Armando Gonzales MD [address] [place] [address] Surgeon Urology 04/16/24 Eduardo Kellogg MD [address] [place] [address] Surgeon Urology 05/21/24 Tire Changer Relationship Specialty Start Date End Date Armando Gonzales MD [address] [place] [address] Surgeon Urology 04/16/24 Eduardo Kellogg MD [address] [place] [address] Surgeon Urology 05/21/24 Tire Changer Relationship Specialty Start Date End Date Armando Gonzales MD [address] [place] [phone] Surgeon Urology 04/16/24 Eduardo Kellogg MD [address] [place] [address] Surgeon Urology 05/21/24 Tire Changer Relationship Specialty Start Date End Date Nicky Mclaughlin MD [address] [place] [address] PCP - General Pediatrics 08/24/18 06/27/24 Bayron Suarez MD [address] [facility] [place], [place] [phone] PCP - General Internal Medicine 06/28/24 Tire Changer Relationship Specialty Start Date End Date Armando Gonzales MD [address] [place] [phone] Surgeon Urology 04/16/24 Eduardo Kellogg MD [address] [place], [place] [id number] Surgeon Urology 05/21/24 Tire Changer Relationship Specialty Start Date End Date Bayron Suarez [address] [facility] [address] [place] [phone] PCP - General Internal Medicine 12/18/24 Armando Gonzales MD [address] [place] [phone] Surgeon Urology 04/16/24 Eduardo Kellogg MD [address] [place] [address] Surgeon Urology 05/21/24 Goals (unrecognized section and content) Goals may be documented in a n alternate section No data available for this section Care Team (unrecognized sect ion and content) Care Team Personnel Name: MD NICKY MCLAUGHLIN Member Role: Primary Care Physician Address: Address: [facility] [address] [place] [address]- Name: DOMINIQUE ACHARYA MD Position: ED Physician Member Role: ED Physician Address: Address: [facility] [address] [place] [address]- Care Team Related Persons Name: MARIVEL CAMPOS Name: QUINN CAMPOS Address: Home [address] [place] [address] [place] [address] Name: QUINN CAMPOS Address: Home [address] [place] [address] [place] [address] [place] INFORMATION SOURCE (unrecogn ized section and content) DATE CREATED AUTHOR 05/27/2022 [facility] ([place]) DATE CREATED AUTHOR AUTHOR'S ORGANIZ ATION 04/15/2024 [facility] DATE CREATED AUTHOR AUTHOR'S ORGANIZ ATION 04/16/2024 [facility] DATE CREATED AUTHOR AUTHOR'S ORGANIZ ATION 08/20/2024 [facility] DATE CREATED AUTHOR AUTHOR'S ORGANIZ ATION 12/22/2024 [facility] DATE CREATED AUTHOR AUTHOR'S ORGANIZ ATION 12/27/2024 [facility] Reason for Visit (unrecogniz ed section and content) Reason Comments having trouble hearing out of the left e ar X 1 wk has some allergies, sneezing and runny nose Reason Comments Discuss Medication Patient would like t o stop taking control pills. Patient feels that she experiences side effects of weight changes, depression and anxiety, hair loss, slow to heal from cuts, and abdominal bloating. Has always had these side effects since starting on medication, but has been taking due to parental request. Concerned about cortisol imbalance if the side effects are not resolved from stopping medications. syncopal episodes Has experienced sync opal episodes with blood draws and when in ER with kidney stones. Reason Comments Follow Up Reason Comments Well Child Reason Comments Kidney Stones Referral Request Reason Comments Nephrolithiasis Has history of stone s. Aged out of [facility]. Establishing for stone management. Complains of water retention/ bloating. Specialty Diagnoses / Procedures Referred By Isabel kapoor Referred To Contact Urology Diagnoses Calculus of kidney Procedures EVAL & TX Nicky Mclaughlin [address] [place] [address] Phone: tel: fax: [facility] [place] [address] [place] [address] Phone: tel: fax: Referral ID Status Reason Start Date Expiration Date Visits Requested Visits Authorized [id number] Pending Review Eval and Treat 4 04/15/2025 1 1 FOR RECORDS PERTAINING TO PATIENTS WHO ARE OR HAVE BEEN ENROLLED IN A CHEMICAL DEPENDENCY/SUBSTANCEABUSE PROGRAM, SOME INFORMATION MAY BE OMITTED. This clinical summary was aggregated from multiple sources. Caution should be exercised in using it in the provision of clinical care. This summary normalizes information from multiple sources, and as a consequence, information in this document may materially change the coding, format and clinical context of patient data. In addition, data may be omitted in some cases. CLINICAL DECISIONS SHOULD BE BASED ON THE PRIMARY CLINICAL RECORDS. [facility] [employer] [facility]. provides no warranty or guarantee of the accuracy or completeness of information in this document.
[2024-12-30] MEDS: Lactated Ringers 1,000 ML 15 ML IV (07:47)
--- NOTE | 2024-12-30 08:30 | COLBX_PTH ---
PATIENT: BINA LA LOC: EN U#:[id number] AGE/SX: 19/F ROOM: RE12/30/[address]: Dr. Kushal Hagen DO : 2005 BED: DIS: 12/30/2024 SPEC #: [id number] RECD: 12/30/24 09:50 STATUS: VIVI REJoe #: [id number] GODWIN: 12/30/24 08:[address]: Kushal Hagen DEPT: SURGICAL PATHOLOGY RECD BY: Nixon Bates ENTERED: 12/30/24 11:12 SP TYPE: COLON BX OTHR DR: Dr. Bayron Suarez MD Tissues: A - Ileum, NOS B - Ascending colon Procedures: Immunohistochemical Stains Surgery Specimen Level IV IHC Stain ADDITIONAL HEADER OPERATION: Colonoscopy, biopsy, polypectomy PRE-OP DIAGNOSIS: Bloating, abdominal distension, Celiac disease TISSUE SUBMITTED: A- Terminal ileum biopsy, B- Ascending polyp MICROSCOPIC DIAGNOSIS A. Terminal ileum, biopsy: - Normal villous morphology with focal prominent mucosal lymphoid tissue - see note. Note: Further evaluation of the lymphoid tissue is pending IHC evaluation. The final diagnosis will be reported in an addendum. B. Ascending colon, polyp, biopsy: - Sessile serrated lesion. MICROSCOPIC DESCRIPTION Slides are reviewed. GROSS DESCRIPTION A. Received in fixative is one container labeled with the patient's name and designated Terminal ileum biopsy. The specimen consists of three irregular fragments of light jacobo soft tissue, each measuring 0.4 cm. The specimen is totally submitted in one cassette. B. Received in fixative is one container labeled with the patient's name and designated Ascending polyp. The specimen consists of two irregular fragments of light jacobo soft tissue that in aggregate measure 0.2 and 0.4 cm. The specimen is totally submitted in one cassette. [place] 12/30/2024 CPT:62591h0,[id number] ADDENDUM ADDENDUM ADDENDUM ADDENDUM ADDENDUM ADDENDUM ADDENDUM ADDENDUM ADDENDUM ADDENDUM ADDENDUM ADDENDUM ADDENDUM ADDENDUM ADDENDUM ADDENDUM ADDENDUM ADDENDUM ADDENDUM ADDENDUM ADDENDUM ADDENDUM ADDENDUM ADDENDUM 01/09/2025 16:10 ADDENDUM 01/09/2025 16:10 ADDENDUM 01/09/2025 16:10 ADDENDUM 01/09/2025 16:10 ADDENDUM 01/09/2025 16:10 A. This addendum is to report the results of the IHC/OPHELIA stains on the terminal ileum biopsy: The IHC stains demonstrate a mixture of CD3+CD5+BCL2+ T-lymphocytes and CD19+CD20+PAX5+ B-lymphocytes. A rare CD10+BCL6+ and BCL2-negative germinal center is noted. CD21 and CD23 highlight preserved follicular dendritic meshworks. Ki67 is appropriately high within follicular centers and low in the interfollicular zones. BCL1 and SOX11 are negative. OPHELIA for kappa and lambda light chains is polytypic with a ratio of 3:2. These findings support a reactive lymphoid process. No evidence of a lymphoproliferative disorder is seen. All controls show appropriate reactivity. All immunohistochemistry, in situ hybridization, and histochemical tests were developed by and are performed at the [facility], [address] [place] [address]. All Immunofluorescent (IF)?tests were developed by and are performed at the [facility], [address] [place] [address], [place], [place] ?[address]. All tests reported here, except those addressing HER2 overexpression as a predictive marker, have not been cleared by or approved by the [place] Food and Drug Administration (FDA). The laboratory is regulated under CLIA as qualified to perform high-complexity testing. The tests are used for clinical purposes. They should not be regarded as investigational or for research
--- NOTE | 2024-12-30 08:38 | HP.PCM_ITS ---
HPI - General General Date of Admission: 12/30/24 Date of Service: 12/30/24 Chief Complaint: celiac HPI Narrative BINA LA, is a 19 F who presents with the Chief Complaint: celiac BGI established in Jun 2024 with severe bloating, hypersomnia and loose stools. Biochemical work up .; RAST food allergy peanut .13 H, wheat .12 H, egg .22 H, cows milk .28 H, corn .13 H, BALE BREAKER OPERATOR antibody H, centromere antibody H, endomysial IgA Ab H, TT IgA Ab H, CBC wnl, CMP wnl , IBD wnl GES 3.3.35; normal Stool; not completed *Pt contacted with results. Diagnosed with Celiac. Recommended scheduling for EGD. *Referred to rheum for elevated BALE BREAKER OPERATOR and centromere antibody. Dr. Pedroza exploring CREST OV 3.4.25 Pt doing well since avoiding all gluten. She has lost 15 lbs over the past month due to decreased bloating. No longer having loose stools. 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 EGD .08.27; Esophageal plaques were found, suspicious for candidiasis. - No gross lesions in the entire stomach. Biopsied. - Erythematous duodenopathy. Biopsied. - Biopsies were taken with a cold forceps for evaluation of eosinophilic esophagitis OV 5.. Pt having worsening symptoms sine her last visit. She is having bloating again which causes her abd to be hard and painful. She is following a very strict gluten free diet and lifestyle. She has changed all her skin care, tooth past, shampoo, condition and Adderall to gluten free. She has noticed i ncreasing acne along with the bloating. Her bowels are very irregular sometimes being constipated and somtimes having looser stools. When seh is bloated she will have thin stools. [facility] Medical History Gastric reflux Encounter to establish care ADHD Alcohol use Depression Marijuana use History of kidney stones Low iron Easy bruising Syncope Dietary restriction Asthma Celiac disease Home Medications ?Medication ?Instructions ?Recorded ?Last Taken ?Type ascorbate calcium (vitamin C) 500 500 mg PO QDAY PRN K IDNEY STONES 05/22/24 Unknown History mg tablet cranberry 500 mg capsule 500 mg PO BID PRN KIDNEY STO PIERCE 05/22/24 Unknown History potassium citrate 10 mEq (1,080 10 meq PO TIDCM Unknown History mg) tablet,extended release adapalene 0.3 %-benzoyl peroxide 1 applic topical QHS 10/10/24 Unknown History 2.5 % topical gel with pump clindamycin phosphate 1 % lotion 1 applic topical BID PRN PRN 10/10/24 Unknown History metronidazole 0.75 % topical gel 1 applic topical PRN ACNE 10/10/24 Unknown History dextroamphetamine-amphetamine ER 20 mg PO QAM 30 days #30 caps 11/29/24 Unknown Rx 20 mg 24hr capsule,extend release (Adderall XR) cholecalciferol (vitamin D3) 25 25 mcg PO DAILY Unknown History mcg (1,000 unit) capsule (Vitamin D3) Allergy/AdvReac Type Severity Reaction Status Date / Time amoxicillin Allergy Severe unknown Verified 12/30/24 07:46 barley Allergy GI DAMAGE Verified 12/30/24 07:46 gluten Allergy GI DAMAGE Verified 12/30/24 07:46 rye grass Allergy GI DAMAGE Verified 12/30/24 07:46 wheat Allergy GI DAMAGE Verified 12/30/24 07:46 egg (eggs) AdvReac Diarrhea Verified 12/30/24 07:46 milk (dairy) AdvReac Diarrhea Verified 12/30/24 07:46 Family History Grandfather Squamous cell carcinoma Diabetes Heart disease Aunt Breast cancer Uncle Leukemia Grandmother Diabetes Surgical History H/O endoscopy S/P tonsillectomy S/P wisdom tooth extraction Social History current occupational status: employed current occupation: [employer] Smoking Status: Never smoker alcohol intake: never substance use type: does not use caffeine: Yes what type of physical activity do you participate in: running and weight training frequency: 5-6 times per week seatbelt use: always do you feel safe at home: Yes additional social history: Single ROS Constitutional Constitutional: Denies fatigue, fever(s), poor appetite, weight gain or weight loss Gastrointestinal Gastrointestinal: Denies belching, bloating, change in bowel habits, change in stool character, chewing difficulty, coffee ground emesis, constipation, cramping, diarrhea, dyspepsia, dysphagia, early satiety, excessive flatus, fecal incontinence, heartburn, hematemesis, hematochezia, hemorrhoids, loose stools, melena, nausea, odynophagia, rectal bleeding, tenesmus, vomiting or weight changes Vital Signs Vital Signs Vital Signs: 12/30/24 07:48 12/30/24 07:48 Temperature 97.3 F L Temperature Source Temporal Pulse Rate 67 Respiratory Rate 16 Respiratory Pattern Normal Blood Pressure 100/59 L Blood Pressure Mean 72 Blood Pressure Source Monitor Blood Pressure Position Semi-Fowlers Blood Pressure Location Right Arm Pulse Ox 100 Oxygen Delivery Method Room Air Weight Weight: 127 lb 13.89 oz Body Mass Index (BMI) 24.1 Physical Exam Const alert, oriented x3, no apparent distress and healthy appearing General Appearance: cooperative GI normal to inspection, nondistended, normoactive bowel sounds, soft to palpation, non-tender and non-distended Percussion: normal to percussion Rectal Exam: deferred Results Lab / Micro Data Labs: Laboratory Results - last 24 hr 12/30/24 07:30: Urine Test Negative Assessment & Plan Assessment/Plan (1) Abdominal distension: (2) Celiac disease: PLAN: Assessment and Plan Assessment and Plan (1) Bloating: Status: Acute (2) Abdominal distension: Status: Acute (3) Celiac disease: Status: Acute Plan: This is a 19 yo female pt here today for f/u regarding her ongoing bloating and celiac disease. Pt established with [facility] in 2023 due to her bloating and was subsequently diagnosed with celiac. Celiac panel showing elevated ttg antibody and elevated endomysial antibody. Pt also with elevated centromere and anti BALE BREAKER OPERATOR. Referred to Rheumatology who is exploring CREST syndrome. Pt has been on gluten free diet since diagnosis however over the past few months she has had increased bloating, thin stools, weight fluctuations and acne. She has been very strict with her gluten free diet but will order TTG atb to ensure she has not had any accidental exposures. I will also order a CT abd/pelvis for continued abd distention and pain. She has fluctuating bowel movements with thin stools. She will undergo colonoscopy to rule out IBD. -Continue gluten free diet -Celiac testing -Colonoscopy -CT abd/pelvis -f/u after procedure and testing -
--- NOTE | 2024-12-30 09:10 | OP.PROVAT_ITS ---
12/30/2024 Bayron Suarez MD [address] [place] [address] [place] [address] Re : Colonoscopy procedure for Na Robertasuncion Dear Dr. Suarez This procedure was performed on Monday, December 30, 2024. My impressions and recommendations are as follows: Impressions : - One 8 mm polyp in the ascending colon, removed with a hot snare. Resected and retrieved. - Congested mucosa in the terminal ileum. - The examination was otherwise normal on direct and retroflexion views. Recommendations : - Discharge patient to home. - Resume previous diet. - Continue present medications. - Await pathology results. - Repeat colonoscopy in 5 years for surveillance. My findings are described in the full procedure note, which is enclosed. If I can be of further assistance, please feel free to contact me at . Sincerely, Kushal Hagen, 12/30/2024 9:10:10 AM This report has been signed electronically.
--- NOTE | 2024-12-30 09:10 | OP.COLON_ITS ---
Patient Name: Na Campos Procedure Date: 12/30/2024 8:34 AM Date of : 2005 Age: 19 Procedure: Colonoscopy Indications: Suspected Crohn's disease of the small bowel Providers: Kushal Hagen DO Referring MD: Bayron Suarez MD Medicines: Monitored Anesthesia Care Patient Profile: This is a 19 year old female. Refer to note in patient chart for documentation of history and physical. Last Colonoscopy: none. The patient's first colonoscopy is today. Complications: No immediate complications. Procedure: Pre-Anesthesia Assessment: - Prior to the procedure, a History and Physical was performed, and patient medications and allergies were reviewed. The patient is competent. The risks and benefits of the procedure and the sedation options and risks were discussed with the patient. All questions were answered and informed consent was obtained. Patient identification and proposed procedure were verified by the physician in the pre-procedure area. Mental Status Examination: alert and oriented. Airway Examination: normal oropharyngeal airway and neck mobility. Respiratory Examination: clear to auscultation. CV Examination: normal. Prophylactic Antibiotics: The patient does not require prophylactic antibiotics. Prior Anticoagulants: The patient has taken no anticoagulant or antiplatelet agents except for NSAID medication. ASA Grade Assessment: II - A patient with mild systemic disease. After reviewing the risks and benefits, the patient was deemed in satisfactory condition to undergo the procedure. The anesthesia plan was to use monitored anesthesia care (MAC). Immediately prior to administration of medications, the patient was re-assessed for adequacy to receive sedatives. The heart rate, respiratory rate, oxygen saturations, blood pressure, adequacy of pulmonary ventilation, and response to care were monitored throughout the procedure. The physical status of the patient was re-assessed after the procedure. After I obtained informed consent, the scope was passed under direct vision. Throughout the procedure, the patient's blood pressure, pulse, and oxygen saturations were monitored continuously. The Colonoscope was introduced through the anus and advanced to the terminal ileum. The colonoscopy was performed without difficulty. The patient tolerated the procedure well. The quality of the bowel preparation was adequate. The terminal ileum, ileocecal valve, appendiceal orifice, and rectum were photographed. Scope In: 8:47:52 AM Scope Withdrawal Time 0 hours 10 minutes 28 seconds Scope Out: 9:01:51 AM Total Procedure Duration Time 0 hours 13 minutes 59 seconds Findings: The perianal and digital rectal examinations were normal. An 8 mm polyp was found in the ascending colon. The polyp was sessile. The polyp was removed with a hot snare. Resection and retrieval were complete. Verification of patient identification for the specimen was done. Estimated blood loss was minimal. A patchy area of the terminal ileum was congested. Estimated blood loss: none. The exam was otherwise without abnormality on direct and retroflexion views. Impression: - One 8 mm polyp in the ascending colon, removed with a hot snare. Resected and retrieved. - Congested mucosa in the terminal ileum. - The examination was otherwise normal on direct and retroflexion views. Recommendation: - Discharge patient to home. - Resume previous diet. - Continue present medications. - Await pathology results. - Repeat colonoscopy in 5 years for surveillance. Procedure Code(s): --- Professional --- 48191, Colonoscopy, flexible; with removal of tumor(s), polyp(s), or other lesion(s) by snare technique CPT copyright 2021 [employer]. All rights reserved. The codes documented in this report are preliminary and upon youth counselor review may be revised to meet current compliance requirements. Kushal Hagen DO 12/30/2024 9:10:10 AM This report has been signed electronically. Number of Addenda: 0 Note Initiated On: 12/30/2024 8:34 AM
--- NOTE | 2024-12-30 09:10 | PCM.POST.ANE ---
Anesthesia: Postop Eval I Current Vital Signs Temperature: 97.7 F Pulse Rate: 64 Blood Pressure: 97/57 Respiratory Rate: 16 Pulse Ox: 100 Oxygen Delivery Method: Room Air Assessment Airway patent: Yes Spontaneous unlabored respirations: Yes Mental status: Asleep nausea: No Vomiting: No Anesthesia Complication: No Fluid Hydration Crystalloid volume administer (ml): 400 Total IV fluid infused: 400 Progress Note Anesthesia document: Postop Eval 1 completed: Yes
--- NOTE | 2024-12-30 14:01 | PCM.POSTANE2 ---
Anesthesia Postop Eval I Sum Postop Eval Completion status Anesthesia document: Postop Eval 1 completed: Yes Anesthesia Postop Eval I Summary Anesthesia Postop Eval I Summary: Anesthesia Postop Eval I: Assessment Summary Airway patent Yes 12/30/24 09:11 [email or web address] Spontaneous unlabored Yes 12/30/24 09:11 [email or web address] respirations Mental status Asleep 12/30/24 09:11 [email or web address] nausea No 12/30/24 09:11 [email or web address] Vomiting No 12/30/24 09:11 [email or web address] Anesthesia Postop Eval I: Fluid Summary Crystalloid volume administer 400 12/30/24 09:11 [email or web address] (ml) Colloids volume administered ( ml) Blood Product volume administered (ml) Total IV fluid infused 400 12/30/24 09:11 [email or web address] Anesthesia Postop Eval I: Summary Notes Anesthesia Complication No 12/30/24 09:11 [email or web address] Anesthesia Complication Comment: Post-operative progress note Anesthesia: Postop Eval II Evaluation Mental status: Awake Pain Level: 0 nausea: No Vomiting: No
== END 2024-12-30 09:56 | disposition home or self-care (01) ==
LOC: EN 07:23 → AC 07:24
PROVIDERS: Anesthesiology; PCP Internal Medicine; Referring Provider Internal Medicine; Visit Provider Internal Medicine Gastroenterology
PROC: 0DJD8ZZ Inspection of Lower Intestinal Tract, Via Natural or Artificial Opening Endoscopic (ICD-10-PCS; CPT 45378; principal; 2024-12-30 08:25)
DX: K90.0 Celiac disease (principal); D12.2 Benign neoplasm of ascending colon
CPT/HCPCS: 45385; 81025; 88305; 88341; 88342; J2405

== ENCOUNTER 2025-03-17 11:35 | Outpatient (CLI) | payer OTHER, SELFPAY | END 2025-03-17 23:59 | disposition home or self-care (01) | PROVIDERS: PCP Internal Medicine; Referring Provider Student in an Organized Health Care Education/Training Program; Visit Provider Student in an Organized Health Care Education/Training Program | DX: Z13.9 Encounter for screening, unspecified (principal); Z80.0 Family history of malignant neoplasm of digestive organs | CPT/HCPCS: 36415 ==